=== PATIENT | male | born 1960 | race Caucasian/White ===

== ENCOUNTER 2020-09-25 06:37 | Inpatient (IN) | payer OTHER ==
[~2020-09-25] VITALS: Ht 185.4 cm; Wt 94.8 kg
[2020-09-25] MEDS ORDERED: IV NORMAL SALINE 1000ML BAG 1,000 ML IV ONE (07:00)
[2020-09-25] MEDS ORDERED: DEXAMETHASONE SOD PHOS 4 MG/ML VIAL IVP ONE (07:00)
--- NOTE | 2020-09-25 07:43 | PHYS DOC ---
Past Medical History Past Medical History: COPD, Diabetes-Type II, Hypertension Additional Past Medical Histor: BPH, BACK PAIN Past Surgical History: Appendectomy Smoking Status: Former Smoker Alcohol Use: None Drug Use: None General Adult EDM: Chief Complaint: SHORTNESS OF BREATH HPI: HPI: Patient is a 59 year old male presents via EMS from [facility] with report of progressive work of breathing x2 days with low O2 Sat at facility down to 78% on RA. Patient does have a history of COPD and cough. Patient also complains of headache. Upon arrival EMS noted patient was 84% and tripoding on 3 L nasal cannula. EMS reports giving a DuoNeb treatment x2 in route and placement of patient on a nonrebreather with subsequent improvement in up to 95%. Patient reports he believes he has received the [employer] COVID-19 vaccination x1 approximately 5 months ago at the [facility]. Patient denies known exposure to COVID-19. Patient reports he has been using a rescue MDI without significant improvement. Denies fever or chills. Denies trauma. Review of Systems: Review of Systems: Constitutional: Denies fever or chills Eyes: Denies redness or eye pain HENT: Denies nasal congestion or sore throat Respiratory: Reports cough and shortness of breath Cardiovascular: Denies chest pain or palpitations GI: Denies abdominal pain, nausea, or vomiting : Denies dysuria or hematuria Musculoskeletal: Denies back pain or leg pain Integument: Denies rash or skin lesions Neurologic: Reports headache; denies focal weakness or sensory changes Complete systems were reviewed and found to be within normal limits, except as documented in this note. Heart Score: C/O Chest Pain: N/A Current Medications: Current Medications Medications (Trade) Dose Ordered Sig/[facility] Start Time Stop Time Status Last Admin Dose Admin Dexamethasone Sodium Phosphate (Decadron) 10 mg 1X ONCE 09/25/20 07:00 09/25/20 07:01 DC Sodium Chloride 1,000 ml @ 1,000 mls/hr 1X ONCE 09/25/20 07:00 09/25/20 07:59 Allergies: Allergies: Allergies Coded Allergies Type Severity Reaction Last Updated Verified tramadol Adverse Reaction Mild Nausea 09/25/20 Yes Physical Exam: PE: Constitutional: Well developed, well nourished, increased work of breathing, non-toxic appearance HENT: Normocephalic, atraumatic Eyes: PERRL, EOMI, conjunctiva normal, no discharge Neck: Normal range of motion, no tenderness, supple Lungs & Thorax: Mild respiratory distress, tachypnea, equal chest rise and fall Abdomen: Soft, no tenderness Skin: Warm, dry, no erythema, no rash Extremities: No tenderness, ROM intact, no edema Neurologic: Alert and oriented X 3, normal motor function, normal sensory function, no focal deficits noted Psychologic: Affect normal, judgment normal Current Patient Data: Vital Signs: Vital Signs Date Time Temp Pulse Resp B/P (MAP) Pulse Ox O2 Delivery O2 Flow Rate FiO2 09/25/20 06:40 98.6 90 24 201/95 95 NonRebreather Mask 15.0 98.6 EKG: EK09/25/20 at 0727 Sinus rhythm, 87 BPM, QRS 92 ms, QT/QTc 362/436 ms Radiology/Procedures: Radiology/Procedures: PROCEDURE: CT ANGIOGRAPHY CHEST CTA CHEST History: Dyspnea, hypoxia, evaluate for PE. Comparison: None. Technique: CTA of the pulmonary arteries with intravenous contrast. Sagittal and coronal 3-D MIP reformats were provided. Findings: Pulmonary arteries: No pulmonary embolism. Aorta and great vessels: No aneurysm of the aortic arch or thoracic aorta is seen. Moderate atherosclerosis. Thyroid: No significant abnormalities. Mediastinum and nate: Mediastinal adenopathy with numerous prominent nodes including a millimeters short axis prevascular and 13 mm right lower pretrachea l. Additional lobular opacities in the lower mediastinum may represent varices rather than enlarged lymph nodes. Esophagus: Thickening of the distal esophagus. There is a 9 x 10 mm weight calcific density in the lumen of the distal esophagus which may represent ingested tablet. Heart: The heart is normal in size. There is no pericardial effusion. Moderate coronary artery calcification. Airways, Lungs, Pleura: Panlobular groundglass airspace disease. Bibasilar atelectasis. Trace left pleural effusion. Upper abdomen: Cirrhotic liver contours. Large gastrohepatic and splenic varices. Enlarged 15.4 cm spleen. Osseous structures and soft tissues: Within normal limits for age. Impression: 1. No pulmonary embolism, aortic aneurysm or aortic dissection. 2. Panlobular airspace disease, most likely multifocal pneumonia. Pulmonary edema is considered less likely. 3. 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 4. Thickened distal esophagus with 9 x 10 mm luminal density, likely ingested medication tablet. 5. Mediastinal adenopathy, may be reactive, however malignancy is not excluded. Recommend follow-up CT of the chest in 3 months. ------ Exposure: One or more of the following individualized dose reduction techniques were utilized for this examination: 1. Automated exposure control 2. Adjustment of the mA and/or kV according to patient size 3. Use of iterative reconstruction technique. Electronically signed by: Hernando Acharya MD (09/25/2020 10:17 AM) [facility] PROCEDURE: CT HEAD WO CONTRAST CT HEAD/BRAIN WO History: Headache Comparison: None. Technique: Noncontrast CT imaging was performed of the head. Findings: No intracranial hemorrhage. No mass effect. No hydrocephalus. No evidence of territorial infarction. Imaged orbits are unremarkable. Mild mucosal thickening involving ethmoid, left sphenoid and left maxillary sinuses. No acute calvarial fracture. Impression: 1. No acute intracranial abnormality. 2. Very mild paranasal sinus mucosal thickening. Correlate for symptoms of sinusitis. ----- Exposure: One or more of the following individualized dose reduction techniques were utilized for this examination: 1. Automated exposure control 2. Adjustment of the mA and/or kV according to patient size 3. Use of iterative reconstruction technique. Electronically signed by: Hernando Acharya MD (09/25/2020 10:04 AM) [facility] Course & Med Decision Making: Course & Med Decision Making Pertinent Labs and Imaging studies reviewed. (See chart for details) Patient presents with history of increased work of breathing x2 days with history of COPD. Patient had been found to have a low O2 sat down to 78% on room air. Patient was placed on 3 L via nasal cannula at the facility and EMS was called. EMS reports patient still down to 84% on 3 L nasal cannula. DuoNeb and nonrebreather placed with subsequent improvement upon patient transport. Patient in mild respiratory distress upon arrival to the ER. Steroid provided. Labs obtained and posted to chart. Cannot exclude COVID-19 infection despite patient reporting one-time dose of [employer] vaccination. Covid preca utions in place. COVID-19 testing pending. Patient reports significant headache. Patient subsequently with increased work of breathing. BiPAP therefore provided. CT head without acute process. CTA chest with multilobar pneumonia. Continued concern for COVID-19. Empiric antibiotic initiated. Patient requiring admission for further evaluation and treatment. Discussed with Dr. Jaime (hospitalist) who is in agreement with admission. Dr. Jaime requesting abdominal US given cirrhosis findings on CT. US ordered per requests from Dr. Jaime. Discussed findings and plan with patient, who acknowledges understanding and agreement. COVID-19 CRITERIA: The patient was evaluated during the global COVID-19 pandemic, and that diagnosis was suspected/considered upon their initial presentation. Their evaluation, treatment and testing was consistent with current guidelines for patients who present with complaints or symptoms that may be related to COVID-19. Dragon Disclaimer: Dragon Disclaimer: This electronic medical record was generated, in whole or in part, using a voice recognition dictation system. Departure Departure Impression: Primary Impression: Respiratory failure Qualified Codes: J96.01 - Acute respiratory failure with hypoxia Additional Impressions: Hypoxia Headache Qualified Codes: R51.9 - Headache, unspecified Pneumonia Qualified Codes: J18.9 - Pneumonia, unspecified organism Suspected 2019 novel coronavirus infection Disposition: ADMITTED INPATIENT Admitting Physician: MARIO ([facility]eni) Condition: GUARDED Referrals: NO PCP (PCP) COVID-19 Assessment: COVID-19 Patient Risks: Age 65 or older: No Sign of co-morbidity: Yes Exp to person + for COVID: No Exp to PUI: No Travel from affected area: No Lower respiratory symptoms: Yes Fever: No Other: Yes PPE Use: Full PPE with N95 mask or PAPR: Yes Critical Care Time Critical care time was 30 minutes which includes time at bedside, spent in discussion of patient's care with specialists and/or family members, with interpretation of laboratory and/or radiological studies and is exclusive of procedures. DARA BHATTI DO Sep 25, 2020 07:43
[2020-09-25 08:30] LABS: BASO % 1 % (0-3); EOS # 0.2 x10^3/uL (0.0-0.7); EOS % 3 % (0-3); HEMATOCRIT 39.1 % (39.0-53.0); HEMOGLOBIN 13.2 g/dL (13.0-17.5); LYMPH # 1.2 x10^3/uL (1.0-4.8); LYMPH % 15 % (24-48); MEAN CORPUSCULAR HEMOGLOBIN 32 pg (25-35); MEAN CORPUSCULAR HGB CONC 34 g/dL (31-37); MEAN CORPUSCULAR VOLUME 94 fL (79-100); MONO # 0.4 x10^3/uL (0.0-1.1); MONO % 4 % (0-9); NEUT # 6.4 x10^3/uL (1.8-7.7); NEUT % 78 % (31-73); PLATELET COUNT 72 x10^3/uL (140-400); RED BLOOD COUNT 4.17 x10^6/uL (4.30-5.70); RED CELL DISTRIBUTION WIDTH 13.8 % (11.5-14.5); WHITE BLOOD COUNT 8.2 x10^3/uL (4.0-11.0)
[2020-09-25 08:41] LABS: CALCIUM 7.9 mg/dL (8.5-10.1); CREATININE 0.5 mg/dL (0.7-1.3); GFR 170.2; POTASSIUM 4.1 mmol/L (3.5-5.1)
[2020-09-25 08:43] LABS: ALBUMIN 2.6 g/dL (3.4-5.0); ALBUMIN/GLOBULIN RATIO 0.8 (1.0-1.7); MAGNESIUM 1.7 mg/dL (1.8-2.4); TOTAL BILIRUBIN 1.8 mg/dL (0.2-1.0); TOTAL PROTEIN 5.9 g/dL (6.4-8.2)
[2020-09-25] MEDS ORDERED: KETOROLAC 15 MG/ML VIAL. IVP ONE (09:00)
[2020-09-25 09:04] LABS: BILIRUBIN,URINE NEGATIVE (NEG); CLARITY,URINE CLEAR; COLOR,URINE YELLOW; NITRITE,URINE NEGATIVE (NEG); PH,URINE 6.5 (<5.0-8.0); PROTEIN,URINE NEGATIVE (NEG-TRACE)
[2020-09-25 09:08] LABS: HCO3 COOX 24 mmol/L (21-28); PCO2 COOX 34 mmHg (35-46); PO2 COOX 67 mmHg (65-108)
[2020-09-25 09:09] LABS: BASE EXCESS COOX 1 mmol/L (-3-3); SAT O2 COOX 94 % (92-99)
[2020-09-25] MEDS ORDERED: ASPIRIN ENTERIC COATED 325 MG TABLET.DR. PO ONE (09:15)
[2020-09-25 09:18] LABS: BACTERIA,URINE FEW /HPF (0-FEW); RBC,URINE OCC /HPF (0-2)
[2020-09-25] MEDS ORDERED: CONTRAST GIVEN. MC PRN (10:00)
[2020-09-25] MEDS ORDERED: IOHEXOL 350 MG/ML 100 ML VIAL. IV ONE (10:00)
--- NOTE | 2020-09-25 10:06 | RAD ---
CT HEAD/BRAIN WO History: Headache Comparison: None. Technique: Noncontrast CT imaging was performed of the head. Findings: No intracranial hemorrhage. No mass effect. No hydrocephalus. No evidence of territorial infarction. Imaged orbits are unremarkable. Mild mucosal thickening involving ethmoid, left sphenoid and left max illary sinuses. No acute calvarial fracture. Impression: 1. No acute intracranial abnormality. 2. Very mild paranasal sinus mucosal thickening. Correlate for symptoms of sinusitis. ----- Exposure: One or more of the following individualized dose reduction techniques were utilized for thi s examination: 1. Automated exposure control 2. Adjustment of the mA and/or kV according to patient size 3. Use of iterative reconstruction technique. Electronically signed by: Hernando Acharya MD (09/25/2020 10:04 AM) [facility]
--- NOTE | 2020-09-25 10:19 | RAD ---
CTA CHEST History: Dyspnea, hypoxia, evaluate for PE. Comparison: None. Technique: CTA of the pulmonary arteries with intravenous contrast. Sagittal and coronal 3-D MIP refo rmats were provided. Findings: Pulmonary arteries: No pulmonary embolism. Aorta and great vessels: No aneurysm of the aortic arch or thoracic aorta is seen. Moderate atheroscl erosis. Thyroid: No significant abnormalities. Mediastinum and nate: Mediastinal adenopathy with numerous prominent nodes including a millimeters sh ort axis prevascular and 13 mm right lower pretracheal. Additional lobular opacities in the lower med iastinum may represent varices rather than enlarged lymph nodes. Esophagus: Thickening of the distal esophagus. There is a 9 x 10 mm weight calcific density in the gillian men of the distal esophagus which may represent ingested tablet. Heart: The heart is normal in size. There is no pericardial effusion. Moderate coronary artery calcif ication. Airways, Lungs, Pleura: Panlobular groundglass airspace disease. Bibasilar atelectasis. Trace left pl eural effusion. Upper abdomen: Cirrhotic liver contours. Large gastrohepatic and splenic varices. Enlarged 15.4 cm sp tish. Osseous structures and soft tissues: Within normal limits for age. Impression: 1. No pulmonary embolism, aortic aneurysm or aortic dissection. 2. Panlobular airspace disease, most likely multifocal pneumonia. Pulmonary edema is considered less likely. 3. 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 4. Thickened distal esophagus with 9 x 10 mm luminal density, likely ingested medication tablet. 5. Mediastinal adenopathy, may be reactive, however malignancy is not excluded. Recommend follow-up CT of the chest in 3 months. ------ Exposure: One or more of the following individualized dose reduction techniques were utilized for thi s examination: 1. Automated exposure control 2. Adjustment of the mA and/or kV according to patient size 3. Use of iterative reconstruction technique. Electronically signed by: Hernando Acharya MD (09/25/2020 10:17 AM) [facility]
[2020-09-25] MEDS ORDERED: AZITHRMYCN 500MG IVPB FOR OMNI 250 ML IV ONE (10:30)
[2020-09-25] MEDS ORDERED: cefTRIAXone IV Push 1 GM VIAL. IVP ONE (10:30)
--- NOTE | 2020-09-25 10:30 | PDOC1 ---
History and Physical Date of Admission Date of Admission DATE: 09/25/20 TIME: 10:30 Identification/Chief Complaint Chief Complaint SOA WITH HYPOXIA WORSE TODAY History of Present Illness History of Present Illness 59 year old male presented via EMS from [facility] with work of breathing x2 days with low O2 Sat at facility down to 78% on RA. known history of COPD and cough. Patient also complains of headache. EMS noted patient was 84% and tripoding on 3 L nasal cannula. EMS reports giving a DuoNeb treatment x2 in route and placement nonrebreather with subsequent improvement in up to 95%. remote alcohol abuse YRS AGO , smoked until one month ago when he was arrested received the [employer] COVID-19 vaccination x1 approximately 5 months ag o at the NH. Patient denies known exposure to COVID-19. Panlobular airspace disease,c/w multifocal pneumonia. PUI Pulmonary edema less likely. 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 Remote alcohol abuse "6-8 cans of beer a day years ago" Thickened distal esophagus with 9 x 10 mm luminal density, likely ingested medication tablet. Mediastinal adenopathy, malignancy is not excluded.suggest follow-up CT of the chest in 3 months. / Hyperglycemia on accuchecks // Severe protein-caloric malnutrition CTA CHEST C/W Panlobular airspace disease, most likely multifocal pneumonia. 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.noted PLAN Emperic iv zithromax, rocephin daily / COVID 19 PCR / Consult pulm / Abdominal sonogram blood culture o2 support / Duonebs qid dvt prophylaxis GI prophylaxis DUONEBS QID Past Medical History Past Medical History Past Medical History Past Medical History: COPD, Diabetes-Type II, Hypertension Additional Past Medical Histor: BPH, BACK PAIN Past Surgical History: Appendectomy Smoking Status: Former Smoker Alcohol Use: None Drug Use: None Hepatobiliary: Cirrhosis Psych: Addictions Musculoskeletal: Osteoarthritis Family History Family History: High Cholestrol, Hypertension Social History Smoke: Quit ALCOHOL: heavy Drugs: Marijuana (REMOTE) Current Problem List Problem List Problems Medical Problems: (1) COPD exacerbation Status: Acute (2) Headache Status: Acute (3) Hypoxia Status: Acute (4) Respiratory failure Status: Acute Current Medications Current Medications Current Medications Sodium Chloride 1,000 ml @ 1,000 mls/hr 1X ONCE IV Last administered on 09/25/20at 08:27; Start 09/25/20 at 07:00; Stop 09/25/20 at 07:59; Status DC Dexamethasone Sodium Phosphate (Decadron) 10 mg 1X ONCE IVP Last administered on 09/25/20at 08:24; Start 09/25/20 at 07:00; Stop 09/25/20 at 07:01; Status DC Ketorolac Tromethamine (Toradol 15mg Vial) 15 mg 1X ONCE IVP Last administered on 09/25/20at 09:35; Start 09/25/20 at 09:00; Stop 09/25/20 at 09:01; Status DC Aspirin (Ecotrin) 325 mg 1X ONCE PO Last administered on 09/25/20at 09:35; Start 09/25/20 at 09:15; Stop 09/25/20 at 09:16; Status DC Iohexol (Omnipaque 350 Mg/ml) 100 ml 1X ONCE IV Last administered on 09/25/20at 10:05; Start 09/25/20 at 10:00; Stop 09/25/20 at 10:01; Status DC Info (CONTRAST GIVEN -- Rx MONITORING) 1 each PRN DAILY PRN MC SEE COMMENTS; Start 09/25/20 at 10:00; Stop 09/27/20 at 09:59 Allergies Allergies: Coded Allergies: tramadol (Verified Adverse Reaction, Mild, Nausea, 09/25/20) ROS Review of System 14 PT systems were reviewed otherwise neg General: YES: Fatigue; No: Chills, Night Sweats, Malaise, Appetite, Other PSYCHOLOGICAL ROS: No: Anxiety, Behavioral Disorder, Concentration difficultie, Decreased libido, Depression, Disorientation, Hallucinations, Hostility, Irritablity, Memory difficulties, Mood Swings, Obsessive thoughts, Physical abuse, Sexual abuse, Sleep disturbances, Suicidal ideation, Other Eyes: No Blurry vision, No Decreased vision, No Double vision, No Dry eyes, No Excessive tearing, No Eye Pain, No Itchy Eyes, No Loss of vision, No Photophobia, No Scotomata, No Uses contacts, No Uses glasses, No Other HEENT: YES: Heacaches; No: Visual Changes, Hearing change, Nasal congestion, Nasal discharge, Oral lesions, Sinus pain, Sore Throat, Epistaxis, Sneezing, Snoring, Tinnitus, Vertigo, Vocal changes, Other ALLERGY AND IMMUNOLOGY: YES: Hives; No: Insect Bite Sensitivity, Itchy/Watery Eyes, Nasal Congestion, Post Nasal Drip, Seasonal Allergies, Other Hematological and Lymphatic: No: Bleeding Problems, Blood Clots, Blood Transfusions, Brusing, Night Sweats, Pallor, Swollen Lymph Nodes, Other ENDOCRINE: No: Breast Changes, Galactorrhea, Hair Pattern Changes, Hot Flashes, Malaise/lethargy, Mood Swings, Palpitations, Polydipsia/polyuria, Skin Changes, Temperature Intolerance, Unexpected Weight Changes, Other Breast: No New/Changing Breast Lumps, No Nipple changes, No Nipple discharge, No Other Respiratory: YES: Cough, Shortness of breath, SOB with excertion, Wheezing Cardiovascular: No Chest Pain, No Palpitations, No Orthopnea, No Paroxysmal Noc. Dyspnea, No Edema, No Lt Headedness, No Other Gastrointestinal: No Nausea, No Vomiting, No Abdominal Pain, No Diarrhea, No Constipation, No Melena, No Hematochezia, No Other Genitourinary: No Dysuria, No Frequency, No Incontinence, No Hematuria, No Retention, No Discharge, No Urgency, No Pain, No Flank Pain, No Other, No , No , No , No , No , No , No Musculoskeletal: No Gait Disturbance, No Joint Pain, No Joint Stiffness, No Joint Swelling, No Muscle Pain, No Muscular Weakness, No Pain In:, No Swelling In:, No Other Neurological: No Behavorial Changes, No Bowel/Bladder ControlChng, No Confusion, No Dizziness, No Gait Disturbance, No Headaches, No Impaired Coord/balance, No Memory Loss, No Numbness/Tingling, No Seizures, No Speech Problems, No Tremors, No Visual Changes, No Weakness, No Other Skin: No Dry Skin, No Eczema, No Hair Changes, No Lumps, No Mole Changes, No Mottling, No Nail Changes, No Pruritus, No Rash, No Skin Lesion Changes, No Other, No Acne Physical Exam General: Alert, Oriented X3, Cooperative, No acute distress, mild distress HEENT: Atraumatic, PERRLA, EOMI, Mucous membr. moist/pink Lungs: Other (diminished ) Heart: S1S2, RRR, no thrills, no gallops, no jug vein distention Breasts: Not examined Abdomen: Normal bowel sounds, Soft, No tenderness, No masses, Other (obese) Rectal Exam: not examined PELVIC: Examination not indicated Extremities: No cyanosis Neuro: Normal speech, Strength at 5/5 X4 ext, Sensation intact, Cranial nerves 3-12 NL Psych/Mental Status: Mental status NL Vitals Vitals Vital Signs Date Time Temp Pulse Resp B/P (MAP) Pulse Ox O2 Delivery O2 Flow Rate FiO2 09/25/20 10:08 94 BiPAP/CPAP 09/25/20 06:40 98.6 90 24 201/95 15.0 98.6 Labs Labs Laboratory Tests Test 09/25/20 08:13 09/25/20 08:19 09/25/20 08:55 09/25/20 09:02 White Blood Count 8.2 x10^3/uL (4.0-11.0) Red Blood Count 4.17 x10^6/uL (4.30-5.70) Hemoglobin 13.2 g/dL (13.0-17.5) Hematocrit 39.1 % (39.0-53.0) Mean Corpuscular Volume 94 fL (79-100) Mean Corpuscular Hemoglobin 32 pg (25-35) Mean Corpuscular Hemoglobin Concent 34 g/dL (31-37) Red Cell Distribution Width 13.8 % (11.5-14.5) Platelet Count 72 x10^3/uL (140-400) Neutrophils (%) (Auto) 78 % (31-73) Lymphocytes (%) (Auto) 15 % (24-48) Monocytes (%) (Auto) 4 % (0-9) Eosinophils (%) (Auto) 3 % (0-3) Basophils (%) (Auto) 1 % (0-3) Neutrophils # (Auto) 6.4 x10^3/uL (1.8-7.7) Lymphocytes # (Auto) 1.2 x10^3/uL (1.0-4.8) Monocytes # (Auto) 0.4 x10^3/uL (0.0-1.1) Eosinophils # (Auto) 0.2 x10^3/uL (0.0-0.7) Basophils # (Auto) 0.0 x10^3/uL (0.0-0.2) Sodium Level 140 mmol/L (136-145) Potassium Level 4.1 mmol/L (3.5-5.1) Chloride Level 107 mmol/L (98-107) Carbon Dioxide Level 23 mmol/L (21-32) Anion Gap 10 (6-14) Blood Urea Nitrogen 9 mg/dL (8-26) Creatinine 0.5 mg/dL (0.7-1.3) Estimated GFR (Cockcroft-Gault) 170.2 BUN/Creatinine Ratio 18 (6-20) Glucose Level 219 mg/dL (70-99) Lactic Acid Level 1.4 mmol/L (0.4-2.0) Calcium Level 7.9 mg/dL (8.5-10.1) Magnesium Level 1.7 mg/dL (1.8-2.4) Total Bilirubin 1.8 mg/dL (0.2-1.0) Aspartate Amino Transf (AST/SGOT) 51 U/L (15-37) Alanine Aminotransferase (ALT/SGPT) 38 U/L (16-63) Alkaline Phosphatase 88 U/L (46-116) Creatine Kinase 95 U/L (39-308) Creatine Kinase MB (Mass) 1.0 ng/mL (0.0-3.6) Creatine Kinase MB Relative Index 1.1 % (0-4) Troponin I Quantitative < 0.017 ng/mL (0.000-0.055) VL-Dhk-C-Type Natriuretic Peptide 861 pg/mL (0-124) Total Protein 5.9 g/dL (6.4-8.2) Albumin 2.6 g/dL (3.4-5.0) Albumin/Globulin Ratio 0.8 (1.0-1.7) SARS-CoV-2 Antigen (Rapid) Negative (NEGATIVE) Urine Collection Type Void Urine Color Yellow Urine Clarity Clear Urine pH 6.5 (<5.0-8.0) Urine Specific [place] 1.020 (1.000-1.030) Urine Protein Negative mg/dL (NEG-TRACE) Urine Glucose (UA) >=1000 mg/dL (NEG) Urine Ketones (Stick) Negative mg/dL (NEG) Urine Blood Negative (NEG) Urine Nitrite Negative (NEG) Urine Bilirubin Negative (NEG) Urine Urobilinogen Dipstick 1.0 mg/dL (0.2 mg/dL) Urine Leukocyte Esterase Negative (NEG) Urine RBC Occ /HPF (0-2) Urine WBC 1-4 /HPF (0-4) Urine Squamous Epithelial Cells Few /LPF Urine Bacteria Few /HPF (0-FEW) Urine Mucus Slight /LPF O2 Saturation 94 % (92-99) Arterial Blood pH 7.46 (7.35-7.45) Arterial Blood pCO2 at Patient Temp 34 mmHg (35-46) Arterial Blood pO2 at Patient Temp 67 mmHg (65-108) Arterial Blood HCO3 24 mmol/L (21-28) Arterial Blood Base Excess 1 mmol/L (-3-3) Carbon Monoxide, Quantitative 2.0 % (0.0-1.9) FiO2 100 Laboratory Tests Test 09/25/20 08:13 09/25/20 08:19 09/25/20 08:55 09/25/20 09:02 White Blood Count 8.2 x10^3/uL (4.0-11.0) Red Blood Count 4.17 x10^6/uL (4.30-5.70) Hemoglobin 13.2 g/dL (13.0-17.5) Hematocrit 39.1 % (39.0-53.0) Mean Corpuscular Volume 94 fL (79-100) Mean Corpuscular Hemoglobin 32 pg (25-35) Mean Corpuscular Hemoglobin Concent 34 g/dL (31-37) Red Cell Distribution Width 13.8 % (11.5-14.5) Platelet Count 72 x10^3/uL (140-400) Neutrophils (%) (Auto) 78 % (31-73) Lymphocytes (%) (Auto) 15 % (24-48) Monocytes (%) (Auto) 4 % (0-9) Eosinophils (%) (Auto) 3 % (0-3) Basophils (%) (Auto) 1 % (0-3) Neutrophils # (Auto) 6.4 x10^3/uL (1.8-7.7) Lymphocytes # (Auto) 1.2 x10^3/uL (1.0-4.8) Monocytes # (Auto) 0.4 x10^3/uL (0.0-1.1) Eosinophils # (Auto) 0.2 x10^3/uL (0.0-0.7) Basophils # (Auto) 0.0 x10^3/uL (0.0-0.2) Sodium Level 140 mmol/L (136-145) Potassium Level 4.1 mmol/L (3.5-5.1) Chloride Level 107 mmol/L (98-107) Carbon Dioxide Level 23 mmol/L (21-32) Anion Gap 10 (6-14) Blood Urea Nitrogen 9 mg/dL (8-26) Creatinine 0.5 mg/dL (0.7-1.3) Estimated GFR (Cockcroft-Gault) 170.2 BUN/Creatinine Ratio 18 (6-20) Glucose Level 219 mg/dL (70-99) Lactic Acid Level 1.4 mmol/L (0.4-2.0) Calcium Level 7.9 mg/dL (8.5-10.1) Magnesium Level 1.7 mg/dL (1.8-2.4) Total Bilirubin 1.8 mg/dL (0.2-1.0) Aspartate Amino Transf (AST/SGOT) 51 U/L (15-37) Alanine Aminotransferase (ALT/SGPT) 38 U/L (16-63) Alkaline Phosphatase 88 U/L (46-116) Creatine Kinase 95 U/L (39-308) Creatine Kinase MB (Mass) 1.0 ng/mL (0.0-3.6) Creatine Kinase MB Relative Index 1.1 % (0-4) Troponin I Quantitative < 0.017 ng/mL (0.000-0.055) YL-Lvs-B-Type Natriuretic Peptide 861 pg/mL (0-124) Total Protein 5.9 g/dL (6.4-8.2) Albumin 2.6 g/dL (3.4-5.0) Albumin/Globulin Ratio 0.8 (1.0-1.7) SARS-CoV-2 Antigen (Rapid) Negative (NEGATIVE) Urine Collection Type Void Urine Color Yellow Urine Clarity Clear Urine pH 6.5 (<5.0-8.0) Urine Specific [place] 1.020 (1.000-1.030) Urine Protein Negative mg/dL (NEG-TRACE) Urine Glucose (UA) >=1000 mg/dL (NEG) Urine Ketones (Stick) Negative mg/dL (NEG) Urine Blood Negative (NEG) Urine Nitrite Negative (NEG) Urine Bilirubin Negative (NEG) Urine Urobilinogen Dipstick 1.0 mg/dL (0.2 mg/dL) Urine Leukocyte Esterase Negative (NEG) Urine RBC Occ /HPF (0-2) Urine WBC 1-4 /HPF (0-4) Urine Squamous Epithelial Cells Few /LPF Urine Bacteria Few /HPF (0-FEW) Urine Mucus Slight /LPF O2 Saturation 94 % (92-99) Arterial Blood pH 7.46 (7.35-7.45) Arterial Blood pCO2 at Patient Temp 34 mmHg (35-46) Arterial Blood pO2 at Patient Temp 67 mmHg (65-108) Arterial Blood HCO3 24 mmol/L (21-28) Arterial Blood Base Excess 1 mmol/L (-3-3) Carbon Monoxide, Quantitative 2.0 % (0.0-1.9) FiO2 100 Images Images Signed PATIENT: BHAVESH SIMMONS ACCOUNT: [id number] : 1960 LOCATION: ER AGE: 59 SEX: M EXAM STATUS: REG ER ORD. PHYSICIAN: DARA BHATTI DO REASON: dyspnea, hypoxia, eval for PE PROCEDURE: CT ANGIOGRAPHY CHEST CTA CHEST History: Dyspnea, hypoxia, evaluate for PE. Comparison: None. Technique: CTA of the pulmonary arteries with intravenous contrast. Sagittal and coronal 3-D MIP reformats were provided. Findings: Pulmonary arteries: No pulmonary embolism. Aorta and great vessels: No aneurysm of the aortic arch or thoracic aorta is seen. Moderate atherosclerosis. Thyroid: No significant abnormalities. Mediastinum and nate: Mediastinal adenopathy with numerous prominent nodes including a millimeters short axis prevascular and 13 mm right lower pretracheal. Additional lobular opacities in the lower mediastinum may represent varices rather than enlarged lymph nodes. Esophagus: Thickening of the distal esophagus. There is a 9 x 10 mm weight calcific density in the lumen of the distal esophagus which may represent ingested tablet. Heart: The heart is normal in size. There is no pericardial effusion. Moderate coronary artery calcification. Airways, Lungs, Pleura: Panlobular groundglass airspace disease. Bibasilar atelectasis. Trace left pleural effusion. Upper abdomen: Cirrhotic liver contours. Large gastrohepatic and splenic varices. Enlarged 15.4 cm spleen. Osseous structures and soft tissues: Within normal limits for age. Impression: 1. No pulmonary embolism, aortic aneurysm or aortic dissection. 2. Panlobular airspace disease, most likely multifocal pneumonia. Pulmonary edema is considered less likely. 3. 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 4. Thickened distal esophagus with 9 x 10 mm luminal density, likely ingested m edication tablet. 5. Mediastinal adenopathy, may be reactive, however malignancy is not excluded. Recommend follow-up CT of the chest in 3 months. ------ Exposure: One or more of the following individualized dose reduction techniques were utilized for this examination: 1. Automated exposure control 2. Adjustment of the mA and/or kV according to patient size 3. Use of iterative reconstruction technique. Electronically signed by: Hernando Dorado MD (09/25/2020 10:17 AM) [facility] DICTATED and SIGNED BY: HERNANDO DORADO MD DATE: 09/25/20 [id number] VTE Prophylaxis Ordered VTE Prophylaxis Devices: Yes VTE Pharmacological Prophylaxi: Yes Assessment/Plan Assessment/Plan impression- Acute exacerbation of COPD with acute pneumonia, gram neg and or gram positive Acute hypoxic respiratory failure No pulmonary embolism, aortic aneurysm or aortic dissection. Panlobular airspace disease,c/w multifocal pneumonia. PUI Pulmonary edema less likely. 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 Remote alcohol abuse "6-8 cans of beer a day years ago" Thickened distal esophagus with 9 x 10 mm luminal density, likely ingested medication tablet. Mediastinal adenopathy, malignancy is not excluded.suggest follow-up CT of the chest in 3 months. Hyperglycemia on accuchecks Severe protein-caloric malnutrition Hypomagnesemia on iv replacement Headache PLAN ADMIT Emperic iv zithromax, rocephin daily COVID 19 PCR Consult pulm Abdominal sonogram blood culture o2 support Duonebs qid dvt prophylaxis GI prophylaxis DUONEBS QID DVT PROPHYLAXIS GI PROPHYLAXIS D/W ER DR ESTIMATE LOS > 3 DAYS COVID-19 CRITERIA: The patient was evaluated during the global COVID-19 pandemic, and that diagnosis was suspected/considered upon their initial presentation. Their evaluation, treatment and testing was consistent with current guidelines for patients who present with complaints or symptoms that may be related to COVID-19. Justifications for Admission Other Justification NIRANJAN KIM MD Sep 25, 2020 10:30
[2020-09-25] MEDS ORDERED: ONDANSETRON PF 4 MG/2 ML VIAL. IV PRN ×2 (10:45→13:00)
[2020-09-25] MEDS ORDERED: DEXTROSE 50% 25 GM / 50ML DISP.SYRIN. IV PRN (10:45)
[2020-09-25] MEDS ORDERED: LABETALOL 20 MG/4 ML DISP.SYRIN. IVP ONE ×2 (11:42→12:00)
[2020-09-25] MEDS: INSULIN LISPRO 300 UNITS/3 ML VIAL. SQ SCH ×3 (11:59→17:16)
[2020-09-25] MEDS: fentaNYL PF VIAL 100 MCG/2 ML VIAL IV PRN ×2 (12:07→14:20)
[2020-09-25] MEDS ORDERED: guaiFENesin ORAL 200 MG/10 ML LIQUID. PO PRN (13:00)
[2020-09-25] MEDS ORDERED: MAG HYDROX/ALUMINUM HYD/SIMETH 30 ML ORAL.SUSP PO PRN (13:00)
[2020-09-25] MEDS ORDERED: cefTRIAXone IV Push 1 GM VIAL. IVP SCH (13:00)
[2020-09-25] MEDS ORDERED: 0.9 % SODIUM CHLORIDE 10 ML DISP.SYRIN. IV PRN (13:00)
[2020-09-25] MEDS ORDERED: cloNIDine HCL 0.1 MG TABLET PO PRN (13:00)
[2020-09-25] MEDS ORDERED: SODIUM PHOSPHATES 19/7GM 133 ML ENEMA. PR PRN (13:00)
[2020-09-25] MEDS ORDERED: ACETAMINOPHEN 325 MG TABLET. PO PRN (13:00)
[2020-09-25] MEDS ORDERED: DOCUSATE SODIUM 100 MG CAPSULE. PO PRN (13:00)
[2020-09-25] MEDS ORDERED: MAGNESIUM SULFATE 1GM 100 ML IV ONE (13:30)
[2020-09-25] MEDS: IPRATRPIUM/ALBUTEROL 0.5/2.5MG 3 ML NEBU. NEB SCH ×2 (13:38→18:32)
--- NOTE | 2020-09-25 14:56 | RAD ---
US ABDOMEN LIMITED History: Ascites check. Comparison: CT angiogram of the chest 09/25/2020. Technique: Limited sonographic evaluation of the abdomen for ascites. Findings/ impression: Images of the right upper quadrant, left upper quadrant, right lower quadrant and left lo wer quadrant demonstrate no ascites. Electronically signed by: Hernando Acharya MD (09/25/2020 2:53 PM) [id number]
[2020-09-25 15:18] LABS: BASE EXCESS COOX -2 mmol/L (-3-3); HCO3 COOX 23 mmol/L (21-28); METHEMOGLOBIN 0.3 % (0.0-1.9); OXYHEMOGLOBIN 94.2 %; PCO2 COOX 36 mmHg (35-46); PO2 COOX 84 mmHg (65-108); SAT O2 COOX 96 % (92-99)
[2020-09-25 15:30] VITALS: BP 153/83
[2020-09-25 19:00] VITALS: BP 144/75
--- NOTE | 2020-09-25 20:29 | EKG ---
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
[2020-09-25] MEDS: ENOXAPARIN 40 MG/0.4 ML SYRINGE. SQ SCH (20:35)
[2020-09-25 23:00] VITALS: BP 140/73
[2020-09-26 03:00] VITALS: BP 141/70
[2020-09-26 03:56] LABS: BASO % 0 % (0-3); EOS % 0 % (0-3); HEMATOCRIT 38.5 % (39.0-53.0); LYMPH # 0.6 x10^3/uL (1.0-4.8); LYMPH % 10 % (24-48); MEAN CORPUSCULAR HEMOGLOBIN 32 pg (25-35); MEAN CORPUSCULAR HGB CONC 34 g/dL (31-37); MEAN CORPUSCULAR VOLUME 94 fL (79-100); MONO # 0.3 x10^3/uL (0.0-1.1); MONO % 5 % (0-9); NEUT # 5.1 x10^3/uL (1.8-7.7); NEUT % 84 % (31-73); PLATELET COUNT 65 x10^3/uL (140-400); RED BLOOD COUNT 4.09 x10^6/uL (4.30-5.70); RED CELL DISTRIBUTION WIDTH 14.2 % (11.5-14.5); WHITE BLOOD COUNT 6.1 x10^3/uL (4.0-11.0)
[2020-09-26 05:41] LABS: CALCIUM 8.4 mg/dL (8.5-10.1); CREATININE 0.7 mg/dL (0.7-1.3); GFR 115.4; POTASSIUM 4.2 mmol/L (3.5-5.1)
[2020-09-26] MEDS: IPRATROPIUM/ALBUTEROL 20/100mcg/INH INHALER. INH SCH ×5 (06:33→22:00)
[2020-09-26 07:00] VITALS: BP 142/73
[2020-09-26] MEDS ORDERED: AZITHRMYCN 500MG IVPB FOR OMNI 250 ML IV SCH (07:00)
[2020-09-26 07:42] LABS: BASE EXCESS ABG 0 mmol/L (-3-3); HCO3 ABG 23 mmol/L (21-28); PCO2 ABG 35 mmHg (35-46); PO2 ABG 74 mmHg (65-108); SAT O2 ABG 96 % (92-99)
[2020-09-26] MEDS ORDERED: [UNRECOGNIZED DRUG - CODE] SQ ×2 (07:47)
[2020-09-26] MEDS ORDERED: TAMS0.4C97 PO (07:47)
[2020-09-26] MEDS ORDERED: METO25TA4 PO (07:47)
[2020-09-26] MEDS ORDERED: NAPR-514 PO (07:47)
[2020-09-26] MEDS ORDERED: ALBU2.5V8 IH (07:47)
[2020-09-26] MEDS ORDERED: INSU100V11 IJ (07:47)
[2020-09-26] MEDS ORDERED: CICL6.1H3 IH (07:47)
[2020-09-26] MEDS: INSULIN LISPRO 300 UNITS/3 ML VIAL. SQ SCH ×4 (08:00→17:26)
[2020-09-26 08:30] LABS: FIO2 ABG 65/BIPAP
[2020-09-26] MEDS: PANTOPRAZOLE IV PUSH 40 MG VIAL. IVP SCH (08:49)
[2020-09-26] MEDS: DEXAMETHASONE SOD PHOS 4 MG/ML VIAL IVP SCH (08:49)
[2020-09-26] MEDS: cefTRIAXone IV Push 1 GM VIAL. IVP SCH (08:54)
[2020-09-26] MEDS: fentaNYL PF VIAL 100 MCG/2 ML VIAL IV PRN (09:04)
[2020-09-26 11:00] VITALS: BP 168/65
[2020-09-26] MEDS: FLUTICASONE 50MCG/NASAL SPRAY 16GM BOTTLE. NS SCH (11:32)
[2020-09-26] MEDS: AZITHROMYCIN 500 MG in IV NORMAL SALINE 250ML 250 ML IV SCH (12:25)
--- NOTE | 2020-09-26 14:17 | PDOC ---
PULMONARY PROGRESS NOTES DATE: 09/26/20 TIME: 14:17 Vitals Vital Signs Date Time Temp Pulse Resp B/P (MAP) Pulse Ox O2 Delivery O2 Flow Rate FiO2 09/26/20 11:07 95 BiPAP/CPAP 09/26/20 11:00 98.5 91 46 168/65 (99) 98.5 09/26/20 09:04 15.0 Labs Laboratory Tests Test 09/25/20 08:13 09/25/20 08:19 09/25/20 08:55 09/25/20 09:02 White Blood Count 8.2 x10^3/uL (4.0-11.0) Red Blood Count 4.17 x10^6/uL (4.30-5.70) Hemoglobin 13.2 g/dL (13.0-17.5) Hematocrit 39.1 % (39.0-53.0) Mean Corpuscular Volume 94 fL (79-100) Mean Corpuscular Hemoglobin 32 pg (25-35) Mean Corpuscular Hemoglobin Concent 34 g/dL (31-37) Red Cell Distribution Width 13.8 % (11.5-14.5) Platelet Count 72 x10^3/uL (140-400) Neutrophils (%) (Auto) 78 % (31-73) Lymphocytes (%) (Auto) 15 % (24-48) Monocytes (%) (Auto) 4 % (0-9) Eosinophils (%) (Auto) 3 % (0-3) Basophils (%) (Auto) 1 % (0-3) Neutrophils # (Auto) 6.4 x10^3/uL (1.8-7.7) Lymphocytes # (Auto) 1.2 x10^3/uL (1.0-4.8) Monocytes # (Auto) 0.4 x10^3/uL (0.0-1.1) Eosinophils # (Auto) 0.2 x10^3/uL (0.0-0.7) Basophils # (Auto) 0.0 x10^3/uL (0.0-0.2) Sodium Level 140 mmol/L (136-145) Potassium Level 4.1 mmol/L (3.5-5.1) Chloride Level 107 mmol/L (98-107) Carbon Dioxide Level 23 mmol/L (21-32) Anion Gap 10 (6-14) Blood Urea Nitrogen 9 mg/dL (8-26) Creatinine 0.5 mg/dL (0.7-1.3) Estimated GFR (Cockcroft-Gault) 170.2 BUN/Creatinine Ratio 18 (6-20) Glucose Level 219 mg/dL (70-99) Lactic Acid Level 1.4 mmol/L (0.4-2.0) Calcium Level 7.9 mg/dL (8.5-10.1) Magnesium Level 1.7 mg/dL (1.8-2.4) Total Bilirubin 1.8 mg/dL (0.2-1.0) Aspartate Amino Transf (AST/SGOT) 51 U/L (15-37) Alanine Aminotransferase (ALT/SGPT) 38 U/L (16-63) Alkaline Phosphatase 88 U/L (46-116) Creatine Kinase 95 U/L (39-308) Creatine Kinase MB (Mass) 1.0 ng/mL (0.0-3.6) Creatine Kinase MB Relative Index 1.1 % (0-4) Troponin I Quantitative < 0.017 ng/mL (0.000-0.055) SF-Ijo-N-Type Natriuretic Peptide 861 pg/mL (0-124) Total Protein 5.9 g/dL (6.4-8.2) Albumin 2.6 g/dL (3.4-5.0) Albumin/Globulin Ratio 0.8 (1.0-1.7) SARS-CoV-2 RNA (SAILAJA) Positive (Negative) SARS-CoV-2 Antigen (Rapid) Negative (NEGATIVE) Urine Collection Type Void Urine Color Yellow Urine Clarity Clear Urine pH 6.5 (<5.0-8.0) Urine Specific [place] 1.020 (1.000-1.030) Urine Protein Negative mg/dL (NEG-TRACE) Urine Glucose (UA) >=1000 mg/dL (NEG) Urine Ketones (Stick) Negative mg/dL (NEG) Urine Blood Negative (NEG) Urine Nitrite Negative (NEG) Urine Bilirubin Negative (NEG) Urine Urobilinogen Dipstick 1.0 mg/dL (0.2 mg/dL) Urine Leukocyte Esterase Negative (NEG) Urine RBC Occ /HPF (0-2) Urine WBC 1-4 /HPF (0-4) Urine Squamous Epithelial Cells Few /LPF Urine Bacteria Few /HPF (0-FEW) Urine Mucus Slight /LPF O2 Saturation 94 % (92-99) Arterial Blood pH 7.46 (7.35-7.45) Arterial Blood pCO2 at Patient Temp 34 mmHg (35-46) Arterial Blood pO2 at Patient Temp 67 mmHg (65-108) Arterial Blood HCO3 24 mmol/L (21-28) Arterial Blood Base Excess 1 mmol/L (-3-3) Carbon Monoxide, Quantitative 2.0 % (0.0-1.9) FiO2 100 Test 09/25/20 14:35 09/25/20 15:15 09/25/20 17:00 09/25/20 20:05 Troponin I Quantitative < 0.017 ng/mL (0.000-0.055) O2 Saturation 96 % (92-99) Arterial Blood pH 7.41 (7.35-7.45) Arterial Blood pCO2 at Patient Temp 36 mmHg (35-46) Arterial Blood pO2 at Patient Temp 84 mmHg (65-108) Arterial Blood HCO3 23 mmol/L (21-28) Arterial Blood Base Excess -2 mmol/L (-3-3) Oxyhemoglobin 94.2 % Methemoglobin 0.3 % (0.0-1.9) Carbon Monoxide, Quantitative 1.5 % (0.0-1.9) FiO2 50% bipap Glucose (Fingerstick) 323 mg/dL (70-99) 306 mg/dL (70-99) Test 09/26/20 01:30 09/26/20 07:20 09/26/20 08:10 09/26/20 12:03 White Blood Count 6.1 x10^3/uL (4.0-11.0) Red Blood Count 4.09 x10^6/uL (4.30-5.70) Hemoglobin 13.0 g/dL (13.0-17.5) Hematocrit 38.5 % (39.0-53.0) Mean Corpuscular Volume 94 fL (79-100) Mean Corpuscular Hemoglobin 32 pg (25-35) Mean Corpuscular Hemoglobin Concent 34 g/dL (31-37) Red Cell Distribution Width 14.2 % (11.5-14.5) Platelet Count 65 x10^3/uL (140-400) Neutrophils (%) (Auto) 84 % (31-73) Lymphocytes (%) (Auto) 10 % (24-48) Monocytes (%) (Auto) 5 % (0-9) Eosinophils (%) (Auto) 0 % (0-3) Basophils (%) (Auto) 0 % (0-3) Neutrophils # (Auto) 5.1 x10^3/uL (1.8-7.7) Lymphocytes # (Auto) 0.6 x10^3/uL (1.0-4.8) Monocytes # (Auto) 0.3 x10^3/uL (0.0-1.1) Eosinophils # (Auto) 0.0 x10^3/uL (0.0-0.7) Basophils # (Auto) 0.0 x10^3/uL (0.0-0.2) Sodium Level 141 mmol/L (136-145) Potassium Level 4.2 mmol/L (3.5-5.1) Chloride Level 108 mmol/L (98-107) Carbon Dioxide Level 24 mmol/L (21-32) Anion Gap 9 (6-14) Blood Urea Nitrogen 14 mg/dL (8-26) Creatinine 0.7 mg/dL (0.7-1.3) Estimated GFR (Cockcroft-Gault) 115.4 Glucose Level 261 mg/dL (70-99) Calcium Level 8.4 mg/dL (8.5-10.1) Troponin I Quantitative < 0.017 ng/mL (0.000-0.055) O2 Saturation 96 % (92-99) Arterial Blood pH 7.45 (7.35-7.45) Arterial Blood pCO2 at Patient Temp 35 mmHg (35-46) Arterial Blood pO2 at Patient Temp 74 mmHg (65-108) Arterial Blood HCO3 23 mmol/L (21-28) Arterial Blood Base Excess 0 mmol/L (-3-3) FiO2 65/bipap Glucose (Fingerstick) 221 mg/dL (70-99) 265 mg/dL (70-99) Laboratory Tests Test 09/25/20 14:35 09/25/20 15:15 09/25/20 17:00 09/25/20 20:05 Troponin I Quantitative < 0.017 ng/mL (0.000-0.055) O2 Saturation 96 % (92-99) Arterial Blood pH 7.41 (7.35-7.45) Arterial Blood pCO2 at Patient Temp 36 mmHg (35-46) Arterial Blood pO2 at Patient Temp 84 mmHg (65-108) Arterial Blood HCO3 23 mmol/L (21-28) Arterial Blood Base Excess -2 mmol/L (-3-3) Oxyhemoglobin 94.2 % Methemoglobin 0.3 % (0.0-1.9) Carbon Monoxide, Quantitative 1.5 % (0.0-1.9) FiO2 50% bipap Glucose (Fingerstick) 323 mg/dL (70-99) 306 mg/dL (70-99) Test 09/26/20 01:30 09/26/20 07:20 09/26/20 08:10 09/26/20 12:03 White Blood Count 6.1 x10^3/uL (4.0-11.0) Red Blood Count 4.09 x10^6/uL (4.30-5.70) Hemoglobin 13.0 g/dL (13.0-17.5) Hematocrit 38.5 % (39.0-53.0) Mean Corpuscular Volume 94 fL (79-100) Mean Corpuscular Hemoglobin 32 pg (25-35) Mean Corpuscular Hemoglobin Concent 34 g/dL (31-37) Red Cell Distribution Width 14.2 % (11.5-14.5) Platelet Count 65 x10^3/uL (140-400) Neutrophils (%) (Auto) 84 % (31-73) Lymphocytes (%) (Auto) 10 % (24-48) Monocytes (%) (Auto) 5 % (0-9) Eosinophils (%) (Auto) 0 % (0-3) Basophils (%) (Auto) 0 % (0-3) Neutrophils # (Auto) 5.1 x10^3/uL (1.8-7.7) Lymphocytes # (Auto) 0.6 x10^3/uL (1.0-4.8) Monocytes # (Auto) 0.3 x10^3/uL (0.0-1.1) Eosinophils # (Auto) 0.0 x10^3/uL (0.0-0.7) Basophils # (Auto) 0.0 x10^3/uL (0.0-0.2) Sodium Level 141 mmol/L (136-145) Potassium Level 4.2 mmol/L (3.5-5.1) Chloride Level 108 mmol/L (98-107) Carbon Dioxide Level 24 mmol/L (21-32) Anion Gap 9 (6-14) Blood Urea Nitrogen 14 mg/dL (8-26) Creatinine 0.7 mg/dL (0.7-1.3) Estimated GFR (Cockcroft-Gault) 115.4 Glucose Level 261 mg/dL (70-99) Calcium Level 8.4 mg/dL (8.5-10.1) Troponin I Quantitative < 0.017 ng/mL (0.000-0.055) O2 Saturation 96 % (92-99) Arterial Blood pH 7.45 (7.35-7.45) Arterial Blood pCO2 at Patient Temp 35 mmHg (35-46) Arterial Blood pO2 at Patient Temp 74 mmHg (65-108) Arterial Blood HCO3 23 mmol/L (21-28) Arterial Blood Base Excess 0 mmol/L (-3-3) FiO2 65/bipap Glucose (Fingerstick) 221 mg/dL (70-99) 265 mg/dL (70-99) Medications Active Scripts Medications Dose Route/Sig Max Daily Dose Days Date Category Flomax (Tamsulosin Hcl) 0.4 Mg Cap.er.24h 1 Cap PO DAILY 09/26/20 Reported Semglee (Insulin Glargine,Hum.rec.anlog) 100 Unit/1 Ml Vial 20 Unit SQ QHS 09/26/20 Reported Semglee (Insulin Glargine,Hum.rec.anlog) 100 Unit/1 Ml Vial 30 Unit SQ QAM 09/26/20 Reported Novolin R (Insulin Regular, Human) 100 Unit/1 Ml Vial 100 Unit IJ SSI PRN 09/26/20 Reported Naproxen 500 Mg Tablet 1 Tab PO BID PRN 30 09/26/20 Reported Metoprolol Tartrate 25 Mg Tablet 1 Tab PO BID 09/26/20 Reported Alvesco (Ciclesonide) 6.1 Gm Hfa.aer.ad 6.1 Gm IH Q12HR 09/26/20 Reported Proair Hfa Inhaler (Albuterol Sulfate) 8.5 Gm Hfa.aer.ad 2 Puff IH PRN Q4-6HRS PRN 21 09/26/20 Reported Impression . Full note dictated COVID-19 viral pneumonia Respiratory failure Initiate remdesivir Continue steroid YVAN ZEE MD Sep 26, 2020 14:17
[2020-09-26] MEDS ORDERED: REMDESIVIR LOAD in IV NORMAL SALINE 250ML TV IV ONE (14:30)
--- NOTE | 2020-09-26 14:41 | PDOC ---
[employer] PROGRESS NOTE Date of Service DOS: DATE: 09/26/20 TIME: 14:40 Chief Complaint Chief Complaint Assessment/Plan Acute exacerbation of COPD with acute pneumonia, gram neg and or gram positive Acute hypoxic respiratory failure No pulmonary embolism, aortic aneurysm or aortic dissection. Panlobular airspace disease,c/w multifocal pneumonia. PUI Pulmonary edema less likely. 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 Remote alcohol abuse "6-8 cans of beer a day years ago" Thickened distal esophagus with 9 x 10 mm luminal density, likely ingested medication tablet. Mediastinal adenopathy, malignancy is not excluded.suggest follow-up CT of the chest in 3 months. Hyperglycemia on accuchecks Severe protein-caloric malnutrition Hypomagnesemia on iv replacement Headache ADMIT Emperic iv zithromax, rocephin daily COVID 19 PCR Consult pulm Abdominal sonogram blood culture o2 support Duonebs qid dvt prophylaxis GI prophylaxis DUONEBS QID DVT PROPHYLAXIS GI PROPHYLAXIS D/W ER DR ESTIMATE LOS > 3 DAYS COVID-19 CRITERIA: The patient was evaluated during the global COVID-19 pandemic, and that diagnosis was suspected/considered upon their initial presentation. Their evaluation, treatment and testing was consistent with current guidelines for patients who present with complaints or symptoms that may be related to COVID-19. History of Present Illness History of Present Illness 59 year old male presented via EMS [facility] with work of breathing x2 days with low O2 Sat at facility down to 78% on RA. known history of COPD and cough. Patient also complains of headache. EMS noted patient was 84% and tripoding on 3 L nasal cannula. EMS reports giving a DuoNeb treatment x2 in route and placement nonrebreather with subsequent improvement in up to 95%. remote alcohol abuse YRS AGO , smoked until one month ago when he was arrested received the [employer] COVID-19 vaccination x1 [facility]. Patient denies known exposure to COVID-19. Panlobular airspace disease,c/w multifocal pneumonia. PUI Pulmonary edema less likely. 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 Remote alcohol abuse "6-8 cans of beer a day years ago" Thickened distal esophagus with 9 x 10 mm luminal density, likely ingested medication tablet. Mediastinal adenopathy, malignancy is not excluded.suggest follow-up CT of the chest in 3 months. / Hyperglycemia on accuchecks // Severe protein-caloric malnutrition CTA CHEST C/W Panlobular airspace disease, most likely multifocal pneumonia. 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 Patient tolerating BiPAP and saturating 91%. Started patient on IV Protonix because he is still on steroids. And has a history of esophageal varices. Patient's chart, labs, images were reviewed and discussed with RN Vitals/I&O Vitals/I&O: Vital Signs Date Time Temp Pulse Resp B/P (MAP) Pulse Ox O2 Delivery O2 Flow Rate FiO2 09/26/20 11:07 95 BiPAP/CPAP 09/26/20 11:00 98.5 91 46 168/65 (99) 98.5 09/26/20 09:04 15.0 I & O 09/25/20 09/25/20 09/26/20 15:00 23:00 07:00 Intake Total 1250 ml 1610 ml Output Total 400 ml 950 ml Balance 1250 ml 1210 ml -950 ml Physical Exam General: Alert, Oriented X3, Cooperative, No acute distress, mild distress Abdomen: Normal bowel sounds, Soft, No tenderness, No masses, Other (obese) Extremities: No cyanosis Labs Labs: Laboratory Tests Test 09/25/20 15:15 09/25/20 17:00 09/25/20 20:05 09/26/20 01:30 O2 Saturation 96 % (92-99) Arterial Blood pH 7.41 (7.35-7.45) Arterial Blood pCO2 at Patient Temp 36 mmHg (35-46) Arterial Blood pO2 at Patient Temp 84 mmHg (65-108) Arterial Blood HCO3 23 mmol/L (21-28) Arterial Blood Base Excess -2 mmol/L (-3-3) Oxyhemoglobin 94.2 % Methemoglobin 0.3 % (0.0-1.9) Carbon Monoxide, Quantitative 1.5 % (0.0-1.9) FiO2 50% bipap Glucose (Fingerstick) 323 mg/dL (70-99) 306 mg/dL (70-99) White Blood Count 6.1 x10^3/uL (4.0-11.0) Red Blood Count 4.09 x10^6/uL (4.30-5.70) Hemoglobin 13.0 g/dL (13.0-17.5) Hematocrit 38.5 % (39.0-53.0) Mean Corpuscular Volume 94 fL (79-100) Mean Corpuscular Hemoglobin 32 pg (25-35) Mean Corpuscular Hemoglobin Concent 34 g/dL (31-37) Red Cell Distribution Width 14.2 % (11.5-14.5) Platelet Count 65 x10^3/uL (140-400) Neutrophils (%) (Auto) 84 % (31-73) Lymphocytes (%) (Auto) 10 % (24-48) Monocytes (%) (Auto) 5 % (0-9) Eosinophils (%) (Auto) 0 % (0-3) Basophils (%) (Auto) 0 % (0-3) Neutrophils # (Auto) 5.1 x10^3/uL (1.8-7.7) Lymphocytes # (Auto) 0.6 x10^3/uL (1.0-4.8) Monocytes # (Auto) 0.3 x10^3/uL (0.0-1.1) Eosinophils # (Auto) 0.0 x10^3/uL (0.0-0.7) Basophils # (Auto) 0.0 x10^3/uL (0.0-0.2) Sodium Level 141 mmol/L (136-145) Potassium Level 4.2 mmol/L (3.5-5.1) Chloride Level 108 mmol/L (98-107) Carbon Dioxide Level 24 mmol/L (21-32) Anion Gap 9 (6-14) Blood Urea Nitrogen 14 mg/dL (8-26) Creatinine 0.7 mg/dL (0.7-1.3) Estimated GFR (Cockcroft-Gault) 115.4 Glucose Level 261 mg/dL (70-99) Calcium Level 8.4 mg/dL (8.5-10.1) Troponin I Quantitative < 0.017 ng/mL (0.000-0.055) Test 09/26/20 07:20 09/26/20 08:10 09/26/20 12:03 O2 Saturation 96 % (92-99) Arterial Blood pH 7.45 (7.35-7.45) Arterial Blood pCO2 at Patient Temp 35 mmHg (35-46) Arterial Blood pO2 at Patient Temp 74 mmHg (65-108) Arterial Blood HCO3 23 mmol/L (21-28) Arterial Blood Base Excess 0 mmol/L (-3-3) FiO2 65/bipap Glucose (Fingerstick) 221 mg/dL (70-99) 265 mg/dL (70-99) Assessment and Plan Assessmemt and Plan Problems Medical Problems: (1) COPD exacerbation Status: Acute (2) Headache Status: Acute (3) Hypoxia Status: Acute (4) Pneumonia Status: Acute (5) Respiratory failure Status: Acute (6) Suspected 2019 novel coronavirus infection Status: Acute Comment Review of Relevant I have reviewed the following items herlinda (where applicable) has been applied. Medications: Current Medications Medications (Trade) Dose Ordered Sig/Lloyd Route PRN Reason Start Time Stop Time Status Last Admin Dose Admin Enoxaparin Sodium (Lovenox 40mg Syringe) 40 mg Q24H SQ 09/25/20 21:00 09/25/20 20:35 Ceftriaxone Sodium (Rocephin) 1 gm Q24H IVP 09/26/20 09:00 09/26/20 08:54 Dexamethasone Sodium Phosphate (Decadron) 6 mg DAILY IVP 09/26/20 09:00 09/26/20 08:49 Insulin Human Lispro (HumaLOG) 0-7 UNITS TIDWMEALS SQ 09/25/20 17:00 09/26/20 12:23 Azithromycin 500 mg/Sodium Chloride 250 ml @ 250 mls/hr Q24H IV 09/26/20 13:00 09/26/20 12:25 Albuterol/ Ipratropium (Combivent Respimat 20-100 Mcg) 1 puff Q4HRS W/A INH 09/26/20 06:00 09/26/20 11:32 Pantoprazole Sodium (PROTONIX VIAL for IV PUSH) 40 mg DAILYAC IVP 09/26/20 09:00 09/26/20 08:49 Fluticasone Propionate (Flonase) 2 spray DAILY NS 09/26/20 10:45 09/26/20 11:32 Justifications for Admission Other Justification RESP FAILURE WITH HYPOXIA CONSTANZA HENRY MD Sep 26, 2020 14:41
[2020-09-26 15:00] VITALS: BP 151/77
[2020-09-26] MEDS ORDERED: IBUPROFEN 200 MG TABLET. PO PRN (18:30)
[2020-09-26 19:00] VITALS: BP 157/85
--- NOTE | 2020-09-26 19:39 | NUR ---
Nurse's Note: Patient's IV discontinued due to pain on the site. This nurse attempted to place an IV access, 2x but unsuccessful. Referred to charge nurse. Called Dr. Weaver, order for midline received; notified leases and land supervisor.
[2020-09-26] MEDS: LACTOBACILLUS RHAMNOSUS GG 1 CAPSULE. PO SCH (19:44)
--- NOTE | 2020-09-26 19:47 | NUR ---
Nurse's note: Non administered IV azithromycin, no IV access
[2020-09-26] MEDS: ENOXAPARIN 40 MG/0.4 ML SYRINGE. SQ SCH (19:56)
--- NOTE | 2020-09-26 21:56 | CONS ---
DATE OF CONSULTATION: 09/26/2020 ATTENDING PHYSICIAN: NIRANJAN KIM MD REASON FOR CONSULTATION: The patient is seen in pulmonary consultation at the request of Dr. Kim for acute hypoxemic respiratory failure, COVID-19 positive, utilizing noninvasive ventilation. HISTORY OF PRESENT ILLNESS: The patient is a 59-year-old male, resides at a correctional facility, had a [employer] COVID vaccine some time 5 months ago. He has been incarcerated for some time, was actually in quarantine for 14 days. He presented with increasing shortness of breath, O2 saturation of 78% on room air. He tested positive for COVID-19. His white count was normal with a lymphopenia. I was asked to see the patient in pulmonary consultation. His arterial blood gas revealed a pH of 7.45, PaCO2 of 35, pO2 of 41 and 65% BiPAP. Serology for SARS-CoV-2 nuclear amplification rapid test was negative. He had a CT angiogram, which revealed airspace disease. Otherwise, no evidence of pulmonary embolism, aortic dissection or aortic aneurysm. He has some mediastinal adenopathy, more than likely reactive. PAST MEDICAL HISTORY: COPD, tobacco dependent, type 2 diabetes, hypertension, chronic back pain. PAST SURGICAL HISTORY: Status post appendectomy. REVIEW OF SYSTEMS: As indicated in the history of present illness, otherwise other systems were reviewed and negative. ALLERGIES: No known drug allergies. CURRENT MEDICATIONS: List was reviewed. HOME MEDICATIONS: List was likewise reviewed. PHYSICAL EXAMINATION: GENERAL: The patient was able to complete full sentences, on BiPAP. He was in no significant respiratory distress. VITAL SIGNS: O2 saturation was greater than 92%. NECK: Jugular venous distention was not elevated. No lymphadenopathy. HEENT: Eyes; the sclerae are nonicteric. NECK: Jugular venous distention was not elevated. No lymphadenopathy. CHEST: Full expansion. LUNGS: Adequate flow with scattered rhonchi. CARDIOVASCULAR: Regular rate and rhythm with S1, S2. No S3. ABDOMEN: Soft, nontender, nondistended. EXTREMITIES: No clubbing or cyanosis. No pitting edema. LABORATORY DATA: Chest x-ray as indicated above. IMPRESSION: 1. Acute hypoxemic respiratory failure secondary to COVID-19. 2. COVID-19 viral pneumonia. 3. Possible bacterial pneumonia. 4. Other comorbidities including chronic obstructive pulmonary disease with acute exacerbation, tobacco dependent, chronic back pain and hypertension. PLAN: I have reviewed the MAR. The patient is currently on Zithromax and Rocephin. He is also on dexamethasone. We will proceed with initiating remdesivir. Continue DVT prophylaxis. I do appreciate the privilege in sharing in patient's care. HILDA MOYA: Sebastian TID: [id number]
[2020-09-26 23:00] VITALS: BP 168/82
[2020-09-27 01:11] LABS: HEMOGLOBIN A1C 11.5 % (4.8-5.6)
[2020-09-27 03:00] VITALS: BP 173/83
[2020-09-27] MEDS: IPRATROPIUM/ALBUTEROL 20/100mcg/INH INHALER. INH SCH ×5 (05:28→20:45)
[2020-09-27 07:30] VITALS: BP 171/88
[2020-09-27] MEDS: LACTOBACILLUS RHAMNOSUS GG 1 CAPSULE. PO SCH ×2 (08:02→20:45)
[2020-09-27] MEDS: INSULIN LISPRO 300 UNITS/3 ML VIAL. SQ SCH ×4 (08:04→19:46)
[2020-09-27] MEDS: FLUTICASONE 50MCG/NASAL SPRAY 16GM BOTTLE. NS SCH (09:00)
--- NOTE | 2020-09-27 09:41 | PDOC ---
PULMONARY PROGRESS NOTES DATE: 09/27/20 TIME: 09:41 Subjective Patient on BiPAP, appears to be comfortable. Vitals Vital Signs Date Time Temp Pulse Resp B/P (MAP) Pulse Ox O2 Delivery O2 Flow Rate FiO2 09/27/20 08:02 73 173/83 09/27/20 07:30 97.2 24 92 BiPAP/CPAP 97.2 09/26/20 20:00 15.0 Comments Patient seen during the , and visual inspection of BiPAP no respiratory distress no paroxysmal breathing pattern no increasing edema no new rash Labs Laboratory Tests Test 09/25/20 11:55 09/25/20 14:35 09/25/20 15:15 09/25/20 17:00 Glucose (Fingerstick) 128 mg/dL (70-99) 323 mg/dL (70-99) Troponin I Quantitative < 0.017 ng/mL (0.000-0.055) O2 Saturation 96 % (92-99) Arterial Blood pH 7.41 (7.35-7.45) Arterial Blood pCO2 at Patient Temp 36 mmHg (35-46) Arterial Blood pO2 at Patient Temp 84 mmHg (65-108) Arterial Blood HCO3 23 mmol/L (21-28) Arterial Blood Base Excess -2 mmol/L (-3-3) Oxyhemoglobin 94.2 % Methemoglobin 0.3 % (0.0-1.9) Carbon Monoxide, Quantitative 1.5 % (0.0-1.9) FiO2 50% bipap Test 09/25/20 20:05 09/26/20 01:30 09/26/20 07:20 09/26/20 08:10 Glucose (Fingerstick) 306 mg/dL (70-99) 221 mg/dL (70-99) White Blood Count 6.1 x10^3/uL (4.0-11.0) Red Blood Count 4.09 x10^6/uL (4.30-5.70) Hemoglobin 13.0 g/dL (13.0-17.5) Hematocrit 38.5 % (39.0-53.0) Mean Corpuscular Volume 94 fL (79-100) Mean Corpuscular Hemoglobin 32 pg (25-35) Mean Corpuscular Hemoglobin Concent 34 g/dL (31-37) Red Cell Distribution Width 14.2 % (11.5-14.5) Platelet Count 65 x10^3/uL (140-400) Neutrophils (%) (Auto) 84 % (31-73) Lymphocytes (%) (Auto) 10 % (24-48) Monocytes (%) (Auto) 5 % (0-9) Eosinophils (%) (Auto) 0 % (0-3) Basophils (%) (Auto) 0 % (0-3) Neutrophils # (Auto) 5.1 x10^3/uL (1.8-7.7) Lymphocytes # (Auto) 0.6 x10^3/uL (1.0-4.8) Monocytes # (Auto) 0.3 x10^3/uL (0.0-1.1) Eosinophils # (Auto) 0.0 x10^3/uL (0.0-0.7) Basophils # (Auto) 0.0 x10^3/uL (0.0-0.2) Sodium Level 141 mmol/L (136-145) Potassium Level 4.2 mmol/L (3.5-5.1) Chloride Level 108 mmol/L (98-107) Carbon Dioxide Level 24 mmol/L (21-32) Anion Gap 9 (6-14) Blood Urea Nitrogen 14 mg/dL (8-26) Creatinine 0.7 mg/dL (0.7-1.3) Estimated GFR (Cockcroft-Gault) 115.4 Glucose Level 261 mg/dL (70-99) Calcium Level 8.4 mg/dL (8.5-10.1) Troponin I Quantitative < 0.017 ng/mL (0.000-0.055) O2 Saturation 96 % (92-99) Arterial Blood pH 7.45 (7.35-7.45) Arterial Blood pCO2 at Patient Temp 35 mmHg (35-46) Arterial Blood pO2 at Patient Temp 74 mmHg (65-108) Arterial Blood HCO3 23 mmol/L (21-28) Arterial Blood Base Excess 0 mmol/L (-3-3) FiO2 65/bipap Test 09/26/20 12:03 09/26/20 16:48 09/26/20 20:12 09/27/20 07:42 Glucose (Fingerstick) 265 mg/dL (70-99) 325 mg/dL (70-99) 392 mg/dL (70-99) 263 mg/dL (70-99) Laboratory Tests Test 09/26/20 12:03 09/26/20 16:48 09/26/20 20:12 09/27/20 07:42 Glucose (Fingerstick) 265 mg/dL (70-99) 325 mg/dL (70-99) 392 mg/dL (70-99) 263 mg/dL (70-99) Medications Active Scripts Medications Dose Route/Sig Max Daily Dose Days Date Category Flomax (Tamsulosin Hcl) 0.4 Mg Cap.er.24h 1 Cap PO DAILY 09/26/20 Reported Semglee (Insulin Glargine,Hum.rec.anlog) 100 Unit/1 Ml Vial 20 Unit SQ QHS 09/26/20 Reported Semglee (Insulin Glargine,Hum.rec.anlog) 100 Unit/1 Ml Vial 30 Unit SQ QAM 09/26/20 Reported Novolin R (Insulin Regular, Human) 100 Unit/1 Ml Vial 100 Unit IJ SSI PRN 09/26/20 Reported Naproxen 500 Mg Tablet 1 Tab PO BID PRN 30 09/26/20 Reported Metoprolol Tartrate 25 Mg Tablet 1 Tab PO BID 09/26/20 Reported Alvesco (Ciclesonide) 6.1 Gm Hfa.aer.ad 6.1 Gm IH Q12HR 09/26/20 Reported Proair Hfa Inhaler (Albuterol Sulfate) 8.5 Gm Hfa.aer.ad 2 Puff IH PRN Q4-6HRS PRN 21 09/26/20 Reported Impression . IMPRESSION: 1. Acute hypoxemic respiratory failure secondary to COVID-19. 2. COVID-19 viral pneumonia. 3. Possible bacterial pneumonia. 4. Other comorbidities including chronic obstructive pulmonary disease with acute exacerbation, tobacco dependent, chronic back pain and hypertension. Plan . Updated 09/27 Patient initiated on remdesivir yesterday Continue BiPAP On dexamethasone Continue Zithromax DVT GI prophylaxis PLAN: I have reviewed the MAR. The patient is currently on Zithromax and Rocephin. He is also on dexamethasone. We will proceed with initiating remdesivir. Continue DVT prophylaxis. I do appreciate the privilege in sharing in patient's care. YVAN ZEE MD Sep 27, 2020 09:41
[2020-09-27] MEDS: cefTRIAXone IV Push 1 GM VIAL. IVP SCH (10:59)
[2020-09-27] MEDS: PANTOPRAZOLE IV PUSH 40 MG VIAL. IVP SCH (10:59)
[2020-09-27 11:00] VITALS: BP 230/111
[2020-09-27] MEDS ORDERED: MORPHINE SULFATE 2 MG/ML INJ. IV ONE (11:00)
[2020-09-27] MEDS: DEXAMETHASONE SOD PHOS 4 MG/ML VIAL IVP SCH (11:00)
[2020-09-27] MEDS: hydrALAZINE 20 MG/ML VIAL. IVP PRN (11:02)
--- NOTE | 2020-09-27 11:21 | NUR ---
patient called nurse station for anxiety meds. VSS on monitor w/ O2 sat at 90% on NRB. RN obtained order for PO ativan as pt had no IV access. RN pulled ativan from machine and guard approached desk stating that patient was having trouble breathing. O2 sat on monitor then 81%. RN quickly entered room and patient was clearly in distress w/ sat of 71% on [place] in room. administered ativan and placed on Bipap. Rapid called. Pt BP 230/111 and O2 sat now 86%. Clonidine PO given. IV started in R index finger. RT in room and changed O2 setting on bipap from 55% to 65%. Pt O2 sat then increased to 90-91%. Morphine given for headache. Hydralazine given for elevated BP. will monitor.
[2020-09-27] MEDS ORDERED: REMDESIVIR LOAD in IV NORMAL SALINE 250ML TV IV ONE (12:00)
[2020-09-27] MEDS: FLUTICASONE/VILANTEROL 100/25 INHALER. INH SCH ×2 (12:48→14:43)
[2020-09-27] MEDS: TAMSULOSIN 0.4 MG CAP.ER.24H. PO SCH (12:49)
[2020-09-27] MEDS: METOPROLOL TART IMMED RELEASE 25 MG TABLET. PO SCH ×2 (12:50→20:46)
[2020-09-27] MEDS: AZITHROMYCIN 500 MG in IV NORMAL SALINE 250ML 250 ML IV SCH (14:44)
[2020-09-27 15:16] VITALS: BP 132/76
--- NOTE | 2020-09-27 16:17 | PDOC ---
[employer] PROGRESS NOTE Date of Service DOS: DATE: 09/27/20 TIME: 16:14 Chief Complaint Chief Complaint Assessment/Plan Acute exacerbation of COPD with acute pneumonia, gram neg and or gram positive Acute hypoxic respiratory failure No pulmonary embolism, aortic aneurysm or aortic dissection. Panlobular airspace disease,c/w multifocal pneumonia. PUI Pulmonary edema less likely. 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 Remote alcohol abuse "6-8 cans of beer a day years ago" Thickened distal esophagus with 9 x 10 mm luminal density, likely ingested medication tablet. Mediastinal adenopathy, malignancy is not excluded.suggest follow-up CT of the chest in 3 months. Hyperglycemia on accuchecks Severe protein-caloric malnutrition Hypomagnesemia on iv replacement Headache ADMIT Emperic iv zithromax, rocephin daily COVID 19 PCR positive Consult pulm blood culture --> NGTD o2 support Duonebs qid --> will have to hold due to COVID positive status dvt prophylaxis GI prophylaxis DVT PROPHYLAXIS GI PROPHYLAXIS ESTIMATE LOS > 3 DAYS COVID-19 CRITERIA: The patient was evaluated during the global COVID-19 pandemic, and that diagnosis was suspected/considered upon their initial presentation. Their evaluation, treatment and testing was consistent with current guidelines for patients who present with complaints or symptoms that may be related to COVID-19. History of Present Illness History of Present Illness 59 year old male presented via EMS from [facility] with work of breathing x2 days with low O2 Sat at facility down to 78% on RA. known history of COPD and cough. Patient also complains of headache. EMS noted patient was 84% and tripoding on 3 L nasal cannula. EMS reports giving a DuoNeb treatment x2 in route and placement nonrebreather with subsequent improvement in up to 95%. remote alcohol abuse YRS AGO , smoked until one month ago when he was arrested received the [employer] COVID-19 vaccination [facility]. Patient denies known exposure to COVID-19. Panlobular airspace disease,c/w multifocal pneumonia. PUI Pulmonary edema less likely. 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 Remote alcohol abuse "6-8 cans of beer a day years ago" Thickened distal esophagus with 9 x 10 mm luminal density, likely ingested medication tablet. Mediastinal adenopathy, malignancy is not excluded.suggest follow-up CT of the chest in 3 months. / Hyperglycemia on accuchecks // Severe protein-caloric malnutrition CTA CHEST C/W Panlobular airspace disease, most likely multifocal pneumonia. 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 Patient tolerating BiPAP and saturating 91%. Started patient on IV Protonix because he is still on steroids. And has a history of esophageal varices. Patient's chart, labs, images were reviewed and discussed with RN 09/27/20 Patient evaluated at bedside He was having laboring respirations initially on the BiPAP concerned patient may need ICU transfer however was given a dose of Ativan and was able to calm down and respiratory status improved Continue steroids Pulmonary consult Plan of care discussed with bedside RN Vitals/I&O Vitals/I&O: Vital Signs Date Time Temp Pulse Resp B/P (MAP) Pulse Ox O2 Delivery O2 Flow Rate FiO2 09/27/20 15:32 92 BiPAP/CPAP 09/27/20 15:16 97.2 72 24 132/76 (94) 97.2 09/26/20 20:00 15.0 I & O 09/26/20 09/26/20 09/27/20 15:00 23:00 07:00 Output Total 500 ml 400 ml 400 ml Balance -500 ml -400 ml -400 ml Physical Exam General: Alert, Oriented X3, Cooperative, No acute distress, mild distress Abdomen: Normal bowel sounds, Soft, No tenderness, No masses, Other (obese) Extremities: No cyanosis Labs Labs: Laboratory Tests Test 09/26/20 16:48 09/26/20 20:12 09/27/20 07:42 09/27/20 11:48 Glucose (Fingerstick) 325 mg/dL (70-99) 392 mg/dL (70-99) 263 mg/dL (70-99) 239 mg/dL (70-99) Assessment and Plan Assessmemt and Plan Problems Medical Problems: (1) COPD exacerbation Status: Acute (2) Headache Status: Acute (3) Hypoxia Status: Acute (4) Pneumonia Status: Acute (5) Respiratory failure Status: Acute (6) Suspected 2019 novel coronavirus infection Status: Acute Comment Review of Relevant I have reviewed the following items herlinda (where applicable) has been applied. Medications: Current Medications Medications (Trade) Dose Ordered Sig/Lloyd Route PRN Reason Start Time Stop Time Status Last Admin Dose Admin Lactobacillus Rhamnosus (Culturelle) 1 cap BID PO 09/26/20 21:00 09/27/20 08:02 Ibuprofen (Motrin) 600 mg PRN Q6HRS PRN PO INFLAMMATION 09/26/20 18:30 09/26/20 19:44 Insulin Human Lispro (HumaLOG) 0-9 UNITS QIDACHS SQ 09/27/20 07:30 09/27/20 12:53 Lorazepam (Ativan) 2 mg PRN Q6HRS PRN PO ANXIETY / AGITATION 09/27/20 10:45 09/27/20 10:37 Morphine Sulfate (Morphine Sulfate) 2 mg 1X ONCE IV 09/27/20 11:00 09/27/20 11:01 DC 09/27/20 11:06 Metoprolol Tartrate (Lopressor) 25 mg BID PO 09/27/20 12:00 09/27/20 12:50 Tamsulosin HCl (Flomax) 0.4 mg DAILY PO 09/27/20 12:00 09/27/20 12:49 Fluticasone/ Vilanterol (Breo Ellipta 100-25 Mcg) 1 puff DAILY INH 09/27/20 12:00 09/27/20 14:43 Remdesivir 200 mg/ Sodium Chloride 210 ml @ 210 mls/hr 1X ONCE IV 09/27/20 12:00 09/27/20 12:59 DC 09/27/20 12:49 Justifications for Admission Other Justification RESP FAILURE WITH HYPOXIA GUILLERMINA VU MD Sep 27, 2020 16:17
[2020-09-27 19:00] VITALS: BP 144/79
[2020-09-27] MEDS: ENOXAPARIN 40 MG/0.4 ML SYRINGE. SQ SCH (20:46)
[2020-09-27] MEDS: INSULIN GLARGINE SYRINGE. SQ SCH (20:47)
[2020-09-27] MEDS: HYDROcodone/APAP 5/325MG 1 TAB TABLET PO PRN (21:40)
[2020-09-27 23:00] VITALS: BP 139/77
[2020-09-28 03:00] VITALS: BP 147/86
[2020-09-28] MEDS: IPRATROPIUM/ALBUTEROL 20/100mcg/INH INHALER. INH SCH ×5 (05:10→21:01)
[2020-09-28] MEDS: HYDROcodone/APAP 5/325MG 1 TAB TABLET PO PRN (05:11)
[2020-09-28 07:30] VITALS: BP 164/106
[2020-09-28] MEDS: INSULIN LISPRO 300 UNITS/3 ML VIAL. SQ SCH ×4 (07:30→20:14)
[2020-09-28] MEDS: TAMSULOSIN 0.4 MG CAP.ER.24H. PO SCH (09:00)
[2020-09-28] MEDS: METOPROLOL TART IMMED RELEASE 25 MG TABLET. PO SCH ×2 (09:00→20:22)
[2020-09-28] MEDS: LACTOBACILLUS RHAMNOSUS GG 1 CAPSULE. PO SCH ×2 (09:00→20:21)
[2020-09-28] MEDS: FLUTICASONE 50MCG/NASAL SPRAY 16GM BOTTLE. NS SCH (09:00)
[2020-09-28] MEDS: hydrALAZINE 20 MG/ML VIAL. IVP PRN ×3 (10:30→23:09)
--- NOTE | 2020-09-28 10:30 | NUR ---
pt anxious and trying to pull off bipap. trying to get out of bed to use urinal. mitt placed to left hand as right is shackled to bed. madrigal placed. ativan given.
[2020-09-28] MEDS: DEXAMETHASONE SOD PHOS 4 MG/ML VIAL IVP SCH (10:33)
[2020-09-28] MEDS: PANTOPRAZOLE IV PUSH 40 MG VIAL. IVP SCH (10:33)
[2020-09-28] MEDS: cefTRIAXone IV Push 1 GM VIAL. IVP SCH (10:34)
[2020-09-28] MEDS: REMDESIVIR 100mg in NORMAL SALINE 250ML X 4 DAYS IV SCH (10:35)
[2020-09-28 11:00] VITALS: BP 184/80
--- NOTE | 2020-09-28 12:07 | PDOC ---
PULMONARY PROGRESS NOTES DATE: 09/28/20 TIME: 12:05 Subjective Patient on BiPAP, 100%FIO2 Vitals Vital Signs Date Time Temp Pulse Resp B/P (MAP) Pulse Ox O2 Delivery O2 Flow Rate FiO2 09/28/20 12:02 97 BiPAP/CPAP 09/28/20 11:00 97.8 76 32 184/80 (114) 97.8 09/28/20 07:30 15.0 Comments Patient seen during the , and visual inspection of BiPAP no respiratory distress no paroxysmal breathing pattern no increasing edema no new rash General: Confused Labs Laboratory Tests Test 09/26/20 16:48 09/26/20 20:12 09/27/20 07:42 09/27/20 11:48 Glucose (Fingerstick) 325 mg/dL (70-99) 392 mg/dL (70-99) 263 mg/dL (70-99) 239 mg/dL (70-99) Test 09/27/20 16:40 09/27/20 19:37 09/28/20 07:24 09/28/20 11:34 Glucose (Fingerstick) 214 mg/dL (70-99) 179 mg/dL (70-99) 192 mg/dL (70-99) 184 mg/dL (70-99) Laboratory Tests Test 09/27/20 16:40 09/27/20 19:37 09/28/20 07:24 09/28/20 11:34 Glucose (Fingerstick) 214 mg/dL (70-99) 179 mg/dL (70-99) 192 mg/dL (70-99) 184 mg/dL (70-99) Medications Active Scripts Medications Dose Route/Sig Max Daily Dose Days Date Category Flomax (Tamsulosin Hcl) 0.4 Mg Cap.er.24h 1 Cap PO DAILY 09/26/20 Reported Semglee (Insulin Glargine,Hum.rec.anlog) 100 Unit/1 Ml Vial 20 Unit SQ QHS 09/26/20 Reported Semglee (Insulin Glargine,Hum.rec.anlog) 100 Unit/1 Ml Vial 30 Unit SQ QAM 09/26/20 Reported Novolin R (Insulin Regular, Human) 100 Unit/1 Ml Vial 100 Unit IJ SSI PRN 09/26/20 Reported Naproxen 500 Mg Tablet 1 Tab PO BID PRN 30 09/26/20 Reported Metoprolol Tartrate 25 Mg Tablet 1 Tab PO BID 09/26/20 Reported Alvesco (Ciclesonide) 6.1 Gm Hfa.aer.ad 6.1 Gm IH Q12HR 09/26/20 Reported Proair Hfa Inhaler (Albuterol Sulfate) 8.5 Gm Hfa.aer.ad 2 Puff IH PRN Q4-6HRS PRN 21 09/26/20 Reported Impression . IMPRESSION: 1. Acute hypoxemic respiratory failure secondary to COVID-19. NOW ON 100%bipap 2. COVID-19 viral pneumonia. 3. Possible bacterial pneumonia. 4. Other comorbidities including chronic obstructive pulmonary disease with acute exacerbation, tobacco dependent, chronic back pain and hypertension. Plan . Updated 09/28 ON 100%fio2/ bipap ct chest with extensive infiltrates due to COVID Patient initiated on remdesivir Continue BiPAP On dexamethasone Continue Zithromax DVT GI prophylaxis I have asked Prison personal to address code status. Updated 09/27 Patient initiated on remdesivir yesterday Continue BiPAP On dexamethasone Continue Zithromax DVT GI prophylaxis PLAN: I have reviewed the MAR. The patient is currently on Zithromax and Rocephin. He is also on dexamethasone. We will proceed with initiating remdesivir. Continue DVT prophylaxis. I do appreciate the privilege in sharing in patient's care. SAROJ SQUIRES MD Sep 28, 2020 12:07
--- NOTE | 2020-09-28 12:14 | PDOC ---
[employer] PROGRESS NOTE Date of Service DOS: DATE: 09/28/20 TIME: 12:11 Chief Complaint Chief Complaint Assessment/Plan Acute exacerbation of COPD with acute pneumonia, gram neg and or gram positive Acute hypoxic respiratory failure No pulmonary embolism, aortic aneurysm or aortic dissection. Panlobular airspace disease,c/w multifocal pneumonia. PUI Pulmonary edema less likely. 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 Remote alcohol abuse "6-8 cans of beer a day years ago" Thickened distal esophagus with 9 x 10 mm luminal density, likely ingested medication tablet. Mediastinal adenopathy, malignancy is not excluded.suggest follow-up CT of the chest in 3 months. Hyperglycemia on accuchecks Severe protein-caloric malnutrition Hypomagnesemia on iv replacement Headache ADMIT Empiric iv zithromax, rocephin daily COVID 19 PCR positive Consult pulm --> starting Remdesivir 09/27 blood culture --> NGTD o2 support --> still requiring Bipap Duonebs qid --> will have to hold due to COVID positive status dvt prophylaxis GI prophylaxis DVT PROPHYLAXIS GI PROPHYLAXIS ESTIMATE LOS > 3 DAYS COVID-19 CRITERIA: The patient was evaluated during the global COVID-19 pandemic, and that diagnosis was suspected/considered upon their initial presentation. Their evaluation, treatment and testing was consistent with current guidelines for patients who present with complaints or symptoms that may be related to COVID-19. History of Present Illness History of Present Illness 59 year old male presented via EMS from [facility] with work of breathing x2 days with low O2 Sat at facility down to 78% on RA. known history of COPD and cough. Patient also complains of headache. EMS noted patient was 84% and tripoding on 3 L nasal cannula. EMS reports giving a DuoNeb treatment x2 in route and placement nonrebreather with subsequent improvement in up to 95%. remote alcohol abuse YRS AGO , smoked until one month ago when he was arrested received the [employer] COVID-19 vaccination x1 approximately 5 months ago at the [place]. Patient denies known exposure to COVID-19. Panlobular airspace disease,c/w multifocal pneumonia. PUI Pulmonary edema less likely. 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 Remote alcohol abuse "6-8 cans of beer a day years ago" Thickened distal esophagus with 9 x 10 mm luminal density, likely ingested medication tablet. Mediastinal adenopathy, malignancy is not excluded.suggest follow-up CT of the chest in 3 months. / Hyperglycemia on accuchecks // Severe protein-caloric malnutrition CTA CHEST C/W Panlobular airspace disease, most likely multifocal pneumonia. 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 Patient tolerating BiPAP and saturating 91%. Started patient on IV Protonix because he is still on steroids. And has a history of esophageal varices. Patient's chart, labs, images were reviewed and discussed with RN 09/27/20 Patient evaluated at bedside He was having laboring respirations initially on the BiPAP concerned patient may need ICU transfer however was given a dose of Ativan and was able to calm down and respiratory status improved Continue steroids Pulmonary consult Plan of care discussed with bedside RN 09/28/20 Patient evaluated bedside He was on BiPAP required to be increased 100% FiO2 this morning Remains on remdesivir, Decadron, Rocephin, and azithromycin Continuing supportive care Plan of care discussed with bedside nurse Vitals/I&O Vitals/I&O: Vital Signs Date Time Temp Pulse Resp B/P (MAP) Pulse Ox O2 Delivery O2 Flow Rate FiO2 09/28/20 12:02 97 BiPAP/CPAP 09/28/20 11:00 97.8 76 32 184/80 (114) 97.8 09/28/20 07:30 15.0 I & O 09/27/20 09/27/20 09/28/20 15:00 23:00 07:00 Intake Total 400 ml 0 ml 460 ml Output Total 950 ml 1200 ml 200 ml Balance -550 ml -1200 ml 260 ml Physical Exam General: Alert, Oriented X3, mild distress Heart: Regular rate, Normal S1 Lungs: Other (coarse, difficult to hear over bipap) Abdomen: Normal bowel sounds, Soft, No tenderness, No masses, Other (obese) Extremities: No cyanosis Skin: No rashes Labs Labs: Laboratory Tests Test 09/27/20 16:40 09/27/20 19:37 09/28/20 07:24 09/28/20 11:34 Glucose (Fingerstick) 214 mg/dL (70-99) 179 mg/dL (70-99) 192 mg/dL (70-99) 184 mg/dL (70-99) Review of Systems Review of Systems: Not obtained as patient on Bipap Assessment and Plan Assessmemt and Plan Problems Medical Problems: (1) COPD exacerbation Status: Acute (2) Headache Status: Acute (3) Hypoxia Status: Acute (4) Pneumonia Status: Acute (5) Respiratory failure Status: Acute (6) Suspected 2019 novel coronavirus infection Status: Acute Comment Review of Relevant I have reviewed the following items herlinda (where applicable) has been applied. Medications: Current Medications Medications (Trade) Dose Ordered Sig/Lloyd Route PRN Reason Start Time Stop Time Status Last Admin Dose Admin Remdesivir 100 mg/ Sodium Chloride 230 ml @ 460 mls/hr Q24H IV 09/27/20 14:30 10/01/20 12:29 09/28/20 10:35 Insulin Glargine (Lantus Syringe) 10 unit QHS SQ 09/27/20 21:00 09/27/20 20:47 Acetaminophen/ Hydrocodone Bitart (Lortab 5/325) 1 tab PRN Q4HRS PRN PO MODERATE PAIN 4-6 09/27/20 21:45 09/28/20 05:11 Justifications for Admission Other Justification RESP FAILURE WITH HYPOXIA GUILLERMINA VU MD Sep 28, 2020 12:14
[2020-09-28] MEDS: AZITHROMYCIN 500 MG in IV NORMAL SALINE 250ML 250 ML IV SCH (12:15)
[2020-09-28 15:30] VITALS: BP 192/94
[2020-09-28] MEDS: HALOPERIDOL LACTATE 5 MG/ML VIAL. IVP PRN (17:15)
[2020-09-28] MEDS ORDERED: ZIPRASIDONE IM 20 MG VIAL. IM ONE (17:15)
[2020-09-28 19:00] VITALS: BP 127/69
[2020-09-28] MEDS: ENOXAPARIN 40 MG/0.4 ML SYRINGE. SQ SCH (20:56)
[2020-09-28] MEDS: INSULIN GLARGINE SYRINGE. SQ SCH (20:57)
[2020-09-28 23:16] VITALS: BP 183/85
[2020-09-29] VITALS (24 sets, daily range): BP systolic 78–225; BP diastolic 44–109
[2020-09-29] MEDS: HALOPERIDOL LACTATE 5 MG/ML VIAL. IVP PRN ×2 (00:14→08:06)
[2020-09-29] MEDS: IPRATROPIUM/ALBUTEROL 20/100mcg/INH INHALER. INH SCH ×4 (06:07→18:00)
[2020-09-29] MEDS: hydrALAZINE 20 MG/ML VIAL. IVP PRN (08:07)
[2020-09-29 08:45] LABS: BASE EXCESS ABG 1 mmol/L (-3-3); HCO3 ABG 24 mmol/L (21-28); PCO2 ABG 34 mmHg (35-46); PO2 ABG 81 mmHg (65-108); SAT O2 ABG 97 % (92-99)
[2020-09-29 08:56] LABS: FIO2 ABG 100%
[2020-09-29] MEDS: METOPROLOL TART IMMED RELEASE 25 MG TABLET. PO SCH ×2 (09:00→20:07)
[2020-09-29] MEDS: TAMSULOSIN 0.4 MG CAP.ER.24H. PO SCH (09:00)
[2020-09-29] MEDS ORDERED: IV NORMAL SALINE 500ML BAG 500 ML IV PRN (09:00)
[2020-09-29] MEDS: FLUTICASONE/VILANTEROL 100/25 INHALER. INH SCH (09:00)
[2020-09-29] MEDS ORDERED: ATROPINE 0.5 MG/5 ML DISP.SYRINGE. IV PRN (09:00)
[2020-09-29] MEDS: LACTOBACILLUS RHAMNOSUS GG 1 CAPSULE. PO SCH ×2 (09:00→20:07)
[2020-09-29] MEDS: FLUTICASONE 50MCG/NASAL SPRAY 16GM BOTTLE. NS SCH (09:00)
[2020-09-29] MEDS: cefTRIAXone IV Push 1 GM VIAL. IVP SCH (09:12)
[2020-09-29] MEDS: PANTOPRAZOLE IV PUSH 40 MG VIAL. IVP SCH (09:12)
[2020-09-29] MEDS: DEXAMETHASONE SOD PHOS 4 MG/ML VIAL IVP SCH (09:12)
[2020-09-29] MEDS: INSULIN LISPRO 300 UNITS/3 ML VIAL. SQ SCH ×4 (09:13→20:08)
--- NOTE | 2020-09-29 09:55 | PDOC ---
[employer] PROGRESS NOTE Date of Service DOS: DATE: 09/29/20 TIME: 09:53 Chief Complaint Chief Complaint Assessment/Plan Acute exacerbation of COPD with acute pneumonia, gram neg and or gram positive Acute hypoxic respiratory failure No pulmonary embolism, aortic aneurysm or aortic dissection. Panlobular airspace disease,c/w multifocal pneumonia. PUI Pulmonary edema less likely. 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 Remote alcohol abuse "6-8 cans of beer a day years ago" Thickened distal esophagus with 9 x 10 mm luminal density, likely ingested medication tablet. Mediastinal adenopathy, malignancy is not excluded.suggest follow-up CT of the chest in 3 months. Hyperglycemia on accuchecks Severe protein-caloric malnutrition Hypomagnesemia on iv replacement Headache ADMIT Empiric iv zithromax, rocephin daily COVID 19 PCR positive Consult pulm --> starting Remdesivir 09/27 blood culture --> NGTD o2 support --> still requiring Bipap, worsening requirement Duonebs qid --> will have to hold due to COVID positive status dvt prophylaxis GI prophylaxis DVT PROPHYLAXIS GI PROPHYLAXIS transfer to ICU ESTIMATE LOS > 3 DAYS COVID-19 CRITERIA: The patient was evaluated during the global COVID-19 pandemic, and that diagnosis was suspected/considered upon their initial presentation. Their evaluation, treatment and testing was consistent with current guidelines for patients who present with complaints or symptoms that may be related to COVID-19. History of Present Illness History of Present Illness 59 year old male [facility] with work of breathing x2 days with low O2 Sat at facility down to 78% on RA. known history of COPD and cough. Patient also complains of headache. EMS noted p atient was 84% and tripoding on 3 L nasal cannula. EMS reports giving a DuoNeb treatment x2 in route and placement nonrebreather with subsequent improvement in up to 95%. remote alcohol abuse YRS AGO , smoked until one month ago when he was arrested received the [employer] COVID-19 vaccination x1 approximately 5 months ago at the [place]. Patient denies known exposure to COVID-19. Panlobular airspace disease,c/w multifocal pneumonia. PUI Pulmonary edema less likely. 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 Remote alcohol abuse "6-8 cans of beer a day years ago" Thickened distal esophag us with 9 x 10 mm luminal density, likely ingested medication tablet. Mediastinal adenopathy, malignancy is not excluded.suggest follow-up CT of the chest in 3 months. / Hyperglycemia on accuchecks // Severe protein-caloric malnutrition CTA CHEST C/W Panlobular airspace disease, most likely multifocal pneumonia. 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 Patient tolerating BiPAP and saturating 91%. Started patient on IV Protonix because he is still on steroids. And has a history of esophageal varices. Patient's chart, labs, images were reviewed and discussed with RN 09/27/20 Patient evaluated at bedside He was having laboring respirations initially on the BiPAP concerned patient may need ICU transfer however was given a dose of Ativan and was able to calm down and respiratory status improved Continue steroids Pulmonary consult Plan of care discussed with bedside RN 09/28/20 Patient evaluated bedside He was on BiPAP required to be increased 100% FiO2 this morning Remains on remdesivir, Decadron, Rocephin, and azithromycin Continuing supportive care Plan of care discussed with bedside nurse 09/29/20 Patient evaluated at bedside Patient remains significantly agitated and anxious despite aggressive medication measures while on BiPAP BiPAP settings increasing over the past several days and given his agitation will transfer to ICU Continuing remdesivir Decadron Rocephin and azithromycin Plan of care discussed with bedside nurse Vitals/I&O Vitals/I&O: Vital Signs Date Time Temp Pulse Resp B/P (MAP) Pulse Ox O2 Delivery O2 Flow Rate FiO2 09/29/20 08:29 93 BiPAP/CPAP 09/29/20 08:07 83 169/85 09/29/20 07:00 24 09/29/20 03:00 98.0 98.0 09/28/20 07:30 15.0 l I & O 09/28/20 09/28/20 09/29/20 15:00 23:00 07:00 Intake Total 0 ml 290 ml 0 ml Output Total 625 ml Balance 0 ml -335 ml 0 ml Physical Exam General: Alert, Oriented X3, mild distress Heart: Regular rate, Normal S1 Lungs: Other (coarse, difficult to hear over bipap) Abdomen: Normal bowel sounds, Soft, No tenderness, No masses, Other (obese) Extremities: No cyanosis Skin: No rashes Labs Labs: Laboratory Tests Test 09/28/20 11:34 09/28/20 16:25 09/28/20 20:06 09/29/20 07:59 Glucose (Fingerstick) 184 mg/dL (70-99) 216 mg/dL (70-99) 194 mg/dL (70-99) 208 mg/dL (70-99) Test 09/29/20 08:33 O2 Saturation 97 % (92-99) Arterial Blood pH 7.46 (7.35-7.45) Arterial Blood pCO2 at Patient Temp 34 mmHg (35-46) Arterial Blood pO2 at Patient Temp 81 mmHg (65-108) Arterial Blood HCO3 24 mmol/L (21-28) Arterial Blood Base Excess 1 mmol/L (-3-3) FiO2 100% Assessment and Plan Assessmemt and Plan Problems Medical Problems: (1) COPD exacerbation Status: Acute (2) Headache Status: Acute (3) Hypoxia Status: Acute (4) Pneumonia Status: Acute (5) Respiratory failure Status: Acute (6) Suspected 2019 novel coronavirus infection Status: Acute Comment Review of Relevant I have reviewed the following items herlinda (where applicable) has been applied. Medications: Current Medications Medications (Trade) Dose Ordered Sig/Lloyd Route PRN Reason Start Time Stop Time Status Last Admin Dose Admin Lorazepam (Ativan Inj) 2 mg PRN Q4HRS PRN IVP ANXIETY / AGITATION 09/28/20 13:00 09/29/20 09:24 Haloperidol Lactate (Haldol Inj) 5 mg PRN Q6HRS PRN IVP AGITATION - 2ND CHOICE 09/28/20 17:15 09/29/20 08:06 Ziprasidone (Geodon Im) 20 mg 1X ONCE IM 09/28/20 17:15 09/28/20 17:16 DC 09/28/20 19:33 Justifications for Admission Other Justification RESP FAILURE WITH HYPOXIA GUILLERMINA VU MD Sep 29, 2020 09:55
[2020-09-29] MEDS ORDERED: MORPHINE SULFATE 4 MG/ML INJ. IV PRN (10:00)
[2020-09-29] MEDS ORDERED: MORPHINE SULFATE 2 MG/ML INJ. IV PRN (10:00)
--- NOTE | 2020-09-29 10:03 | NUR ---
report given to SAMUEL Khan. Pt transferred to room 115 on [facility]. RT at bedside during transfer.
[2020-09-29] MEDS ORDERED: PROPOFOL 10 MG/ML (100ML) VIAL. IV ONE (10:15)
[2020-09-29] MEDS ORDERED: NOREPINEPHRINE VIAL 8 MG in IV DEXTROSE 5% 250 ML IV PRN (10:15)
--- NOTE | 2020-09-29 10:16 | PDOC ---
PULMONARY PROGRESS NOTES DATE: 09/29/20 TIME: 10:12 Subjective Patient on 100% BIPAP decreased mentation today increased work of breathing Vitals Vital Signs Date Time Temp Pulse Resp B/P (MAP) Pulse Ox O2 Delivery O2 Flow Rate FiO2 09/29/20 08:29 93 BiPAP/CPAP 09/29/20 08:07 83 169/85 09/29/20 07:00 24 09/29/20 03:00 98.0 98.0 09/28/20 07:30 15.0 Comments Patient seen during the pandemic, and visual inspection of BiPAP no respiratory distress no paroxysmal breathing pattern no increasing edema no new rash General: Confused Lungs: Other (coarse) Labs Laboratory Tests Test 09/27/20 11:48 09/27/20 16:40 09/27/20 19:37 09/28/20 07:24 Glucose (Fingerstick) 239 mg/dL (70-99) 214 mg/dL (70-99) 179 mg/dL (70-99) 192 mg/dL (70-99) Test 09/28/20 11:34 09/28/20 16:25 09/28/20 20:06 09/29/20 07:59 Glucose (Fingerstick) 184 mg/dL (70-99) 216 mg/dL (70-99) 194 mg/dL (70-99) 208 mg/dL (70-99) Test 09/29/20 08:33 O2 Saturation 97 % (92-99) Arterial Blood pH 7.46 (7.35-7.45) Arterial Blood pCO2 at Patient Temp 34 mmHg (35-46) Arterial Blood pO2 at Patient Temp 81 mmHg (65-108) Arterial Blood HCO3 24 mmol/L (21-28) Arterial Blood Base Excess 1 mmol/L (-3-3) FiO2 100% Laboratory Tests Test 09/28/20 11:34 09/28/20 16:25 09/28/20 20:06 09/29/20 07:59 Glucose (Fingerstick) 184 mg/dL (70-99) 216 mg/dL (70-99) 194 mg/dL (70-99) 208 mg/dL (70-99) Test 09/29/20 08:33 O2 Saturation 97 % (92-99) Arterial Blood pH 7.46 (7.35-7.45) Arterial Blood pCO2 at Patient Temp 34 mmHg (35-46) Arterial Blood pO2 at Patient Temp 81 mmHg (65-108) Arterial Blood HCO3 24 mmol/L (21-28) Arterial Blood Base Excess 1 mmol/L (-3-3) FiO2 100% Medications Active Scripts Medications Dose Route/Sig Max Daily Dose Days Date Category Flomax (Tamsulosin Hcl) 0.4 Mg Cap.er.24h 1 Cap PO DAILY 09/26/20 Reported Semglee (Insulin Glargine,Hum.rec.anlog) 100 Unit/1 Ml Vial 20 Unit SQ QHS 09/26/20 Reported Semglee (Insulin Glargine,Hum.rec.anlog) 100 Unit/1 Ml Vial 30 Unit SQ QAM 09/26/20 Reported Novolin R (Insulin Regular, Human) 100 Unit/1 Ml Vial 100 Unit IJ SSI PRN 09/26/20 Reported Naproxen 500 Mg Tablet 1 Tab PO BID PRN 30 09/26/20 Reported Metoprolol Tartrate 25 Mg Tablet 1 Tab PO BID 09/26/20 Reported Alvesco (Ciclesonide) 6.1 Gm Hfa.aer.ad 6.1 Gm IH Q12HR 09/26/20 Reported Proair Hfa Inhaler (Albuterol Sulfate) 8.5 Gm Hfa.aer.ad 2 Puff IH PRN Q4-6HRS PRN 21 09/26/20 Reported Impression . IMPRESSION: 1. Acute hypoxemic respiratory failure secondary to COVID-19. --worsening 2. COVID-19 viral pneumonia. 3. Possible bacterial pneumonia. 4. Other comorbidities including chronic obstructive pulmonary disease with acute exacerbation, tobacco dependent, chronic back pain and hypertension. Plan . Updated 09/29/20 Pt. in distress on 100% BIPAP, pt. transferred to ICU, with ongoing distress and hypoxia despite BIPAP, will proceed with intubation Follow CXR/ABG Continue remdesivir Continue steroids Continue empiric ABX, azithro and rocephin Start TF for nutritional support DVT/GI PPX D/W RN and RT CC time 35 min Updated 09/28 ON 100%fio2/ bipap ct chest with extensive infiltrates due to COVID Patient initiated on remdesivir Continue BiPAP On dexamethasone Continue Zithromax DVT GI prophylaxis I have asked Correction personal to address code status. Updated 09/27 Patient initiated on remdesivir yesterday Continue BiPAP On dexamethasone Continue Zithromax DVT GI prophylaxis SAROJ SQUIRES MD Sep 29, 2020 10:16
[2020-09-29] MEDS ORDERED: SUCCINYLCHOLINE 200 MG/10 ML VIAL. IV ONE (10:30)
[2020-09-29] MEDS ORDERED: ETOMIDATE 20 MG/10 ML VIAL. IV ONE (10:30)
[2020-09-29] MEDS: MIDAZOLAM 100mg/100ml NS BAG 100 ML IV PRN ×2 (10:31→15:40)
[2020-09-29] MEDS: VECURONIUM BOLUS 10 MG VIAL. IV PRN (11:01)
--- NOTE | 2020-09-29 11:13 | PDOC ---
Provider Note Date of Service: DATE: 09/29/20 TIME: 11:08 Provider Note pt in resp failure. O2/mask, Etomidate 10mg and sux 100mg ivp. 7.5 oett with glide scope,. 24cm at lip bbs, positive etco2. chest xray to follow Justifications for Admission Other Justification RESP FAILURE WITH HYPOXIA ALLIE AGARWAL CRNA Sep 29, 2020 11:13
[2020-09-29 11:34] LABS: BASE EXCESS COOX 0 mmol/L (-3-3); HCO3 COOX 27 mmol/L (21-28); METHEMOGLOBIN 0.3 % (0.0-1.9); OXYHEMOGLOBIN 94.3 %; PCO2 COOX 57 mmHg (35-46); PO2 COOX 86 mmHg (65-108); SAT O2 COOX 96 % (92-99)
--- NOTE | 2020-09-29 13:01 | RAD ---
XR CHEST 1V History: Reason: TUBE PLACEMENT XRN / Spl. Instructions: / History: Comparison: CT September 25 2020 Findings: Diffuse interstitial and alveolar opacities. Endotracheal tube with tip 4.7 cm above the fran. Ente nikolay tube with tip in the gastric fundus. No pleural effusion. No pneumothorax. Impression: 1. Interval intubation and placement of enteric tube. 2. Severe diffuse interstitial and alveolar opacities. Electronically signed by: Florencio Carmona DO (09/29/2020 12:58 PM) [id number]
--- NOTE | 2020-09-29 13:23 | NUR ---
Patient has Right Radial Arterial line for BP monitoring. Blood pressures will be charted under vital signs intervention to avoid double charting
[2020-09-29] MEDS: AZITHROMYCIN 500 MG in IV NORMAL SALINE 250ML 250 ML IV SCH (14:54)
[2020-09-29] MEDS: REMDESIVIR 100mg in NORMAL SALINE 250ML X 4 DAYS IV SCH (14:54)
[2020-09-29 15:00] LABS: ALBUMIN/GLOBULIN RATIO 0.6 (1.0-1.7); CALCIUM 8.1 mg/dL (8.5-10.1); CREATININE 0.6 mg/dL (0.7-1.3); GFR 137.9; POTASSIUM 4.4 mmol/L (3.5-5.1); TOTAL BILIRUBIN 0.9 mg/dL (0.2-1.0); TOTAL PROTEIN 5.4 g/dL (6.4-8.2)
--- NOTE | 2020-09-29 15:49 | RAD ---
XR CHEST 1V History: Central line placement Comparison: 09/29/20 Technique: Portable AP chest radiograph. Findings: Tubes and lines: New right internal jugular central venous catheter with tip projecting at the high r ight atrium. Endotracheal tube tip projects approximately 4 cm above the fran. Gastric tube coils w ithin the expected region of the stomach. Lungs and pleura: Redemonstrated bilateral airspace disease. No pleural effusion or pneumothorax. Cardiac silhouette and pulmonary vasculature: Stable Osseous structures and other: Unchanged Impression: 1. New right internal jugular central venous catheter with tip projecting at the high right atrium. 2. Persistent bilateral airspace disease. Electronically signed by: Hernando Acharya MD (09/29/2020 3:47 PM) [facility]
--- NOTE | 2020-09-29 16:36 | NUR ---
1000: Pt transferred from [facility] to room 115 for increasing 02 requirements. Pt is covid positive, placed in isolation upon arrival. When arriving, pt noticeably in respiratory distress with increased WOB and audible wheezes. Salena Dash CURRICULUM DIRECTOR both at bedside to see patient. 1015: Pt intubated by Dr. Baum, see vent intervention for settings. Pt tolerated well. Pt currently sedated on vent, all VSS, will continue to monitor.
[2020-09-29] MEDS: INSULIN GLARGINE SYRINGE. SQ SCH (20:07)
[2020-09-29] MEDS: ENOXAPARIN 40 MG/0.4 ML SYRINGE. SQ SCH (20:09)
[2020-09-30] VITALS (29 sets, daily range): BP systolic 78–124; BP diastolic 46–65
[2020-09-30] MEDS: IV 1/2 NORMAL SALINE 1,000 ML IV SCH ×2 (05:44→21:14)
[2020-09-30] MEDS: MIDAZOLAM 100mg/100ml NS BAG 100 ML IV PRN (05:46)
[2020-09-30] MEDS: PANTOPRAZOLE IV PUSH 40 MG VIAL. IVP SCH (08:11)
[2020-09-30] MEDS: INSULIN LISPRO 300 UNITS/3 ML VIAL. SQ SCH ×3 (08:13→17:00)
[2020-09-30 08:32] LABS: BASE EXCESS ABG 2 mmol/L (-3-3); HCO3 ABG 27 mmol/L (21-28); PCO2 ABG 45 mmHg (35-46); PO2 ABG 109 mmHg (65-108); SAT O2 ABG 98 % (92-99)
--- NOTE | 2020-09-30 08:44 | PDOC ---
[employer] PROGRESS NOTE Date of Service DOS: DATE: 09/30/20 TIME: 08:40 Chief Complaint Chief Complaint Assessment/Plan Acute exacerbation of COPD with acute pneumonia, gram neg and or gram positive Acute hypoxic respiratory failure No pulmonary embolism, aortic aneurysm or aortic dissection. Panlobular airspace disease,c/w multifocal pneumonia. PUI Pulmonary edema less likely. 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 Remote alcohol abuse "6-8 cans of beer a day years ago" Thickened distal esophagus with 9 x 10 mm luminal density, likely ingested medication tablet. Mediastinal adenopathy, malignancy is not excluded.suggest follow-up CT of the chest in 3 months. Hyperglycemia on accuchecks Severe protein-caloric malnutrition Hypomagnesemia on iv replacement Headache ADMIT Empiric iv zithromax, rocephin daily COVID 19 PCR positive Consult pulm --> starting Remdesivir 09/27 blood culture --> NGTD o2 support --> still requiring Bipap, worsening requirement Duonebs qid --> will have to hold due to COVID positive status dvt prophylaxis GI prophylaxis DVT PROPHYLAXIS GI PROPHYLAXIS transfer to ICU ESTIMATE LOS > 3 DAYS COVID-19 CRITERIA: The patient was evaluated during the global COVID-19 pandemic, and that diagnosis was suspected/considered upon their initial presentation. Their evaluation, treatment and testing was consistent with current guidelines for patients who present with complaints or symptoms that may be related to COVID-19. History of Present Illness History of Present Illness 59 year old male [facility] with work of breathing x2 days with low O2 Sat at facility down to 78% on RA. known history of COPD and cough. Patient also complains of headache. EMS noted p atient was 84% and tripoding on 3 L nasal cannula. EMS reports giving a DuoNeb treatment x2 in route and placement nonrebreather with subsequent improvement in up to 95%. remote alcohol abuse YRS AGO , smoked until one month ago when he was arrested received the [employer] COVID-19 vaccination x1 approximately 5 months ago at the [place]. Patient denies known exposure to COVID-19. Panlobular airspace disease,c/w multifocal pneumonia. PUI Pulmonary edema less likely. 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 Remote alcohol abuse "6-8 cans of beer a day years ago" Thickened distal esophag us with 9 x 10 mm luminal density, likely ingested medication tablet. Mediastinal adenopathy, malignancy is not excluded.suggest follow-up CT of the chest in 3 months. / Hyperglycemia on accuchecks // Severe protein-caloric malnutrition CTA CHEST C/W Panlobular airspace disease, most likely multifocal pneumonia. 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 Patient tolerating BiPAP and saturating 91%. Started patient on IV Protonix because he is still on steroids. And has a history of esophageal varices. Patient's chart, labs, images were reviewed and discussed with RN 09/27/20 Patient evaluated at bedside He was having laboring respirations initially on the BiPAP concerned patient may need ICU transfer however was given a dose of Ativan and was able to calm down and respiratory status improved Continue steroids Pulmonary consult Plan of care discussed with bedside RN 09/28/20 Patient evaluated bedside He was on BiPAP required to be increased 100% FiO2 this morning Remains on remdesivir, Decadron, Rocephin, and azithromycin Continuing supportive care Plan of care discussed with bedside nurse 09/29/20 Patient evaluated at bedside Patient remains significantly agitated and anxious despite aggressive medication measures while on BiPAP BiPAP settings increasing over the past several days and given his agitation will transfer to ICU Continuing remdesivir Decadron Rocephin and azithromycin Plan of care discussed with bedside nurse 09/30/2020: Patient transferred from out to ICU yesterday due to worsening respiratory distress. He was intubated and currently on vent with FiO2 90% and PEEP of 8. We will continue treatment with remdesivir, steroids, and empiric antibiotics. Critical care time 30 minutes spent reviewing charts, reviewing imaging, reviewing labs, discussion with RN. Vitals/I&O Vitals/I&O: Vital Signs Date Time Temp Pulse Resp B/P (MAP) Pulse Ox O2 Delivery O2 Flow Rate FiO2 09/30/20 08:00 64 116/57 (76) 09/30/20 08:00 98.3 24 94 Ventilator 98.3 I & O 09/29/20 09/29/20 09/30/20 15:00 23:00 07:00 Intake Total 0 ml 839 ml 1203 ml Output Total 1100 ml 555 ml 255 ml Balance -1100 ml 284 ml 948 ml Physical Exam General: No acute distress, Other (Intubated and sedated) Heart: Regular rate, Normal S1 Lungs: Other (coarse) Abdomen: Normal bowel sounds, Soft, No tenderness, No masses, Other (obese) Extremities: No cyanosis Skin: No rashes Labs Labs: Laboratory Tests Test 09/29/20 11:30 09/29/20 14:37 09/29/20 20:05 O2 Saturation 96 % (92-99) Arterial Blood pH 7.30 (7.35-7.45) Arterial Blood pCO2 at Patient Temp 57 mmHg (35-46) Arterial Blood pO2 at Patient Temp 86 mmHg (65-108) Arterial Blood HCO3 27 mmol/L (21-28) Arterial Blood Base Excess 0 mmol/L (-3-3) Oxyhemoglobin 94.3 % Methemoglobin 0.3 % (0.0-1.9) Carbon Monoxide, Quantitative 1.4 % (0.0-1.9) FiO2 100% vent Sodium Level 146 mmol/L (136-145) Potassium Level 4.4 mmol/L (3.5-5.1) Chloride Level 111 mmol/L (98-107) Carbon Dioxide Level 30 mmol/L (21-32) Anion Gap 5 (6-14) Blood Urea Nitrogen 23 mg/dL (8-26) Creatinine 0.6 mg/dL (0.7-1.3) Estimated GFR (Cockcroft-Gault) 137.9 BUN/Creatinine Ratio 38 (6-20) Glucose Level 226 mg/dL (70-99) Calcium Level 8.1 mg/dL (8.5-10.1) Total Bilirubin 0.9 mg/dL (0.2-1.0) Aspartate Amino Transf (AST/SGOT) 24 U/L (15-37) Alanine Aminotransferase (ALT/SGPT) 22 U/L (16-63) Alkaline Phosphatase 82 U/L (46-116) Total Protein 5.4 g/dL (6.4-8.2) Albumin 2.0 g/dL (3.4-5.0) Albumin/Globulin Ratio 0.6 (1.0-1.7) Glucose (Fingerstick) 256 mg/dL (70-99) Assessment and Plan Assessmemt and Plan Problems Medical Problems: (1) COPD exacerbation Status: Acute (2) Headache Status: Acute (3) Hypoxia Status: Acute (4) Pneumonia Status: Acute (5) Respiratory failure Status: Acute (6) Suspected 2019 novel coronavirus infection Status: Acute Comment Review of Relevant I have reviewed the following items herlinda (where applicable) has been applied. Medications: Current Medications Medications (Trade) Dose Ordered Sig/Lloyd Route PRN Reason Start Time Stop Time Status Last Admin Dose Admin Fentanyl Citrate 30 ml @ 0 mls/hr CONT PRN IV SEE PROTOCOL 09/29/20 10:00 09/30/20 06:23 Midazolam HCl 100 ml @ 0 mls/hr CONT PRN IV SEE PROTOCOL 09/29/20 10:00 09/30/20 05:46 Norepinephrine Bitartrate 8 mg/ Dextrose 258 ml @ 18.692 mls/ hr CONT PRN IV PER PROTOCOL 09/29/20 10:15 09/29/20 10:28 Succinylcholine Chloride (Anectine) 100 mg 1X ONCE IV 09/29/20 10:30 09/29/20 10:31 DC 09/29/20 10:25 Etomidate (Amidate) 12 mg 1X ONCE IV 09/29/20 10:30 09/29/20 10:31 DC 09/29/20 10:24 Vecuronium [place] (Norcuron Bolus) 6 mg PRN Q2HR PRN IV VENTILATOR COMPLIANCE 09/29/20 10:45 09/29/20 11:01 Sodium Chloride 1,000 ml @ 75 mls/hr [id number] IV 09/30/20 05:45 09/30/20 05:44 Justifications for Admission Other Justification RESP FAILURE WITH HYPOXIA JOAQUIN XIONG MD Sep 30, 2020 08:43
[2020-09-30 08:53] LABS: FIO2 ABG 90% VENT
[2020-09-30] MEDS: FLUTICASONE/VILANTEROL 100/25 INHALER. INH SCH (09:00)
[2020-09-30] MEDS: METOPROLOL TART IMMED RELEASE 25 MG TABLET. PO SCH ×2 (09:00→21:00)
[2020-09-30] MEDS: FLUTICASONE 50MCG/NASAL SPRAY 16GM BOTTLE. NS SCH (09:00)
[2020-09-30] MEDS: TAMSULOSIN 0.4 MG CAP.ER.24H. PO SCH (09:00)
[2020-09-30] MEDS: DEXAMETHASONE SOD PHOS 4 MG/ML VIAL IVP SCH (10:01)
[2020-09-30] MEDS: cefTRIAXone IV Push 1 GM VIAL. IVP SCH (10:01)
[2020-09-30] MEDS: LACTOBACILLUS RHAMNOSUS GG 1 CAPSULE. PO SCH (10:01)
--- NOTE | 2020-09-30 10:40 | PDOC ---
PULMONARY PROGRESS NOTES DATE: 09/30/20 TIME: 10:37 Subjective Patient intubated on 721 for worsening hypoxia and persistent encephalopathy. He failed BiPAP. Currently on assist control mode, 100% FiO2 Vitals Vital Signs Date Time Temp Pulse Resp B/P (MAP) Pulse Ox O2 Delivery O2 Flow Rate FiO2 09/30/20 09:00 57 24 103/50 (67) 94 Ventilator 09/30/20 08:00 98.3 98.3 Comments Patient seen during the , and visual inspection of BiPAP no respiratory distress no paroxysmal breathing pattern no increasing edema no new rash Labs Laboratory Tests Test 09/28/20 11:34 09/28/20 16:25 09/28/20 20:06 09/29/20 07:59 Glucose (Fingerstick) 184 mg/dL (70-99) 216 mg/dL (70-99) 194 mg/dL (70-99) 208 mg/dL (70-99) Test 09/29/20 08:33 09/29/20 11:30 09/29/20 14:37 09/29/20 20:05 O2 Saturation 97 % (92-99) 96 % (92-99) Arterial Blood pH 7.46 (7.35-7.45) 7.30 (7.35-7.45) Arterial Blood pCO2 at Patient Temp 34 mmHg (35-46) 57 mmHg (35-46) Arterial Blood pO2 at Patient Temp 81 mmHg (65-108) 86 mmHg (65-108) Arterial Blood HCO3 24 mmol/L (21-28) 27 mmol/L (21-28) Arterial Blood Base Excess 1 mmol/L (-3-3) 0 mmol/L (-3-3) FiO2 100% 100% vent Oxyhemoglobin 94.3 % Methemoglobin 0.3 % (0.0-1.9) Carbon Monoxide, Quantitative 1.4 % (0.0-1.9) Sodium Level 146 mmol/L (136-145) Potassium Level 4.4 mmol/L (3.5-5.1) Chloride Level 111 mmol/L (98-107) Carbon Dioxide Level 30 mmol/L (21-32) Anion Gap 5 (6-14) Blood Urea Nitrogen 23 mg/dL (8-26) Creatinine 0.6 mg/dL (0.7-1.3) Estimated GFR (Cockcroft-Gault) 137.9 BUN/Creatinine Ratio 38 (6-20) Glucose Level 226 mg/dL (70-99) Calcium Level 8.1 mg/dL (8.5-10.1) Total Bilirubin 0.9 mg/dL (0.2-1.0) Aspartate Amino Transf (AST/SGOT) 24 U/L (15-37) Alanine Aminotransferase (ALT/SGPT) 22 U/L (16-63) Alkaline Phosphatase 82 U/L (46-116) Total Protein 5.4 g/dL (6.4-8.2) Albumin 2.0 g/dL (3.4-5.0) Albumin/Globulin Ratio 0.6 (1.0-1.7) Glucose (Fingerstick) 256 mg/dL (70-99) Test 09/30/20 08:00 O2 Saturation 98 % (92-99) Arterial Blood pH 7.40 (7.35-7.45) Arterial Blood pCO2 at Patient Temp 45 mmHg (35-46) Arterial Blood pO2 at Patient Temp 109 mmHg (65-108) Arterial Blood HCO3 27 mmol/L (21-28) Arterial Blood Base Excess 2 mmol/L (-3-3) FiO2 90% vent Laboratory Tests Test 09/29/20 11:30 09/29/20 14:37 09/29/20 20:05 09/30/20 08:00 O2 Saturation 96 % (92-99) 98 % (92-99) Arterial Blood pH 7.30 (7.35-7.45) 7.40 (7.35-7.45) Arterial Blood pCO2 at Patient Temp 57 mmHg (35-46) 45 mmHg (35-46) Arterial Blood pO2 at Patient Temp 86 mmHg (65-108) 109 mmHg (65-108) Arterial Blood HCO3 27 mmol/L (21-28) 27 mmol/L (21-28) Arterial Blood Base Excess 0 mmol/L (-3-3) 2 mmol/L (-3-3) Oxyhemoglobin 94.3 % Methemoglobin 0.3 % (0.0-1.9) Carbon Monoxide, Quantitative 1.4 % (0.0-1.9) FiO2 100% vent 90% vent Sodium Level 146 mmol/L (136-145) Potassium Level 4.4 mmol/L (3.5-5.1) Chloride Level 111 mmol/L (98-107) Carbon Dioxide Level 30 mmol/L (21-32) Anion Gap 5 (6-14) Blood Urea Nitrogen 23 mg/dL (8-26) Creatinine 0.6 mg/dL (0.7-1.3) Estimated GFR (Cockcroft-Gault) 137.9 BUN/Creatinine Ratio 38 (6-20) Glucose Level 226 mg/dL (70-99) Calcium Level 8.1 mg/dL (8.5-10.1) Total Bilirubin 0.9 mg/dL (0.2-1.0) Aspartate Amino Transf (AST/SGOT) 24 U/L (15-37) Alanine Aminotransferase (ALT/SGPT) 22 U/L (16-63) Alkaline Phosphatase 82 U/L (46-116) Total Protein 5.4 g/dL (6.4-8.2) Albumin 2.0 g/dL (3.4-5.0) Albumin/Globulin Ratio 0.6 (1.0-1.7) Glucose (Fingerstick) 256 mg/dL (70-99) Medications Active Scripts Medications Dose Route/Sig Max Daily Dose Days Date Category Flomax (Tamsulosin Hcl) 0.4 Mg Cap.er.24h 1 Cap PO DAILY 09/26/20 Reported Semglee (Insulin Glargine,Hum.rec.anlog) 100 Unit/1 Ml Vial 20 Unit SQ QHS 09/26/20 Reported Semglee (Insulin Glargine,Hum.rec.anlog) 100 Unit/1 Ml Vial 30 Unit SQ QAM 09/26/20 Reported Novolin R (Insulin Regular, Human) 100 Unit/1 Ml Vial 100 Unit IJ SSI PRN 09/26/20 Reported Naproxen 500 Mg Tablet 1 Tab PO BID PRN 30 09/26/20 Reported Metoprolol Tartrate 25 Mg Tablet 1 Tab PO BID 09/26/20 Reported Alvesco (Ciclesonide) 6.1 Gm Hfa.aer.ad 6.1 Gm IH Q12HR 09/26/20 Reported Proair Hfa Inhaler (Albuterol Sulfate) 8.5 Gm Hfa.aer.ad 2 Puff IH PRN Q4-6HRS PRN 21 09/26/20 Reported Comments Chest x-ray from 09/29 was reviewed. Diffuse bilateral interstitial infiltrates consistent with COVID-19 pneumonia Impression . IMPRESSION: 1. Acute hypoxemic respiratory failure secondary to COVID-19. --Patient had developed worsening hypoxia. He failed BiPAP with 100% FiO2. Patient was intubated 09/29. Currently on assist control mode. Oxygen requirement mildly improved since yesterday. 2. COVID-19 viral pneumonia. 3. Possible bacterial pneumonia. 4. Other comorbidities including chronic obstructive pulmonary disease with acute exacerbation, tobacco dependent, chronic back pain and hypertension. Plan . Updated 09/30/20 Continue present assist control mode. Oxygen requirement mildly improved. Currently down to 90% FiO2 and 8 of PEEP. We will follow ABGs and make necessary adjustments. Follow CXR Continue remdesivir Continue steroids Continue empiric ABX, azithro and rocephin TF for nutritional support DVT/GI PPX D/W RN and RT CC time 30 min Updated 09/29/20 Pt. in distress on 100% BIPAP, pt. transferred to ICU, with ongoing distress and hypoxia despite BIPAP, will proceed with intubation Follow CXR/ABG Continue remdesivir Continue steroids Continue empiric ABX, azithro and rocephin Start TF for nutritional support DVT/GI PPX D/W RN and RT CC time 35 min Updated 09/28 ON 100%fio2/ bipap ct chest with extensive infiltrates due to COVID Patient initiated on remdesivir Continue BiPAP On dexamethasone Continue Zithromax DVT GI prophylaxis I have asked Nursing Home personal to address code status. Updated 09/27 Patient initiated on remdesivir yesterday Continue BiPAP On dexamethasone Continue Zithromax DVT GI prophylaxis SAROJ SQUIRES MD Sep 30, 2020 10:40
[2020-09-30] MEDS: REMDESIVIR 100mg in NORMAL SALINE 250ML X 4 DAYS IV SCH (11:54)
[2020-09-30] MEDS: AZITHROMYCIN 500 MG in IV NORMAL SALINE 250ML 250 ML IV SCH (13:46)
[2020-09-30] MEDS: ENOXAPARIN 40 MG/0.4 ML SYRINGE. SQ SCH (21:15)
[2020-09-30] MEDS: INSULIN GLARGINE SYRINGE. SQ SCH (21:16)
[2020-10-01] VITALS (30 sets, daily range): BP systolic 104–140; BP diastolic 52–86
[2020-10-01] MEDS: INSULIN LISPRO 300 UNITS/3 ML VIAL. SQ SCH ×5 (00:20→23:35)
[2020-10-01] MEDS: MIDAZOLAM 100mg/100ml NS BAG 100 ML IV PRN (06:45)
--- NOTE | 2020-10-01 08:13 | PDOC ---
[employer] PROGRESS NOTE Date of Service DOS: DATE: 10/01/20 TIME: 08:11 Chief Complaint Chief Complaint Assessment/Plan Acute exacerbation of COPD with acute pneumonia, gram neg and or gram positive Acute hypoxic respiratory failure No pulmonary embolism, aortic aneurysm or aortic dissection. Panlobular airspace disease,c/w multifocal pneumonia. PUI Pulmonary edema less likely. 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 Remote alcohol abuse "6-8 cans of beer a day years ago" Thickened distal esophagus with 9 x 10 mm luminal density, likely ingested medication tablet. Mediastinal adenopathy, malignancy is not excluded.suggest follow-up CT of the chest in 3 months. Hyperglycemia on accuchecks Severe protein-caloric malnutrition Hypomagnesemia on iv replacement Headache ADMIT Empiric iv zithromax, rocephin daily COVID 19 PCR positive Consult pulm --> starting Remdesivir 09/27 blood culture --> NGTD o2 support --> still requiring Bipap, worsening requirement Duonebs qid --> will have to hold due to COVID positive status dvt prophylaxis GI prophylaxis DVT PROPHYLAXIS GI PROPHYLAXIS transfer to ICU ESTIMATE LOS > 3 DAYS COVID-19 CRITERIA: The patient was evaluated during the global COVID-19 pandemic, and that diagnosis was suspected/considered upon their initial presentation. Their evaluation, treatment and testing was consistent with current guidelines for patients who present with complaints or symptoms that may be related to COVID-19. History of Present Illness History of Present Illness 59 year old male [facility] with work of breathing x2 days with low O2 Sat at facility down to 78% on RA. known history of COPD and cough. Patient also complains of headache. EMS noted p atient was 84% and tripoding on 3 L nasal cannula. EMS reports giving a DuoNeb treatment x2 in route and placement nonrebreather with subsequent improvement in up to 95%. remote alcohol abuse YRS AGO , smoked until one month ago when he was arrested received the [employer] COVID-19 vaccination x1 approximately 5 months ago at the [place]. Patient denies known exposure to COVID-19. Panlobular airspace disease,c/w multifocal pneumonia. PUI Pulmonary edema less likely. 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 Remote alcohol abuse "6-8 cans of beer a day years ago" Thickened distal esophag us with 9 x 10 mm luminal density, likely ingested medication tablet. Mediastinal adenopathy, malignancy is not excluded.suggest follow-up CT of the chest in 3 months. / Hyperglycemia on accuchecks // Severe protein-caloric malnutrition CTA CHEST C/W Panlobular airspace disease, most likely multifocal pneumonia. 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 Patient tolerating BiPAP and saturating 91%. Started patient on IV Protonix because he is still on steroids. And has a history of esophageal varices. Patient's chart, labs, images were reviewed and discussed with RN 09/27/20 Patient evaluated at bedside He was having laboring respirations initially on the BiPAP concerned patient may need ICU transfer however was given a dose of Ativan and was able to calm down and respiratory status improved Continue steroids Pulmonary consult Plan of care discussed with bedside RN 09/28/20 Patient evaluated bedside He was on BiPAP required to be increased 100% FiO2 this morning Remains on remdesivir, Decadron, Rocephin, and azithromycin Continuing supportive care Plan of care discussed with bedside nurse 09/29/20 Patient evaluated at bedside Patient remains significantly agitated and anxious despite aggressive medication measures while on BiPAP BiPAP settings increasing over the past several days and given his agitation will transfer to ICU Continuing remdesivir Decadron Rocephin and azithromycin Plan of care discussed with bedside nurse 09/30/2020: Patient transferred from out to ICU yesterday due to worsening respiratory distress. He was intubated and currently on vent with FiO2 90% and PEEP of 8. We will continue treatment with remdesivir, steroids, and empiric antibiotics. Critical care time 30 minutes spent reviewing charts, reviewing imaging, reviewing labs, discussion with RN. 10/01/2020: Afebrile. On vent with FiO2 85%, PEEP 8. Continue treatment with remdesivir, steroids, Rocephin and azithromycin. Critical care time 30 minutes spent reviewing charts, imaging, reviewing labs, discussion with RN. Vitals/I&O Vitals/I&O: Vital Signs Date Time Temp Pulse Resp B/P (MAP) Pulse Ox O2 Delivery O2 Flow Rate FiO2 10/01/20 07:00 54 24 119/62 (81) 95 Ventilator 10/01/20 04:00 98.6 98.6 I & O 09/30/20 09/30/20 10/01/20 15:00 23:00 07:00 Intake Total 430 ml 3484 ml 1841 ml Output Total 75 ml 425 ml 600 ml Balance 355 ml 3059 ml 1241 ml Physical Exam General: No acute distress, Other (Intubated and sedated) Heart: Regular rate, Normal S1 Abdomen: Normal bowel sounds, Soft, No tenderness, No masses, Other (obese) Extremities: No cyanosis Skin: No rashes Labs Labs: Laboratory Tests Test 09/30/20 11:59 09/30/20 16:54 09/30/20 23:59 10/01/20 05:55 Glucose (Fingerstick) 194 mg/dL (70-99) 278 mg/dL (70-99) 272 mg/dL (70-99) 270 mg/dL (70-99) Assessment and Plan Assessmemt and Plan Problems Medical Problems: (1) COPD exacerbation Status: Acute (2) Headache Status: Acute (3) Hypoxia Status: Acute (4) Pneumonia Status: Acute (5) Respiratory failure Status: Acute (6) Suspected 2019 novel coronavirus infection Status: Acute Comment Review of Relevant I have reviewed the following items herlinda (where applicable) has been applied. Medications: Current Medications Medications (Trade) Dose Ordered Sig/Lloyd Route PRN Reason Start Time Stop Time Status Last Admin Dose Admin Insulin Human Lispro (HumaLOG) 0-9 UNITS Q6HRS SQ 10/01/20 00:00 10/01/20 06:02 Justifications for Admission Other Justification RESP FAILURE WITH HYPOXIA JOAQUIN XIONG MD Oct 01, 2020 08:13
[2020-10-01] MEDS: METOPROLOL TART IMMED RELEASE 25 MG TABLET. PO SCH ×2 (09:00→20:40)
[2020-10-01] MEDS: FLUTICASONE 50MCG/NASAL SPRAY 16GM BOTTLE. NS SCH (09:00)
[2020-10-01] MEDS: FLUTICASONE/VILANTEROL 100/25 INHALER. INH SCH (09:00)
[2020-10-01 09:26] LABS: BASE EXCESS ABG 3 mmol/L (-3-3); FIO2 ABG 85; HCO3 ABG 27 mmol/L (21-28); PCO2 ABG 41 mmHg (35-46); PO2 ABG 93 mmHg (65-108); SAT O2 ABG 98 % (92-99)
[2020-10-01] MEDS: DEXAMETHASONE SOD PHOS 4 MG/ML VIAL IVP SCH (09:38)
[2020-10-01] MEDS: PANTOPRAZOLE IV PUSH 40 MG VIAL. IVP SCH (09:38)
[2020-10-01] MEDS: TAMSULOSIN 0.4 MG CAP.ER.24H. PO SCH (09:39)
[2020-10-01] MEDS: cefTRIAXone IV Push 1 GM VIAL. IVP SCH (10:19)
--- NOTE | 2020-10-01 10:20 | PDOC ---
PULMONARY PROGRESS NOTES DATE: 10/01/20 TIME: 10:18 Subjective Patient intubated on 09/29 for worsening hypoxia and persistent encephalopathy. He failed BiPAP. Currently on assist control mode, 80% FiO2 Vitals Vital Signs Date Time Temp Pulse Resp B/P (MAP) Pulse Ox O2 Delivery O2 Flow Rate FiO2 10/01/20 10:00 60 24 130/62 (84) 95 Ventilator 10/01/20 08:00 98.8 98.8 Comments Patient seen during the , and visual inspection of BiPAP no respiratory distress no paroxysmal breathing pattern no increasing edema no new rash Labs Laboratory Tests Test 09/29/20 11:30 09/29/20 14:37 09/29/20 20:05 09/30/20 08:00 O2 Saturation 96 % (92-99) 98 % (92-99) Arterial Blood pH 7.30 (7.35-7.45) 7.40 (7.35-7.45) Arterial Blood pCO2 at Patient Temp 57 mmHg (35-46) 45 mmHg (35-46) Arterial Blood pO2 at Patient Temp 86 mmHg (65-108) 109 mmHg (65-108) Arterial Blood HCO3 27 mmol/L (21-28) 27 mmol/L (21-28) Arterial Blood Base Excess 0 mmol/L (-3-3) 2 mmol/L (-3-3) Oxyhemoglobin 94.3 % Methemoglobin 0.3 % (0.0-1.9) Carbon Monoxide, Quantitative 1.4 % (0.0-1.9) FiO2 100% vent 90% vent Sodium Level 146 mmol/L (136-145) Potassium Level 4.4 mmol/L (3.5-5.1) Chloride Level 111 mmol/L (98-107) Carbon Dioxide Level 30 mmol/L (21-32) Anion Gap 5 (6-14) Blood Urea Nitrogen 23 mg/dL (8-26) Creatinine 0.6 mg/dL (0.7-1.3) Estimated GFR (Cockcroft-Gault) 137.9 BUN/Creatinine Ratio 38 (6-20) Glucose Level 226 mg/dL (70-99) Calcium Level 8.1 mg/dL (8.5-10.1) Total Bilirubin 0.9 mg/dL (0.2-1.0) Aspartate Amino Transf (AST/SGOT) 24 U/L (15-37) Alanine Aminotransferase (ALT/SGPT) 22 U/L (16-63) Alkaline Phosphatase 82 U/L (46-116) Total Protein 5.4 g/dL (6.4-8.2) Albumin 2.0 g/dL (3.4-5.0) Albumin/Globulin Ratio 0.6 (1.0-1.7) Glucose (Fingerstick) 256 mg/dL (70-99) Test 09/30/20 11:59 09/30/20 16:54 09/30/20 23:59 10/01/20 05:55 Glucose (Fingerstick) 194 mg/dL (70-99) 278 mg/dL (70-99) 272 mg/dL (70-99) 270 mg/dL (70-99) Test 10/01/20 09:18 O2 Saturation 98 % (92-99) Arterial Blood pH 7.44 (7.35-7.45) Arterial Blood pCO2 at Patient Temp 41 mmHg (35-46) Arterial Blood pO2 at Patient Temp 93 mmHg (65-108) Arterial Blood HCO3 27 mmol/L (21-28) Arterial Blood Base Excess 3 mmol/L (-3-3) FiO2 85 Laboratory Tests Test 09/30/20 11:59 09/30/20 16:54 09/30/20 23:59 10/01/20 05:55 Glucose (Fingerstick) 194 mg/dL (70-99) 278 mg/dL (70-99) 272 mg/dL (70-99) 270 mg/dL (70-99) Test 10/01/20 09:18 O2 Saturation 98 % (92-99) Arterial Blood pH 7.44 (7.35-7.45) Arterial Blood pCO2 at Patient Temp 41 mmHg (35-46) Arterial Blood pO2 at Patient Temp 93 mmHg (65-108) Arterial Blood HCO3 27 mmol/L (21-28) Arterial Blood Base Excess 3 mmol/L (-3-3) FiO2 85 Medications Active Scripts Medications Dose Route/Sig Max Daily Dose Days Date Category Flomax (Tamsulosin Hcl) 0.4 Mg Cap.er.24h 1 Cap PO DAILY 09/26/20 Reported Semglee (Insulin Glargine,Hum.rec.anlog) 100 Unit/1 Ml Vial 20 Unit SQ QHS 7/18/21 Reported Semglee (Insulin Glargine,Hum.rec.anlog) 100 Unit/1 Ml Vial 30 Unit SQ QAM 09/26/20 Reported Novolin R (Insulin Regular, Human) 100 Unit/1 Ml Vial 100 Unit IJ SSI PRN 09/26/20 Reported Naproxen 500 Mg Tablet 1 Tab PO BID PRN 30 09/26/20 Reported Metoprolol Tartrate 25 Mg Tablet 1 Tab PO BID 09/26/20 Reported Alvesco (Ciclesonide) 6.1 Gm Hfa.aer.ad 6.1 Gm IH Q12HR 09/26/20 Reported Proair Hfa Inhaler (Albuterol Sulfate) 8.5 Gm Hfa.aer.ad 2 Puff IH PRN Q4-6HRS PRN 21 09/26/20 Reported Comments Chest x-ray from 09/29 was reviewed. Diffuse bilateral interstitial infiltrates consistent with COVID-19 pneumonia Impression . IMPRESSION: 1. Acute hypoxemic respiratory failure secondary to COVID-19. --Patient had developed worsening hypoxia. He failed BiPAP with 100% FiO2. Patient was intubated 09/29. Currently on assist control mode. Oxygen requirement mildly improved since yesterday. 2. COVID-19 viral pneumonia. 3. Possible bacterial pneumonia. 4. Other comorbidities including chronic obstructive pulmonary disease with acute exacerbation, tobacco dependent, chronic back pain and hypertension. Plan . Updated 10/01/20 Continue present assist control mode. Oxygen requirement mildly improved. Currently down to 80% FiO2 and 8 of PEEP. We will follow ABGs and make necessary adjustments. Follow CXR Continue remdesivir Continue steroids Continue empiric ABX, azithro and rocephin TF for nutritional support DVT/GI PPX D/W RN and RT CC time 30 min Updated 09/30/20 Continue present assist control mode. Oxygen requirement mildly improved. Currently down to 90% FiO2 and 8 of PEEP. We will follow ABGs and make necessary adjustments. Follow CXR Continue remdesivir Continue steroids Continue empiric ABX, azithro and rocephin TF for nutritional support DVT/GI PPX D/W RN and RT CC time 30 min Updated 09/29/20 Pt. in distress on 100% BIPAP, pt. transferred to ICU, with ongoing distress and hypoxia despite BIPAP, will proceed with intubation Follow CXR/ABG Continue remdesivir Continue steroids Continue empiric ABX, azithro and rocephin Start TF for nutritional support DVT/GI PPX D/W RN and RT CC time 35 min Updated 09/28 ON 100%fio2/ bipap ct chest with extensive infiltrates due to COVID Patient initiated on remdesivir Continue BiPAP On dexamethasone Continue Zithromax DVT GI prophylaxis I have asked Intermediate personal to address code status. Updated 09/27 Patient initiated on remdesivir yesterday Continue BiPAP On dexamethasone Continue Zithromax DVT GI prophylaxis SAROJ SQUIRES MD Oct 01, 2020 10:20
[2020-10-01] MEDS: IV 1/2 NORMAL SALINE 1,000 ML IV SCH (12:35)
[2020-10-01] MEDS: REMDESIVIR 100mg in NORMAL SALINE 250ML X 4 DAYS IV SCH (12:36)
[2020-10-01] MEDS: AZITHROMYCIN 500 MG in IV NORMAL SALINE 250ML 250 ML IV SCH (13:12)
[2020-10-01] MEDS: ENOXAPARIN 40 MG/0.4 ML SYRINGE. SQ SCH (20:40)
[2020-10-01] MEDS: INSULIN GLARGINE SYRINGE. SQ SCH (20:40)
[2020-10-02] VITALS (24 sets, daily range): BP systolic 116–152; BP diastolic 60–70
[2020-10-02] MEDS: IV 1/2 NORMAL SALINE 1,000 ML IV SCH ×3 (03:47→21:41)
[2020-10-02] MEDS: INSULIN LISPRO 300 UNITS/3 ML VIAL. SQ SCH ×4 (06:05→23:42)
[2020-10-02] MEDS: MIDAZOLAM 100mg/100ml NS BAG 100 ML IV PRN (06:06)
[2020-10-02 06:37] LABS: BASO % 0 % (0-3); EOS % 0 % (0-3); HEMATOCRIT 39.2 % (39.0-53.0); HEMOGLOBIN 13.2 g/dL (13.0-17.5); LYMPH # 0.7 x10^3/uL (1.0-4.8); LYMPH % 12 % (24-48); MEAN CORPUSCULAR HEMOGLOBIN 32 pg (25-35); MEAN CORPUSCULAR HGB CONC 34 g/dL (31-37); MEAN CORPUSCULAR VOLUME 95 fL (79-100); MONO # 0.7 x10^3/uL (0.0-1.1); MONO % 11 % (0-9); NEUT # 4.9 x10^3/uL (1.8-7.7); NEUT % 77 % (31-73); PLATELET COUNT 75 x10^3/uL (140-400); RED BLOOD COUNT 4.14 x10^6/uL (4.30-5.70); RED CELL DISTRIBUTION WIDTH 14.4 % (11.5-14.5); WHITE BLOOD COUNT 6.3 x10^3/uL (4.0-11.0)
[2020-10-02 06:43] LABS: ALBUMIN 1.8 g/dL (3.4-5.0); ALBUMIN/GLOBULIN RATIO 0.5 (1.0-1.7); CREATININE 0.5 mg/dL (0.7-1.3); GFR 170.2; POTASSIUM 4.4 mmol/L (3.5-5.1); TOTAL BILIRUBIN 0.7 mg/dL (0.2-1.0); TOTAL PROTEIN 5.3 g/dL (6.4-8.2)
[2020-10-02] MEDS: PANTOPRAZOLE IV PUSH 40 MG VIAL. IVP SCH (08:53)
[2020-10-02] MEDS: DEXAMETHASONE SOD PHOS 4 MG/ML VIAL IVP SCH (08:53)
[2020-10-02] MEDS: METOPROLOL TART IMMED RELEASE 25 MG TABLET. PO SCH ×2 (08:54→20:14)
[2020-10-02] MEDS: TAMSULOSIN 0.4 MG CAP.ER.24H. PO SCH (08:54)
[2020-10-02] MEDS: FLUTICASONE 50MCG/NASAL SPRAY 16GM BOTTLE. NS SCH (08:54)
[2020-10-02] MEDS: FLUTICASONE/VILANTEROL 100/25 INHALER. INH SCH (08:55)
[2020-10-02 09:49] LABS: BASE EXCESS ABG 4 mmol/L (-3-3); HCO3 ABG 28 mmol/L (21-28); PCO2 ABG 39 mmHg (35-46); PO2 ABG 104 mmHg (65-108); SAT O2 ABG 98 % (92-99)
--- NOTE | 2020-10-02 09:57 | PDOC ---
PULMONARY PROGRESS NOTES DATE: 10/02/20 TIME: 09:55 Subjective Remains intubated and sedated. Mild improvement in oxygenation. Currently on assist control mode. Not on any vasopressors Vitals Vital Signs Date Time Temp Pulse Resp B/P (MAP) Pulse Ox O2 Delivery O2 Flow Rate FiO2 10/02/20 09:04 96 Ventilator 10/02/20 08:54 54 152/64 10/02/20 06:00 24 10/02/20 04:00 98.2 98.2 Comments Patient seen during the ID pandemic, and visual inspection of BiPAP no respiratory distress no paroxysmal breathing pattern no increasing edema no new rash Labs Laboratory Tests Test 09/30/20 11:59 09/30/20 16:54 09/30/20 23:59 10/01/20 05:55 Glucose (Fingerstick) 194 mg/dL (70-99) 278 mg/dL (70-99) 272 mg/dL (70-99) 270 mg/dL (70-99) Test 10/01/20 09:18 10/01/20 13:15 10/01/20 18:08 10/01/20 23:33 O2 Saturation 98 % (92-99) Arterial Blood pH 7.44 (7.35-7.45) Arterial Blood pCO2 at Patient Temp 41 mmHg (35-46) Arterial Blood pO2 at Patient Temp 93 mmHg (65-108) Arterial Blood HCO3 27 mmol/L (21-28) Arterial Blood Base Excess 3 mmol/L (-3-3) FiO2 85 Glucose (Fingerstick) 309 mg/dL (70-99) 340 mg/dL (70-99) 306 mg/dL (70-99) Test 10/02/20 05:56 10/02/20 06:00 Glucose (Fingerstick) 272 mg/dL (70-99) White Blood Count 6.3 x10^3/uL (4.0-11.0) Red Blood Count 4.14 x10^6/uL (4.30-5.70) Hemoglobin 13.2 g/dL (13.0-17.5) Hematocrit 39.2 % (39.0-53.0) Mean Corpuscular Volume 95 fL (79-100) Mean Corpuscular Hemoglobin 32 pg (25-35) Mean Corpuscular Hemoglobin Concent 34 g/dL (31-37) Red Cell Distribution Width 14.4 % (11.5-14.5) Platelet Count 75 x10^3/uL (140-400) Neutrophils (%) (Auto) 77 % (31-73) Lymphocytes (%) (Auto) 12 % (24-48) Monocytes (%) (Auto) 11 % (0-9) Eosinophils (%) (Auto) 0 % (0-3) Basophils (%) (Auto) 0 % (0-3) Neutrophils # (Auto) 4.9 x10^3/uL (1.8-7.7) Lymphocytes # (Auto) 0.7 x10^3/uL (1.0-4.8) Monocytes # (Auto) 0.7 x10^3/uL (0.0-1.1) Eosinophils # (Auto) 0.0 x10^3/uL (0.0-0.7) Basophils # (Auto) 0.0 x10^3/uL (0.0-0.2) Sodium Level 142 mmol/L (136-145) Potassium Level 4.4 mmol/L (3.5-5.1) Chloride Level 110 mmol/L (98-107) Carbon Dioxide Level 27 mmol/L (21-32) Anion Gap 5 (6-14) Blood Urea Nitrogen 27 mg/dL (8-26) Creatinine 0.5 mg/dL (0.7-1.3) Estimated GFR (Cockcroft-Gault) 170.2 BUN/Creatinine Ratio 54 (6-20) Glucose Level 310 mg/dL (70-99) Calcium Level 8.0 mg/dL (8.5-10.1) Total Bilirubin 0.7 mg/dL (0.2-1.0) Aspartate Amino Transf (AST/SGOT) 21 U/L (15-37) Alanine Aminotransferase (ALT/SGPT) 21 U/L (16-63) Alkaline Phosphatase 78 U/L (46-116) Total Protein 5.3 g/dL (6.4-8.2) Albumin 1.8 g/dL (3.4-5.0) Albumin/Globulin Ratio 0.5 (1.0-1.7) Laboratory Tests Test 10/01/20 13:15 10/01/20 18:08 7/23/21 23:33 10/02/20 05:56 Glucose (Fingerstick) 309 mg/dL (70-99) 340 mg/dL (70-99) 306 mg/dL (70-99) 272 mg/dL (70-99) Test 10/02/20 06:00 White Blood Count 6.3 x10^3/uL (4.0-11.0) Red Blood Count 4.14 x10^6/uL (4.30-5.70) Hemoglobin 13.2 g/dL (13.0-17.5) Hematocrit 39.2 % (39.0-53.0) Mean Corpuscular Volume 95 fL (79-100) Mean Corpuscular Hemoglobin 32 pg (25-35) Mean Corpuscular Hemoglobin Concent 34 g/dL (31-37) Red Cell Distribution Width 14.4 % (11.5-14.5) Platelet Count 75 x10^3/uL (140-400) Neutrophils (%) (Auto) 77 % (31-73) Lymphocytes (%) (Auto) 12 % (24-48) Monocytes (%) (Auto) 11 % (0-9) Eosinophils (%) (Auto) 0 % (0-3) Basophils (%) (Auto) 0 % (0-3) Neutrophils # (Auto) 4.9 x10^3/uL (1.8-7.7) Lymphocytes # (Auto) 0.7 x10^3/uL (1.0-4.8) Monocytes # (Auto) 0.7 x10^3/uL (0.0-1.1) Eosinophils # (Auto) 0.0 x10^3/uL (0.0-0.7) Basophils # (Auto) 0.0 x10^3/uL (0.0-0.2) Sodium Level 142 mmol/L (136-145) Potassium Level 4.4 mmol/L (3.5-5.1) Chloride Level 110 mmol/L (98-107) Carbon Dioxide Level 27 mmol/L (21-32) Anion Gap 5 (6-14) Blood Urea Nitrogen 27 mg/dL (8-26) Creatinine 0.5 mg/dL (0.7-1.3) Estimated GFR (Cockcroft-Gault) 170.2 BUN/Creatinine Ratio 54 (6-20) Glucose Level 310 mg/dL (70-99) Calcium Level 8.0 mg/dL (8.5-10.1) Total Bilirubin 0.7 mg/dL (0.2-1.0) Aspartate Amino Transf (AST/SGOT) 21 U/L (15-37) Alanine Aminotransferase (ALT/SGPT) 21 U/L (16-63) Alkaline Phosphatase 78 U/L (46-116) Total Protein 5.3 g/dL (6.4-8.2) Albumin 1.8 g/dL (3.4-5.0) Albumin/Globulin Ratio 0.5 (1.0-1.7) Medications Active Scripts Medications Dose Route/Sig Max Daily Dose Days Date Category Flomax (Tamsulosin Hcl) 0.4 Mg Cap.er.24h 1 Cap PO DAILY 09/26/20 Reported Semglee (Insulin Glargine,Hum.rec.anlog) 100 Unit/1 Ml Vial 20 Unit SQ QHS 09/26/20 Reported Semglee (Insulin Glargine,Hum.rec.anlog) 100 Unit/1 Ml Vial 30 Unit SQ QAM 09/26/20 Reported Novolin R (Insulin Regular, Human) 100 Unit/1 Ml Vial 100 Unit IJ SSI PRN 09/26/20 Reported Naproxen 500 Mg Tablet 1 Tab PO BID PRN 30 09/26/20 Reported Metoprolol Tartrate 25 Mg Tablet 1 Tab PO BID 09/26/20 Reported Alvesco (Ciclesonide) 6.1 Gm Hfa.aer.ad 6.1 Gm IH Q12HR 09/26/20 Reported Proair Hfa Inhaler (Albuterol Sulfate) 8.5 Gm Hfa.aer.ad 2 Puff IH PRN Q4-6HRS PRN 21 09/26/20 Reported Comments Chest x-ray from 09/29 was reviewed. Diffuse bilateral interstitial infiltrates consistent with COVID-19 pneumonia Impression . IMPRESSION: 1. Acute hypoxemic respiratory failure secondary to COVID-19. --Patient had developed worsening hypoxia. He failed BiPAP with 100% FiO2. Patient was intubated 09/29. Currently on assist control mode. Oxygen requirement mildly improved since yesterday. 2. COVID-19 viral pneumonia. 3. Possible bacterial pneumonia. 4. Other comorbidities including chronic obstructive pulmonary disease with acute exacerbation, tobacco dependent, chronic back pain and hypertension. Plan . Updated 10/02/20 Continue present assist control mode. Oxygen requirement mildly improved. Currently down to 80% FiO2 and 8 of PEEP. We will follow ABGs and make necessary adjustments. Follow CXR Continue remdesivir Continue steroids Continue empiric ABX, azithro and rocephin TF for nutritional support DVT/GI PPX D/W RN and RT CC time 30 min Updated 10/01/20 Continue present assist control mode. Oxygen requirement mildly improved. Currently down to 80% FiO2 and 8 of PEEP. We will follow ABGs and make necessary adjustments. Follow CXR Continue remdesivir Continue steroids Continue empiric ABX, azithro and rocephin TF for nutritional support DVT/GI PPX D/W RN and RT CC time 30 min Updated 09/30/20 Continue present assist control mode. Oxygen requirement mildly improved. Currently down to 90% FiO2 and 8 of PEEP. We will follow ABGs and make necessary adjustments. Follow CXR Continue remdesivir Continue steroids Continue empiric ABX, azithro and rocephin TF for nutritional support DVT/GI PPX D/W RN and RT CC time 30 min Updated 09/29/20 Pt. in distress on 100% BIPAP, pt. transferred to ICU, with ongoing distress and hypoxia despite BIPAP, will proceed with intubation Follow CXR/ABG Continue remdesivir Continue steroids Continue empiric ABX, azithro and rocephin Start TF for nutritional support DVT/GI PPX D/W RN and RT CC time 35 min Updated 09/28 ON 100%fio2/ bipap ct chest with extensive infiltrates due to COVID Patient initiated on remdesivir Continue BiPAP On dexamethasone Continue Zithromax DVT GI prophylaxis I have asked Retirement personal to address code status. Updated 09/27 Patient initiated on remdesivir yesterday Continue BiPAP On dexamethasone Continue Zithromax DVT GI prophylaxis SAROJ SQUIRES MD Oct 02, 2020 09:57
--- NOTE | 2020-10-02 09:57 | PDOC ---
[employer] PROGRESS NOTE Date of Service DOS: DATE: 10/02/20 TIME: 09:56 Chief Complaint Chief Complaint Assessment/Plan Acute exacerbation of COPD with acute pneumonia, gram neg and or gram positive Acute hypoxic respiratory failure No pulmonary embolism, aortic aneurysm or aortic dissection. Panlobular airspace disease,c/w multifocal pneumonia. PUI Pulmonary edema less likely. 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 Remote alcohol abuse "6-8 cans of beer a day years ago" Thickened distal esophagus with 9 x 10 mm luminal density, likely ingested medication tablet. Mediastinal adenopathy, malignancy is not excluded.suggest follow-up CT of the chest in 3 months. Hyperglycemia on accuchecks Severe protein-caloric malnutrition Hypomagnesemia on iv replacement Headache ADMIT Empiric iv zithromax, rocephin daily COVID 19 PCR positive Consult pulm --> starting Remdesivir 09/27 blood culture --> NGTD o2 support --> still requiring Bipap, worsening requirement Duonebs qid --> will have to hold due to COVID positive status dvt prophylaxis GI prophylaxis DVT PROPHYLAXIS GI PROPHYLAXIS transfer to ICU ESTIMATE LOS > 3 DAYS COVID-19 CRITERIA: The patient was evaluated during the global COVID-19 pandemic, and that diagnosis was suspected/considered upon their initial presentation. Their evaluation, treatment and testing was consistent with current guidelines for patients who present with complaints or symptoms that may be related to COVID-19. History of Present Illness History of Present Illness 59 year old male presented via EMS from [facility] with work of breathing x2 days with low O2 Sat at facility down to 78% on RA. known history of COPD and cough. Patient also complains of headache. EMS noted p atient was 84% and tripoding on 3 L nasal cannula. EMS reports giving a DuoNeb treatment x2 in route and placement nonrebreather with subsequent improvement in up to 95%. remote alcohol abuse YRS AGO , smoked until one month ago when he was arrested received the [employer] COVID-19 vaccination x1 approximately 5 months ago at the [place]. Patient denies known exposure to COVID-19. Panlobular airspace disease,c/w multifocal pneumonia. PUI Pulmonary edema less likely. 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 Remote alcohol abuse "6-8 cans of beer a day years ago" Thickened distal esophag us with 9 x 10 mm luminal density, likely ingested medication tablet. Mediastinal adenopathy, malignancy is not excluded.suggest follow-up CT of the chest in 3 months. / Hyperglycemia on accuchecks // Severe protein-caloric malnutrition CTA CHEST C/W Panlobular airspace disease, most likely multifocal pneumonia. 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 Patient tolerating BiPAP and saturating 91%. Started patient on IV Protonix because he is still on steroids. And has a history of esophageal varices. Patient's chart, labs, images were reviewed and discussed with RN 09/27/20 Patient evaluated at bedside He was having laboring respirations initially on the BiPAP concerned patient may need ICU transfer however was given a dose of Ativan and was able to calm down and respiratory status improved Continue steroids Pulmonary consult Plan of care discussed with bedside RN 09/28/20 Patient evaluated bedside He was on BiPAP required to be increased 100% FiO2 this morning Remains on remdesivir, Decadron, Rocephin, and azithromycin Continuing supportive care Plan of care discussed with bedside nurse 09/29/20 Patient evaluated at bedside Patient remains significantly agitated and anxious despite aggressive medication measures while on BiPAP BiPAP settings increasing over the past several days and given his agitation will transfer to ICU Continuing remdesivir Decadron Rocephin and azithromycin Plan of care discussed with bedside nurse 09/30/2020: Patient transferred from out to ICU yesterday due to worsening respiratory distress. He was intubated and currently on vent with FiO2 90% and PEEP of 8. We will continue treatment with remdesivir, steroids, and empiric antibiotics. Critical care time 30 minutes spent reviewing charts, reviewing imaging, reviewing labs, discussion with RN. 10/01/2020: Afebrile. On vent with FiO2 85%, PEEP 8. Continue treatment with remdesivir, steroids, Rocephin and azithromycin. Critical care time 30 minutes spent reviewing charts, imaging, reviewing labs, discussion with RN. 10/02/2020: Afebrile, FiO2 80%, PEEP 5. Finished remdesivir. Continue antibiotics and Decadron. Will increase insulin regimen due to persistent hyperglycemia. Supportive care. Critical care time 30 minutes spent reviewing charts, labs, reviewing imaging, discussion with RN. Vitals/I&O Vitals/I&O: Vital Signs Date Time Temp Pulse Resp B/P (MAP) Pulse Ox O2 Delivery O2 Flow Rate FiO2 10/02/20 09:04 96 Ventilator 10/02/20 08:54 54 152/64 10/02/20 06:00 24 10/02/20 04:00 98.2 98.2 I & O 10/01/20 10/01/20 10/02/20 15:00 23:00 07:00 Intake Total 200 ml 2677.9 ml 2029 ml Output Total 440 ml 810 ml 575 ml Balance -240 ml 1867.9 ml 1454 ml Physical Exam General: No acute distress, Other (Intubated and sedated) Heart: Regular rate, Normal S1 Abdomen: Normal bowel sounds, Soft, No tenderness, No masses, Other (obese) Extremities: No cyanosis Skin: No rashes Labs Labs: Laboratory Tests Test 10/01/20 13:15 10/01/20 18:08 10/01/20 23:33 10/02/20 05:56 Glucose (Fingerstick) 309 mg/dL (70-99) 340 mg/dL (70-99) 306 mg/dL (70-99) 272 mg/dL (70-99) Test 10/02/20 06:00 White Blood Count 6.3 x10^3/uL (4.0-11.0) Red Blood Count 4.14 x10^6/uL (4.30-5.70) Hemoglobin 13.2 g/dL (13.0-17.5) Hematocrit 39.2 % (39.0-53.0) Mean Corpuscular Volume 95 fL (79-100) Mean Corpuscular Hemoglobin 32 pg (25-35) Mean Corpuscular Hemoglobin Concent 34 g/dL (31-37) Red Cell Distribution Width 14.4 % (11.5-14.5) Platelet Count 75 x10^3/uL (140-400) Neutrophils (%) (Auto) 77 % (31-73) Lymphocytes (%) (Auto) 12 % (24-48) Monocytes (%) (Auto) 11 % (0-9) Eosinophils (%) (Auto) 0 % (0-3) Basophils (%) (Auto) 0 % (0-3) Neutrophils # (Auto) 4.9 x10^3/uL (1.8-7.7) Lymphocytes # (Auto) 0.7 x10^3/uL (1.0-4.8) Monocytes # (Auto) 0.7 x10^3/uL (0.0-1.1) Eosinophils # (Auto) 0.0 x10^3/uL (0.0-0.7) Basophils # (Auto) 0.0 x10^3/uL (0.0-0.2) Sodium Level 142 mmol/L (136-145) Potassium Level 4.4 mmol/L (3.5-5.1) Chloride Level 110 mmol/L (98-107) Carbon Dioxide Level 27 mmol/L (21-32) Anion Gap 5 (6-14) Blood Urea Nitrogen 27 mg/dL (8-26) Creatinine 0.5 mg/dL (0.7-1.3) Estimated GFR (Cockcroft-Gault) 170.2 BUN/Creatinine Ratio 54 (6-20) Glucose Level 310 mg/dL (70-99) Calcium Level 8.0 mg/dL (8.5-10.1) Total Bilirubin 0.7 mg/dL (0.2-1.0) Aspartate Amino Transf (AST/SGOT) 21 U/L (15-37) Alanine Aminotransferase (ALT/SGPT) 21 U/L (16-63) Alkaline Phosphatase 78 U/L (46-116) Total Protein 5.3 g/dL (6.4-8.2) Albumin 1.8 g/dL (3.4-5.0) Albumin/Globulin Ratio 0.5 (1.0-1.7) Assessment and Plan Assessmemt and Plan Problems Medical Problems: (1) COPD exacerbation Status: Acute (2) Headache Status: Acute (3) Hypoxia Status: Acute (4) Pneumonia Status: Acute (5) Respiratory failure Status: Acute (6) Suspected 2019 novel coronavirus infection Status: Acute Comment Review of Relevant I have reviewed the following items herlinda (where applicable) has been applied. Justifications for Admission Other Justification RESP FAILURE WITH HYPOXIA JOAQUIN XIONG MD Oct 02, 2020 09:57
[2020-10-02 09:58] LABS: PLT ESTIMATE DECREASED (ADEQUATE)
[2020-10-02] MEDS: AZITHROMYCIN 500 MG in IV NORMAL SALINE 250ML 250 ML IV SCH (12:51)
[2020-10-02] MEDS: cefTRIAXone IV Push 1 GM VIAL. IVP SCH (12:53)
[2020-10-02 14:15] LABS: FIO2 ABG 80% VENT
[2020-10-02] MEDS: ENOXAPARIN 40 MG/0.4 ML SYRINGE. SQ SCH (20:12)
[2020-10-02] MEDS ORDERED: INSULIN GLARGINE SYRINGE. SQ SCH (21:00)
[2020-10-03] VITALS (24 sets, daily range): BP systolic 88–146; BP diastolic 62–78
[2020-10-03] MEDS: INSULIN LISPRO 300 UNITS/3 ML VIAL. SQ SCH ×3 (05:45→18:21)
[2020-10-03 06:04] LABS: BASO % 0 % (0-3); EOS % 0 % (0-3); HEMATOCRIT 40.4 % (39.0-53.0); HEMOGLOBIN 13.4 g/dL (13.0-17.5); LYMPH # 0.8 x10^3/uL (1.0-4.8); LYMPH % 11 % (24-48); MEAN CORPUSCULAR HEMOGLOBIN 32 pg (25-35); MEAN CORPUSCULAR HGB CONC 33 g/dL (31-37); MEAN CORPUSCULAR VOLUME 97 fL (79-100); MONO # 0.7 x10^3/uL (0.0-1.1); MONO % 9 % (0-9); NEUT # 5.7 x10^3/uL (1.8-7.7); NEUT % 80 % (31-73); PLATELET COUNT 70 x10^3/uL (140-400); RED BLOOD COUNT 4.18 x10^6/uL (4.30-5.70); RED CELL DISTRIBUTION WIDTH 14.6 % (11.5-14.5); WHITE BLOOD COUNT 7.2 x10^3/uL (4.0-11.0)
[2020-10-03 06:09] LABS: ALBUMIN 1.9 g/dL (3.4-5.0); ALBUMIN/GLOBULIN RATIO 0.6 (1.0-1.7); CREATININE 0.5 mg/dL (0.7-1.3); GFR 170.2; POTASSIUM 4.5 mmol/L (3.5-5.1); TOTAL BILIRUBIN 0.7 mg/dL (0.2-1.0); TOTAL PROTEIN 5.2 g/dL (6.4-8.2)
[2020-10-03] MEDS: FLUTICASONE 50MCG/NASAL SPRAY 16GM BOTTLE. NS SCH (09:00)
[2020-10-03] MEDS: FLUTICASONE/VILANTEROL 100/25 INHALER. INH SCH (09:00)
[2020-10-03 09:23] LABS: BASE EXCESS ABG 3 mmol/L (-3-3); HCO3 ABG 28 mmol/L (21-28); PCO2 ABG 42 mmHg (35-46); PO2 ABG 83 mmHg (65-108); SAT O2 ABG 97 % (92-99)
[2020-10-03 09:24] LABS: FIO2 ABG 70% VENT
[2020-10-03] MEDS: MIDAZOLAM 100mg/100ml NS BAG 100 ML IV PRN (09:29)
[2020-10-03] MEDS: TAMSULOSIN 0.4 MG CAP.ER.24H. PO SCH (09:30)
[2020-10-03] MEDS: PANTOPRAZOLE IV PUSH 40 MG VIAL. IVP SCH (09:30)
[2020-10-03] MEDS: METOPROLOL TART IMMED RELEASE 25 MG TABLET. PO SCH ×3 (09:30→20:57)
[2020-10-03] MEDS: DEXAMETHASONE SOD PHOS 4 MG/ML VIAL IVP SCH (09:31)
[2020-10-03] MEDS: cefTRIAXone IV Push 1 GM VIAL. IVP SCH (09:32)
--- NOTE | 2020-10-03 09:36 | PDOC ---
[employer] PROGRESS NOTE Date of Service DOS: DATE: 10/03/20 TIME: 09:31 Chief Complaint Chief Complaint Assessment/Plan Acute exacerbation of COPD with acute pneumonia, gram neg and or gram positive Acute hypoxic respiratory failure No pulmonary embolism, aortic aneurysm or aortic dissection. Panlobular airspace disease,c/w multifocal pneumonia. PUI Pulmonary edema less likely. 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 Remote alcohol abuse "6-8 cans of beer a day years ago" Thickened distal esophagus with 9 x 10 mm luminal density, likely ingested medication tablet. Mediastinal adenopathy, malignancy is not excluded.suggest follow-up CT of the chest in 3 months. Hyperglycemia on accuchecks Severe protein-caloric malnutrition Hypomagnesemia on iv replacement Headache ADMIT Empiric iv zithromax, rocephin daily COVID 19 PCR positive Consult pulm --> starting Remdesivir 09/27 blood culture --> NGTD o2 support --> still requiring Bipap, worsening requirement Duonebs qid --> will have to hold due to COVID positive status dvt prophylaxis GI prophylaxis DVT PROPHYLAXIS GI PROPHYLAXIS transfer to ICU ESTIMATE LOS > 3 DAYS COVID-19 CRITERIA: The patient was evaluated during the global COVID-19 pandemic, and that diagnosis was suspected/considered upon their initial presentation. Their evaluation, treatment and testing was consistent with current guidelines for patients who present with complaints or symptoms that may be related to COVID-19. History of Present Illness History of Present Illness 59 year old male presented via EMS from [facility] with work of breathing x2 days with low O2 Sat at facility down to 78% on RA. known history of COPD and cough. Patient also complains of headache. EMS noted p atient was 84% and tripoding on 3 L nasal cannula. EMS reports giving a DuoNeb treatment x2 in route and placement nonrebreather with subsequent improvement in up to 95%. remote alcohol abuse YRS AGO , smoked until one month ago when he was arrested received the [employer] COVID-19 vaccination x1 approximately 5 months ago at the [place]. Patient denies known exposure to COVID-19. Panlobular airspace disease,c/w multifocal pneumonia. PUI Pulmonary edema less likely. 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 Remote alcohol abuse "6-8 cans of beer a day years ago" Thickened distal esophag us with 9 x 10 mm luminal density, likely ingested medication tablet. Mediastinal adenopathy, malignancy is not excluded.suggest follow-up CT of the chest in 3 months. / Hyperglycemia on accuchecks // Severe protein-caloric malnutrition CTA CHEST C/W Panlobular airspace disease, most likely multifocal pneumonia. 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 Patient tolerating BiPAP and saturating 91%. Started patient on IV Protonix because he is still on steroids. And has a history of esophageal varices. Patient's chart, labs, images were reviewed and discussed with RN 09/27/20 Patient evaluated at bedside He was having laboring respirations initially on the BiPAP concerned patient may need ICU transfer however was given a dose of Ativan and was able to calm down and respiratory status improved Continue steroids Pulmonary consult Plan of care discussed with bedside RN 09/28/20 Patient evaluated bedside He was on BiPAP required to be increased 100% FiO2 this morning Remains on remdesivir, Decadron, Rocephin, and azithromycin Continuing supportive care Plan of care discussed with bedside nurse 09/29/20 Patient evaluated at bedside Patient remains significantly agitated and anxious despite aggressive medication measures while on BiPAP BiPAP settings increasing over the past several days and given his agitation will transfer to ICU Continuing remdesivir Decadron Rocephin and azithromycin Plan of care discussed with bedside nurse 09/30/2020: Patient transferred from out to ICU yesterday due to worsening respiratory distress. He was intubated and currently on vent with FiO2 90% and PEEP of 8. We will continue treatment with remdesivir, steroids, and empiric antibiotics. Critical care time 30 minutes spent reviewing charts, reviewing imaging, reviewing labs, discussion with RN. 10/01/2020: Afebrile. On vent with FiO2 85%, PEEP 8. Continue treatment with remdesivir, steroids, Rocephin and azithromycin. Critical care time 30 minutes spent reviewing charts, imaging, reviewing labs, discussion with RN. 10/02/2020: Afebrile, FiO2 80%, PEEP 5. Finished remdesivir. Continue antibiotics and Decadron. Will increase insulin regimen due to persistent hyperglycemia. Supportive care. Critical care time 30 minutes spent reviewing charts, labs, reviewing imaging, discussion with RN. 10/03/2020: Afebrile, on vent with FiO2 70%, PEEP 5. Still with some significant hyperglycemia. Will increase basal insulin. Finished remdesivir. Will continue antibiotics and steroids. Repeat chest x-ray today. Critical care time 30 minutes spent reviewing charts, labs, reviewing imaging, discussion with RN. Vitals/I&O Vitals/I&O: Vital Signs Date Time Temp Pulse Resp B/P (MAP) Pulse Ox O2 Delivery O2 Flow Rate FiO2 10/03/20 07:56 94 Ventilator 10/03/20 06:00 61 24 126/71 (89) 10/03/20 04:00 98.5 98.5 I & O 10/02/20 10/02/20 10/03/20 14:59 22:59 06:59 Intake Total 200 ml 2413.92 ml 2090 ml Output Total 400 ml 1075 ml 825 ml Balance -200 ml 1338.92 ml 1265 ml Physical Exam General: No acute distress, Other (Intubated and sedated) Heart: Regular rate, Normal S1 Abdomen: Normal bowel sounds, Soft, No tenderness, No masses, Other (obese) Extremities: No cyanosis Skin: No rashes Labs Labs: Laboratory Tests Test 10/02/20 12:59 10/02/20 18:20 10/02/20 23:40 10/03/20 05:15 Glucose (Fingerstick) 331 mg/dL (70-99) 356 mg/dL (70-99) 298 mg/dL (70-99) White Blood Count 7.2 x10^3/uL (4.0-11.0) Red Blood Count 4.18 x10^6/uL (4.30-5.70) Hemoglobin 13.4 g/dL (13.0-17.5) Hematocrit 40.4 % (39.0-53.0) Mean Corpuscular Volume 97 fL (79-100) Mean Corpuscular Hemoglobin 32 pg (25-35) Mean Corpuscular Hemoglobin Concent 33 g/dL (31-37) Red Cell Distribution Width 14.6 % (11.5-14.5) Platelet Count 70 x10^3/uL (140-400) Neutrophils (%) (Auto) 80 % (31-73) Lymphocytes (%) (Auto) 11 % (24-48) Monocytes (%) (Auto) 9 % (0-9) Eosinophils (%) (Auto) 0 % (0-3) Basophils (%) (Auto) 0 % (0-3) Neutrophils # (Auto) 5.7 x10^3/uL (1.8-7.7) Lymphocytes # (Auto) 0.8 x10^3/uL (1.0-4.8) Monocytes # (Auto) 0.7 x10^3/uL (0.0-1.1) Eosinophils # (Auto) 0.0 x10^3/uL (0.0-0.7) Basophils # (Auto) 0.0 x10^3/uL (0.0-0.2) Sodium Level 143 mmol/L (136-145) Potassium Level 4.5 mmol/L (3.5-5.1) Chloride Level 110 mmol/L (98-107) Carbon Dioxide Level 30 mmol/L (21-32) Anion Gap 3 (6-14) Blood Urea Nitrogen 26 mg/dL (8-26) Creatinine 0.5 mg/dL (0.7-1.3) Estimated GFR (Cockcroft-Gault) 170.2 BUN/Creatinine Ratio 52 (6-20) Glucose Level 334 mg/dL (70-99) Calcium Level 8.0 mg/dL (8.5-10.1) Total Bilirubin 0.7 mg/dL (0.2-1.0) Aspartate Amino Transf (AST/SGOT) 15 U/L (15-37) Alanine Aminotransferase (ALT/SGPT) 26 U/L (16-63) Alkaline Phosphatase 80 U/L (46-116) Total Protein 5.2 g/dL (6.4-8.2) Albumin 1.9 g/dL (3.4-5.0) Albumin/Globulin Ratio 0.6 (1.0-1.7) Test 10/03/20 05:27 10/03/20 09:00 Glucose (Fingerstick) 315 mg/dL (70-99) O2 Saturation 97 % (92-99) Arterial Blood pH 7.43 (7.35-7.45) Arterial Blood pCO2 at Patient Temp 42 mmHg (35-46) Arterial Blood pO2 at Patient Temp 83 mmHg (65-108) Arterial Blood HCO3 28 mmol/L (21-28) Arterial Blood Base Excess 3 mmol/L (-3-3) FiO2 70% vent Assessment and Plan Assessmemt and Plan Problems Medical Problems: (1) COPD exacerbation Status: Acute (2) Headache Status: Acute (3) Hypoxia Status: Acute (4) Pneumonia Status: Acute (5) Respiratory failure Status: Acute (6) Suspected 2019 novel coronavirus infection Status: Acute Comment Review of Relevant I have reviewed the following items herlinda (where applicable) has been applied. Medications: Current Medications Medications (Trade) Dose Ordered Sig/Lloyd Route PRN Reason Start Time Stop Time Status Last Admin Dose Admin Insulin Glargine (Lantus Syringe) 15 unit QHS SQ 10/02/20 21:00 10/02/20 20:14 Justifications for Admission Other Justification RESP FAILURE WITH HYPOXIA JOAQUIN XIONG MD Oct 03, 2020 09:36
--- NOTE | 2020-10-03 09:59 | PDOC ---
PULMONARY PROGRESS NOTES DATE: 10/03/20 TIME: 09:58 Subjective Remains intubated and sedated. Mild improvement in oxygenation. Currently on assist control mode. Not on any vasopressors Vitals Vital Signs Date Time Temp Pulse Resp B/P (MAP) Pulse Ox O2 Delivery O2 Flow Rate FiO2 10/03/20 09:32 61 126/71 10/03/20 07:56 94 Ventilator 10/03/20 06:00 24 10/03/20 04:00 98.5 98.5 Comments Patient seen during the COVID- pandemic, and visual inspection of BiPAP no respiratory distress no paroxysmal breathing pattern no increasing edema no new rash Labs Laboratory Tests Test 10/01/20 13:15 10/01/20 18:08 10/01/20 23:33 10/02/20 05:56 Glucose (Fingerstick) 309 mg/dL (70-99) 340 mg/dL (70-99) 306 mg/dL (70-99) 272 mg/dL (70-99) Test 10/02/20 06:00 10/02/20 09:00 10/02/20 12:59 10/02/20 18:20 White Blood Count 6.3 x10^3/uL (4.0-11.0) Red Blood Count 4.14 x10^6/uL (4.30-5.70) Hemoglobin 13.2 g/dL (13.0-17.5) Hematocrit 39.2 % (39.0-53.0) Mean Corpuscular Volume 95 fL (79-100) Mean Corpuscular Hemoglobin 32 pg (25-35) Mean Corpuscular Hemoglobin Concent 34 g/dL (31-37) Red Cell Distribution Width 14.4 % (11.5-14.5) Platelet Count 75 x10^3/uL (140-400) Neutrophils (%) (Auto) 77 % (31-73) Lymphocytes (%) (Auto) 12 % (24-48) Monocytes (%) (Auto) 11 % (0-9) Eosinophils (%) (Auto) 0 % (0-3) Basophils (%) (Auto) 0 % (0-3) Neutrophils # (Auto) 4.9 x10^3/uL (1.8-7.7) Lymphocytes # (Auto) 0.7 x10^3/uL (1.0-4.8) Monocytes # (Auto) 0.7 x10^3/uL (0.0-1.1) Eosinophils # (Auto) 0.0 x10^3/uL (0.0-0.7) Basophils # (Auto) 0.0 x10^3/uL (0.0-0.2) Platelet Estimate Decreased (ADEQUATE) Large Platelets Occ Giant Platelets Occ Sodium Level 142 mmol/L (136-145) Potassium Level 4.4 mmol/L (3.5-5.1) Chloride Level 110 mmol/L (98-107) Carbon Dioxide Level 27 mmol/L (21-32) Anion Gap 5 (6-14) Blood Urea Nitrogen 27 mg/dL (8-26) Creatinine 0.5 mg/dL (0.7-1.3) Estimated GFR (Cockcroft-Gault) 170.2 BUN/Creatinine Ratio 54 (6-20) Glucose Level 310 mg/dL (70-99) Calcium Level 8.0 mg/dL (8.5-10.1) Total Bilirubin 0.7 mg/dL (0.2-1.0) Aspartate Amino Transf (AST/SGOT) 21 U/L (15-37) Alanine Aminotransferase (ALT/SGPT) 21 U/L (16-63) Alkaline Phosphatase 78 U/L (46-116) Total Protein 5.3 g/dL (6.4-8.2) Albumin 1.8 g/dL (3.4-5.0) Albumin/Globulin Ratio 0.5 (1.0-1.7) O2 Saturation 98 % (92-99) Arterial Blood pH 7.47 (7.35-7.45) Arterial Blood pCO2 at Patient Temp 39 mmHg (35-46) Arterial Blood pO2 at Patient Temp 104 mmHg (65-108) Arterial Blood HCO3 28 mmol/L (21-28) Arterial Blood Base Excess 4 mmol/L (-3-3) FiO2 80% vent Glucose (Fingerstick) 331 mg/dL (70-99) 356 mg/dL (70-99) Test 10/02/20 23:40 10/03/20 05:15 10/03/20 05:27 10/03/20 09:00 Glucose (Fingerstick) 298 mg/dL (70-99) 315 mg/dL (70-99) White Blood Count 7.2 x10^3/uL (4.0-11.0) Red Blood Count 4.18 x10^6/uL (4.30-5.70) Hemoglobin 13.4 g/dL (13.0-17.5) Hematocrit 40.4 % (39.0-53.0) Mean Corpuscular Volume 97 fL (79-100) Mean Corpuscular Hemoglobin 32 pg (25-35) Mean Corpuscular Hemoglobin Concent 33 g/dL (31-37) Red Cell Distribution Width 14.6 % (11.5-14.5) Platelet Count 70 x10^3/uL (140-400) Neutrophils (%) (Auto) 80 % (31-73) Lymphocytes (%) (Auto) 11 % (24-48) Monocytes (%) (Auto) 9 % (0-9) Eosinophils (%) (Auto) 0 % (0-3) Basophils (%) (Auto) 0 % (0-3) Neutrophils # (Auto) 5.7 x10^3/uL (1.8-7.7) Lymphocytes # (Auto) 0.8 x10^3/uL (1.0-4.8) Monocytes # (Auto) 0.7 x10^3/uL (0.0-1.1) Eosinophils # (Auto) 0.0 x10^3/uL (0.0-0.7) Basophils # (Auto) 0.0 x10^3/uL (0.0-0.2) Sodium Level 143 mmol/L (136-145) Potassium Level 4.5 mmol/L (3.5-5.1) Chloride Level 110 mmol/L (98-107) Carbon Dioxide Level 30 mmol/L (21-32) Anion Gap 3 (6-14) Blood Urea Nitrogen 26 mg/dL (8-26) Creatinine 0.5 mg/dL (0.7-1.3) Estimated GFR (Cockcroft-Gault) 170.2 BUN/Creatinine Ratio 52 (6-20) Glucose Level 334 mg/dL (70-99) Calcium Level 8.0 mg/dL (8.5-10.1) Total Bilirubin 0.7 mg/dL (0.2-1.0) Aspartate Amino Transf (AST/SGOT) 15 U/L (15-37) Alanine Aminotransferase (ALT/SGPT) 26 U/L (16-63) Alkaline Phosphatase 80 U/L (46-116) Total Protein 5.2 g/dL (6.4-8.2) Albumin 1.9 g/dL (3.4-5.0) Albumin/Globulin Ratio 0.6 (1.0-1.7) O2 Saturation 97 % (92-99) Arterial Blood pH 7.43 (7.35-7.45) Arterial Blood pCO2 at Patient Temp 42 mmHg (35-46) Arterial Blood pO2 at Patient Temp 83 mmHg (65-108) Arterial Blood HCO3 28 mmol/L (21-28) Arterial Blood Base Excess 3 mmol/L (-3-3) FiO2 70% vent Laboratory Tests Test 10/02/20 12:59 10/02/20 18:20 10/02/20 23:40 10/03/20 05:15 Glucose (Fingerstick) 331 mg/dL (70-99) 356 mg/dL (70-99) 298 mg/dL (70-99) White Blood Count 7.2 x10^3/uL (4.0-11.0) Red Blood Count 4.18 x10^6/uL (4.30-5.70) Hemoglobin 13.4 g/dL (13.0-17.5) Hematocrit 40.4 % (39.0-53.0) Mean Corpuscular Volume 97 fL (79-100) Mean Corpuscular Hemoglobin 32 pg (25-35) Mean Corpuscular Hemoglobin Concent 33 g/dL (31-37) Red Cell Distribution Width 14.6 % (11.5-14.5) Platelet Count 70 x10^3/uL (140-400) Neutrophils (%) (Auto) 80 % (31-73) Lymphocytes (%) (Auto) 11 % (24-48) Monocytes (%) (Auto) 9 % (0-9) Eosinophils (%) (Auto) 0 % (0-3) Basophils (%) (Auto) 0 % (0-3) Neutrophils # (Auto) 5.7 x10^3/uL (1.8-7.7) Lymphocytes # (Auto) 0.8 x10^3/uL (1.0-4.8) Monocytes # (Auto) 0.7 x10^3/uL (0.0-1.1) Eosinophils # (Auto) 0.0 x10^3/uL (0.0-0.7) Basophils # (Auto) 0.0 x10^3/uL (0.0-0.2) Sodium Level 143 mmol/L (136-145) Potassium Level 4.5 mmol/L (3.5-5.1) Chloride Level 110 mmol/L (98-107) Carbon Dioxide Level 30 mmol/L (21-32) Anion Gap 3 (6-14) Blood Urea Nitrogen 26 mg/dL (8-26) Creatinine 0.5 mg/dL (0.7-1.3) Estimated GFR (Cockcroft-Gault) 170.2 BUN/Creatinine Ratio 52 (6-20) Glucose Level 334 mg/dL (70-99) Calcium Level 8.0 mg/dL (8.5-10.1) Total Bilirubin 0.7 mg/dL (0.2-1.0) Aspartate Amino Transf (AST/SGOT) 15 U/L (15-37) Alanine Aminotransferase (ALT/SGPT) 26 U/L (16-63) Alkaline Phosphatase 80 U/L (46-116) Total Protein 5.2 g/dL (6.4-8.2) Albumin 1.9 g/dL (3.4-5.0) Albumin/Globulin Ratio 0.6 (1.0-1.7) Test 10/03/20 05:27 10/03/20 09:00 Glucose (Fingerstick) 315 mg/dL (70-99) O2 Saturation 97 % (92-99) Arterial Blood pH 7.43 (7.35-7.45) Arterial Blood pCO2 at Patient Temp 42 mmHg (35-46) Arterial Blood pO2 at Patient Temp 83 mmHg (65-108) Arterial Blood HCO3 28 mmol/L (21-28) Arterial Blood Base Excess 3 mmol/L (-3-3) FiO2 70% vent Medications Active Scripts Medications Dose Route/Sig Max Daily Dose Days Date Category Flomax (Tamsulosin Hcl) 0.4 Mg Cap.er.24h 1 Cap PO DAILY 09/26/20 Reported Semglee (Insulin Glargine,Hum.rec.anlog) 100 Unit/1 Ml Vial 20 Unit SQ QHS 09/26/20 Reported Semglee (Insulin Glargine,Hum.rec.anlog) 100 Unit/1 Ml Vial 30 Unit SQ QAM 09/26/20 Reported Novolin R (Insulin Regular, Human) 100 Unit/1 Ml Vial 100 Unit IJ SSI PRN 09/26/20 Reported Naproxen 500 Mg Tablet 1 Tab PO BID PRN 30 09/26/20 Reported Metoprolol Tartrate 25 Mg Tablet 1 Tab PO BID 09/26/20 Reported Alvesco (Ciclesonide) 6.1 Gm Hfa.aer.ad 6.1 Gm IH Q12HR 09/26/20 Reported Proair Hfa Inhaler (Albuterol Sulfate) 8.5 Gm Hfa.aer.ad 2 Puff IH PRN Q4-6HRS PRN 21 09/26/20 Reported Comments Chest x-ray from 09/29 was reviewed. Diffuse bilateral interstitial infiltrates consistent with COVID-19 pneumonia Impression . IMPRESSION: 1. Acute hypoxemic respiratory failure secondary to COVID-19. --Patient had developed worsening hypoxia. He failed BiPAP with 100% FiO2. Patient was intubated 09/29. Currently on assist control mode. Oxygen requirement mildly improved since yesterday. 2. COVID-19 viral pneumonia. 3. Possible bacterial pneumonia. 4. Other comorbidities including chronic obstructive pulmonary disease with acute exacerbation, tobacco dependent, chronic back pain and hypertension. Plan . Updated 10/03/20 Continue present assist control mode. Oxygen requirement mildly improved. Curr ently down to 70% FiO2 and 8 of PEEP. We will follow ABGs and make necessary adjustments. Follow CXR Continue remdesivir Continue steroids Continue empiric ABX, azithro and rocephin TF for nutritional support DVT/GI PPX D/W RN and RT CC time 30 min Updated 10/02/20 Continue present assist control mode. Oxygen requirement mildly improved. Currently down to 80% FiO2 and 8 of PEEP. We will follow ABGs and make necessary adjustments. Follow CXR Continue remdesivir Continue steroids Continue empiric ABX, azithro and rocephin TF for nutritional support DVT/GI PPX D/W RN and RT CC time 30 min Updated 10/01/20 Continue present assist control mode. Oxygen requirement mildly improved. Currently down to 80% FiO2 and 8 of PEEP. We will follow ABGs and make necessary adjustments. Follow CXR Continue remdesivir Continue steroids Continue empiric ABX, azithro and rocephin TF for nutritional support DVT/GI PPX D/W RN and RT CC time 30 min Updated 09/30/20 Continue present assist control mode. Oxygen requirement mildly improved. Currently down to 90% FiO2 and 8 of PEEP. We will follow ABGs and make necessary adjustments. Follow CXR Continue remdesivir Continue steroids Continue empiric ABX, azithro and rocephin TF for nutritional support DVT/GI PPX D/W RN and RT CC time 30 min Updated 09/29/20 Pt. in distress on 100% BIPAP, pt. transferred to ICU, with ongoing distress and hypoxia despite BIPAP, will proceed with intubation Follow CXR/ABG Continue remdesivir Continue steroids Continue empiric ABX, azithro and rocephin Start TF for nutritional support DVT/GI PPX D/W RN and RT CC time 35 min Updated 09/28 ON 100%fio2/ bipap ct chest with extensive infiltrates due to COVID Patient initiated on remdesivir Continue BiPAP On dexamethasone Continue Zithromax DVT GI prophylaxis I have asked Skilled Nursing personal to address code status. Updated 09/27 Patient initiated on remdesivir yesterday Continue BiPAP On dexamethasone Continue Zithromax DVT GI prophylaxis SAROJ SQUIRES MD Oct 03, 2020 09:59
--- NOTE | 2020-10-03 11:10 | RAD ---
EXAMINATION: XR CHEST 1V CLINICAL HISTORY: COVID-19 pneumonia TECHNIQUE: XR CHEST 1V COMPARISON: 09/29/2020 FINDINGS/ IMPRESSION: Right internal jugular central venous catheter, endotracheal tube, and enteric tube remain in similar positions. Improved aeration of bilateral lungs with persistent patchy airspace disease in the mid to lower lung zones. Suboptimal evaluation of the left lower lobe due to imaging technique and patient positioning . Electronically signed by: Wes Davis DO (10/03/2020 11:07 AM) LILY
[2020-10-03] MEDS: IV 1/2 NORMAL SALINE 1,000 ML IV SCH (13:20)
[2020-10-03] MEDS: AZITHROMYCIN 500 MG in IV NORMAL SALINE 250ML 250 ML IV SCH (13:20)
[2020-10-03] MEDS: ENOXAPARIN 40 MG/0.4 ML SYRINGE. SQ SCH (20:09)
[2020-10-03] MEDS: INSULIN GLARGINE SYRINGE. SQ SCH (20:10)
[2020-10-04] VITALS (24 sets, daily range): BP systolic 119–173; BP diastolic 62–154
[2020-10-04] MEDS: INSULIN LISPRO 300 UNITS/3 ML VIAL. SQ SCH ×7 (00:06→23:54)
[2020-10-04] MEDS: IV 1/2 NORMAL SALINE 1,000 ML IV SCH ×2 (02:40→17:28)
[2020-10-04] MEDS: MIDAZOLAM 100mg/100ml NS BAG 100 ML IV PRN ×2 (03:57→19:44)
[2020-10-04 06:55] LABS: CALCIUM 8.5 mg/dL (8.5-10.1); CREATININE 0.6 mg/dL (0.7-1.3); GFR 137.9; POTASSIUM 4.7 mmol/L (3.5-5.1)
[2020-10-04 07:10] LABS: HEMATOCRIT 41.1 % (39.0-53.0); HEMOGLOBIN 13.7 g/dL (13.0-17.5); RED BLOOD COUNT 4.28 x10^6/uL (4.30-5.70); RED CELL DISTRIBUTION WIDTH 14.4 % (11.5-14.5); WHITE BLOOD COUNT 8.7 x10^3/uL (4.0-11.0)
[2020-10-04] MEDS: PANTOPRAZOLE IV PUSH 40 MG VIAL. IVP SCH (08:15)
[2020-10-04] MEDS: DEXAMETHASONE SOD PHOS 4 MG/ML VIAL IVP SCH (08:16)
[2020-10-04] MEDS: TAMSULOSIN 0.4 MG CAP.ER.24H. PO SCH ×2 (08:16→08:30)
[2020-10-04] MEDS: FLUTICASONE/VILANTEROL 100/25 INHALER. INH SCH (08:17)
[2020-10-04] MEDS: METOPROLOL TART IMMED RELEASE 25 MG TABLET. PO SCH ×2 (08:17→20:03)
[2020-10-04] MEDS: FLUTICASONE 50MCG/NASAL SPRAY 16GM BOTTLE. NS SCH (08:29)
[2020-10-04 08:32] LABS: BASE EXCESS ABG 2 mmol/L (-3-3); HCO3 ABG 27 mmol/L (21-28); PCO2 ABG 40 mmHg (35-46); PO2 ABG 94 mmHg (65-108); SAT O2 ABG 97 % (92-99)
[2020-10-04 08:34] LABS: FIO2 ABG 65
--- NOTE | 2020-10-04 10:19 | PDOC ---
PULMONARY PROGRESS NOTES DATE: 10/04/20 TIME: 10:15 Subjective Remains intubated and sedated. Mild improvement in oxygenation. Currently on assist control mode. Not on any vasopressors Vitals Vital Signs Date Time Temp Pulse Resp B/P (MAP) Pulse Ox O2 Delivery O2 Flow Rate FiO2 10/04/20 09:00 58 20 173/154 (160) 96 Ventilator 10/04/20 08:00 98.4 98.4 Comments Patient seen during the ID pandemic, and visual inspection of BiPAP no respiratory distress no paroxysmal breathing pattern no increasing edema no new rash Labs Laboratory Tests Test 10/02/20 12:59 10/02/20 18:20 10/02/20 23:40 10/03/20 05:15 Glucose (Fingerstick) 331 mg/dL (70-99) 356 mg/dL (70-99) 298 mg/dL (70-99) White Blood Count 7.2 x10^3/uL (4.0-11.0) Red Blood Count 4.18 x10^6/uL (4.30-5.70) Hemoglobin 13.4 g/dL (13.0-17.5) Hematocrit 40.4 % (39.0-53.0) Mean Corpuscular Volume 97 fL (79-100) Mean Corpuscular Hemoglobin 32 pg (25-35) Mean Corpuscular Hemoglobin Concent 33 g/dL (31-37) Red Cell Distribution Width 14.6 % (11.5-14.5) Platelet Count 70 x10^3/uL (140-400) Neutrophils (%) (Auto) 80 % (31-73) Lymphocytes (%) (Auto) 11 % (24-48) Monocytes (%) (Auto) 9 % (0-9) Eosinophils (%) (Auto) 0 % (0-3) Basophils (%) (Auto) 0 % (0-3) Neutrophils # (Auto) 5.7 x10^3/uL (1.8-7.7) Lymphocytes # (Auto) 0.8 x10^3/uL (1.0-4.8) Monocytes # (Auto) 0.7 x10^3/uL (0.0-1.1) Eosinophils # (Auto) 0.0 x10^3/uL (0.0-0.7) Basophils # (Auto) 0.0 x10^3/uL (0.0-0.2) Sodium Level 143 mmol/L (136-145) Potassium Level 4.5 mmol/L (3.5-5.1) Chloride Level 110 mmol/L (98-107) Carbon Dioxide Level 30 mmol/L (21-32) Anion Gap 3 (6-14) Blood Urea Nitrogen 26 mg/dL (8-26) Creatinine 0.5 mg/dL (0.7-1.3) Estimated GFR (Cockcroft-Gault) 170.2 BUN/Creatinine Ratio 52 (6-20) Glucose Level 334 mg/dL (70-99) Calcium Level 8.0 mg/dL (8.5-10.1) Total Bilirubin 0.7 mg/dL (0.2-1.0) Aspartate Amino Transf (AST/SGOT) 15 U/L (15-37) Alanine Aminotransferase (ALT/SGPT) 26 U/L (16-63) Alkaline Phosphatase 80 U/L (46-116) Total Protein 5.2 g/dL (6.4-8.2) Albumin 1.9 g/dL (3.4-5.0) Albumin/Globulin Ratio 0.6 (1.0-1.7) Test 10/03/20 05:27 10/03/20 09:00 10/03/20 13:31 10/03/20 18:06 Glucose (Fingerstick) 315 mg/dL (70-99) 314 mg/dL (70-99) 344 mg/dL (70-99) O2 Saturation 97 % (92-99) Arterial Blood pH 7.43 (7.35-7.45) Arterial Blood pCO2 at Patient Temp 42 mmHg (35-46) Arterial Blood pO2 at Patient Temp 83 mmHg (65-108) Arterial Blood HCO3 28 mmol/L (21-28) Arterial Blood Base Excess 3 mmol/L (-3-3) FiO2 70% vent Test 10/04/20 00:03 10/04/20 06:00 10/04/20 06:04 10/04/20 08:10 Glucose (Fingerstick) 347 mg/dL (70-99) 342 mg/dL (70-99) White Blood Count 8.7 x10^3/uL (4.0-11.0) Red Blood Count 4.28 x10^6/uL (4.30-5.70) Hemoglobin 13.7 g/dL (13.0-17.5) Hematocrit 41.1 % (39.0-53.0) Mean Corpuscular Volume 96 fL (79-100) Mean Corpuscular Hemoglobin 32 pg (25-35) Mean Corpuscular Hemoglobin Concent 33 g/dL (31-37) Red Cell Distribution Width 14.4 % (11.5-14.5) Platelet Count 70 x10^3/uL (140-400) Sodium Level 142 mmol/L (136-145) Potassium Level 4.7 mmol/L (3.5-5.1) Chloride Level 108 mmol/L (98-107) Carbon Dioxide Level 31 mmol/L (21-32) Anion Gap 3 (6-14) Blood Urea Nitrogen 29 mg/dL (8-26) Creatinine 0.6 mg/dL (0.7-1.3) Estimated GFR (Cockcroft-Gault) 137.9 Glucose Level 354 mg/dL (70-99) Calcium Level 8.5 mg/dL (8.5-10.1) O2 Saturation 97 % (92-99) Arterial Blood pH 7.44 (7.35-7.45) Arterial Blood pCO2 at Patient Temp 40 mmHg (35-46) Arterial Blood pO2 at Patient Temp 94 mmHg (65-108) Arterial Blood HCO3 27 mmol/L (21-28) Arterial Blood Base Excess 2 mmol/L (-3-3) FiO2 65 Laboratory Tests Test 10/03/20 13:31 10/03/20 18:06 10/04/20 00:03 10/04/20 06:00 Glucose (Fingerstick) 314 mg/dL (70-99) 344 mg/dL (70-99) 347 mg/dL (70-99) White Blood Count 8.7 x10^3/uL (4.0-11.0) Red Blood Count 4.28 x10^6/uL (4.30-5.70) Hemoglobin 13.7 g/dL (13.0-17.5) Hematocrit 41.1 % (39.0-53.0) Mean Corpuscular Volume 96 fL (79-100) Mean Corpuscular Hemoglobin 32 pg (25-35) Mean Corpuscular Hemoglobin Concent 33 g/dL (31-37) Red Cell Distribution Width 14.4 % (11.5-14.5) Platelet Count 70 x10^3/uL (140-400) Sodium Level 142 mmol/L (136-145) Potassium Level 4.7 mmol/L (3.5-5.1) Chloride Level 108 mmol/L (98-107) Carbon Dioxide Level 31 mmol/L (21-32) Anion Gap 3 (6-14) Blood Urea Nitrogen 29 mg/dL (8-26) Creatinine 0.6 mg/dL (0.7-1.3) Estimated GFR (Cockcroft-Gault) 137.9 Glucose Level 354 mg/dL (70-99) Calcium Level 8.5 mg/dL (8.5-10.1) Test 10/04/20 06:04 10/04/20 08:10 Glucose (Fingerstick) 342 mg/dL (70-99) O2 Saturation 97 % (92-99) Arterial Blood pH 7.44 (7.35-7.45) Arterial Blood pCO2 at Patient Temp 40 mmHg (35-46) Arterial Blood pO2 at Patient Temp 94 mmHg (65-108) Arterial Blood HCO3 27 mmol/L (21-28) Arterial Blood Base Excess 2 mmol/L (-3-3) FiO2 65 Medications Active Scripts Medications Dose Route/Sig Max Daily Dose Days Date Category Flomax (Tamsulosin Hcl) 0.4 Mg Cap.er.24h 1 Cap PO DAILY 09/26/20 Reported Semglee (Insulin Glargine,Hum.rec.anlog) 100 Unit/1 Ml Vial 20 Unit SQ QHS 09/26/20 Reported Semglee (Insulin Glargine,Hum.rec.anlog) 100 Unit/1 Ml Vial 30 Unit SQ QAM 09/26/20 Reported Novolin R (Insulin Regular, Human) 100 Unit/1 Ml Vial 100 Unit IJ SSI PRN 09/26/20 Reported Naproxen 500 Mg Tablet 1 Tab PO BID PRN 30 09/26/20 Reported Metoprolol Tartrate 25 Mg Tablet 1 Tab PO BID 09/26/20 Reported Alvesco (Ciclesonide) 6.1 Gm Hfa.aer.ad 6.1 Gm IH Q12HR 09/26/20 Reported Proair Hfa Inhaler (Albuterol Sulfate) 8.5 Gm Hfa.aer.ad 2 Puff IH PRN Q4-6HRS PRN 21 09/26/20 Reported Comments Chest x-ray 10/04 reviewed. Bilateral interstitial infiltrates with mild improvement Chest x-ray from 09/29 was reviewed. Diffuse bilateral interstitial infiltrates consistent with COVID-19 pneumonia Impression . IMPRESSION: 1. Acute hypoxemic respiratory failure secondary to COVID-19. --Patient developed worsening hypoxia. He failed BiPAP with 100% FiO2. Patient was intubated 09/29. Currently on assist control mode. Oxygen requirement continues to improve slowly. Now down to 65% FiO2 2. COVID-19 viral pneumonia. 3. Possible bacterial pneumonia. 4. Other comorbidities including chronic obstructive pulmonary disease with acute exacerbation, tobacco dependent, chronic back pain and hypertension. 5. Abnormal chest x-ray with bilateral interstitial infiltrates related to COVID-19 pneumonia. Plan . Updated 10/04/20 Continue present assist control mode. Oxygen requirement slowly improving. currently down to 65% FiO2 and 8 of PEEP. We will follow ABGs and make necessary adjustments. Follow CXR 10/04 shows mild improvement Continue remdesivir Continue steroids Continue empiric ABX, azithro and rocephin TF for nutritional support DVT/GI PPX D/W RN and RT CC time 30 min Updated 10/03/20 Continue present assist control mode. Oxygen requirement mildly improved. Currently down to 70% FiO2 and 8 of PEEP. We will follow ABGs and make necessary adjustments. Follow CXR Continue remdesivir Continue steroids Continue empiric ABX, azithro and rocephin TF for nutritional support DVT/GI PPX D/W RN and RT CC time 30 min Updated 10/02/20 Continue present assist control mode. Oxygen requirement mildly improved. Currently down to 80% FiO2 and 8 of PEEP. We will follow ABGs and make necessary adjustments. Follow CXR Continue remdesivir Continue steroids Continue empiric ABX, azithro and rocephin TF for nutritional support DVT/GI PPX D/W RN and RT CC time 30 min Updated 10/01/20 Continue present assist control mode. Oxygen requirement mildly improved. Currently down to 80% FiO2 and 8 of PEEP. We will follow ABGs and make necessary adjustments. Follow CXR Continue remdesivir Continue steroids Continue empiric ABX, azithro and rocephin TF for nutritional support DVT/GI PPX D/W RN and RT CC time 30 min Updated 09/30/20 Continue present assist control mode. Oxygen requirement mildly improved. Currently down to 90% FiO2 and 8 of PEEP. We will follow ABGs and make necessary adjustments. Follow CXR Continue remdesivir Continue steroids Continue empiric ABX, azithro and rocephin TF for nutritional support DVT/GI PPX D/W RN and RT CC time 30 min Updated 09/29/20 Pt. in distress on 100% BIPAP, pt. transferred to ICU, with ongoing distress and hypoxia despite BIPAP, will proceed with intubation Follow CXR/ABG Continue remdesivir Continue steroids Continue empiric ABX, azithro and rocephin Start TF for nutritional support DVT/GI PPX D/W RN and RT CC time 35 min Updated 09/28 ON 100%fio2/ bipap ct chest with extensive infiltrates due to COVID Patient initiated on remdesivir Continue BiPAP On dexamethasone Continue Zithromax DVT GI prophylaxis I have asked [facility] personal to address code status. Updated 09/27 Patient initiated on remdesivir yesterday Continue BiPAP On dexamethasone Continue Zithromax DVT GI prophylaxis SAROJ SQUIRES MD Oct 04, 2020 10:19
[2020-10-04] MEDS: cefTRIAXone IV Push 1 GM VIAL. IVP SCH (10:22)
--- NOTE | 2020-10-04 12:30 | PDOC ---
[employer] PROGRESS NOTE Date of Service DOS: DATE: 10/04/20 TIME: 12:26 Chief Complaint Chief Complaint COVID-19 respiratory failure requiring intubation COPD Cirrhosis Severe pneumonia Remote history of alcohol issues mediastinal adenopathy Hyperglycemia and diabetes Severe protein calorie malnutrition Hypomagnesemia History of Present Illness History of Present Illness 10/04/2020 Patient seen and examined in the COVID-19 ICU He remains intubated Shackled AC/20/500/60 5% with 8 of PEEP He has OG feeds running Has mitts on for patient safety Has SCDs in place Olsen to bedside drainage He is sedated with fentanyl and Versed Discussed with RN His glucose is running a little high we are adding in scheduled NovoLog 10 units 3 times daily and continue the sliding scale and Lantus 20 a day Chart reviewed He remains very critically ill [employer]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 known history of COPD and cough. Patient also complains of headache. EMS noted patient was 84% and tripoding on 3 L nasal cannula. EMS reports giving a DuoNeb treatment x2 in route and placement nonrebreather with subsequent improvement in up to 95%. remote alcohol abuse YRS AGO , smoked until one month ago when he was arrested received the [employer] COVID-19 vaccination [facility]1 [facility] Patient denies known exposure to COVID-19. Panlobular airspace disease,c/w multifocal pneumonia. PUI Pulmonary edema less likely. 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 Remote alcohol abuse "6-8 cans of beer a day years ago" Thickened distal esophagus with 9 x 10 mm luminal density, likely ingested medication tablet. Mediastinal adenopathy, malignancy is not excluded.suggest follow-up CT of the chest in 3 months. / Hyperglycemia on accuchecks // Severe protein-caloric malnutrition CTA CHEST C/W Panlobular airspace disease, most likely multifocal pneumonia. 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 Patient tolerating BiPAP and saturating 91%. Started patient on IV Protonix because he is still on steroids. And has a history of esophageal varices. Patient's chart, labs, images were reviewed and discussed with RN 09/27/20 Patient evaluated at bedside He was having laboring respirations initially on the BiPAP concerned patient may need ICU transfer however was given a dose of Ativan and was able to calm down and respiratory status improved Continue steroids Pulmonary consult Plan of care discussed with bedside RN 09/28/20 Patient evaluated bedside He was on BiPAP required to be increased 100% FiO2 this morning Remains on remdesivir, Decadron, Rocephin, and azithromycin Continuing supportive care Plan of care discussed with bedside nurse 09/29/20 Patient evaluated at bedside Patient remains significantly agitated and anxious despite aggressive medication measures while on BiPAP BiPAP settings increasing over the past several days and given his agitation will transfer to ICU Continuing remdesivir Decadron Rocephin and azithromycin Plan of care discussed with bedside nurse 09/30/2020: Patient transferred from out to ICU yesterday due to worsening respiratory distress. He was intubated and currently on vent with FiO2 90% and PEEP of 8. We will continue treatment with remdesivir, steroids, and empiric antibiotics. Critical care time 30 minutes spent reviewing charts, reviewing imaging, reviewing labs, discussion with RN. 10/01/2020: Afebrile. On vent with FiO2 85%, PEEP 8. Continue treatment with remdesivir, steroids, Rocephin and azithromycin. Critical care time 30 minutes spent reviewing charts, imaging, reviewing labs, discussion with RN. 10/02/2020: Afebrile, FiO2 80%, PEEP 5. Finished remdesivir. Continue antibiotics and Decadron. Will increase insulin regimen due to persistent hyperglycemia. Supportive care. Critical care time 30 minutes spent reviewing charts, labs, reviewing imaging, discussion with RN. 10/03/2020: Afebrile, on vent with FiO2 70%, PEEP 5. Still with some significant hyperglycemia. Will increase basal insulin. Finished remdesivir. Will continue antibiotics and steroids. Repeat chest x-ray today. Critical care time 30 minutes spent reviewing charts, labs, reviewing imaging, discussion with RN. Vitals/I&O Vitals/I&O: Vital Signs Date Time Temp Pulse Resp B/P (MAP) Pulse Ox O2 Delivery O2 Flow Rate FiO2 10/04/20 12:05 97 Ventilator 10/04/20 12:00 98.7 50 20 120/62 (81) 98.7 I & O 10/03/20 10/03/20 10/04/20 15:00 23:00 07:00 Intake Total 200 ml 2464.38 ml 2099.6 ml Output Total 450 ml 950 ml 825 ml Balance -250 ml 1514.38 ml 1274.6 ml Physical Exam General: No acute distress, Other (Intubated and sedated) Heart: Regular rate, Normal S1 Abdomen: Normal bowel sounds, Soft, No tenderness, No masses, Other (obese) Extremities: No cyanosis Skin: No rashes Labs Labs: Laboratory Tests Test 10/03/20 13:31 10/03/20 18:06 10/04/20 00:03 10/04/20 06:00 Glucose (Fingerstick) 314 mg/dL (70-99) 344 mg/dL (70-99) 347 mg/dL (70-99) White Blood Count 8.7 x10^3/uL (4.0-11.0) Red Blood Count 4.28 x10^6/uL (4.30-5.70) Hemoglobin 13.7 g/dL (13.0-17.5) Hematocrit 41.1 % (39.0-53.0) Mean Corpuscular Volume 96 fL (79-100) Mean Corpuscular Hemoglobin 32 pg (25-35) Mean Corpuscular Hemoglobin Concent 33 g/dL (31-37) Red Cell Distribution Width 14.4 % (11.5-14.5) Platelet Count 70 x10^3/uL (140-400) Sodium Level 142 mmol/L (136-145) Potassium Level 4.7 mmol/L (3.5-5.1) Chloride Level 108 mmol/L (98-107) Carbon Dioxide Level 31 mmol/L (21-32) Anion Gap 3 (6-14) Blood Urea Nitrogen 29 mg/dL (8-26) Creatinine 0.6 mg/dL (0.7-1.3) Estimated GFR (Cockcroft-Gault) 137.9 Glucose Level 354 mg/dL (70-99) Calcium Level 8.5 mg/dL (8.5-10.1) Test 10/04/20 06:04 10/04/20 08:10 10/04/20 11:23 Glucose (Fingerstick) 342 mg/dL (70-99) 228 mg/dL (70-99) O2 Saturation 97 % (92-99) Arterial Blood pH 7.44 (7.35-7.45) Arterial Blood pCO2 at Patient Temp 40 mmHg (35-46) Arterial Blood pO2 at Patient Temp 94 mmHg (65-108) Arterial Blood HCO3 27 mmol/L (21-28) Arterial Blood Base Excess 2 mmol/L (-3-3) FiO2 65 Assessment and Plan Assessmemt and Plan Problems Medical Problems: (1) COPD exacerbation Status: Acute (2) Headache Status: Acute (3) Hypoxia Status: Acute (4) Pneumonia Status: Acute (5) Respiratory failure Status: Acute (6) Suspected 2019 novel coronavirus infection Status: Acute COVID-19 respiratory failure requiring intubation COPD Cirrhosis Severe pneumonia Remote history of alcohol issues mediastinal adenopathy Hyperglycemia and diabetes Severe protein calorie malnutrition Hypomagnesemia Plan ICU monitoring Covid protocol Trend labs Home meds DVT prophylaxis Full code Continue OG feeds Continue Olsen to bedside drainage SCDs Continue sedation with fentanyl and Versed Increase insulin and we have added in NovoLog 10 units 3 times daily Prognosis extremely guarded CC time 32 Comment Review of Relevant I have reviewed the following items herlinda (where applicable) has been applied. Medications: Current Medications Medications (Trade) Dose Ordered Sig/Lloyd Route PRN Reason Start Time Stop Time Status Last Admin Dose Admin Insulin Glargine (Lantus Syringe) 20 unit QHS SQ 10/03/20 21:00 10/03/20 20:10 Insulin Human Lispro (HumaLOG) 10 units TIDAC SQ 10/04/20 11:30 10/04/20 11:30 Insulin Human Lispro (HumaLOG) 0-7 UNITS Q6HRS SQ 10/04/20 12:00 10/04/20 11:30 Justifications for Admission Other Justification RESP FAILURE WITH HYPOXIA RIGO SRINIVASAN III DO Oct 04, 2020 12:30
--- NOTE | 2020-10-04 13:47 | RAD ---
XR CHEST 1V Clinical Indication: Reason: RF/COVID / Spl. Instructions: / History: Comparison: AP chest, prior day. Findings: Endotracheal tube tip is 5.9 cm superior to the fran. Enteric tube remains coiled in the stomach. R ight IJ central line, tip in right atrium. The cardiomediastinal silhouette is stable. Right infrahil ar and perihilar opacity is mildly improved. Left upper lung opacities are improved. Left basilar ret rocardiac opacities are unchanged. No pleural effusion or pneumothorax is identified. No pleural effu lea or pneumothorax is identified. IMPRESSION: 1. Life support devices are stable. 2. Right infrahilar/perihilar and left upper lung airspace opacities are improved. Bilateral interst itial opacities and left basilar airspace disease are unchanged. Electronically signed by: Wellington Chin MD (10/04/2020 1:44 PM) [id number]
[2020-10-04] MEDS: INSULIN GLARGINE SYRINGE. SQ SCH (20:03)
[2020-10-04] MEDS: ENOXAPARIN 40 MG/0.4 ML SYRINGE. SQ SCH (20:03)
[2020-10-05] VITALS (24 sets, daily range): BP systolic 110–161; BP diastolic 44–83
[2020-10-05] MEDS: INSULIN LISPRO 300 UNITS/3 ML VIAL. SQ SCH ×7 (06:16→23:19)
[2020-10-05] MEDS: IV 1/2 NORMAL SALINE 1,000 ML IV SCH ×2 (06:16→19:45)
[2020-10-05 06:44] LABS: HEMATOCRIT 38.6 % (39.0-53.0); HEMOGLOBIN 12.9 g/dL (13.0-17.5); RED BLOOD COUNT 4.04 x10^6/uL (4.30-5.70); RED CELL DISTRIBUTION WIDTH 14.2 % (11.5-14.5); WHITE BLOOD COUNT 8.1 x10^3/uL (4.0-11.0)
[2020-10-05 06:49] LABS: CREATININE 0.5 mg/dL (0.7-1.3); GFR 170.2; POTASSIUM 4.4 mmol/L (3.5-5.1)
--- NOTE | 2020-10-05 07:34 | PDOC ---
PULMONARY PROGRESS NOTES DATE: 10/05/20 TIME: 07:34 Subjective Patient sedated, assist-control, rate of 20, tidal volume 500, 65%. Vitals Vital Signs Date Time Temp Pulse Resp B/P (MAP) Pulse Ox O2 Delivery O2 Flow Rate FiO2 10/05/20 06:00 52 20 132/64 (86) 96 Ventilator 10/05/20 04:00 98.6 98.6 Comments Patient seen during the , and visual inspection of BiPAP no respiratory distress no paroxysmal breathing pattern no increasing edema no new rash Labs Laboratory Tests Test 10/03/20 09:00 10/03/20 13:31 10/03/20 18:06 10/04/20 00:03 O2 Saturation 97 % (92-99) Arterial Blood pH 7.43 (7.35-7.45) Arterial Blood pCO2 at Patient Temp 42 mmHg (35-46) Arterial Blood pO2 at Patient Temp 83 mmHg (65-108) Arterial Blood HCO3 28 mmol/L (21-28) Arterial Blood Base Excess 3 mmol/L (-3-3) FiO2 70% vent Glucose (Fingerstick) 314 mg/dL (70-99) 344 mg/dL (70-99) 347 mg/dL (70-99) Test 10/04/20 06:00 10/04/20 06:04 10/04/20 08:10 10/04/20 11:23 White Blood Count 8.7 x10^3/uL (4.0-11.0) Red Blood Count 4.28 x10^6/uL (4.30-5.70) Hemoglobin 13.7 g/dL (13.0-17.5) Hematocrit 41.1 % (39.0-53.0) Mean Corpuscular Volume 96 fL (79-100) Mean Corpuscular Hemoglobin 32 pg (25-35) Mean Corpuscular Hemoglobin Concent 33 g/dL (31-37) Red Cell Distribution Width 14.4 % (11.5-14.5) Platelet Count 70 x10^3/uL (140-400) Sodium Level 142 mmol/L (136-145) Potassium Level 4.7 mmol/L (3.5-5.1) Chloride Level 108 mmol/L (98-107) Carbon Dioxide Level 31 mmol/L (21-32) Anion Gap 3 (6-14) Blood Urea Nitrogen 29 mg/dL (8-26) Creatinine 0.6 mg/dL (0.7-1.3) Estimated GFR (Cockcroft-Gault) 137.9 Glucose Level 354 mg/dL (70-99) Calcium Level 8.5 mg/dL (8.5-10.1) Glucose (Fingerstick) 342 mg/dL (70-99) 228 mg/dL (70-99) O2 Saturation 97 % (92-99) Arterial Blood pH 7.44 (7.35-7.45) Arterial Blood pCO2 at Patient Temp 40 mmHg (35-46) Arterial Blood pO2 at Patient Temp 94 mmHg (65-108) Arterial Blood HCO3 27 mmol/L (21-28) Arterial Blood Base Excess 2 mmol/L (-3-3) FiO2 65 Test 10/04/20 17:19 10/04/20 23:52 10/05/20 06:00 10/05/20 06:14 Glucose (Fingerstick) 311 mg/dL (70-99) 298 mg/dL (70-99) 253 mg/dL (70-99) White Blood Count 8.1 x10^3/uL (4.0-11.0) Red Blood Count 4.04 x10^6/uL (4.30-5.70) Hemoglobin 12.9 g/dL (13.0-17.5) Hematocrit 38.6 % (39.0-53.0) Mean Corpuscular Volume 96 fL (79-100) Mean Corpuscular Hemoglobin 32 pg (25-35) Mean Corpuscular Hemoglobin Concent 33 g/dL (31-37) Red Cell Distribution Width 14.2 % (11.5-14.5) Platelet Count 53 x10^3/uL (140-400) Sodium Level 141 mmol/L (136-145) Potassium Level 4.4 mmol/L (3.5-5.1) Chloride Level 109 mmol/L (98-107) Carbon Dioxide Level 31 mmol/L (21-32) Anion Gap 1 (6-14) Blood Urea Nitrogen 26 mg/dL (8-26) Creatinine 0.5 mg/dL (0.7-1.3) Estimated GFR (Cockcroft-Gault) 170.2 Glucose Level 263 mg/dL (70-99) Calcium Level 8.0 mg/dL (8.5-10.1) Laboratory Tests Test 10/04/20 08:10 10/04/20 11:23 10/04/20 17:19 10/04/20 23:52 O2 Saturation 97 % (92-99) Arterial Blood pH 7.44 (7.35-7.45) Arterial Blood pCO2 at Patient Temp 40 mmHg (35-46) Arterial Blood pO2 at Patient Temp 94 mmHg (65-108) Arterial Blood HCO3 27 mmol/L (21-28) Arterial Blood Base Excess 2 mmol/L (-3-3) FiO2 65 Glucose (Fingerstick) 228 mg/dL (70-99) 311 mg/dL (70-99) 298 mg/dL (70-99) Test 10/05/20 06:00 10/05/20 06:14 White Blood Count 8.1 x10^3/uL (4.0-11.0) Red Blood Count 4.04 x10^6/uL (4.30-5.70) Hemoglobin 12.9 g/dL (13.0-17.5) Hematocrit 38.6 % (39.0-53.0) Mean Corpuscular Volume 96 fL (79-100) Mean Corpuscular Hemoglobin 32 pg (25-35) Mean Corpuscular Hemoglobin Concent 33 g/dL (31-37) Red Cell Distribution Width 14.2 % (11.5-14.5) Platelet Count 53 x10^3/uL (140-400) Sodium Level 141 mmol/L (136-145) Potassium Level 4.4 mmol/L (3.5-5.1) Chloride Level 109 mmol/L (98-107) Carbon Dioxide Level 31 mmol/L (21-32) Anion Gap 1 (6-14) Blood Urea Nitrogen 26 mg/dL (8-26) Creatinine 0.5 mg/dL (0.7-1.3) Estimated GFR (Cockcroft-Gault) 170.2 Glucose Level 263 mg/dL (70-99) Calcium Level 8.0 mg/dL (8.5-10.1) Glucose (Fingerstick) 253 mg/dL (70-99) Medications Active Scripts Medications Dose Route/Sig Max Daily Dose Days Date Category Flomax (Tamsulosin Hcl) 0.4 Mg Cap.er.24h 1 Cap PO DAILY 09/26/20 Reported Semglee (Insulin Glargine,Hum.rec.anlog) 100 Unit/1 Ml Vial 20 Unit SQ QHS 09/26/20 Reported Semglee (Insulin Glargine,Hum.rec.anlog) 100 Unit/1 Ml Vial 30 Unit SQ QAM 09/26/20 Reported Novolin R (Insulin Regular, Human) 100 Unit/1 Ml Vial 100 Unit IJ SSI PRN 09/26/20 Reported Naproxen 500 Mg Tablet 1 Tab PO BID PRN 30 09/26/20 Reported Metoprolol Tartrate 25 Mg Tablet 1 Tab PO BID 09/26/20 Reported Alvesco (Ciclesonide) 6.1 Gm Hfa.aer.ad 6.1 Gm IH Q12HR 09/26/20 Reported Proair Hfa Inhaler (Albuterol Sulfate) 8.5 Gm Hfa.aer.ad 2 Puff IH PRN Q4-6HRS PRN 21 09/26/20 Reported Comments Chest x-ray 10/04 reviewed. Bilateral interstitial infiltrates with mild improvement Chest x-ray from 09/29 was reviewed. Diffuse bilateral interstitial infiltrates consistent with COVID-19 pneumonia Impression . IMPRESSION: 1. Acute hypoxemic respiratory failure secondary to COVID-19./ARDS 2. COVID-19 viral pneumonia. 3. Possible bacterial pneumonia. 4. Other comorbidities including chronic obstructive pulmonary disease with acute exacerbation, tobacco dependent, chronic back pain and hypertension. 5. Abnormal chest x-ray with bilateral interstitial infiltrates related to COVID-19 pneumonia. 6. Status post intubation 09/29 Plan . Updated 10/05 Continue assist-control ventilation Titrate FiO2 Status post remdesivir Steroids DVT GI prophylaxis Complete course of empiric antibiotics Nutritional support Updated 10/04/20 Continue present assist control mode. Oxygen requirement slowly improving. currently down to 65% FiO2 and 8 of PEEP. We will follow ABGs and make necessary adjustments. Follow CXR 10/04 shows mild improvement Continue remdesivir Continue steroids Continue empiric ABX, azithro and rocephin TF for nutritional support DVT/GI PPX D/W RN and RT CC time 30 min YVAN ZEE MD Oct 05, 2020 07:34
[2020-10-05] MEDS: FLUTICASONE/VILANTEROL 100/25 INHALER. INH SCH (09:00)
[2020-10-05] MEDS: FLUTICASONE 50MCG/NASAL SPRAY 16GM BOTTLE. NS SCH (09:00)
[2020-10-05] MEDS: TAMSULOSIN 0.4 MG CAP.ER.24H. PO SCH (09:00)
[2020-10-05 09:01] LABS: BASE EXCESS ABG 3 mmol/L (-3-3); HCO3 ABG 26 mmol/L (21-28); PCO2 ABG 35 mmHg (35-46); PO2 ABG 94 mmHg (65-108); SAT O2 ABG 98 % (92-99)
[2020-10-05 09:24] LABS: FIO2 ABG 65/VENT
[2020-10-05] MEDS: DEXAMETHASONE SOD PHOS 4 MG/ML VIAL IVP SCH (09:49)
[2020-10-05] MEDS: PANTOPRAZOLE IV PUSH 40 MG VIAL. IVP SCH (09:49)
[2020-10-05] MEDS: cefTRIAXone IV Push 1 GM VIAL. IVP SCH (09:51)
[2020-10-05] MEDS: METOPROLOL TART IMMED RELEASE 25 MG TABLET. PO SCH ×2 (09:53→22:21)
--- NOTE | 2020-10-05 11:39 | PDOC ---
[employer] PROGRESS NOTE Date of Service DOS: DATE: 10/05/20 TIME: 11:37 Chief Complaint Chief Complaint COVID-19 respiratory failure requiring intubation COPD Cirrhosis Severe pneumonia Remote history of alcohol issues mediastinal adenopathy Hyperglycemia and diabetes Severe protein calorie malnutrition Hypomagnesemia History of Present Illness History of Present Illness 10/05/2020 Patient seen and examined in the [place] [address] ICU He is still intubated AC/20/500/60 5% with 7 of PEEP Discussed with RN Patient with OG feeds running Mitts for patient safety Has Olsen to bedside drainage 2 corrections officers are present Patient is shackled Sedated with fentanyl and Versed He remains very critically ill 10/04/2020 Patient seen and examined in the [place] [address] ICU He remains intubated Shackled AC/20/500/60 5% with 8 of PEEP He has OG feeds running Has mitts on for patient safety Has SCDs in place Olsen to bedside drainage He is sedated with fentanyl and Versed Discussed with RN His glucose is running a little high we are adding in scheduled NovoLog 10 units 3 times daily and continue the sliding scale and Lantus 20 a day Chart reviewed He remains very critically ill Corrections officers are present 59 year old male [facility] via EMS [facility] with work of breathing x2 days with low O2 Sat at facility down to 78% on RA. known history of COPD and cough. Patient also complains of headache. EMS noted patient was 84% and tripoding on 3 L nasal cannula. EMS reports giving a DuoNeb treatment x2 in route and placement nonrebreather with subsequent improvement in up to 95%. remote alcohol abuse YRS AGO , smoked until one month ago when he was arrested received the [employer] COVID-19 vaccination [facility]. Patient denies known exposure to COVID-19. Panlobular airspace disease,c/w multifocal pneumonia. PUI Pulmonary edema less likely. 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 Remote alcohol abuse "6-8 cans of beer a day years ago" Thickened distal esophagus with 9 x 10 mm luminal density, likely ingested medication tablet. Mediastinal adenopathy, malignancy is not excluded.suggest follow-up CT of the chest in 3 months. / Hyperglycemia on accuchecks // Severe protein-caloric malnutrition CTA CHEST C/W Panlobular airspace disease, most likely multifocal pneumonia. 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 Patient tolerating BiPAP and saturating 91%. Started patient on IV Protonix because he is still on steroids. And has a history of esophageal varices. Patient's chart, labs, images were reviewed and discussed with RN 09/27/20 Patient evaluated at bedside He was having laboring respirations initially on the BiPAP concerned patient may need ICU transfer however was given a dose of Ativan and was able to calm down and respiratory status improved Continue steroids Pulmonary consult Plan of care discussed with bedside RN 09/28/20 Patient evaluated bedside He was on BiPAP required to be increased 100% FiO2 this morning Remains on remdesivir, Decadron, Rocephin, and azithromycin Continuing supportive care Plan of care discussed with bedside nurse 09/29/20 Patient evaluated at bedside Patient remains significantly agitated and anxious despite aggressive medication measures while on BiPAP BiPAP settings increasing over the past several days and given his agitation will transfer to ICU Continuing remdesivir Decadron Rocephin and azithromycin Plan of care discussed with bedside nurse 09/30/2020: Patient transferred from out to ICU yesterday due to worsening respiratory distress. He was intubated and currently on vent with FiO2 90% and PEEP of 8. We will continue treatment with remdesivir, steroids, and empiric antibiotics. Critical care time 30 minutes spent reviewing charts, reviewing imaging, reviewing labs, discussion with RN. 10/01/2020: Afebrile. On vent with FiO2 85%, PEEP 8. Continue treatment with remdesivir, steroids, Rocephin and azithromycin. Critical care time 30 minutes spent reviewing charts, imaging, reviewing labs, discussion with RN. 10/02/2020: Afebrile, FiO2 80%, PEEP 5. Finished remdesivir. Continue antibiotics and Decadron. Will increase insulin regimen due to persistent hyperglycemia. Supportive care. Critical care time 30 minutes spent reviewing charts, labs, reviewing imaging, discussion with RN. 10/03/2020: Afebrile, on vent with FiO2 70%, PEEP 5. Still with some significant hyperglycemia. Will increase basal insulin. Finished remdesivir. Will continue antibiotics and steroids. Repeat chest x-ray today. Critical care time 30 minutes spent reviewing charts, labs, reviewing imaging, discussion with RN. Vitals/I&O Vitals/I&O: Vital Signs Date Time Temp Pulse Resp B/P (MAP) Pulse Ox O2 Delivery O2 Flow Rate FiO2 10/05/20 09:53 61 161/80 10/05/20 09:50 20 96 Ventilator 10/05/20 04:00 98.6 98.6 I & O 10/04/20 10/04/20 10/05/20 15:00 23:00 07:00 Intake Total 200 ml 2142 ml 2168 ml Output Total 530 ml 1025 ml 525 ml Balance -330 ml 1117 ml 1643 ml Physical Exam General: No acute distress, Other (Intubated and sedated) Heart: Regular rate, Normal S1 Abdomen: Normal bowel sounds, Soft, No tenderness, No masses, Other (obese) Extremities: No cyanosis Skin: No rashes Labs Labs: Laboratory Tests Test 10/04/20 17:19 10/04/20 23:52 10/05/20 06:00 10/05/20 06:14 Glucose (Fingerstick) 311 mg/dL (70-99) 298 mg/dL (70-99) 253 mg/dL (70-99) White Blood Count 8.1 x10^3/uL (4.0-11.0) Red Blood Count 4.04 x10^6/uL (4.30-5.70) Hemoglobin 12.9 g/dL (13.0-17.5) Hematocrit 38.6 % (39.0-53.0) Mean Corpuscular Volume 96 fL (79-100) Mean Corpuscular Hemoglobin 32 pg (25-35) Mean Corpuscular Hemoglobin Concent 33 g/dL (31-37) Red Cell Distribution Width 14.2 % (11.5-14.5) Platelet Count 53 x10^3/uL (140-400) Sodium Level 141 mmol/L (136-145) Potassium Level 4.4 mmol/L (3.5-5.1) Chloride Level 109 mmol/L (98-107) Carbon Dioxide Level 31 mmol/L (21-32) Anion Gap 1 (6-14) Blood Urea Nitrogen 26 mg/dL (8-26) Creatinine 0.5 mg/dL (0.7-1.3) Estimated GFR (Cockcroft-Gault) 170.2 Glucose Level 263 mg/dL (70-99) Calcium Level 8.0 mg/dL (8.5-10.1) Test 10/05/20 08:00 O2 Saturation 98 % (92-99) Arterial Blood pH 7.48 (7.35-7.45) Arterial Blood pCO2 at Patient Temp 35 mmHg (35-46) Arterial Blood pO2 at Patient Temp 94 mmHg (65-108) Arterial Blood HCO3 26 mmol/L (21-28) Arterial Blood Base Excess 3 mmol/L (-3-3) FiO2 65/vent Assessment and Plan Assessmemt and Plan Problems Medical Problems: (1) COPD exacerbation Status: Acute (2) Headache Status: Acute (3) Hypoxia Status: Acute (4) Pneumonia Status: Acute (5) Respiratory failure Status: Acute (6) Suspected 2019 novel coronavirus infection Status: Acute COVID-19 respiratory failure requiring intubation COPD Cirrhosis Severe pneumonia Remote history of alcohol issues mediastinal adenopathy Hyperglycemia and diabetes Severe protein calorie malnutrition Hypomagnesemia Plan ICU monitoring Covid protocol Trend labs Home meds DVT prophylaxis Full code Continue OG feeds Continue Olsen to bedside drainage SCDs Mitts for patient's age Continue sedation with fentanyl and Versed Long-term prognosis guarded Appreciate subspecialist input CC time 33 Comment Review of Relevant I have reviewed the following items herlinda (where applicable) has been applied. Medications: Current Medications Medications (Trade) Dose Ordered Sig/Lloyd Route PRN Reason Start Time Stop Time Status Last Admin Dose Admin Insulin Human Lispro (HumaLOG) 0-7 UNITS Q6HRS SQ 10/04/20 12:00 10/05/20 06:16 Justifications for Admission Other Justification RESP FAILURE WITH HYPOXIA RIGO SRINIVASAN III DO Oct 05, 2020 11:39
[2020-10-05] MEDS: MIDAZOLAM 100mg/100ml NS BAG 100 ML IV PRN ×2 (12:37→23:17)
[2020-10-05] MEDS: ENOXAPARIN 40 MG/0.4 ML SYRINGE. SQ SCH (22:21)
[2020-10-05] MEDS: INSULIN GLARGINE SYRINGE. SQ SCH (22:22)
[2020-10-06] VITALS (25 sets, daily range): BP systolic 118–189; BP diastolic 59–101
[2020-10-06] MEDS: INSULIN LISPRO 300 UNITS/3 ML VIAL. SQ SCH ×6 (06:00→18:09)
[2020-10-06 08:59] LABS: BASE EXCESS ABG 3 mmol/L (-3-3); HCO3 ABG 27 mmol/L (21-28); PCO2 ABG 38 mmHg (35-46); PO2 ABG 76 mmHg (65-108); SAT O2 ABG 96 % (92-99)
[2020-10-06] MEDS: METOPROLOL TART IMMED RELEASE 25 MG TABLET. PO SCH ×2 (09:00→21:26)
[2020-10-06] MEDS: TAMSULOSIN 0.4 MG CAP.ER.24H. PO SCH (09:00)
[2020-10-06] MEDS: FLUTICASONE/VILANTEROL 100/25 INHALER. INH SCH (09:00)
[2020-10-06] MEDS: FLUTICASONE 50MCG/NASAL SPRAY 16GM BOTTLE. NS SCH (09:00)
--- NOTE | 2020-10-06 09:02 | RAD ---
XR CHEST 1V INDICATION: RF/COVID COMPARISON STUDY: 10/04/2020. FINDINGS: Life Support Devices: Stable endotracheal tube, enteric tube, right IJ central venous catheter. Lungs: Normal lung volume. Stable bilateral perihilar and basilar heterogeneous opacities. Pleura: Small left pleural effusion. Heart and Mediastinum: Stable cardiomediastinal silhouette and great vessels. IMPRESSION: 1. Stable life support devices. 2. Stable bilateral perihilar and basilar opacities. 3. Small left pleural effusion. Electronically signed by: Arthur Reyes MD (10/06/2020 9:00 AM) [id number]
--- NOTE | 2020-10-06 09:05 | PDOC ---
PULMONARY PROGRESS NOTES DATE: 10/06/20 TIME: 09:05 Subjective No overnight events Oxygenation improved, currently on 50%, 7 of PEEP Patient sedated Vitals Vital Signs Date Time Temp Pulse Resp B/P (MAP) Pulse Ox O2 Delivery O2 Flow Rate FiO2 10/06/20 07:48 94 Ventilator 10/06/20 06:00 52 18 145/74 (97) 10/06/20 04:00 98.8 98.8 10/05/20 23:21 15.0 Comments Patient seen during the COVID- pandemic, and visual inspection of BiPAP no respiratory distress no paroxysmal breathing pattern no increasing edema no new rash Labs Laboratory Tests Test 10/04/20 11:23 10/04/20 17:19 10/04/20 23:52 10/05/20 06:00 Glucose (Fingerstick) 228 mg/dL (70-99) 311 mg/dL (70-99) 298 mg/dL (70-99) White Blood Count 8.1 x10^3/uL (4.0-11.0) Red Blood Count 4.04 x10^6/uL (4.30-5.70) Hemoglobin 12.9 g/dL (13.0-17.5) Hematocrit 38.6 % (39.0-53.0) Mean Corpuscular Volume 96 fL (79-100) Mean Corpuscular Hemoglobin 32 pg (25-35) Mean Corpuscular Hemoglobin Concent 33 g/dL (31-37) Red Cell Distribution Width 14.2 % (11.5-14.5) Platelet Count 53 x10^3/uL (140-400) Sodium Level 141 mmol/L (136-145) Potassium Level 4.4 mmol/L (3.5-5.1) Chloride Level 109 mmol/L (98-107) Carbon Dioxide Level 31 mmol/L (21-32) Anion Gap 1 (6-14) Blood Urea Nitrogen 26 mg/dL (8-26) Creatinine 0.5 mg/dL (0.7-1.3) Estimated GFR (Cockcroft-Gault) 170.2 Glucose Level 263 mg/dL (70-99) Calcium Level 8.0 mg/dL (8.5-10.1) Test 10/05/20 06:14 10/05/20 08:00 10/05/20 18:01 10/05/20 22:45 Glucose (Fingerstick) 253 mg/dL (70-99) 302 mg/dL (70-99) 222 mg/dL (70-99) O2 Saturation 98 % (92-99) Arterial Blood pH 7.48 (7.35-7.45) Arterial Blood pCO2 at Patient Temp 35 mmHg (35-46) Arterial Blood pO2 at Patient Temp 94 mmHg (65-108) Arterial Blood HCO3 26 mmol/L (21-28) Arterial Blood Base Excess 3 mmol/L (-3-3) FiO2 65/vent Test 10/06/20 05:28 Glucose (Fingerstick) 271 mg/dL (70-99) Laboratory Tests Test 10/05/20 18:01 10/05/20 22:45 10/06/20 05:28 Glucose (Fingerstick) 302 mg/dL (70-99) 222 mg/dL (70-99) 271 mg/dL (70-99) Medications Active Scripts Medications Dose Route/Sig Max Daily Dose Days Date Category Flomax (Tamsulosin Hcl) 0.4 Mg Cap.er.24h 1 Cap PO DAILY 09/26/20 Reported Semglee (Insulin Glargine,Hum.rec.anlog) 100 Unit/1 Ml Vial 20 Unit SQ QHS 09/26/20 Reported Semglee (Insulin Glargine,Hum.rec.anlog) 100 Unit/1 Ml Vial 30 Unit SQ QAM 09/26/20 Reported Novolin R (Insulin Regular, Human) 100 Unit/1 Ml Vial 100 Unit IJ SSI PRN 09/26/20 Reported Naproxen 500 Mg Tablet 1 Tab PO BID PRN 30 09/26/20 Reported Metoprolol Tartrate 25 Mg Tablet 1 Tab PO BID 09/26/20 Reported Alvesco (Ciclesonide) 6.1 Gm Hfa.aer.ad 6.1 Gm IH Q12HR 09/26/20 Reported Proair Hfa Inhaler (Albuterol Sulfate) 8.5 Gm Hfa.aer.ad 2 Puff IH PRN Q4-6HRS PRN 21 09/26/20 Reported Impression . IMPRESSION: 1. Acute hypoxemic respiratory failure secondary to COVID-19./ARDS 2. COVID-19 viral pneumonia. 3. Possible bacterial pneumonia. 4. Other comorbidities including chronic obstructive pulmonary disease with acute exacerbation, tobacco dependent, chronic back pain and hypertension. 5. Abnormal chest x-ray with bilateral interstitial infiltrates related to COVID-19 pneumonia. 6. Status post intubation 09/29 Chest x-ray reviewed IMPRESSION: 1. Stable life support devices. 2. Stable bilateral perihilar and basilar opacities. 3. Small left pleural effusion. Plan . Updated 10/06 If continues to improve will decrease PEEP in the a.m. Continue assist control Finish course of remdesivir Steroids Monitor off of antibiotics Nutritional support Possible spontaneous breathing trial in 24 to 48 hours Updated 10/05 Continue assist-control ventilation Titrate FiO2 Status post remdesivir Steroids DVT GI prophylaxis Complete course of empiric antibiotics Nutritional support Updated 10/04/20 Continue present assist control mode. Oxygen requirement slowly improving. currently down to 65% FiO2 and 8 of PEEP. We will follow ABGs and make necessary adjustments. Follow CXR 10/04 shows mild improvement Continue remdesivir Continue steroids Continue empiric ABX, azithro and rocephin TF for nutritional support DVT/GI PPX D/W RN and RT CC time 30 min YVAN ZEE MD Oct 06, 2020 09:05
[2020-10-06] MEDS: PANTOPRAZOLE IV PUSH 40 MG VIAL. IVP SCH (09:14)
[2020-10-06] MEDS: INSULIN GLARGINE SYRINGE. SQ SCH ×2 (09:16→21:26)
[2020-10-06] MEDS: DEXAMETHASONE SOD PHOS 4 MG/ML VIAL IVP SCH (09:16)
[2020-10-06 10:10] LABS: FIO2 ABG 55/VENT
--- NOTE | 2020-10-06 11:10 | PDOC ---
[employer] PROGRESS NOTE Date of Service DOS: DATE: 10/06/20 TIME: 11:08 Chief Complaint Chief Complaint COVID-19 respiratory failure requiring intubation COPD Cirrhosis Severe pneumonia Remote history of alcohol issues mediastinal adenopathy Hyperglycemia and diabetes Severe protein calorie malnutrition Hypomagnesemia History of Present Illness History of Present Illness 10/06/2020 Patient seen and examined in the [place] [id number] ICU He has corrections officers present He is shackled on his left ankle Still remains on the vent AC/18/500/50 5% with 7 of PEEP Sedated with Versed and fentanyl Chart reviewed Discussed with RN He remains very critically ill 10/05/2020 Patient seen and examined in the [place] [address] ICU He is still intubated AC/20/500/60 5% with 7 of PEEP Discussed with RN Patient with OG feeds running Mitts for patient safety Has Olsen to bedside drainage 2 corrections officers are present Patient is shackled Sedated with fentanyl and Versed He remains very critically ill 10/04/2020 Patient seen and examined in the [place] [address] ICU He remains intubated Shackled AC/20/500/60 5% with 8 of PEEP He has OG feeds running Has mitts on for patient safety Has SCDs in place Olsen to bedside drainage He is sedated with fentanyl and Versed Discussed with RN His glucose is running a little high we are adding in scheduled NovoLog 10 units 3 times daily and continue the sliding scale and Lantus 20 a day Chart reviewed He remains very critically ill Corrections officers are present 59 year old male [facility] with work of breathing x2 days with low O2 Sat at facility down to 78% on RA. known hist ory of COPD and cough. Patient also complains of headache. EMS noted patient was 84% and tripoding on 3 L nasal cannula. EMS reports giving a DuoNeb treatment x2 in route and placement nonrebreather with subsequent improvement in up to 95%. remote alcohol abuse YRS AGO , smoked until one month ago when he was arrested received the [employer] COVID-19 vaccination x1 approximately 5 months ago at the [place]. Patient denies known exposure to COVID-19. Panlobular airspace disease,c/w multifocal pneumonia. PUI Pulmonary edema less likely. 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 Remote alcohol abuse "6-8 cans of beer a day years ago" Thickened distal esophagus with 9 x 10 mm luminal density, likely ingested medication tablet. Mediastinal adenopathy, malignancy is not excluded.suggest follow-up CT of the chest in 3 months. / Hyperglycemia on accuchecks // Severe protein-caloric malnutrition CTA CHEST C/W Panlobular airspace disease, most likely multifocal pneumonia. 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 Patient tolerating BiPAP and saturating 91%. Started patient on IV Protonix because he is still on steroids. And has a history of esophageal varices. Patient's chart, labs, images were reviewed and discussed with RN 09/27/20 Patient evaluated at bedside He was having laboring respirations initially on the BiPAP concerned patient may need ICU transfer however was given a dose of Ativan and was able to calm down and respiratory status improved Continue steroids Pulmonary consult Plan of care discussed with bedside RN 09/28/20 Patient evaluated bedside He was on BiPAP required to be increased 100% FiO2 this morning Remains on remdesivir, Decadron, Rocephin, and azithromycin Continuing supportive care Plan of care discussed with bedside nurse 09/29/20 Patient evaluated at bedside Patient remains significantly agitated and anxious despite aggressive medication measures while on BiPAP BiPAP settings increasing over the past several days and given his agitation will transfer to ICU Continuing remdesivir Decadron Rocephin and azithromycin Plan of care discussed with bedside nurse 09/30/2020: Patient transferred from out to ICU yesterday due to worsening respiratory distress. He was intubated and currently on vent with FiO2 90% and PEEP of 8. We will continue treatment with remdesivir, steroids, and empiric antibiotics. Critical care time 30 minutes spent reviewing charts, reviewing imaging, reviewing labs, discussion with RN. 10/01/2020: Afebrile. On vent with FiO2 85%, PEEP 8. Continue treatment with remdesivir, steroids, Rocephin and azithromycin. Critical care time 30 minutes spent reviewing charts, imaging, reviewing labs, discussion with RN. 10/02/2020: Afebrile, FiO2 80%, PEEP 5. Finished remdesivir. Continue antibiotics and Decadron. Will increase insulin regimen due to persistent hyperglycemia. Supportive care. Critical care time 30 minutes spent reviewing charts, labs, reviewing imaging, discussion with RN. 10/03/2020: Afebrile, on vent with FiO2 70%, PEEP 5. Still with some significant hyperglycemia. Will increase basal insulin. Finished remdesivir. Will continue antibiotics and steroids. Repeat chest x-ray today. Critical care time 30 minutes spent reviewing charts, labs, reviewing imaging, discussion with RN. Vitals/I&O Vitals/I&O: Vital Signs Date Time Temp Pulse Resp B/P (MAP) Pulse Ox O2 Delivery O2 Flow Rate FiO2 10/06/20 10:00 49 18 134/77 (96) 94 Ventilator 10/06/20 08:00 98.5 98.5 10/05/20 23:21 15.0 I & O 10/05/20 10/05/20 10/06/20 15:00 23:00 07:00 Intake Total 200 ml 1608 ml 2637.4 ml Output Total 400 ml 570 ml 425 ml Balance -200 ml 1038 ml 2212.4 ml Physical Exam General: No acute distress, Other (Intubated and sedated) Heart: Regular rate, Normal S1 Abdomen: Normal bowel sounds, Soft, No tenderness, No masses, Other (obese) Extremities: No cyanosis Skin: No rashes Labs Labs: Laboratory Tests Test 10/05/20 18:01 10/05/20 22:45 10/06/20 05:28 10/06/20 08:00 Glucose (Fingerstick) 302 mg/dL (70-99) 222 mg/dL (70-99) 271 mg/dL (70-99) O2 Saturation 96 % (92-99) Arterial Blood pH 7.47 (7.35-7.45) Arterial Blood pCO2 at Patient Temp 38 mmHg (35-46) Arterial Blood pO2 at Patient Temp 76 mmHg (65-108) Arterial Blood HCO3 27 mmol/L (21-28) Arterial Blood Base Excess 3 mmol/L (-3-3) FiO2 55/vent Assessment and Plan Assessmemt and Plan Problems Medical Problems: (1) COPD exacerbation Status: Acute (2) Headache Status: Acute (3) Hypoxia Status: Acute (4) Pneumonia Status: Acute (5) Respiratory failure Status: Acute (6) Suspected 2019 novel coronavirus infection Status: Acute COVID-19 respiratory failure requiring intubation COPD Cirrhosis Severe pneumonia Remote history of alcohol issues mediastinal adenopathy Hyperglycemia and diabetes Severe protein calorie malnutrition Hypomagnesemia Plan ICU monitoring Covid protocol Remdesivir is completed Vitamins Beta agonist IV steroid I discussed his case with the pharmacist Trend labs Home meds DVT prophylaxis Full code Continue OG feeds Continue Olsen to bedside drainage SCDs Mitts for patient's age Continue sedation with fentanyl and Versed Long-term prognosis guarded Appreciate subspecialist input CC time 31 min Comment Review of Relevant I have reviewed the following items herlinda (where applicable) has been applied. Medications: Current Medications Medications (Trade) Dose Ordered Sig/Lloyd Route PRN Reason Start Time Stop Time Status Last Admin Dose Admin Insulin Human Lispro (HumaLOG) 10 units Q6HRS SQ 10/05/20 12:00 10/06/20 07:34 DC 10/06/20 06:00 Insulin Glargine (Lantus Syringe) 20 unit BID SQ 10/06/20 09:00 10/06/20 09:16 Justifications for Admission Other Justification RESP FAILURE WITH HYPOXIA RIGO SRINIVASAN III DO Oct 06, 2020 11:10
[2020-10-06] MEDS: IV 1/2 NORMAL SALINE 1,000 ML IV SCH (11:15)
[2020-10-06] MEDS: VECURONIUM BOLUS 10 MG VIAL. IV PRN (16:19)
[2020-10-06] MEDS: ENOXAPARIN 40 MG/0.4 ML SYRINGE. SQ SCH (21:27)
[2020-10-07] VITALS (23 sets, daily range): BP systolic 109–146; BP diastolic 60–97
[2020-10-07] MEDS: INSULIN LISPRO 300 UNITS/3 ML VIAL. SQ SCH ×8 (00:37→18:00)
[2020-10-07] MEDS: MIDAZOLAM 100mg/100ml NS BAG 100 ML IV PRN ×2 (04:58→21:46)
[2020-10-07] MEDS: IV 1/2 NORMAL SALINE 1,000 ML IV SCH (05:00)
[2020-10-07 06:27] LABS: BASO % 0 % (0-3); EOS % 0 % (0-3); HEMATOCRIT 39.3 % (39.0-53.0); HEMOGLOBIN 13.2 g/dL (13.0-17.5); LYMPH # 1.1 x10^3/uL (1.0-4.8); LYMPH % 11 % (24-48); MEAN CORPUSCULAR HEMOGLOBIN 32 pg (25-35); MEAN CORPUSCULAR HGB CONC 34 g/dL (31-37); MEAN CORPUSCULAR VOLUME 96 fL (79-100); MONO % 11 % (0-9); NEUT # 7.4 x10^3/uL (1.8-7.7); NEUT % 78 % (31-73); PLATELET COUNT 59 x10^3/uL (140-400); RED BLOOD COUNT 4.11 x10^6/uL (4.30-5.70); RED CELL DISTRIBUTION WIDTH 14.1 % (11.5-14.5); WHITE BLOOD COUNT 9.5 x10^3/uL (4.0-11.0)
[2020-10-07 06:37] LABS: CALCIUM 8.1 mg/dL (8.5-10.1); CREATININE 0.5 mg/dL (0.7-1.3); GFR 170.2; POTASSIUM 4.6 mmol/L (3.5-5.1)
[2020-10-07] MEDS: PANTOPRAZOLE IV PUSH 40 MG VIAL. IVP SCH (07:47)
[2020-10-07] MEDS: DEXAMETHASONE SOD PHOS 4 MG/ML VIAL IVP SCH (07:48)
[2020-10-07] MEDS: TAMSULOSIN 0.4 MG CAP.ER.24H. PO SCH (07:48)
[2020-10-07] MEDS: FLUTICASONE/VILANTEROL 100/25 INHALER. INH SCH (09:00)
[2020-10-07] MEDS: FLUTICASONE 50MCG/NASAL SPRAY 16GM BOTTLE. NS SCH (09:00)
[2020-10-07 09:16] LABS: BASE EXCESS ABG 6 mmol/L (-3-3); HCO3 ABG 32 mmol/L (21-28); PCO2 ABG 49 mmHg (35-46); PO2 ABG 82 mmHg (65-108); SAT O2 ABG 97 % (92-99)
[2020-10-07] MEDS: METOPROLOL TART IMMED RELEASE 25 MG TABLET. PO SCH ×2 (09:17→21:40)
[2020-10-07] MEDS: INSULIN GLARGINE SYRINGE. SQ SCH ×2 (09:18→21:42)
[2020-10-07 09:19] LABS: FIO2 ABG 50/VENT
--- NOTE | 2020-10-07 10:35 | PDOC ---
PULMONARY PROGRESS NOTES DATE: 10/07/20 TIME: 10:33 Subjective Patient sedated, 50% FiO2 No overnight event Vitals Vital Signs Date Time Temp Pulse Resp B/P (MAP) Pulse Ox O2 Delivery O2 Flow Rate FiO2 10/07/20 10:00 49 17 129/74 (92) 97 Ventilator 10/07/20 08:00 98.1 98.1 10/07/20 05:26 15.0 Comments Patient seen during the pandemic, and visual inspection of BiPAP no respiratory distress no paroxysmal breathing pattern no increasing edema no new rash Labs Laboratory Tests Test 10/05/20 18:01 10/05/20 22:45 10/06/20 05:28 10/06/20 08:00 Glucose (Fingerstick) 302 mg/dL (70-99) 222 mg/dL (70-99) 271 mg/dL (70-99) O2 Saturation 96 % (92-99) Arterial Blood pH 7.47 (7.35-7.45) Arterial Blood pCO2 at Patient Temp 38 mmHg (35-46) Arterial Blood pO2 at Patient Temp 76 mmHg (65-108) Arterial Blood HCO3 27 mmol/L (21-28) Arterial Blood Base Excess 3 mmol/L (-3-3) FiO2 55/vent Test 10/06/20 11:23 10/06/20 17:57 10/06/20 23:54 10/07/20 06:00 Glucose (Fingerstick) 229 mg/dL (70-99) 254 mg/dL (70-99) 210 mg/dL (70-99) White Blood Count 9.5 x10^3/uL (4.0-11.0) Red Blood Count 4.11 x10^6/uL (4.30-5.70) Hemoglobin 13.2 g/dL (13.0-17.5) Hematocrit 39.3 % (39.0-53.0) Mean Corpuscular Volume 96 fL (79-100) Mean Corpuscular Hemoglobin 32 pg (25-35) Mean Corpuscular Hemoglobin Concent 34 g/dL (31-37) Red Cell Distribution Width 14.1 % (11.5-14.5) Platelet Count 59 x10^3/uL (140-400) Neutrophils (%) (Auto) 78 % (31-73) Lymphocytes (%) (Auto) 11 % (24-48) Monocytes (%) (Auto) 11 % (0-9) Eosinophils (%) (Auto) 0 % (0-3) Basophils (%) (Auto) 0 % (0-3) Neutrophils # (Auto) 7.4 x10^3/uL (1.8-7.7) Lymphocytes # (Auto) 1.1 x10^3/uL (1.0-4.8) Monocytes # (Auto) 1.0 x10^3/uL (0.0-1.1) Eosinophils # (Auto) 0.0 x10^3/uL (0.0-0.7) Basophils # (Auto) 0.0 x10^3/uL (0.0-0.2) Sodium Level 138 mmol/L (136-145) Potassium Level 4.6 mmol/L (3.5-5.1) Chloride Level 106 mmol/L (98-107) Carbon Dioxide Level 31 mmol/L (21-32) Anion Gap 1 (6-14) Blood Urea Nitrogen 24 mg/dL (8-26) Creatinine 0.5 mg/dL (0.7-1.3) Estimated GFR (Cockcroft-Gault) 170.2 Glucose Level 239 mg/dL (70-99) Calcium Level 8.1 mg/dL (8.5-10.1) Test 10/07/20 06:13 10/07/20 08:00 Glucose (Fingerstick) 202 mg/dL (70-99) O2 Saturation 97 % (92-99) Arterial Blood pH 7.43 (7.35-7.45) Arterial Blood pCO2 at Patient Temp 49 mmHg (35-46) Arterial Blood pO2 at Patient Temp 82 mmHg (65-108) Arterial Blood HCO3 32 mmol/L (21-28) Arterial Blood Base Excess 6 mmol/L (-3-3) FiO2 50/vent Laboratory Tests Test 10/06/20 11:23 10/06/20 17:57 10/06/20 23:54 10/07/20 06:00 Glucose (Fingerstick) 229 mg/dL (70-99) 254 mg/dL (70-99) 210 mg/dL (70-99) White Blood Count 9.5 x10^3/uL (4.0-11.0) Red Blood Count 4.11 x10^6/uL (4.30-5.70) Hemoglobin 13.2 g/dL (13.0-17.5) Hematocrit 39.3 % (39.0-53.0) Mean Corpuscular Volume 96 fL (79-100) Mean Corpuscular Hemoglobin 32 pg (25-35) Mean Corpuscular Hemoglobin Concent 34 g/dL (31-37) Red Cell Distribution Width 14.1 % (11.5-14.5) Platelet Count 59 x10^3/uL (140-400) Neutrophils (%) (Auto) 78 % (31-73) Lymphocytes (%) (Auto) 11 % (24-48) Monocytes (%) (Auto) 11 % (0-9) Eosinophils (%) (Auto) 0 % (0-3) Basophils (%) (Auto) 0 % (0-3) Neutrophils # (Auto) 7.4 x10^3/uL (1.8-7.7) Lymphocytes # (Auto) 1.1 x10^3/uL (1.0-4.8) Monocytes # (Auto) 1.0 x10^3/uL (0.0-1.1) Eosinophils # (Auto) 0.0 x10^3/uL (0.0-0.7) Basophils # (Auto) 0.0 x10^3/uL (0.0-0.2) Sodium Level 138 mmol/L (136-145) Potassium Level 4.6 mmol/L (3.5-5.1) Chloride Level 106 mmol/L (98-107) Carbon Dioxide Level 31 mmol/L (21-32) Anion Gap 1 (6-14) Blood Urea Nitrogen 24 mg/dL (8-26) Creatinine 0.5 mg/dL (0.7-1.3) Estimated GFR (Cockcroft-Gault) 170.2 Glucose Level 239 mg/dL (70-99) Calcium Level 8.1 mg/dL (8.5-10.1) Test 10/07/20 06:13 10/07/20 08:00 Glucose (Fingerstick) 202 mg/dL (70-99) O2 Saturation 97 % (92-99) Arterial Blood pH 7.43 (7.35-7.45) Arterial Blood pCO2 at Patient Temp 49 mmHg (35-46) Arterial Blood pO2 at Patient Temp 82 mmHg (65-108) Arterial Blood HCO3 32 mmol/L (21-28) Arterial Blood Base Excess 6 mmol/L (-3-3) FiO2 50/vent Medications Active Scripts Medications Dose Route/Sig Max Daily Dose Days Date Category Flomax (Tamsulosin Hcl) 0.4 Mg Cap.er.24h 1 Cap PO DAILY 09/26/20 Reported Semglee (Insulin Glargine,Hum.rec.anlog) 100 Unit/1 Ml Vial 20 Unit SQ QHS 09/26/20 Reported Semglee (Insulin Glargine,Hum.rec.anlog) 100 Unit/1 Ml Vial 30 Unit SQ QAM 09/26/20 Reported Novolin R (Insulin Regular, Human) 100 Unit/1 Ml Vial 100 Unit IJ SSI PRN 09/26/20 Reported Naproxen 500 Mg Tablet 1 Tab PO BID PRN 30 09/26/20 Reported Metoprolol Tartrate 25 Mg Tablet 1 Tab PO BID 09/26/20 Reported Alvesco (Ciclesonide) 6.1 Gm Hfa.aer.ad 6.1 Gm IH Q12HR 09/26/20 Reported Proair Hfa Inhaler (Albuterol Sulfate) 8.5 Gm Hfa.aer.ad 2 Puff IH PRN Q4-6HRS PRN 21 09/26/20 Reported Impression . IMPRESSION: 1. Acute hypoxemic respiratory failure secondary to COVID-19./ARDS 2. COVID-19 viral pneumonia. 3. Possible bacterial pneumonia. 4. Other comorbidities including chronic obstructive pulmonary disease with acute exacerbation, tobacco dependent, chronic back pain and hypertension. 5. Abnormal chest x-ray with bilateral interstitial infiltrates related to COVID-19 pneumonia. 6. Status post intubation 09/29 No chest x-ray today Plan . Updated 10/07 Patient making slow improve ABG noted PaO2 of 82 Continue assist control ventilation Status post remdesivir Monitor off of antibiotics Steroids Discussed with RN, start decreasing sedation possible trial Updated 10/06 If continues to improve will decrease PEEP in the a.m. Continue assist control Finish course of remdesivir Steroids Monitor off of antibiotics Nutritional support Possible spontaneous breathing trial in 24 to 48 hours Updated 10/05 Continue assist-control ventilation Titrate FiO2 Status post remdesivir Steroids DVT GI prophylaxis Complete course of empiric antibiotics Nutritional support YVAN ZEE MD 29, 2021 10:35
[2020-10-07] MEDS: FUROSEMIDE 40 MG/4 ML VIAL. IVP SCH (11:30)
--- NOTE | 2020-10-07 12:02 | PDOC ---
[facility] [facility] PROGRESS NOTE Date of Service DOS: DATE: 10/07/20 TIME: 12:00 Chief Complaint Chief Complaint COVID-19 respiratory failure requiring intubation COPD Cirrhosis Severe pneumonia Remote history of alcohol issues mediastinal adenopathy Hyperglycemia and diabetes Severe protein calorie malnutrition Hypomagnesemia History of Present Illness History of Present Illness 10/07/2020 Patient seen and examined in the [place] [address] ICU He remains on the ventilator Assist-control/18/500/50 percent with 7 of PEEP Sedated with Versed and fentanyl Shackled to the bed with 2 corrections officers present Chart reviewed Discussed with RN He is critically ill 10/06/2020 Patient seen and examined in the [place] [address] ICU He has corrections officers present He is shackled on his left ankle Still remains on the vent AC/18/500/50 5% with 7 of PEEP Sedated with Versed and fentanyl Chart reviewed Discussed with RN He remains very critically ill 10/05/2020 Patient seen and examined in the [place] [address] ICU He is still intubated AC/20/500/60 5% with 7 of PEEP Discussed with RN Patient with OG feeds running Mitts for patient safety Has Olsen to bedside drainage 2 corrections officers are present Patient is shackled Sedated with fentanyl and Versed He remains very critically ill 10/04/2020 Patient seen and examined in the [place] [address] ICU He remains intubated Shackled AC/20/500/60 5% with 8 of PEEP He has OG feeds running Has mitts on for patient safety Has SCDs in place Olsen to bedside drainage He is sedated with fentanyl and Versed Discussed with RN His glucose is running a little high we are adding in scheduled NovoLog 10 units 3 times daily and continue the sliding scale and Lantus 20 a day Chart reviewed He remains very critically ill Corrections officers are present 59 year old male presented via EMS from [facility] with work of breathing x2 days with low O2 Sat at facility down to 78% on RA. known history of COPD and cough. Patient also complains of headache. EMS noted patient was 84% and tripoding on 3 L nasal cannula. EMS reports giving a DuoNeb treatment x2 in route and placement nonrebreather with subsequent improvement i n up to 95%. remote alcohol abuse YRS AGO , smoked until one month ago when he was arrested received the edulio COVID-19 vaccination x1 approximately 5 months ago at the [facility] Patient denies known exposure to COVID-19. Panlobular airspace disease,c/w multifocal pneumonia. PUI Pulmonary edema less likely. 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 Remote alcohol abuse "6-8 cans of beer a day years ago" Thickened distal esophagus with 9 x 10 mm luminal density, likely ingested medication tablet. Mediastinal adenopathy, malignancy is not excluded.suggest follow-up CT of the chest in 3 months. / Hyperglycemia on accuchecks // Severe protein-caloric malnutrition CTA CHEST C/W Panlobular airspace disease, most likely multifocal pneumonia. 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 Patient tolerating BiPAP and saturating 91%. Started patient on IV Protonix because he is still on steroids. And has a history of esophageal varices. Patient's chart, labs, images were reviewed and discussed with RN 09/27/20 Patient evaluated at bedside He was having laboring respirations initially on the BiPAP concerned patient may need ICU transfer however was given a dose of Ativan and was able to calm down a nd respiratory status improved Continue steroids Pulmonary consult Plan of care discussed with bedside RN 09/28/20 Patient evaluated bedside He was on BiPAP required to be increased 100% FiO2 this morning Remains on remdesivir, Decadron, Rocephin, and azithromycin Continuing supportive care Plan of care discussed with bedside nurse 09/29/20 Patient evaluated at bedside Patient remains significantly agitated and anxious despite aggressive medication measures while on BiPAP BiPAP settings increasing over the past several days and given his agitation will transfer to ICU Continuing remdesivir Decadron Rocephin and azithromycin Plan of care discussed with bedside nurse 09/30/2020: Patient transferred from out to ICU yesterday due to worsening respiratory distress. He was intubated and currently on vent with FiO2 90% and PEEP of 8. We will continue treatment with remdesivir, steroids, and empiric antibiotics. Critical care time 30 minutes spent reviewing charts, reviewing imaging, reviewing labs, discussion with RN. 10/01/2020: Afebrile. On vent with FiO2 85%, PEEP 8. Continue treatment with remdesivir, steroids, Rocephin and azithromycin. Critical care time 30 minutes spent reviewing charts, imaging, reviewing labs, discussion with RN. 10/02/2020: Afebrile, FiO2 80%, PEEP 5. Finished remdesivir. Continue antibiotics and Decadron. Will increase insulin regimen due to persistent h yperglycemia. Supportive care. Critical care time 30 minutes spent reviewing charts, labs, reviewing imaging, discussion with RN. 10/03/2020: Afebrile, on vent with FiO2 70%, PEEP 5. Still with some significant hyperglycemia. Will increase basal insulin. Finished remdesivir. Will continue antibiotics and steroids. Repeat chest x-ray today. Critical care time 30 minutes spent r eviewing charts, labs, reviewing imaging, discussion with RN. Vitals/I&O Vitals/I&O: Vital Signs Date Time Temp Pulse Resp B/P (MAP) Pulse Ox O2 Delivery O2 Flow Rate FiO2 10/07/20 11:00 49 17 121/70 (87) 97 Ventilator 10/07/20 08:00 98.1 98.1 10/07/20 05:26 15.0 I & O 10/06/20 10/06/20 10/07/20 15:00 23:00 07:00 Intake Total 200 ml 2182 ml 1665.9 ml Output Total 275 ml 605 ml 375 ml Balance -75 ml 1577 ml 1290.9 ml Physical Exam General: No acute distress, Other (Intubated and sedated) Heart: Regular rate, Normal S1 Abdomen: Normal bowel sounds, Soft, No tenderness, No masses, Other (obese) Extremities: No cyanosis Skin: No rashes Labs Labs: Laboratory Tests Test 10/06/20 17:57 10/06/20 23:54 10/07/20 06:00 10/07/20 06:13 Glucose (Fingerstick) 254 mg/dL (70-99) 210 mg/dL (70-99) 202 mg/dL (70-99) White Blood Count 9.5 x10^3/uL (4.0-11.0) Red Blood Count 4.11 x10^6/uL (4.30-5.70) Hemoglobin 13.2 g/dL (13.0-17.5) Hematocrit 39.3 % (39.0-53.0) Mean Corpuscular Volume 96 fL (79-100) Mean Corpuscular Hemoglobin 32 pg (25-35) Mean Corpuscular Hemoglobin Concent 34 g/dL (31-37) Red Cell Distribution Width 14.1 % (11.5-14.5) Platelet Count 59 x10^3/uL (140-400) Neutrophils (%) (Auto) 78 % (31-73) Lymphocytes (%) (Auto) 11 % (24-48) Monocytes (%) (Auto) 11 % (0-9) Eosinophils (%) (Auto) 0 % (0-3) Basophils (%) (Auto) 0 % (0-3) Neutrophils # (Auto) 7.4 x10^3/uL (1.8-7.7) Lymphocytes # (Auto) 1.1 x10^3/uL (1.0-4.8) Monocytes # (Auto) 1.0 x10^3/uL (0.0-1.1) Eosinophils # (Auto) 0.0 x10^3/uL (0.0-0.7) Basophils # (Auto) 0.0 x10^3/uL (0.0-0.2) Sodium Level 138 mmol/L (136-145) Potassium Level 4.6 mmol/L (3.5-5.1) Chloride Level 106 mmol/L (98-107) Carbon Dioxide Level 31 mmol/L (21-32) Anion Gap 1 (6-14) Blood Urea Nitrogen 24 mg/dL (8-26) Creatinine 0.5 mg/dL (0.7-1.3) Estimated GFR (Cockcroft-Gault) 170.2 Glucose Level 239 mg/dL (70-99) Calcium Level 8.1 mg/dL (8.5-10.1) Test 10/07/20 08:00 10/07/20 11:37 O2 Saturation 97 % (92-99) Arterial Blood pH 7.43 (7.35-7.45) Arterial Blood pCO2 at Patient Temp 49 mmHg (35-46) Arterial Blood pO2 at Patient Temp 82 mmHg (65-108) Arterial Blood HCO3 32 mmol/L (21-28) Arterial Blood Base Excess 6 mmol/L (-3-3) FiO2 50/vent Glucose (Fingerstick) 204 mg/dL (70-99) Assessment and Plan Assessmemt and Plan Problems Medical Problems: (1) COPD exacerbation Status: Acute (2) Headache Status: Acute (3) Hypoxia Status: Acute (4) Pneumonia Status: Acute (5) Respiratory failure Status: Acute (6) Suspected 2019 novel coronavirus infection Status: Acute COVID-19 respiratory failure requiring intubation COPD Cirrhosis Severe pneumonia Remote history of alcohol issues mediastinal adenopathy Hyperglycemia and diabetes Severe protein calorie malnutrition Hypomagnesemia Plan ICU monitoring Covid protocol Remdesivir is completed Vitamins Beta agonist IV steroid Vent weaning Trend labs Home meds DVT prophylaxis Full code Continue OG feeds Continue Olsen to bedside drainage SCDs Mitts for patient's age Continue sedation with fentanyl and Versed Long-term prognosis guarded Appreciate subspecialist input CC time 32 min Comment Review of Relevant I have reviewed the following items herlinda (where applicable) has been applied. Medications: Current Medications Medications (Trade) Dose Ordered Sig/Lloyd Route PRN Reason Start Time Stop Time Status Last Admin Dose Admin Furosemide (Lasix) 40 mg DAILY IVP 10/07/20 11:00 10/07/20 11:30 Justifications for Admission Other Justification RESP FAILURE WITH HYPOXIA RIGO SRINIVASAN III DO Oct 07, 2020 12:02
[2020-10-07] MEDS: ENOXAPARIN 40 MG/0.4 ML SYRINGE. SQ SCH (21:44)
[2020-10-08] VITALS (23 sets, daily range): BP systolic 111–175; BP diastolic 62–94
[2020-10-08] MEDS: INSULIN LISPRO 300 UNITS/3 ML VIAL. SQ SCH ×8 (00:45→17:28)
--- NOTE | 2020-10-08 06:21 | RAD ---
EXAMINATION: Chest radiograph. VIEWS: Single view COMPARISON: 10/06/2020 INDICATION:59 years, Male, respiratory failure, Covid. FINDINGS: Endotracheal tube tip locates approximately 5.7 cm proximal to the fran. Enteric tube tip and sidehole are seen within the stomach. Unchanged position of the left PICC line venous catheter w hich terminates in the axillary region. Stable cardiomediastinal silhouette. Essentially unchanged multifocal bilateral patchy airspace opaci ties. Small left pleural effusion, similar to prior exam. No pneumothorax. No acute osseous process. IMPRESSION: 1. Essentially unchanged multifocal bilateral patchy airspace opacities. 2. Similar small left pleural effusion. 3. Left PICC line venous catheter remains unchanged in position, terminates in the axillary region. Electronically signed by: Tayla Johnson MD (10/08/2020 6:19 AM) DYLAN
[2020-10-08 07:56] LABS: CALCIUM 8.1 mg/dL (8.5-10.1); CREATININE 0.5 mg/dL (0.7-1.3); GFR 170.2; MAGNESIUM 1.9 mg/dL (1.8-2.4); POTASSIUM 4.3 mmol/L (3.5-5.1)
[2020-10-08] MEDS: PANTOPRAZOLE IV PUSH 40 MG VIAL. IVP SCH (08:00)
[2020-10-08] MEDS: TAMSULOSIN 0.4 MG CAP.ER.24H. PO SCH (08:00)
[2020-10-08] MEDS: METOPROLOL TART IMMED RELEASE 25 MG TABLET. PO SCH ×3 (09:00→20:26)
[2020-10-08] MEDS: FLUTICASONE 50MCG/NASAL SPRAY 16GM BOTTLE. NS SCH (09:00)
[2020-10-08] MEDS: FLUTICASONE/VILANTEROL 100/25 INHALER. INH SCH (09:00)
[2020-10-08] MEDS ORDERED: ALBUMIN HUMAN 5% 500 ML IV SCH (09:00)
[2020-10-08 09:04] LABS: BASE EXCESS ABG 4 mmol/L (-3-3); FIO2 ABG 50; HCO3 ABG 28 mmol/L (21-28); PCO2 ABG 38 mmHg (35-46); PO2 ABG 91 mmHg (65-108); SAT O2 ABG 98 % (92-99)
--- NOTE | 2020-10-08 09:10 | PDOC ---
PULMONARY PROGRESS NOTES DATE: 10/08/20 TIME: 09:10 Subjective No overnight events Sedated Assist-control ventilation Vitals Vital Signs Date Time Temp Pulse Resp B/P (MAP) Pulse Ox O2 Delivery O2 Flow Rate FiO2 10/08/20 08:29 94 Ventilator 10/08/20 08:01 65 126/72 10/08/20 08:00 98.1 21 98.1 10/08/20 03:57 15.0 Comments Patient seen during the COVID- pandemic, and visual inspection of BiPAP no respiratory distress no paroxysmal breathing pattern no increasing edema no new rash Labs Laboratory Tests Test 10/06/20 11:23 10/06/20 17:57 10/06/20 23:54 10/07/20 06:00 Glucose (Fingerstick) 229 mg/dL (70-99) 254 mg/dL (70-99) 210 mg/dL (70-99) White Blood Count 9.5 x10^3/uL (4.0-11.0) Red Blood Count 4.11 x10^6/uL (4.30-5.70) Hemoglobin 13.2 g/dL (13.0-17.5) Hematocrit 39.3 % (39.0-53.0) Mean Corpuscular Volume 96 fL (79-100) Mean Corpuscular Hemoglobin 32 pg (25-35) Mean Corpuscular Hemoglobin Concent 34 g/dL (31-37) Red Cell Distribution Width 14.1 % (11.5-14.5) Platelet Count 59 x10^3/uL (140-400) Neutrophils (%) (Auto) 78 % (31-73) Lymphocytes (%) (Auto) 11 % (24-48) Monocytes (%) (Auto) 11 % (0-9) Eosinophils (%) (Auto) 0 % (0-3) Basophils (%) (Auto) 0 % (0-3) Neutrophils # (Auto) 7.4 x10^3/uL (1.8-7.7) Lymphocytes # (Auto) 1.1 x10^3/uL (1.0-4.8) Monocytes # (Auto) 1.0 x10^3/uL (0.0-1.1) Eosinophils # (Auto) 0.0 x10^3/uL (0.0-0.7) Basophils # (Auto) 0.0 x10^3/uL (0.0-0.2) Sodium Level 138 mmol/L (136-145) Potassium Level 4.6 mmol/L (3.5-5.1) Chloride Level 106 mmol/L (98-107) Carbon Dioxide Level 31 mmol/L (21-32) Anion Gap 1 (6-14) Blood Urea Nitrogen 24 mg/dL (8-26) Creatinine 0.5 mg/dL (0.7-1.3) Estimated GFR (Cockcroft-Gault) 170.2 Glucose Level 239 mg/dL (70-99) Calcium Level 8.1 mg/dL (8.5-10.1) Test 10/07/20 06:13 10/07/20 08:00 10/07/20 11:37 10/07/20 17:55 Glucose (Fingerstick) 202 mg/dL (70-99) 204 mg/dL (70-99) 183 mg/dL (70-99) O2 Saturation 97 % (92-99) Arterial Blood pH 7.43 (7.35-7.45) Arterial Blood pCO2 at Patient Temp 49 mmHg (35-46) Arterial Blood pO2 at Patient Temp 82 mmHg (65-108) Arterial Blood HCO3 32 mmol/L (21-28) Arterial Blood Base Excess 6 mmol/L (-3-3) FiO2 50/vent Test 10/07/20 23:54 10/08/20 05:58 10/08/20 07:40 10/08/20 08:35 Glucose (Fingerstick) 214 mg/dL (70-99) 217 mg/dL (70-99) Sodium Level 136 mmol/L (136-145) Potassium Level 4.3 mmol/L (3.5-5.1) Chloride Level 103 mmol/L (98-107) Carbon Dioxide Level 33 mmol/L (21-32) Anion Gap 0 (6-14) Blood Urea Nitrogen 24 mg/dL (8-26) Creatinine 0.5 mg/dL (0.7-1.3) Estimated GFR (Cockcroft-Gault) 170.2 Glucose Level 191 mg/dL (70-99) Calcium Level 8.1 mg/dL (8.5-10.1) Magnesium Level 1.9 mg/dL (1.8-2.4) O2 Saturation 98 % (92-99) Arterial Blood pH 7.48 (7.35-7.45) Arterial Blood pCO2 at Patient Temp 38 mmHg (35-46) Arterial Blood pO2 at Patient Temp 91 mmHg (65-108) Arterial Blood HCO3 28 mmol/L (21-28) Arterial Blood Base Excess 4 mmol/L (-3-3) FiO2 50 Laboratory Tests Test 10/07/20 11:37 10/07/20 17:55 10/07/20 23:54 10/08/20 05:58 Glucose (Fingerstick) 204 mg/dL (70-99) 183 mg/dL (70-99) 214 mg/dL (70-99) 217 mg/dL (70-99) Test 10/08/20 07:40 10/08/20 08:35 Sodium Level 136 mmol/L (136-145) Potassium Level 4.3 mmol/L (3.5-5.1) Chloride Level 103 mmol/L (98-107) Carbon Dioxide Level 33 mmol/L (21-32) Anion Gap 0 (6-14) Blood Urea Nitrogen 24 mg/dL (8-26) Creatinine 0.5 mg/dL (0.7-1.3) Estimated GFR (Cockcroft-Gault) 170.2 Glucose Level 191 mg/dL (70-99) Calcium Level 8.1 mg/dL (8.5-10.1) Magnesium Level 1.9 mg/dL (1.8-2.4) O2 Saturation 98 % (92-99) Arterial Blood pH 7.48 (7.35-7.45) Arterial Blood pCO2 at Patient Temp 38 mmHg (35-46) Arterial Blood pO2 at Patient Temp 91 mmHg (65-108) Arterial Blood HCO3 28 mmol/L (21-28) Arterial Blood Base Excess 4 mmol/L (-3-3) FiO2 50 Medications Active Scripts Medications Dose Route/Sig Max Daily Dose Days Date Category Flomax (Tamsulosin Hcl) 0.4 Mg Cap.er.24h 1 Cap PO DAILY 09/26/20 Reported Semglee (Insulin Glargine,Hum.rec.anlog) 100 Unit/1 Ml Vial 20 Unit SQ QHS 09/26/20 Reported Semglee (Insulin Glargine,Hum.rec.anlog) 100 Unit/1 Ml Vial 30 Unit SQ QAM 09/26/20 Reported Novolin R (Insulin Regular, Human) 100 Unit/1 Ml Vial 100 Unit IJ SSI PRN 09/26/20 Reported Naproxen 500 Mg Tablet 1 Tab PO BID PRN 30 09/26/20 Reported Metoprolol Tartrate 25 Mg Tablet 1 Tab PO BID 09/26/20 Reported Alvesco (Ciclesonide) 6.1 Gm Hfa.aer.ad 6.1 Gm IH Q12HR 09/26/20 Reported Proair Hfa Inhaler (Albuterol Sulfate) 8.5 Gm Hfa.aer.ad 2 Puff IH PRN Q4-6HRS PRN 21 09/26/20 Reported Impression . IMPRESSION: 1. Acute hypoxemic respiratory failure secondary to COVID-19./ARDS 2. COVID-19 viral pneumonia. 3. Possible bacterial pneumonia. 4. Other comorbidities including chronic obstructive pulmonary disease with acute exacerbation, tobacco dependent, chronic back pain and hypertension. 5. Abnormal chest x-ray with bilateral interstitial infiltrates related to COVID-19 pneumonia. 6. Status post intubation 09/29 No chest x-ray today Plan . Updated 10/08 Chest x-ray read ABG noted, PaO2 of 90 Discussed with RN, decrease sedation, possible trial Decrease PEEP Finish course of antibiotics and remdesivir Steroids Nutritional support DVT prophylaxis Updated 10/07 Patient making slow improve ABG noted PaO2 of 82 Continue assist control ventilation Status post remdesivir Monitor off of antibiotics Steroids Discussed with RN, start decreasing sedation possible trial Updated 10/06 If continues to improve will decrease PEEP in the a.m. Continue assist control Finish course of remdesivir Steroids Monitor off of antibiotics Nutritional support Possible spontaneous breathing trial in 24 to 48 hours YVAN ZEE MD Oct 08, 2020 09:10
[2020-10-08] MEDS: INSULIN GLARGINE SYRINGE. SQ SCH ×2 (09:26→20:25)
[2020-10-08] MEDS: ALBUMIN HUMAN 25% 50 ML IV SCH (09:43)
[2020-10-08] MEDS: FUROSEMIDE 40 MG/4 ML VIAL. IVP SCH (10:35)
--- NOTE | 2020-10-08 11:12 | PDOC ---
[employer] PROGRESS NOTE Date of Service DOS: DATE: 10/08/20 TIME: 11:10 Chief Complaint Chief Complaint COVID-19 respiratory failure requiring intubation COPD Cirrhosis Severe pneumonia Remote history of alcohol issues mediastinal adenopathy Hyperglycemia and diabetes Severe protein calorie malnutrition Hypomagnesemia History of Present Illness History of Present Illness 10/08/2020 Patient seen and examined in the [place] [address] ICU He is still intubated AC/18/500/50 percent with 5 of PEEP We are possibly going to trial him today Has OG feeds running at 60 cc an hour Has SCDs on Olsen to bedside drainage Corrections officers are present Patient is shackled Sedated with fentanyl and Versed Discussed with RN Chart reviewed 10/07/2020 Patient seen and examined in the [place] [address] ICU He remains on the ventilator Assist-control/18/500/50 percent with 7 of PEEP Sedated with Versed and fentanyl Shackled to the bed with 2 corrections officers present Chart reviewed Discussed with RN He is critically ill 10/06/2020 Patient seen and examined in the [place] [address] ICU He has corrections officers present He is shackled on his left ankle Still remains on the vent AC/18/500/50 5% with 7 of PEEP Sedated with Versed and fentanyl Chart reviewed Discussed with RN He remains very critically ill 10/05/2020 Patient seen and examined in the [place] [address] ICU He is still intubated AC/20/500/60 5% with 7 of PEEP Discussed with RN Patient with OG feeds running Mitts for patient safety Has Olsen to bedside drainage 2 corrections officers are present Patient is shackled Sedated with fentanyl and Versed He remains very critically ill 10/04/2020 Patient seen and examined in the [place] [address] ICU He remains intubated Shackled AC/20/500/60 5% with 8 of PEEP He has OG feeds running Has mitts on for patient safety Has SCDs in place Olsen to bedside drainage He is sedated with fentanyl and Versed Discussed with RN His glucose is running a little high we are adding in scheduled NovoLog 10 units 3 times daily and continue the sliding scale and Lantus 20 a day Chart reviewed He remains very critically ill Corrections officers are present 59 year old male presented via EMS from [facility] with work of breathing x2 days with low O2 Sat at facility down to 78% on RA. known history of COPD and cough. Patient also complains of headache. EMS noted patient was 84% and tripoding on 3 L nasal cannula. EMS reports giving a DuoNeb treatment x2 in route and placement nonrebreather with subsequent improvement in up to 95%. remote alcohol abuse YRS AGO , smoked until one month ago when he was arrested received the [employer] COVID-19 vaccination [facility]. Patient denies known exposure to COVID-19. Panlobular airspace disease,c/w multifocal pneumonia. PUI Pulmonary edema less likely. 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 Remote alcohol abuse "6-8 cans of beer a day years ago" Thickened distal esophagus with 9 x 10 mm luminal density, likely ingested medication tablet. Mediastinal adenopathy, malignancy is not excluded.suggest follow-up CT of the chest in 3 months. / Hyperglycemia on accuchecks // Severe protein-caloric malnutrition CTA CHEST C/W Panlobular airspace disease, most likely multifocal pneumonia. 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 Patient tolerating BiPAP and saturating 91%. Started patient on IV Protonix because he is still on steroids. And has a history of esophageal varices. Patient's chart, labs, images were reviewed and discussed with RN 09/27/20 Patient evaluated at bedside He was having laboring respirations initially on the BiPAP concerned patient may need ICU transfer however was given a dose of Ativan and was able to calm down and respiratory status improved Continue steroids Pulmonary consult Plan of care discussed with bedside RN 09/28/20 Patient evaluated bedside He was on BiPAP required to be increased 100% FiO2 this morning Remains on remdesivir, Decadron, Rocephin, and azithromycin Continuing supportive care Plan of care discussed with bedside nurse 09/29/20 Patient evaluated at bedside Patient remains significantly agitated and anxious despite aggressive medication measures while on BiPAP BiPAP settings increasing over the past several days and given his agitation will transfer to ICU Continuing remdesivir Decadron Rocephin and azithromycin Plan of care discussed with bedside nurse 09/30/2020: Patient transferred from out to ICU yesterday due to worsening respiratory distress. He was intubated and currently on vent with FiO2 90% and PEEP of 8. We will continue treatment with remdesivir, steroids, and empiric antibiotics. Critical care time 30 minutes spent reviewing charts, reviewing imaging, reviewing labs, discussion with RN. 10/01/2020: Afebrile. On vent with FiO2 85%, PEEP 8. Continue treatment with remdesivir, steroids, Rocephin and azithromycin. Critical care time 30 minutes spent reviewing charts, imaging, reviewing labs, discussion with RN. 10/02/2020: Afebrile, FiO2 80%, PEEP 5. Finished remdesivir. Continue antibiotics and Decadron. Will increase insulin regimen due to persistent hyperglycemia. Supportive care. Critical care time 30 minutes spent reviewing charts, labs, reviewing imaging, discussion with RN. 10/03/2020: Afebrile, on vent with FiO2 70%, PEEP 5. Still with some significant hyperglycemia. Will increase basal insulin. Finished remdesivir. Will continue antibiotics and steroids. Repeat chest x-ray today. Critical care time 30 minutes spent reviewing charts, labs, reviewing imaging, discussion with RN. Vitals/I&O Vitals/I&O: Vital Signs Date Time Temp Pulse Resp B/P (MAP) Pulse Ox O2 Delivery O2 Flow Rate FiO2 10/08/20 10:00 51 21 134/68 (90) 96 Ventilator 10/08/20 08:00 98.1 98.1 10/08/20 03:57 15.0 I & O 10/07/20 10/07/20 10/08/20 15:00 23:00 07:00 Intake Total 560 ml 1426.34 ml 1115.2 ml Output Total 545 ml 830 ml 355 ml Balance 15 ml 596.34 ml 760.2 ml Physical Exam General: No acute distress, Other (Intubated and sedated) Heart: Regular rate, Normal S1 Abdomen: Normal bowel sounds, Soft, No tenderness, No masses, Other (obese) Extremities: No cyanosis Skin: No rashes Labs Labs: Laboratory Tests Test 10/07/20 11:37 10/07/20 17:55 10/07/20 23:54 10/08/20 05:58 Glucose (Fingerstick) 204 mg/dL (70-99) 183 mg/dL (70-99) 214 mg/dL (70-99) 217 mg/dL (70-99) Test 10/08/20 07:40 10/08/20 08:35 Sodium Level 136 mmol/L (136-145) Potassium Level 4.3 mmol/L (3.5-5.1) Chloride Level 103 mmol/L (98-107) Carbon Dioxide Level 33 mmol/L (21-32) Anion Gap 0 (6-14) Blood Urea Nitrogen 24 mg/dL (8-26) Creatinine 0.5 mg/dL (0.7-1.3) Estimated GFR (Cockcroft-Gault) 170.2 Glucose Level 191 mg/dL (70-99) Calcium Level 8.1 mg/dL (8.5-10.1) Magnesium Level 1.9 mg/dL (1.8-2.4) O2 Saturation 98 % (92-99) Arterial Blood pH 7.48 (7.35-7.45) Arterial Blood pCO2 at Patient Temp 38 mmHg (35-46) Arterial Blood pO2 at Patient Temp 91 mmHg (65-108) Arterial Blood HCO3 28 mmol/L (21-28) Arterial Blood Base Excess 4 mmol/L (-3-3) FiO2 50 Assessment and Plan Assessmemt and Plan Problems Medical Problems: (1) COPD exacerbation Status: Acute (2) Headache Status: Acute (3) Hypoxia Status: Acute (4) Pneumonia Status: Acute (5) Respiratory failure Status: Acute (6) Suspected 2019 novel coronavirus infection Status: Acute COVID-19 respiratory failure requiring intubation COPD Cirrhosis Severe pneumonia Remote history of alcohol issues mediastinal adenopathy Hyperglycemia and diabetes Severe protein calorie malnutrition Hypomagnesemia Plan ICU monitoring Vent weaning (might try weaning trial today if pulmonary agrees) Covid protocol Remdesivir is completed Vitamins Beta agonist IV steroid Vent weaning Trend labs Home meds DVT prophylaxis Full code Continue OG feeds Continue Olsen to bedside drainage SCDs Mitts for patient's age Continue sedation with fentanyl and Versed Long-term prognosis guarded Appreciate subspecialist input CC time 34 min Comment Review of Relevant I have reviewed the following items herlinda (where applicable) has been applied. Medications: Current Medications Medications (Trade) Dose Ordered Sig/Lloyd Route PRN Reason Start Time Stop Time Status Last Admin Dose Admin Albumin Human 50 ml @ 50 mls/hr DAILY IV 10/08/20 09:30 10/10/20 10:00 10/08/20 09:43 Justifications for Admission Other Justification RESP FAILURE WITH HYPOXIA RIGO SRINIVASAN III DO Oct 08, 2020 11:12
[2020-10-08] MEDS: MIDAZOLAM 100mg/100ml NS BAG 100 ML IV PRN ×2 (12:55→21:50)
[2020-10-08] MEDS: ENOXAPARIN 40 MG/0.4 ML SYRINGE. SQ SCH (20:25)
[2020-10-09] VITALS (24 sets, daily range): BP systolic 101–167; BP diastolic 59–88
[2020-10-09] MEDS: INSULIN LISPRO 300 UNITS/3 ML VIAL. SQ SCH ×8 (00:36→18:00)
[2020-10-09] MEDS: DEXTROSE 50% 25 GM / 50ML DISP.SYRIN. IV PRN (06:12)
[2020-10-09] MEDS: MIDAZOLAM 100mg/100ml NS BAG 100 ML IV PRN (06:39)
[2020-10-09] MEDS: INSULIN GLARGINE SYRINGE. SQ SCH ×2 (07:43→20:46)
[2020-10-09] MEDS: ALBUMIN HUMAN 25% 50 ML IV SCH (08:54)
[2020-10-09] MEDS: PANTOPRAZOLE IV PUSH 40 MG VIAL. IVP SCH (08:54)
[2020-10-09] MEDS: TAMSULOSIN 0.4 MG CAP.ER.24H. PO SCH (08:55)
[2020-10-09] MEDS: FUROSEMIDE 40 MG/4 ML VIAL. IVP SCH (08:55)
[2020-10-09] MEDS: FLUTICASONE 50MCG/NASAL SPRAY 16GM BOTTLE. NS SCH (08:56)
[2020-10-09] MEDS: METOPROLOL TART IMMED RELEASE 25 MG TABLET. PO SCH ×2 (09:00→21:00)
[2020-10-09] MEDS: FLUTICASONE/VILANTEROL 100/25 INHALER. INH SCH (09:00)
--- NOTE | 2020-10-09 09:16 | PDOC ---
PULMONARY PROGRESS NOTES DATE: 10/09/20 TIME: 09:14 Subjective Patient sedated, currently on 5 of PEEP No overnight events Vitals Vital Signs Date Time Temp Pulse Resp B/P (MAP) Pulse Ox O2 Delivery O2 Flow Rate FiO2 10/09/20 08:56 65 129/77 10/09/20 08:45 96 Ventilator 10/09/20 07:00 18 10/09/20 04:00 98.9 98.9 10/09/20 00:17 15.0 Comments Patient seen during the ID pandemic, and visual inspection of BiPAP no respiratory distress no paroxysmal breathing pattern no increasing edema no new rash Labs Laboratory Tests Test 10/07/20 11:37 10/07/20 17:55 10/07/20 23:54 10/08/20 05:58 Glucose (Fingerstick) 204 mg/dL (70-99) 183 mg/dL (70-99) 214 mg/dL (70-99) 217 mg/dL (70-99) Test 10/08/20 07:40 10/08/20 08:35 10/08/20 11:39 10/08/20 17:25 Sodium Level 136 mmol/L (136-145) Potassium Level 4.3 mmol/L (3.5-5.1) Chloride Level 103 mmol/L (98-107) Carbon Dioxide Level 33 mmol/L (21-32) Anion Gap 0 (6-14) Blood Urea Nitrogen 24 mg/dL (8-26) Creatinine 0.5 mg/dL (0.7-1.3) Estimated GFR (Cockcroft-Gault) 170.2 Glucose Level 191 mg/dL (70-99) Calcium Level 8.1 mg/dL (8.5-10.1) Magnesium Level 1.9 mg/dL (1.8-2.4) O2 Saturation 98 % (92-99) Arterial Blood pH 7.48 (7.35-7.45) Arterial Blood pCO2 at Patient Temp 38 mmHg (35-46) Arterial Blood pO2 at Patient Temp 91 mmHg (65-108) Arterial Blood HCO3 28 mmol/L (21-28) Arterial Blood Base Excess 4 mmol/L (-3-3) FiO2 50 Glucose (Fingerstick) 102 mg/dL (70-99) 139 mg/dL (70-99) Test 10/09/20 00:19 10/09/20 06:09 10/09/20 06:24 Glucose (Fingerstick) 149 mg/dL (70-99) 66 mg/dL (70-99) 161 mg/dL (70-99) Laboratory Tests Test 10/08/20 11:39 10/08/20 17:25 10/09/20 00:19 10/09/20 06:09 Glucose (Fingerstick) 102 mg/dL (70-99) 139 mg/dL (70-99) 149 mg/dL (70-99) 66 mg/dL (70-99) Test 10/09/20 06:24 Glucose (Fingerstick) 161 mg/dL (70-99) Medications Active Scripts Medications Dose Route/Sig Max Daily Dose Days Date Category Flomax (Tamsulosin Hcl) 0.4 Mg Cap.er.24h 1 Cap PO DAILY 09/26/20 Reported Semglee (Insulin Glargine,Hum.rec.anlog) 100 Unit/1 Ml Vial 20 Unit SQ QHS 09/26/20 Reported Semglee (Insulin Glargine,Hum.rec.anlog) 100 Unit/1 Ml Vial 30 Unit SQ QAM 09/26/20 Reported Novolin R (Insulin Regular, Human) 100 Unit/1 Ml Vial 100 Unit IJ SSI PRN 09/26/20 Reported Naproxen 500 Mg Tablet 1 Tab PO BID PRN 30 09/26/20 Reported Metoprolol Tartrate 25 Mg Tablet 1 Tab PO BID 09/26/20 Reported Alvesco (Ciclesonide) 6.1 Gm Hfa.aer.ad 6.1 Gm IH Q12HR 09/26/20 Reported Proair Hfa Inhaler (Albuterol Sulfate) 8.5 Gm Hfa.aer.ad 2 Puff IH PRN Q4-6HRS PRN 21 09/26/20 Reported Impression . IMPRESSION: 1. Acute hypoxemic respiratory failure secondary to COVID-19./ARDS 2. COVID-19 viral pneumonia. 3. Possible bacterial pneumonia. 4. Other comorbidities including chronic obstructive pulmonary disease with acute exacerbation, tobacco dependent, chronic back pain and hypertension. 5. Abnormal chest x-ray with bilateral interstitial infiltrates related to CO VID-19 pneumonia. 6. Status post intubation 09/29 Chest x-ray from 730, reviewed no significant consolidation improving. Plan . Updated 10/09 ABG noted, discussed with RT, will proceed with trial Discussed with RN DC sedation Finish course of antibiotics and remdesivir Continue steroids DVT GI prophylaxis Labs, pending, per PCP updated 10/08 Chest x-ray read ABG noted, PaO2 of 90 Discussed with RN, decrease sedation, possible trial Decrease PEEP Finish course of antibiotics and remdesivir Steroids Nutritional support DVT prophylaxis Updated 10/07 Patient making slow improve ABG noted PaO2 of 82 Continue assist control ventilation Status post remdesivir Monitor off of antibiotics Steroids Discussed with RN, start decreasing sedation possible trial YVAN ZEE MD Oct 09, 2020 09:16
--- NOTE | 2020-10-09 12:18 | PDOC ---
[employer] PROGRESS NOTE Date of Service DOS: DATE: 10/09/20 TIME: 12:13 Chief Complaint Chief Complaint COVID-19 respiratory failure requiring intubation COPD Cirrhosis Severe pneumonia Remote history of alcohol issues mediastinal adenopathy Hyperglycemia and diabetes Severe protein calorie malnutrition Hypomagnesemia History of Present Illness History of Present Illness 10/09/2020 Patient seen and examined in the [place] [address] ICU He is on the vent AC/18/500/50 percent with 5 of PEEP 2 corrections officers are present Patient is shackled left arm and left leg Has IV albumin hanging Sedated with fentanyl and Versed Chart reviewed Discussed with RN Has OG feeds running 10/08/2020 Patient seen and examined in the [place] [address] ICU He is still intubated AC/18/500/50 percent with 5 of PEEP We are possibly going to trial him today Has OG feeds running at 60 cc an hour Has SCDs on Olsen to bedside drainage Corrections officers are present Patient is shackled Sedated with fentanyl and Versed Discussed with RN Chart reviewed 10/07/2020 Patient seen and examined in the [place] [address] ICU He remains on the ventilator Assist-control/18/500/50 percent with 7 of PEEP Sedated with Versed and fentanyl Shackled to the bed with 2 corrections officers present Chart reviewed Discussed with RN He is critically ill 10/06/2020 Patient seen and examined in the [place] [address] ICU He has corrections officers present He is shackled on his left ankle Still remains on the vent AC/18/500/50 5% with 7 of PEEP Sedated with Versed and fentanyl Chart reviewed Discussed with RN He remains very critically ill 10/05/2020 Patient seen and examined in the [place] [address] ICU He is still intubated AC/20/500/60 5% with 7 of PEEP Discussed with RN Patient with OG feeds running Mitts for patient safety Has Olsen to bedside drainage 2 corrections officers are present Patient is shackled Sedated with fentanyl and Versed He remains very critically ill 10/04/2020 Patient seen and examined in the [place] [address] ICU He remains intubated Shackled AC/20/500/60 5% with 8 of PEEP He has OG feeds running Has mitts on for patient safety Has SCDs in place Olsen to bedside drainage He is sedated with fentanyl and Versed Discussed with RN His glucose is running a little high we are adding in scheduled NovoLog 10 units 3 times daily and continue the sliding scale and Lantus 20 a day Chart reviewed He remains very critically ill Corrections officers are present 59 year old male [facility] with work of breathing x2 days with low O2 Sat at facility down to 78% on RA. known history of COPD and cough. Patient also complains of headache. EMS noted patient was 84% and tripoding on 3 L nasal cannula. EMS reports giving a DuoNeb treatment x2 in route and placement nonrebreather with subsequent improvement in up to 95%. remote alcohol abuse YRS AGO , smoked until one month ago when he was arrested received the [employer] COVID-19 vaccination x1 approximately 5 months ago at the [place]. Patient denies known exposure to COVID-19. Panlobular airspace disease,c/w multifocal pneumonia. PUI Pulmonary edema less likely. 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 Remote alcohol abuse "6-8 cans of beer a day years ago" Thickened distal esophagus with 9 x 10 mm luminal density, likely ingested medication tablet. Mediastinal adenopathy, malignancy is not excluded.suggest follow-up CT of the chest in 3 months. / Hyperglycemia on accuchecks // Severe protein-caloric malnutrition CTA CHEST C/W Panlobular airspace disease, most likely multifocal pneumonia. 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 Patient tolerating BiPAP and saturating 91%. Started patient on IV Protonix because he is still on steroids. And has a history of esophageal varices. Patient's chart, labs, images were reviewed and discussed with RN 09/27/20 Patient evaluated at bedside He was having laboring respirations initially on the BiPAP concerned patient may need ICU transfer however was given a dose of Ativan and was able to calm down and respiratory status improved Continue steroids Pulmonary consult Plan of care discussed with bedside RN 09/28/20 Patient evaluated bedside He was on BiPAP required to be increased 100% FiO2 this morning Remains on remdesivir, Decadron, Rocephin, and azithromycin Continuing supportive care Plan of care discussed with bedside nurse 09/29/20 Patient evaluated at bedside Patient remains significantly agitated and anxious despite aggressive medication measures while on BiPAP BiPAP settings increasing over the past several days and given his agitation will transfer to ICU Continuing remdesivir Decadron Rocephin and azithromycin Plan of care discussed with bedside nurse 09/30/2020: Patient transferred from out to ICU yesterday due to worsening respiratory distress. He was intubated and currently on vent with FiO2 90% and PEEP of 8. We will continue treatment with remdesivir, steroids, and empiric antibiotics. Critical care time 30 minutes spent reviewing charts, reviewing imaging, reviewing labs, discussion with RN. 10/01/2020: Afebrile. On vent with FiO2 85%, PEEP 8. Continue treatment with remdesivir, steroids, Rocephin and azithromycin. Critical care time 30 minutes spent reviewing charts, imaging, reviewing labs, discussion with RN. 10/02/2020: Afebrile, FiO2 80%, PEEP 5. Finished remdesivir. Continue antibiotics and Decadron. Will increase insulin regimen due to persistent hyperglycemia. Supportive care. Critical care time 30 minutes spent reviewing charts, labs, reviewing imaging, discussion with RN. 10/03/2020: Afebrile, on vent with FiO2 70%, PEEP 5. Still with some significant hyperglycemia. Will increase basal insulin. Finished remdesivir. Will continue antibiotics and steroids. Repeat chest x-ray today. Critical care time 30 minutes spent reviewing charts, labs, reviewing imaging, discussion with RN. Vitals/I&O Vitals/I&O: Vital Signs Date Time Temp Pulse Resp B/P (MAP) Pulse Ox O2 Delivery O2 Flow Rate FiO2 10/09/20 11:00 74 18 117/67 (84) 97 Ventilator 10/09/20 10:58 15.0 10/09/20 08:00 99.0 99.0 I & O 10/08/20 10/08/20 10/09/20 15:00 23:00 07:00 Intake Total 250 ml 1468.21 ml 1404.2 ml Output Total 1045 ml 560 ml 420 ml Balance -795 ml 908.21 ml 984.2 ml Physical Exam General: No acute distress, Other (Intubated and sedated) Heart: Regular rate, Normal S1 Abdomen: Normal bowel sounds, Soft, No tenderness, No masses, Other (obese) Extremities: No cyanosis Skin: No rashes Labs Labs: Laboratory Tests Test 10/08/20 17:25 10/09/20 00:19 10/09/20 06:09 10/09/20 06:24 Glucose (Fingerstick) 139 mg/dL (70-99) 149 mg/dL (70-99) 66 mg/dL (70-99) 161 mg/dL (70-99) Test 10/09/20 11:50 Glucose (Fingerstick) 155 mg/dL (70-99) Assessment and Plan Assessmemt and Plan Problems Medical Problems: (1) COPD exacerbation Status: Acute (2) Headache Status: Acute (3) Hypoxia Status: Acute (4) Pneumonia Status: Acute (5) Respiratory failure Status: Acute (6) Suspected 2019 novel coronavirus infection Status: Acute COVID-19 respiratory failure requiring intubation COPD Cirrhosis Severe pneumonia Remote history of alcohol issues mediastinal adenopathy Hyperglycemia and diabetes Severe protein calorie malnutrition Hypomagnesemia Plan ICU monitoring Covid protocol Trend ABGs and chest x-rays Remdesivir is completed Vitamins Beta agonist IV steroid Vent weaning Trend labs Home meds DVT prophylaxis Full code Continue OG feeds Continue Olsen to bedside drainage SCDs Mitts for patient's age Continue sedation with fentanyl and Versed Long-term prognosis guarded Await further subspecialist input CC time 32 min Comment Review of Relevant I have reviewed the following items herlinda (where applicable) has been applied. Justifications for Admission Other Justification RESP FAILURE WITH HYPOXIA RIGO SRINIVASAN III DO Oct 09, 2020 12:18
[2020-10-09] MEDS: DEXMEDETOMIDINE 400 MCG in IV NORMAL SALINE 100ML 96 ML IV PRN (20:33)
[2020-10-09] MEDS: ENOXAPARIN 40 MG/0.4 ML SYRINGE. SQ SCH (20:47)
[2020-10-10] VITALS (24 sets, daily range): BP systolic 93–138; BP diastolic 58–85
[2020-10-10] MEDS: INSULIN LISPRO 300 UNITS/3 ML VIAL. SQ SCH ×8 (00:27→18:00)
[2020-10-10] MEDS: DEXMEDETOMIDINE 400 MCG in IV NORMAL SALINE 100ML 96 ML IV PRN ×3 (02:12→22:11)
[2020-10-10 06:41] LABS: CALCIUM 7.8 mg/dL (8.5-10.1); CREATININE 0.6 mg/dL (0.7-1.3); GFR 137.9; POTASSIUM 3.9 mmol/L (3.5-5.1)
[2020-10-10 07:06] LABS: BASO % 0 % (0-3); EOS # 0.1 x10^3/uL (0.0-0.7); EOS % 1 % (0-3); HEMATOCRIT 37.1 % (39.0-53.0); HEMOGLOBIN 12.7 g/dL (13.0-17.5); LYMPH # 1.4 x10^3/uL (1.0-4.8); LYMPH % 18 % (24-48); MEAN CORPUSCULAR HEMOGLOBIN 33 pg (25-35); MEAN CORPUSCULAR HGB CONC 34 g/dL (31-37); MEAN CORPUSCULAR VOLUME 96 fL (79-100); MONO # 1.1 x10^3/uL (0.0-1.1); MONO % 15 % (0-9); NEUT # 5.2 x10^3/uL (1.8-7.7); NEUT % 66 % (31-73); PLATELET COUNT 61 x10^3/uL (140-400); RED BLOOD COUNT 3.86 x10^6/uL (4.30-5.70); RED CELL DISTRIBUTION WIDTH 14.3 % (11.5-14.5); WHITE BLOOD COUNT 7.8 x10^3/uL (4.0-11.0)
[2020-10-10] MEDS: FLUTICASONE/VILANTEROL 100/25 INHALER. INH SCH (08:29)
[2020-10-10] MEDS: FLUTICASONE 50MCG/NASAL SPRAY 16GM BOTTLE. NS SCH (08:30)
[2020-10-10] MEDS: TAMSULOSIN 0.4 MG CAP.ER.24H. PO SCH (08:30)
[2020-10-10] MEDS: PANTOPRAZOLE IV PUSH 40 MG VIAL. IVP SCH (08:37)
[2020-10-10] MEDS: ALBUMIN HUMAN 25% 50 ML IV SCH (08:38)
[2020-10-10] MEDS: INSULIN GLARGINE SYRINGE. SQ SCH ×2 (08:40→21:00)
[2020-10-10] MEDS: METOPROLOL TART IMMED RELEASE 25 MG TABLET. PO SCH ×2 (08:41→21:00)
[2020-10-10 08:47] LABS: BASE EXCESS ABG 8 mmol/L (-3-3); HCO3 ABG 32 mmol/L (21-28); PCO2 ABG 41 mmHg (35-46); PO2 ABG 83 mmHg (65-108); SAT O2 ABG 97 % (92-99)
[2020-10-10 08:51] LABS: FIO2 ABG 50
[2020-10-10] MEDS: FUROSEMIDE 40 MG/4 ML VIAL. IVP SCH (09:15)
--- NOTE | 2020-10-10 10:46 | PDOC ---
[employer] PROGRESS NOTE Date of Service DOS: DATE: 10/10/20 TIME: 10:31 Chief Complaint Chief Complaint COVID-19 respiratory failure requiring intubation COPD Cirrhosis Severe pneumonia Remote history of alcohol issues mediastinal adenopathy Hyperglycemia and diabetes Severe protein calorie malnutrition Hypomagnesemia History of Present Illness History of Present Illness 10/10/2020 Patient seen and examined in the [place] [address] ICU He remains mechanically ventilated AC/18/500/50 percent with 5 of PEEP We might do a weaning trial later today He has a 2 cm blister on his left forearm We aspirated it was mostly clear OG running at 60 cc/h Sedated with Dex Chart reviewed Discussed with RN 10/09/2020 Patient seen and examined in the [place] [id number] ICU He is on the vent AC/18/500/50 percent with 5 of PEEP 2 corrections officers are present Patient is shackled left arm and left leg Has IV albumin hanging Sedated with fentanyl and Versed Chart reviewed Discussed with RN Has OG feeds running 10/08/2020 Patient seen and examined in the [place] [address] ICU He is still intubated AC/18/500/50 percent with 5 of PEEP We are possibly going to trial him today Has OG feeds running at 60 cc an hour Has SCDs on Olsen to bedside drainage Corrections officers are present Patient is shackled Sedated with fentanyl and Versed Discussed with RN Chart reviewed 10/07/2020 Patient seen and examined in the [place] [id number] ICU He remains on the ventilator Assist-control/18/500/50 percent with 7 of PEEP Sedated with Versed and fentanyl Shackled to the bed with 2 corrections officers present Chart reviewed Discussed with RN He is critically ill 10/06/2020 Patient seen and examined in the [place] [address] ICU He has corrections officers present He is shackled on his left ankle Still remains on the vent AC/18/500/50 5% with 7 of PEEP Sedated with Versed and fentanyl Chart reviewed Discussed with RN He remains very critically ill 10/05/2020 Patient seen and examined in the [place] [address] ICU He is still intubated AC/20/500/60 5% with 7 of PEEP Discussed with RN Patient with OG feeds running Mitts for patient safety Has Olsen to bedside drainage 2 corrections officers are present Patient is shackled Sedated with fentanyl and Versed He remains very critically ill 10/04/2020 Patient seen and examined in the COVID-19 ICU He remains intubated Shackled AC/20/500/60 5% with 8 of PEEP He has OG feeds running Has mitts on for patient safety Has SCDs in place Olsen to bedside drainage He is sedated with fentanyl and Versed Discussed with RN His glucose is running a little high we are adding in scheduled NovoLog 10 units 3 times daily and continue the sliding scale and Lantus 20 a day Chart reviewed He remains very critically ill Corrections officers are present 59 year old male presented via EMS from [facility] with work of breathing x2 days with low O2 Sat at facility down to 78% on RA. known history of COPD and cough. Patient also complains of headache. EMS noted patient was 84% and tripoding on 3 L nasal cannula. EMS reports giving a DuoNeb treatment x2 in route and placement nonrebreather with subsequent improvement in up to 95%. remote alcohol abuse YRS AGO , smoked until one month ago when he was arrested received the [place] COVID-19 vaccination [facility]. Patient denies known exposure to COVID-19. Panlobular airspace disease,c/w multifocal pneumonia. PUI Pulmonary edema less likely. 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 Remote alcohol abuse "6-8 cans of beer a day years ago" Thickened distal esophagus with 9 x 10 mm luminal density, likely ingested medication tablet. Mediastinal adenopathy, malignancy is not excluded.suggest follow-up CT of the chest in 3 months. / Hyperglycemia on accuchecks // Severe protein-caloric malnutrition CTA CHEST C/W Panlobular airspace disease, most likely multifocal pneumonia. 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 Patient tolerating BiPAP and saturating 91%. Started patient on IV Protonix because he is still on steroids. And has a history of esophageal varices. Patient's chart, labs, images were reviewed and discussed with RN 09/27/20 Patient evaluated at bedside He was having laboring respirations initially on the BiPAP concerned patient may need ICU transfer however was given a dose of Ativan and was able to calm down and respiratory status improved Continue steroids Pulmonary consult Plan of care discussed with bedside RN 09/28/20 Patient evaluated bedside He was on BiPAP required to be increased 100% FiO2 this morning Remains on remdesivir, Decadron, Rocephin, and azithromycin Continuing supportive care Plan of care discussed with bedside nurse 09/29/20 Patient evaluated at bedside Patient remains significantly agitated and anxious despite aggressive medication measures while on BiPAP BiPAP settings increasing over the past several days and given his agitation will transfer to ICU Continuing remdesivir Decadron Rocephin and azithromycin Plan of care discussed with bedside nurse 09/30/2020: Patient transferred from out to ICU yesterday due to worsening respiratory distress. He was intubated and currently on vent with FiO2 90% and PEEP of 8. We will continue treatment with remdesivir, steroids, and empiric antibiotics. Critical care time 30 minutes spent reviewing charts, reviewing imaging, reviewing labs, discussion with RN. 10/01/2020: Afebrile. On vent with FiO2 85%, PEEP 8. Continue treatment with remdesivir, steroids, Rocephin and azithromycin. Critical care time 30 minutes spent reviewing charts, imaging, reviewing labs, discussion with RN. 10/02/2020: Afebrile, FiO2 80%, PEEP 5. Finished remdesivir. Continue antib iotics and Decadron. Will increase insulin regimen due to persistent hyperglycemia. Supportive care. Critical care time 30 minutes spent reviewing charts, labs, reviewing imaging, discussion with RN. 10/03/2020: Afebrile, on vent with FiO2 70%, PEEP 5. Still with some significant hyperglycemia. Will increase basal insulin. Finished remdesivir. Will continue antibiotics and steroids. Repeat chest x-ray today. Critical care time 30 minutes spent reviewing charts, labs, reviewing imaging, discussion with RN. Vitals/I&O Vitals/I&O: Vital Signs Date Time Temp Pulse Resp B/P (MAP) Pulse Ox O2 Delivery O2 Flow Rate FiO2 10/10/20 08:38 53 120/65 10/10/20 08:32 96 Ventilator 10/10/20 06:00 18 10/10/20 04:00 98.0 98.0 10/09/20 18:41 15.0 I & O 10/09/20 10/09/20 10/10/20 15:00 23:00 07:00 Intake Total 200 ml 1417 ml 917.0 ml Output Total 625 ml 1100 ml 600 ml Balance -425 ml 317 ml 317.0 ml Physical Exam General: No acute distress, Other (Intubated and sedated) Heart: Regular rate, Normal S1 Abdomen: Normal bowel sounds, Soft, No tenderness, No masses, Other (obese) Extremities: No cyanosis Skin: No rashes Labs Labs: Laboratory Tests Test 10/09/20 11:50 10/10/20 00:15 10/10/20 06:00 10/10/20 06:16 Glucose (Fingerstick) 155 mg/dL (70-99) 164 mg/dL (70-99) 179 mg/dL (70-99) White Blood Count 7.8 x10^3/uL (4.0-11.0) Red Blood Count 3.86 x10^6/uL (4.30-5.70) Hemoglobin 12.7 g/dL (13.0-17.5) Hematocrit 37.1 % (39.0-53.0) Mean Corpuscular Volume 96 fL (79-100) Mean Corpuscular Hemoglobin 33 pg (25-35) Mean Corpuscular Hemoglobin Concent 34 g/dL (31-37) Red Cell Distribution Width 14.3 % (11.5-14.5) Platelet Count 61 x10^3/uL (140-400) Neutrophils (%) (Auto) 66 % (31-73) Lymphocytes (%) (Auto) 18 % (24-48) Monocytes (%) (Auto) 15 % (0-9) Eosinophils (%) (Auto) 1 % (0-3) Basophils (%) (Auto) 0 % (0-3) Neutrophils # (Auto) 5.2 x10^3/uL (1.8-7.7) Lymphocytes # (Auto) 1.4 x10^3/uL (1.0-4.8) Monocytes # (Auto) 1.1 x10^3/uL (0.0-1.1) Eosinophils # (Auto) 0.1 x10^3/uL (0.0-0.7) Basophils # (Auto) 0.0 x10^3/uL (0.0-0.2) Sodium Level 139 mmol/L (136-145) Potassium Level 3.9 mmol/L (3.5-5.1) Chloride Level 104 mmol/L (98-107) Carbon Dioxide Level 34 mmol/L (21-32) Anion Gap 1 (6-14) Blood Urea Nitrogen 20 mg/dL (8-26) Creatinine 0.6 mg/dL (0.7-1.3) Estimated GFR (Cockcroft-Gault) 137.9 Glucose Level 187 mg/dL (70-99) Calcium Level 7.8 mg/dL (8.5-10.1) Magnesium Level 1.7 mg/dL (1.8-2.4) Test 10/10/20 08:40 O2 Saturation 97 % (92-99) Arterial Blood pH 7.50 (7.35-7.45) Arterial Blood pCO2 at Patient Temp 41 mmHg (35-46) Arterial Blood pO2 at Patient Temp 83 mmHg (65-108) Arterial Blood HCO3 32 mmol/L (21-28) Arterial Blood Base Excess 8 mmol/L (-3-3) FiO2 50 Assessment and Plan Assessmemt and Plan Problems Medical Problems: (1) COPD exacerbation Status: Acute (2) Headache Status: Acute (3) Hypoxia Status: Acute (4) Pneumonia Status: Acute (5) Respiratory failure Status: Acute (6) Suspected 2019 novel coronavirus infection Status: Acute COVID-19 respiratory failure requiring intubation COPD Cirrhosis Severe pneumonia Remote history of alcohol issues mediastinal adenopathy Hyperglycemia and diabetes Severe protein calorie malnutrition Hypomagnesemia Plan ICU monitoring Covid protocol Trend ABGs and chest x-rays Remdesivir is completed Vitamins Beta agonist IV steroid Vent weaning (we might trial him later today) Trend labs Home meds DVT prophylaxis Full code Continue OG feeds Continue Olsen to bedside drainage SCDs Mitts for patient's age Continue sedation with as needed fentanyl and Versed and Dex Long-term prognosis guarded Await further subspecialist input CC time 31 min Comment Review of Relevant I have reviewed the following items herlinda (where applicable) has been applied. Justifications for Admission Other Justification RESP FAILURE WITH HYPOXIA RIGO SRINIVASAN III DO Oct 10, 2020 10:46
[2020-10-10 12:44] LABS: BASE EXCESS ABG 9 mmol/L (-3-3); FIO2 ABG 50 cpap trial; HCO3 ABG 34 mmol/L (21-28); PCO2 ABG 46 mmHg (35-46); PO2 ABG 86 mmHg (65-108); SAT O2 ABG 97 % (92-99)
--- NOTE | 2020-10-10 13:35 | PDOC ---
PULMONARY PROGRESS NOTES DATE: 10/10/20 TIME: 13:35 Subjective remains on vent support 50% and PEEP of 5 No overnight events Vitals Vital Signs Date Time Temp Pulse Resp B/P (MAP) Pulse Ox O2 Delivery O2 Flow Rate FiO2 10/10/20 12:00 98.0 50 18 122/72 (89) 96 Ventilator 98.0 10/09/20 18:41 15.0 Comments Patient seen during the ID pandemic, and visual inspection of BiPAP no respiratory distress no paroxysmal breathing pattern no increasing edema no new rash Labs Laboratory Tests Test 10/08/20 17:25 10/09/20 00:19 10/09/20 06:09 10/09/20 06:24 Glucose (Fingerstick) 139 mg/dL (70-99) 149 mg/dL (70-99) 66 mg/dL (70-99) 161 mg/dL (70-99) Test 10/09/20 11:50 10/10/20 00:15 10/10/20 06:00 10/10/20 06:16 Glucose (Fingerstick) 155 mg/dL (70-99) 164 mg/dL (70-99) 179 mg/dL (70-99) White Blood Count 7.8 x10^3/uL (4.0-11.0) Red Blood Count 3.86 x10^6/uL (4.30-5.70) Hemoglobin 12.7 g/dL (13.0-17.5) Hematocrit 37.1 % (39.0-53.0) Mean Corpuscular Volume 96 fL (79-100) Mean Corpuscular Hemoglobin 33 pg (25-35) Mean Corpuscular Hemoglobin Concent 34 g/dL (31-37) Red Cell Distribution Width 14.3 % (11.5-14.5) Platelet Count 61 x10^3/uL (140-400) Neutrophils (%) (Auto) 66 % (31-73) Lymphocytes (%) (Auto) 18 % (24-48) Monocytes (%) (Auto) 15 % (0-9) Eosinophils (%) (Auto) 1 % (0-3) Basophils (%) (Auto) 0 % (0-3) Neutrophils # (Auto) 5.2 x10^3/uL (1.8-7.7) Lymphocytes # (Auto) 1.4 x10^3/uL (1.0-4.8) Monocytes # (Auto) 1.1 x10^3/uL (0.0-1.1) Eosinophils # (Auto) 0.1 x10^3/uL (0.0-0.7) Basophils # (Auto) 0.0 x10^3/uL (0.0-0.2) Sodium Level 139 mmol/L (136-145) Potassium Level 3.9 mmol/L (3.5-5.1) Chloride Level 104 mmol/L (98-107) Carbon Dioxide Level 34 mmol/L (21-32) Anion Gap 1 (6-14) Blood Urea Nitrogen 20 mg/dL (8-26) Creatinine 0.6 mg/dL (0.7-1.3) Estimated GFR (Cockcroft-Gault) 137.9 Glucose Level 187 mg/dL (70-99) Calcium Level 7.8 mg/dL (8.5-10.1) Magnesium Level 1.7 mg/dL (1.8-2.4) Test 10/10/20 08:40 10/10/20 11:26 10/10/20 12:35 O2 Saturation 97 % (92-99) 97 % (92-99) Arterial Blood pH 7.50 (7.35-7.45) 7.49 (7.35-7.45) Arterial Blood pCO2 at Patient Temp 41 mmHg (35-46) 46 mmHg (35-46) Arterial Blood pO2 at Patient Temp 83 mmHg (65-108) 86 mmHg (65-108) Arterial Blood HCO3 32 mmol/L (21-28) 34 mmol/L (21-28) Arterial Blood Base Excess 8 mmol/L (-3-3) 9 mmol/L (-3-3) FiO2 50 50 cpap trial Glucose (Fingerstick) 138 mg/dL (70-99) Laboratory Tests Test 10/10/20 00:15 10/10/20 06:00 10/10/20 06:16 10/10/20 08:40 Glucose (Fingerstick) 164 mg/dL (70-99) 179 mg/dL (70-99) White Blood Count 7.8 x10^3/uL (4.0-11.0) Red Blood Count 3.86 x10^6/uL (4.30-5.70) Hemoglobin 12.7 g/dL (13.0-17.5) Hematocrit 37.1 % (39.0-53.0) Mean Corpuscular Volume 96 fL (79-100) Mean Corpuscular Hemoglobin 33 pg (25-35) Mean Corpuscular Hemoglobin Concent 34 g/dL (31-37) Red Cell Distribution Width 14.3 % (11.5-14.5) Platelet Count 61 x10^3/uL (140-400) Neutrophils (%) (Auto) 66 % (31-73) Lymphocytes (%) (Auto) 18 % (24-48) Monocytes (%) (Auto) 15 % (0-9) Eosinophils (%) (Auto) 1 % (0-3) Basophils (%) (Auto) 0 % (0-3) Neutrophils # (Auto) 5.2 x10^3/uL (1.8-7.7) Lymphocytes # (Auto) 1.4 x10^3/uL (1.0-4.8) Monocytes # (Auto) 1.1 x10^3/uL (0.0-1.1) Eosinophils # (Auto) 0.1 x10^3/uL (0.0-0.7) Basophils # (Auto) 0.0 x10^3/uL (0.0-0.2) Sodium Level 139 mmol/L (136-145) Potassium Level 3.9 mmol/L (3.5-5.1) Chloride Level 104 mmol/L (98-107) Carbon Dioxide Level 34 mmol/L (21-32) Anion Gap 1 (6-14) Blood Urea Nitrogen 20 mg/dL (8-26) Creatinine 0.6 mg/dL (0.7-1.3) Estimated GFR (Cockcroft-Gault) 137.9 Glucose Level 187 mg/dL (70-99) Calcium Level 7.8 mg/dL (8.5-10.1) Magnesium Level 1.7 mg/dL (1.8-2.4) O2 Saturation 97 % (92-99) Arterial Blood pH 7.50 (7.35-7.45) Arterial Blood pCO2 at Patient Temp 41 mmHg (35-46) Arterial Blood pO2 at Patient Temp 83 mmHg (65-108) Arterial Blood HCO3 32 mmol/L (21-28) Arterial Blood Base Excess 8 mmol/L (-3-3) FiO2 50 Test 10/10/20 11:26 10/10/20 12:35 Glucose (Fingerstick) 138 mg/dL (70-99) O2 Saturation 97 % (92-99) Arterial Blood pH 7.49 (7.35-7.45) Arterial Blood pCO2 at Patient Temp 46 mmHg (35-46) Arterial Blood pO2 at Patient Temp 86 mmHg (65-108) Arterial Blood HCO3 34 mmol/L (21-28) Arterial Blood Base Excess 9 mmol/L (-3-3) FiO2 50 cpap trial Medications Active Scripts Medications Dose Route/Sig Max Daily Dose Days Date Category Flomax (Tamsulosin Hcl) 0.4 Mg Cap.er.24h 1 Cap PO DAILY 09/26/20 Reported Semglee (Insulin Glargine,Hum.rec.anlog) 100 Unit/1 Ml Vial 20 Unit SQ QHS 09/26/20 Reported Semglee (Insulin Glargine,Hum.rec.anlog) 100 Unit/1 Ml Vial 30 Unit SQ QAM 09/26/20 Reported Novolin R (Insulin Regular, Human) 100 Unit/1 Ml Vial 100 Unit IJ SSI PRN 09/26/20 Reported Naproxen 500 Mg Tablet 1 Tab PO BID PRN 30 09/26/20 Reported Metoprolol Tartrate 25 Mg Tablet 1 Tab PO BID 09/26/20 Reported Alvesco (Ciclesonide) 6.1 Gm Hfa.aer.ad 6.1 Gm IH Q12HR 09/26/20 Reported Proair Hfa Inhaler (Albuterol Sulfate) 8.5 Gm Hfa.aer.ad 2 Puff IH PRN Q4-6HRS PRN 21 09/26/20 Reported Impression . IMPRESSION: 1. Acute hypoxemic respiratory failure secondary to COVID-19./ARDS 2. COVID-19 viral pneumonia. 3. Possible bacterial pneumonia. 4. Other comorbidities including chronic obstructive pulmonary disease with acute exacerbation, tobacco dependent, chronic back pain and hypertension. 5. Abnormal chest x-ray with bilateral interstitial infiltrates related to COVID-19 pneumonia. 6. Status post intubation 09/29 Chest x-ray from 730, reviewed no significant consolidation improving. Plan . Updated 10/10/20 Continue current vent support 50% and PEEP of 5 Follow CXR/ABG Proceed with PS trial, with ABG Finish course of antibiotics and remdesivir Continue steroids Continue nutrional support DVT/GI PPX D/W RN and RT Updated 10/09 ABG noted, discussed with RT, will proceed with trial Discussed with RN DC sedation Finish course of antibiotics and remdesivir Continue steroids DVT GI prophylaxis Labs, pending, per PCP updated 10/08 Chest x-ray read ABG noted, PaO2 of 90 Discussed with RN, decrease sedation, possible trial Decrease PEEP Finish course of antibiotics and remdesivir Steroids Nutritional support DVT prophylaxis Updated 10/07 Patient making slow improve ABG noted PaO2 of 82 Continue assist control ventilation Status post remdesivir Monitor off of antibiotics Steroids Discussed with RN, start decreasing sedation possible trial YVAN ZEE MD Oct 10, 2020 13:35
[2020-10-10] MEDS: ENOXAPARIN 40 MG/0.4 ML SYRINGE. SQ SCH (21:00)
[2020-10-11] VITALS (24 sets, daily range): BP systolic 80–154; BP diastolic 49–91
[2020-10-11] MEDS: INSULIN LISPRO 300 UNITS/3 ML VIAL. SQ SCH ×7 (00:25→17:55)
[2020-10-11] MEDS: PROPOFOL 100 ML IV PRN ×4 (02:26→23:13)
[2020-10-11] MEDS: DEXMEDETOMIDINE 400 MCG in IV NORMAL SALINE 100ML 96 ML IV PRN ×4 (02:27→21:32)
[2020-10-11 05:33] LABS: BASO % 0 % (0-3); EOS # 0.1 x10^3/uL (0.0-0.7); EOS % 2 % (0-3); HEMATOCRIT 37.1 % (39.0-53.0); HEMOGLOBIN 12.5 g/dL (13.0-17.5); LYMPH # 1.4 x10^3/uL (1.0-4.8); LYMPH % 19 % (24-48); MEAN CORPUSCULAR HEMOGLOBIN 32 pg (25-35); MEAN CORPUSCULAR HGB CONC 34 g/dL (31-37); MEAN CORPUSCULAR VOLUME 95 fL (79-100); MONO # 0.9 x10^3/uL (0.0-1.1); MONO % 12 % (0-9); NEUT # 5.1 x10^3/uL (1.8-7.7); NEUT % 68 % (31-73); PLATELET COUNT 64 x10^3/uL (140-400); RED BLOOD COUNT 3.91 x10^6/uL (4.30-5.70); RED CELL DISTRIBUTION WIDTH 14.5 % (11.5-14.5); WHITE BLOOD COUNT 7.4 x10^3/uL (4.0-11.0)
[2020-10-11 08:01] LABS: BASE EXCESS ABG 8 mmol/L (-3-3); HCO3 ABG 32 mmol/L (21-28); PCO2 ABG 41 mmHg (35-46); PO2 ABG 69 mmHg (65-108); SAT O2 ABG 95 % (92-99)
--- NOTE | 2020-10-11 08:23 | PDOC ---
PROGRESS NOTES Date of Service: DATE: 10/11/20 TIME: 08:22 Chief Complaint Chief Complaint COVID-19 respiratory failure requiring intubation COPD Cirrhosis Severe pneumonia Remote history of alcohol issues mediastinal adenopathy Hyperglycemia and diabetes Severe protein calorie malnutrition Hypomagnesemia History of Present Illness History of Present Illness 10/11/2020 59 year old male presented via EMS from [facility] with work of breathing x2 days with low O2 Sat at facility down to 78% on RA. known history of COPD and cough. Patient seen and examined in the [place] [id number] ICU He remains mechanically ventilated Mediastinal adenopathy, malignancy is not excluded.suggest follow-up CT of the chest in 3 months. AC/18/500/50 percent with 5 of PEEP We might do a weaning trial later today He has a 2 cm blister on his left forearm We aspirated it was mostly clear OG running at 60 cc/h Sedated with Dex Chart reviewed Discussed with RN Finished course of antibiotics, remdesivir and steroids Continue nutrional support HYPOTHERMIC , ID CONSULT, BLOOD CULTURE 36 min cc time 10/10/2020 Patient seen and examined in the [place] [id number] ICU He remains mechanically ventilated AC/18/500/50 percent with 5 of PEEP We might do a weaning trial later today He has a 2 cm blister on his left forearm We aspirated it was mostly clear OG running at 60 cc/h Sedated with Dex Chart reviewed Discussed with RN 10/09/2020 Patient seen and examined in the [place] [id number] ICU He is on the vent AC/18/500/50 percent with 5 of PEEP 2 corrections officers are present Patient is shackled left arm and left leg Has IV albumin hanging Sedated with fentanyl and Versed Chart reviewed Discussed with RN Has OG feeds running 10/08/2020 Patient seen and examined in the [place] [id number] ICU He is still intubated AC/18/500/50 percent with 5 of PEEP We are possibly going to trial him today Has OG feeds running at 60 cc an hour Has SCDs on Olsen to bedside drainage Corrections officers are present Patient is shackled Sedated with fentanyl and Versed Discussed with RN Chart reviewed 10/07/2020 Patient seen and examined in the [facility] [id number] ICU He remains on the ventilator Assist-control/18/500/50 percent with 7 of PEEP Sedated with Versed and fentanyl Shackled to the bed with 2 corrections officers present Chart reviewed Discussed with RN He is critically ill 10/06/2020 Patient seen and examined in the [place] [id number] ICU He has corrections officers present He is shackled on his left ankle Still remains on the vent AC/18/500/50 5% with 7 of PEEP Sedated with Versed and fentanyl Chart reviewed Discussed with RN He remains very critically ill 10/05/2020 Patient seen and examined in the [place] [id number] ICU He is still intubated AC/20/500/60 5% with 7 of PEEP Discussed with RN Patient with OG feeds running Mitts for patient safety Has Olsen to bedside drainage 2 corrections officers are present Patient is shackled Sedated with fentanyl and Versed He remains very critically ill 10/04/2020 Patient seen and examined in the [place] [id number] ICU He remains intubated Shackled AC/20/500/60 5% with 8 of PEEP He has OG feeds running Has mitts on for patient safety Has SCDs in place Olsen to bedside drainage He is sedated with fentanyl and Versed Discussed with RN His glucose is running a little high we are adding in scheduled NovoLog 10 units 3 times daily and continue the sliding scale and Lantus 20 a day Chart reviewed He remains very critically ill Corrections officers are present 59 year old male [facility] with work of breathing x2 days with low O2 Sat at facility down to 78% on RA. known history of COPD and cough. Patient also complains of headache. EMS noted patient was 84% and tripoding on 3 L nasal cannula. EMS reports giving a DuoNeb treatment x2 in route and placement nonrebreather with subsequent improvement in up to 95%. remote alcohol abuse YRS AGO , smoked until one month ago when he was arrested received the [employer] COVID-19 vaccination x1 [facility]. Patient denies known exposure to COVID-19. Panlobular airspace disease,c/w multifocal pneumonia. PUI Pulmonary edema less likely. 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 Remote alcohol abuse "6-8 cans of beer a day years ago" Thickened distal esophagus with 9 x 10 mm luminal density, likely ingested medication tablet. Mediastinal adenopathy, malignancy is not excluded.suggest follow-up CT of the chest in 3 months. / Hyperglycemia on accuchecks // Severe protein-caloric malnutrition CTA CHEST C/W Panlobular airspace disease, most likely multifocal pneumonia. PUI Pulmonary edema less likely.AND Hepatic cirrhosis with large upper abdom inal varices.noted PLAN Emperic iv zithromax, rocephin daily / COVID 19 PCR / Consult pulm / Abdominal sonogram blood culture o2 support / Duonebs qid dvt prophylaxis GI prophylaxis DUONEBS QID 09/26/2020 No major events overnight. Patient tolerating BiPAP and saturating 91%. Started patient on IV Protonix because he is still on steroids. And has a history of esophageal varices. Patient's chart, labs, images were reviewed and discussed with RN 09/27/20 Patient evaluated at bedside He was having laboring respirations initially on the BiPAP concerned patient may need ICU transfer however was given a dose of Ativan and was able to calm down and respiratory status improved Continue steroids Pulmonary consult Plan of care discussed with bedside RN 09/28/20 Patient evaluated bedside He was on BiPAP required to be increased 100% FiO2 this morning Remains on remdesivir, Decadron, Rocephin, and azithromycin Continuing supportive care Plan of care discussed with bedside nurse 09/29/20 Patient evaluated at bedside Patient remains significantly agitated and anxious despite aggressive medication measures while on BiPAP BiPAP settings increasing over the past several days and given his agitation will transfer to ICU Continuing remdesivir Decadron Rocephin and azithromycin Plan of care discussed with bedside nurse 09/30/2020: Patient transferred from out to ICU yesterday due to worsening respiratory distress. He was intubated and currently on vent with FiO2 90% and PEEP of 8. We will continue treatment with remdesivir, steroids, and empiric antibiotics. Critical care time 30 minutes spent reviewing charts, reviewing imaging, reviewing labs, discussion with RN. 10/01/2020: Afebrile. On vent with FiO2 85%, PEEP 8. Continue treatment with remdesivir, steroids, Rocephin and azithromycin. Critical care time 30 minutes spent reviewing charts, imaging, reviewing labs, discussion with RN. 10/02/2020: Afebrile, FiO2 80%, PEEP 5. Finished remdesivir. Continue antibiotics and Decadron. Will increase insulin regimen due to persistent hyperglycemia. Supportive care. Critical care time 30 minutes spent reviewing charts, labs, reviewing imaging, discussion with RN. 10/03/2020: Afebrile, on vent with FiO2 70%, PEEP 5. Still with some significant hyperglycemia. Will increase basal insulin. Finished remdesivir. Will continue antibiotics and steroids. Repeat chest x-ray today. Critical care time 30 minutes spent reviewing charts, labs, reviewing imaging, discussion with RN. Vitals Vitals Vital Signs Date Time Temp Pulse Resp B/P (MAP) Pulse Ox O2 Delivery O2 Flow Rate FiO2 10/11/20 07:54 94 Ventilator 10/11/20 06:00 46 17 127/74 (91) 10/11/20 04:00 97.8 97.8 10/10/20 22:42 15.0 Physical Exam General: No acute distress, Other (Intubated and sedated) Heart: Regular rate, Normal S1 Abdomen: Normal bowel sounds, Soft, No tenderness, No masses, Other (obese) Extremities: No cyanosis Skin: No rashes Labs LABS Laboratory Tests Test 10/10/20 08:40 10/10/20 11:26 10/10/20 12:35 10/10/20 18:06 O2 Saturation 97 % (92-99) 97 % (92-99) Arterial Blood pH 7.50 (7.35-7.45) 7.49 (7.35-7.45) Arterial Blood pCO2 at Patient Temp 41 mmHg (35-46) 46 mmHg (35-46) Arterial Blood pO2 at Patient Temp 83 mmHg (65-108) 86 mmHg (65-108) Arterial Blood HCO3 32 mmol/L (21-28) 34 mmol/L (21-28) Arterial Blood Base Excess 8 mmol/L (-3-3) 9 mmol/L (-3-3) FiO2 50 50 cpap trial Glucose (Fingerstick) 138 mg/dL (70-99) 156 mg/dL (70-99) Test 10/10/20 21:33 10/10/20 23:58 10/11/20 05:00 10/11/20 06:19 Glucose (Fingerstick) 107 mg/dL (70-99) 167 mg/dL (70-99) 197 mg/dL (70-99) White Blood Count 7.4 x10^3/uL (4.0-11.0) Red Blood Count 3.91 x10^6/uL (4.30-5.70) Hemoglobin 12.5 g/dL (13.0-17.5) Hematocrit 37.1 % (39.0-53.0) Mean Corpuscular Volume 95 fL (79-100) Mean Corpuscular Hemoglobin 32 pg (25-35) Mean Corpuscular Hemoglobin Concent 34 g/dL (31-37) Red Cell Distribution Width 14.5 % (11.5-14.5) Platelet Count 64 x10^3/uL (140-400) Neutrophils (%) (Auto) 68 % (31-73) Lymphocytes (%) (Auto) 19 % (24-48) Monocytes (%) (Auto) 12 % (0-9) Eosinophils (%) (Auto) 2 % (0-3) Basophils (%) (Auto) 0 % (0-3) Neutrophils # (Auto) 5.1 x10^3/uL (1.8-7.7) Lymphocytes # (Auto) 1.4 x10^3/uL (1.0-4.8) Monocytes # (Auto) 0.9 x10^3/uL (0.0-1.1) Eosinophils # (Auto) 0.1 x10^3/uL (0.0-0.7) Basophils # (Auto) 0.0 x10^3/uL (0.0-0.2) Test 10/11/20 07:57 O2 Saturation 95 % (92-99) Arterial Blood pH 7.51 (7.35-7.45) Arterial Blood pCO2 at Patient Temp 41 mmHg (35-46) Arterial Blood pO2 at Patient Temp 69 mmHg (65-108) Arterial Blood HCO3 32 mmol/L (21-28) Arterial Blood Base Excess 8 mmol/L (-3-3) FiO2 50% vent Assessment and Plan Assessmemt and Plan Problems Medical Problems: (1) COPD exacerbation Status: Acute (2) Headache Status: Acute (3) Hypoxia Status: Acute (4) Pneumonia Status: Acute (5) Respiratory failure Status: Acute (6) Suspected 2019 novel coronavirus infection Status: Acute Comment Review of Relevant I have reviewed the following items herlinda (where applicable) has been applied. Labs Laboratory Tests Test 10/09/20 11:50 10/10/20 00:15 10/10/20 06:00 10/10/20 06:16 Glucose (Fingerstick) 155 mg/dL (70-99) 164 mg/dL (70-99) 179 mg/dL (70-99) White Blood Count 7.8 x10^3/uL (4.0-11.0) Red Blood Count 3.86 x10^6/uL (4.30-5.70) Hemoglobin 12.7 g/dL (13.0-17.5) Hematocrit 37.1 % (39.0-53.0) Mean Corpuscular Volume 96 fL (79-100) Mean Corpuscular Hemoglobin 33 pg (25-35) Mean Corpuscular Hemoglobin Concent 34 g/dL (31-37) Red Cell Distribution Width 14.3 % (11.5-14.5) Platelet Count 61 x10^3/uL (140-400) Neutrophils (%) (Auto) 66 % (31-73) Lymphocytes (%) (Auto) 18 % (24-48) Monocytes (%) (Auto) 15 % (0-9) Eosinophils (%) (Auto) 1 % (0-3) Basophils (%) (Auto) 0 % (0-3) Neutrophils # (Auto) 5.2 x10^3/uL (1.8-7.7) Lymphocytes # (Auto) 1.4 x10^3/uL (1.0-4.8) Monocytes # (Auto) 1.1 x10^3/uL (0.0-1.1) Eosinophils # (Auto) 0.1 x10^3/uL (0.0-0.7) Basophils # (Auto) 0.0 x10^3/uL (0.0-0.2) Sodium Level 139 mmol/L (136-145) Potassium Level 3.9 mmol/L (3.5-5.1) Chloride Level 104 mmol/L (98-107) Carbon Dioxide Level 34 mmol/L (21-32) Anion Gap 1 (6-14) Blood Urea Nitrogen 20 mg/dL (8-26) Creatinine 0.6 mg/dL (0.7-1.3) Estimated GFR (Cockcroft-Gault) 137.9 Glucose Level 187 mg/dL (70-99) Calcium Level 7.8 mg/dL (8.5-10.1) Magnesium Level 1.7 mg/dL (1.8-2.4) Test 10/10/20 08:40 10/10/20 11:26 10/10/20 12:35 10/10/20 18:06 O2 Saturation 97 % (92-99) 97 % (92-99) Arterial Blood pH 7.50 (7.35-7.45) 7.49 (7.35-7.45) Arterial Blood pCO2 at Patient Temp 41 mmHg (35-46) 46 mmHg (35-46) Arterial Blood pO2 at Patient Temp 83 mmHg (65-108) 86 mmHg (65-108) Arterial Blood HCO3 32 mmol/L (21-28) 34 mmol/L (21-28) Arterial Blood Base Excess 8 mmol/L (-3-3) 9 mmol/L (-3-3) FiO2 50 50 cpap trial Glucose (Fingerstick) 138 mg/dL (70-99) 156 mg/dL (70-99) Test 10/10/20 21:33 10/10/20 23:58 10/11/20 05:00 10/11/20 06:19 Glucose (Fingerstick) 107 mg/dL (70-99) 167 mg/dL (70-99) 197 mg/dL (70-99) White Blood Count 7.4 x10^3/uL (4.0-11.0) Red Blood Count 3.91 x10^6/uL (4.30-5.70) Hemoglobin 12.5 g/dL (13.0-17.5) Hematocrit 37.1 % (39.0-53.0) Mean Corpuscular Volume 95 fL (79-100) Mean Corpuscular Hemoglobin 32 pg (25-35) Mean Corpuscular Hemoglobin Concent 34 g/dL (31-37) Red Cell Distribution Width 14.5 % (11.5-14.5) Platelet Count 64 x10^3/uL (140-400) Neutrophils (%) (Auto) 68 % (31-73) Lymphocytes (%) (Auto) 19 % (24-48) Monocytes (%) (Auto) 12 % (0-9) Eosinophils (%) (Auto) 2 % (0-3) Basophils (%) (Auto) 0 % (0-3) Neutrophils # (Auto) 5.1 x10^3/uL (1.8-7.7) Lymphocytes # (Auto) 1.4 x10^3/uL (1.0-4.8) Monocytes # (Auto) 0.9 x10^3/uL (0.0-1.1) Eosinophils # (Auto) 0.1 x10^3/uL (0.0-0.7) Basophils # (Auto) 0.0 x10^3/uL (0.0-0.2) Test 10/11/20 07:57 O2 Saturation 95 % (92-99) Arterial Blood pH 7.51 (7.35-7.45) Arterial Blood pCO2 at Patient Temp 41 mmHg (35-46) Arterial Blood pO2 at Patient Temp 69 mmHg (65-108) Arterial Blood HCO3 32 mmol/L (21-28) Arterial Blood Base Excess 8 mmol/L (-3-3) FiO2 50% vent Laboratory Tests Test 10/10/20 08:40 10/10/20 11:26 10/10/20 12:35 10/10/20 18:06 O2 Saturation 97 % (92-99) 97 % (92-99) Arterial Blood pH 7.50 (7.35-7.45) 7.49 (7.35-7.45) Arterial Blood pCO2 at Patient Temp 41 mmHg (35-46) 46 mmHg (35-46) Arterial Blood pO2 at Patient Temp 83 mmHg (65-108) 86 mmHg (65-108) Arterial Blood HCO3 32 mmol/L (21-28) 34 mmol/L (21-28) Arterial Blood Base Excess 8 mmol/L (-3-3) 9 mmol/L (-3-3) FiO2 50 50 cpap trial Glucose (Fingerstick) 138 mg/dL (70-99) 156 mg/dL (70-99) Test 10/10/20 21:33 10/10/20 23:58 10/11/20 05:00 10/11/20 06:19 Glucose (Fingerstick) 107 mg/dL (70-99) 167 mg/dL (70-99) 197 mg/dL (70-99) White Blood Count 7.4 x10^3/uL (4.0-11.0) Red Blood Count 3.91 x10^6/uL (4.30-5.70) Hemoglobin 12.5 g/dL (13.0-17.5) Hematocrit 37.1 % (39.0-53.0) Mean Corpuscular Volume 95 fL (79-100) Mean Corpuscular Hemoglobin 32 pg (25-35) Mean Corpuscular Hemoglobin Concent 34 g/dL (31-37) Red Cell Distribution Width 14.5 % (11.5-14.5) Platelet Count 64 x10^3/uL (140-400) Neutrophils (%) (Auto) 68 % (31-73) Lymphocytes (%) (Auto) 19 % (24-48) Monocytes (%) (Auto) 12 % (0-9) Eosinophils (%) (Auto) 2 % (0-3) Basophils (%) (Auto) 0 % (0-3) Neutrophils # (Auto) 5.1 x10^3/uL (1.8-7.7) Lymphocytes # (Auto) 1.4 x10^3/uL (1.0-4.8) Monocytes # (Auto) 0.9 x10^3/uL (0.0-1.1) Eosinophils # (Auto) 0.1 x10^3/uL (0.0-0.7) Basophils # (Auto) 0.0 x10^3/uL (0.0-0.2) Test 10/11/20 07:57 O2 Saturation 95 % (92-99) Arterial Blood pH 7.51 (7.35-7.45) Arterial Blood pCO2 at Patient Temp 41 mmHg (35-46) Arterial Blood pO2 at Patient Temp 69 mmHg (65-108) Arterial Blood HCO3 32 mmol/L (21-28) Arterial Blood Base Excess 8 mmol/L (-3-3) FiO2 50% vent Microbiology 09/25/20 Blood Culture - Final, Complete NO GROWTH AFTER 5 DAYS Medications Current Medications Sodium Chloride 1,000 ml @ 1,000 mls/hr 1X ONCE IV Last administered on 09/25/20at 08:27; Start 09/25/20 at 07:00; Stop 09/25/20 at 07:59; Status DC Dexamethasone Sodium Phosphate (Decadron) 10 mg 1X ONCE IVP Last administered on 09/25/20at 08:24; Start 09/25/20 at 07:00; Stop 09/25/20 at 07:01; Status DC Ketorolac Tromethamine (Toradol 15mg Vial) 15 mg 1X ONCE IVP Last administered on 09/25/20at 09:35; Start 09/25/20 at 09:00; Stop 09/25/20 at 09:01; Status DC Aspirin (Ecotrin) 325 mg 1X ONCE PO Last administered on 09/25/20at 09:35; Start 09/25/20 at 09:15; Stop 09/25/20 at 09:16; Status DC Iohexol (Omnipaque 350 Mg/ml) 100 ml 1X ONCE IV Last administered on 09/25/20at 10:05; Start 09/25/20 at 10:00; Stop 09/25/20 at 10:01; Status DC Info (CONTRAST GIVEN -- Rx MONITORING) 1 each PRN DAILY PRN MC SEE COMMENTS; Start 09/25/20 at 10:00; Stop 09/27/20 at 09:59; Status DC Azithromycin 250 ml @ 250 mls/hr 1X ONCE IV Last administered on 09/25/20at 11:37; Start 09/25/20 at 10:30; Stop 09/25/20 at 11:29; Status DC Ceftriaxone Sodium (Rocephin) 1 gm 1X ONCE IVP Last administered on 09/25/20at 11:36; Start 09/25/20 at 10:30; Stop 09/25/20 at 10:34; Status DC Ondansetron HCl (Zofran) 4 mg PRN Q8HRS PRN IV NAUSEA/VOMITING Last administered on 09/25/20at 11:33; Start 09/25/20 at 10:45; Stop 09/26/20 at 10:44; Status DC Fentanyl Citrate (Fentanyl 2ml Vial) 50 mcg Q2HR PRN IV PAIN Last administered on 09/26/20at 09:04; Start 09/25/20 at 10:45; Stop 09/26/20 at 10:44; Status DC Insulin Human Lispro (HumaLOG) 0-5 UNITS TIDWMEALS SQ ; Start 09/25/20 at 12:00; Stop 09/26/20 at 11:03; Status DC Dextrose (Dextrose 50%-Water Syringe) 12.5 gm PRN Q15MIN PRN IV SEE COMMENTS; Start 09/25/20 at 10:45; Stop 09/25/20 at 13:01; Status DC Labetalol HCl (Normodyne Iv Push) 20 mg 1X ONCE IVP Last administered on 09/25/20at 12:01; Start 09/25/20 at 12:00; Stop 09/25/20 at 12:01; Status DC Labetalol HCl (Normodyne Iv Push) 20 mg STK-MED ONCE IVP ; Start 09/25/20 at 11:42; Stop 09/25/20 at 11:42; Status DC Magnesium Sulfate/ Dextrose 100 ml @ 100 mls/hr 1X ONCE IV Last administered on 09/25/20at 14:25; Start 09/25/20 at 13:30; Stop 09/25/20 at 14:29; Status DC Azithromycin 250 ml @ 250 mls/hr DAILY07 IV ; Start 09/26/20 at 07:00; Status UNV Ceftriaxone Sodium (Rocephin) 1 gm Q24H IVP ; Start 09/25/20 at 13:00; Status Cancel Sodium Chloride (Normal Saline Flush) 3 ml QSHIFT PRN IV AFTER MEDS AND BLOOD DRAWS; Start 09/25/20 at 13:00 Ondansetron HCl (Zofran) 4 mg PRN Q4HRS PRN IV NAUSEA/VOMITING Last administered on 09/27/20at 11:18; Start 09/25/20 at 13:00 Acetaminophen (Tylenol) 650 mg PRN Q4HRS PRN PO TEMP OVER 100.4F OR MILD PAIN Last administered on 09/26/20at 09:00; Start 09/25/20 at 13:00 Al Hydroxide/Mg Hydroxide (Mylanta Plus Xs) 30 ml PRN DAILY PRN PO HEARTBURN / GAS; Start 09/25/20 at 13:00 Clonidine HCl (Catapres) 0.1 mg PRN Q6HRS PRN PO SBP>160 OR DBP>90 Last administered on 09/27/20at 11:00; Start 09/25/20 at 13:00 Sodium Monofluorophosphate (Fleet Adult) 133 ml PRN DAILY PRN [place] CONSTIPATION; Start 09/25/20 at 13:00 Docusate Sodium (Colace) 100 mg PRN BID PRN PO HARD STOOLS; Start 09/25/20 at 13:00 Albuterol/ Ipratropium (Duoneb) 3 ml Q4HRS NEB ; Start 09/25/20 at 16:00; Stop 09/26/20 at 01:06; Status DC Guaifenesin (Robitussin) 200 mg PRN Q4HRS PRN PO COUGH; Start 09/25/20 at 13:00 Enoxaparin Sodium (Lovenox 40mg Syringe) 40 mg Q24H SQ Last administered on 10/10/20at 21:00; Start 09/25/20 at 21:00 Ceftriaxone Sodium (Rocephin) 1 gm Q24H IVP Last administered on 10/05/20at 09:51; Start 09/26/20 at 09:00; Stop 10/05/20 at 09:04; Status DC Dexamethasone Sodium Phosphate (Decadron) 6 mg DAILY IVP Last administered on 10/07/20at 07:48; Start 09/26/20 at 09:00; Stop 10/07/20 at 13:17; Status DC Insulin Human Lispro (HumaLOG) 0-7 UNITS TIDWMEALS SQ Last administered on 09/26/20at 17:26; Start 09/25/20 at 17:00; Stop 09/27/20 at 07:25; Status DC Dextrose (Dextrose 50%-Water Syringe) 12.5 gm PRN Q15MIN PRN IV SEE COMMENTS Last administered on 10/09/20at 06:12; Start 09/25/20 at 13:00 Azithromycin 500 mg/Sodium Chloride 250 ml @ 250 mls/hr Q24H IV Last administered on 10/03/20at 13:20; Start 09/26/20 at 13:00; Stop 10/04/20 at 13:43; Status DC Hydralazine HCl (Apresoline Inj) 10 mg PRN Q4HRS PRN IVP ELEVATED BP, SEE COMMENTS Last administered on 09/29/20at 08:07; Start 09/25/20 at 13:15 Amlodipine Besylate (Norvasc) 5 mg DAILY PO Last administered on 09/27/20at 08:02; Start 09/25/20 at 13:15; Stop 09/29/20 at 07:44; Status DC Albuterol/ Ipratropium (Combivent Respimat 20-100 Mcg) 1 puff Q4HRS W/A INH Last administered on 09/29/20at 06:07; Start 09/26/20 at 06:00; Stop 09/30/20 at 01:15; Status DC Pantoprazole Sodium (PROTONIX VIAL for IV PUSH) 40 mg DAILYAC IVP Last administered on 10/10/20at 08:37; Start 09/26/20 at 09:00 Fluticasone Propionate (Flonase) 2 spray DAILY NS Last administered on 09/26/20at 11:32; Start 09/26/20 at 10:45 Lactobacillus Rhamnosus (Culturelle) 1 cap BID PO Last administered on 09/30/20at 10:01; Start 09/26/20 at 21:00; Stop 09/30/20 at 10:57; Status DC Remdesivir 200 mg/ Sodium Chloride 210 ml @ 210 mls/hr 1X ONCE IV ; Start 09/26/20 at 14:30; Stop 09/26/20 at 15:29; Status DC Remdesivir 100 mg/ Sodium Chloride 230 ml @ 460 mls/hr Q24H IV Last administered on 10/01/20at 12:36; Start 09/27/20 at 14:30; Stop 10/01/20 at 12:29; Status DC Ibuprofen (Motrin) 600 mg PRN Q6HRS PRN PO INFLAMMATION Last administered on 09/26/20at 19:44; Start 09/26/20 at 18:30 Insulin Human Lispro (HumaLOG) 0-9 UNITS QIDACHS SQ Last administered on 09/30/20at 17:00; Start 09/27/20 at 07:30; Stop 09/30/20 at 19:30; Status DC Insulin Glargine (Lantus Syringe) 10 unit QHS SQ Last administered on 10/01/20at 20:40; Start 09/27/20 at 21:00; Stop 10/02/20 at 09:54; Status DC Lorazepam (Ativan) 1 mg PRN Q6HRS PRN PO ANXIETY / AGITATION; Start 09/27/20 at 10:45; Stop 09/28/20 at 12:54; Status DC Lorazepam (Ativan) 2 mg PRN Q6HRS PRN PO ANXIETY / AGITATION Last administered on 09/28/20at 10:43; Start 09/27/20 at 10:45; Stop 09/28/20 at 12:54; Status DC Morphine Sulfate (Morphine Sulfate) 2 mg 1X ONCE IV Last administered on 09/27/20at 11:06; Start 09/27/20 at 11:00; Stop 09/27/20 at 11:01; Status DC Metoprolol Tartrate (Lopressor) 25 mg BID PO Last administered on 10/08/20at 20:26; Start 09/27/20 at 12:00 Tamsulosin HCl (Flomax) 0.4 mg DAILY PO Last administered on 10/08/20at 08:00; Start 09/27/20 at 12:00 Fluticasone/ Vilanterol (Breo Ellipta 100-25 Mcg) 1 puff DAILY INH Last administered on 09/27/20at 14:43; Start 09/27/20 at 12:00 Remdesivir 200 mg/ Sodium Chloride 210 ml @ 210 mls/hr 1X ONCE IV Last administered on 09/27/20at 12:49; Start 09/27/20 at 12:00; Stop 09/27/20 at 12:59; Status DC Acetaminophen/ Hydrocodone Bitart (Lortab 5/325) 1 tab PRN Q4HRS PRN PO MODERATE PAIN 4-6 Last administered on 09/28/20at 05:11; Start 09/27/20 at 21:45 Lorazepam (Ativan Inj) 2 mg PRN Q4HRS PRN IVP ANXIETY / AGITATION Last administered on 09/29/20at 09:24; Start 09/28/20 at 13:00 Haloperidol Lactate (Haldol Inj) 5 mg PRN Q6HRS PRN IVP AGITATION - 2ND CHOICE Last administered on 09/29/20at 08:06; Start 09/28/20 at 17:15 Ziprasidone (Geodon Im) 20 mg 1X ONCE IM Last administered on 09/28/20at 19:33; Start 09/28/20 at 17:15; Stop 09/28/20 at 17:16; Status DC Amlodipine Besylate (Norvasc) 10 mg DAILY PO Last administered on 10/10/20at 08:38; Start 09/29/20 at 09:00 Dexmedetomidine HCl 400 mcg/ Sodium Chloride 100 ml @ 0 mls/hr CONT PRN IV PER PROTOCOL Last administered on 10/11/20at 02:27; Start 09/29/20 at 09:00 Sodium Chloride 500 ml @ 500 mls/hr 1X PRN PRN IV SEE COMMENTS; Start 09/29/20 at 09:00 Atropine Sulfate (ATROPINE 0.5mg SYRINGE) 0.5 mg PRN Q5MIN PRN IV SEE COMMENTS; Start 09/29/20 at 09:00 Fentanyl Citrate 30 ml @ 0 mls/hr CONT PRN IV SEE PROTOCOL Last administered on 10/10/20at 22:12; Start 09/29/20 at 10:00 Propofol 100 ml @ 0 mls/hr CONT PRN IV PER PROTOCOL Last administered on 10/11/20at 05:54; Start 09/29/20 at 10:00 Fentanyl Citrate (Fentanyl 2ml Vial) 25 mcg PRN Q1HR PRN IV SEE COMMENTS; Start 09/29/20 at 10:00 Fentanyl Citrate (Fentanyl 2ml Vial) 50 mcg PRN Q1HR PRN IV SEE COMMENTS; Start 09/29/20 at 10:00 Morphine Sulfate (Morphine Sulfate) 2 mg PRN Q1HR PRN IV SEE COMMENTS.; Start 09/29/20 at 10:00; Stop 10/07/20 at 03:45; Status DC Morphine Sulfate (Morphine Sulfate) 4 mg PRN Q1HR PRN IV SEE COMMENTS.; Start 09/29/20 at 10:00; Stop 10/07/20 at 03:45; Status DC Midazolam HCl 100 ml @ 0 mls/hr CONT PRN IV SEE PROTOCOL Last administered on 10/09/20at 06:39; Start 09/29/20 at 10:00 Norepinephrine Bitartrate 8 mg/ Dextrose 258 ml @ 18.692 mls/ hr CONT PRN IV PER PROTOCOL Last administered on 09/29/20at 10:28; Start 09/29/20 at 10:15 Succinylcholine Chloride (Anectine) 100 mg 1X ONCE IV Last administered on 09/29/20at 10:25; Start 09/29/20 at 10:30; Stop 09/29/20 at 10:31; Status DC Etomidate (Amidate) 12 mg 1X ONCE IV Last administered on 09/29/20at 10:24; Start 09/29/20 at 10:30; Stop 09/29/20 at 10:31; Status DC Vecuronium Wrens (Norcuron Bolus) 6 mg PRN Q2HR PRN IV VENTILATOR COMPLIANCE Last administered on 10/06/20at 16:19; Start 09/29/20 at 10:45 Sodium Chloride 1,000 ml @ 75 mls/hr [id number] IV Last administered on 10/07/20at 05:00; Start 09/30/20 at 05:45; Stop 10/07/20 at 10:03; Status DC Propofol (Diprivan) 1,000 mg STK-MED ONCE IV ; Start 09/29/20 at 10:15; Stop 09/30/20 at 12:58; Status DC Insulin Human Lispro (HumaLOG) 0-9 UNITS Q6HRS SQ Last administered on 10/04/20at 06:05; Start 10/01/20 at 00:00; Stop 10/04/20 at 10:41; Status DC Insulin Glargine (Lantus Syringe) 15 unit QHS SQ Last administered on 10/02/20at 20:14; Start 10/02/20 at 21:00; Stop 10/03/20 at 09:30; Status DC Insulin Glargine (Lantus Syringe) 20 unit QHS SQ Last administered on 10/05/20at 22:22; Start 10/03/20 at 21:00; Stop 10/06/20 at 07:34; Status DC Insulin Human Lispro (HumaLOG) 10 units TIDAC SQ Last administered on 10/04/20at 17:27; Start 10/04/20 at 11:30; Stop 10/05/20 at 10:15; Status DC Insulin Human Lispro (HumaLOG) 0-7 UNITS Q6HRS SQ Last administered on 10/11/20at 06:31; Start 10/04/20 at 12:00 Insulin Human Lispro (HumaLOG) 10 units Q6HRS SQ Last administered on 10/06/20at 06:00; Start 10/05/20 at 12:00; Stop 10/06/20 at 07:34; Status DC Insulin Glargine (Lantus Syringe) 20 unit BID SQ Last administered on 10/10/20at 08:40; Start 10/06/20 at 09:00 Insulin Human Lispro (HumaLOG) 15 units Q6HRS SQ Last administered on 10/09/20at 00:36; Start 10/06/20 at 12:00 Furosemide (Lasix) 40 mg DAILY IVP Last administered on 10/10/20at 09:15; Start 10/07/20 at 11:00 Albumin Human 500 ml @ 125 mls/hr DAILY08 IV ; Start 10/08/20 at 09:00; Stop 10/08/20 at 09:21; Status DC Albumin Human 50 ml @ 50 mls/hr DAILY IV Last administered on 10/10/20at 08:38; Start 10/08/20 at 09:30; Stop 10/10/20 at 10:00; Status DC Active Scripts Active Reported Flomax (Tamsulosin Hcl) 0.4 Mg Cap.er.24h 1 Cap PO DAILY Semglee (Insulin Glargine,Hum.rec.anlog) 100 Unit/1 Ml Vial 20 Unit SQ QHS Semglee (Insulin Glargine,Hum.rec.anlog) 100 Unit/1 Ml Vial 30 Unit SQ QAM Novolin R (Insulin Regular, Human) 100 Unit/1 Ml Vial 100 Unit IJ SSI PRN Naproxen 500 Mg Tablet 1 Tab PO BID PRN 30 Days Metoprolol Tartrate 25 Mg Tablet 1 Tab PO BID Alvesco (Ciclesonide) 6.1 Gm Hfa.aer.ad 6.1 Gm IH Q12HR Proair Hfa Inhaler (Albuterol Sulfate) 8.5 Gm Hfa.aer.ad 2 Puff IH PRN Q4-6HRS PRN 21 Days Vitals/I & O Vital Sign - Last 24 Hours 10/10/20 10/10/20 10/10/20 10/10/20 08:32 08:38 09:00 10:00 Pulse 53 54 48 Resp 18 18 B/P (MAP) 120/65 124/77 (93) 110/64 (79) Pulse Ox 96 97 96 O2 Delivery Ventilator Ventilator Ventilator 10/10/20 10/10/20 10/10/20 10/10/20 11:00 11:30 12:00 12:00 Temp 98.0 98.0 Pulse 59 50 Resp 18 18 B/P (MAP) 109/66 (80) 122/72 (89) Pulse Ox 96 95 96 O2 Delivery Ventilator Ventilator Mechanical Ventilator Ventilator 10/10/20 10/10/20 10/10/20 10/10/20 13:00 14:00 15:00 16:00 Temp 98.5 98.5 Pulse 52 50 54 58 Resp 18 18 18 18 B/P (MAP) 130/75 (93) 122/71 (88) 137/74 (95) 127/70 (89) Pulse Ox 96 96 97 97 O2 Delivery Ventilator Ventilator Ventilator Ventilator 10/10/20 10/10/20 10/10/20 10/10/20 16:00 16:58 17:00 18:00 Pulse 54 56 Resp 18 18 B/P (MAP) 136/71 (92) 138/75 (96) Pulse Ox 96 97 97 O2 Delivery Mechanical Ventilator Ventilator Ventilator Ventilator 10/10/20 10/10/20 10/10/20 10/10/20 19:00 20:00 20:00 20:31 Temp 98.8 98.8 Pulse 56 56 Resp 18 18 B/P (MAP) 125/68 (87) 125/68 (87) Pulse Ox 94 94 93 O2 Delivery Ventilator Mechanical Ventilator Ventilator Ventilator 10/10/20 10/10/20 10/10/20 10/10/20 21:00 21:00 22:00 22:12 Pulse 50 50 50 Resp 18 18 B/P (MAP) 128/71 128/71 (90) 131/71 (91) Pulse Ox 95 94 95 O2 Delivery Ventilator Ventilator O2 Flow Rate 15.0 10/10/20 10/10/20 10/10/20 10/11/20 22:42 23:00 23:53 00:00 Temp 98.3 98.3 Pulse 50 50 Resp 18 18 B/P (MAP) 124/69 (87) 154/91 (112) Pulse Ox 95 95 95 94 O2 Delivery Ventilator Ventilator Ventilator O2 Flow Rate 15.0 10/11/20 10/11/20 10/11/20 10/11/20 00:00 01:00 02:00 02:46 Pulse 49 48 Resp 18 17 B/P (MAP) 121/71 (88) 119/69 (86) Pulse Ox 93 94 94 O2 Delivery Mechanical Ventilator Ventilator Ventilator Ventilator 10/11/20 10/11/20 10/11/20 10/11/20 03:00 04:00 04:00 05:00 Temp 97.8 97.8 Pulse 52 46 47 Resp 17 18 18 B/P (MAP) 116/72 (87) 132/74 (93) 125/75 (92) Pulse Ox 95 95 94 O2 Delivery Ventilator Ventilator Mechanical Ventilator Ventilator 10/11/20 10/11/20 10/11/20 05:17 06:00 07:54 Pulse 46 Resp 17 B/P (MAP) 127/74 (91) Pulse Ox 94 95 94 O2 Delivery Ventilator Ventilator Ventilator Intake and Output 10/10/20 10/10/20 10/11/20 15:00 23:00 07:00 Intake Total 200 ml 1775.12 ml 1184 ml Output Total 1800 ml 1135 ml 1170 ml Balance -1600 ml 640.12 ml 14 ml Justicifation of Admission Dx: Justifications for Admission: Justification of Admission Dx: Yes Comminuty Aquired Pneumonia: Hypoxemia NIRANJAN KIM MD Oct 11, 2020 08:23
--- NOTE | 2020-10-11 08:23 | RAD ---
EXAM: XR CHEST 1V 10/11/2020 5:08 AM CLINICAL INDICATION: Covid COMPARISON: Chest radiograph 10/08/2020 TECHNIQUE: AP semiupright view of the chest FINDINGS: The endotracheal tube terminates 5.6 cm above the fran. A right internal jugular central venous catheter tip projects over the superior cavoatrial junction. The nasogastric tube is coiled i n the stomach. The cardiac silhouette is stable. Pulmonary opacities are unchanged to slightly increa sed on the left and unchanged on the right. Small left pleural effusion is unchanged. No pneumothorax . IMPRESSION: Bilateral pulmonary opacities, unchanged to slightly increased on the left. Electronically signed by: Lisa Beebe MD (10/11/2020 8:20 AM) [id number]
[2020-10-11] MEDS: PANTOPRAZOLE IV PUSH 40 MG VIAL. IVP SCH (09:50)
[2020-10-11] MEDS: FLUTICASONE 50MCG/NASAL SPRAY 16GM BOTTLE. NS SCH (09:50)
[2020-10-11] MEDS: FLUTICASONE/VILANTEROL 100/25 INHALER. INH SCH (09:50)
[2020-10-11] MEDS: TAMSULOSIN 0.4 MG CAP.ER.24H. PO SCH (09:51)
[2020-10-11] MEDS: METOPROLOL TART IMMED RELEASE 25 MG TABLET. PO SCH ×2 (09:51→20:33)
[2020-10-11] MEDS: INSULIN GLARGINE SYRINGE. SQ SCH ×2 (09:52→21:00)
[2020-10-11] MEDS: FUROSEMIDE 40 MG/4 ML VIAL. IVP SCH (09:57)
--- NOTE | 2020-10-11 10:18 | PDOC ---
PULMONARY PROGRESS NOTES DATE: 10/11/20 TIME: 10:14 Subjective remains on vent support 50% and PEEP of 5 did not tolerate PS 10/10/20 No overnight events afebrile Vitals Vital Signs Date Time Temp Pulse Resp B/P (MAP) Pulse Ox O2 Delivery O2 Flow Rate FiO2 10/11/20 09:51 46 127/74 10/11/20 07:54 94 Ventilator 10/11/20 06:00 17 10/11/20 04:00 97.8 97.8 10/10/20 22:42 15.0 Comments Patient seen during the COVID- pandemic, and visual inspection of BiPAP no respiratory distress no paroxysmal breathing pattern no increasing edema no new rash Labs Laboratory Tests Test 10/09/20 11:50 10/10/20 00:15 10/10/20 06:00 10/10/20 06:16 Glucose (Fingerstick) 155 mg/dL (70-99) 164 mg/dL (70-99) 179 mg/dL (70-99) White Blood Count 7.8 x10^3/uL (4.0-11.0) Red Blood Count 3.86 x10^6/uL (4.30-5.70) Hemoglobin 12.7 g/dL (13.0-17.5) Hematocrit 37.1 % (39.0-53.0) Mean Corpuscular Volume 96 fL (79-100) Mean Corpuscular Hemoglobin 33 pg (25-35) Mean Corpuscular Hemoglobin Concent 34 g/dL (31-37) Red Cell Distribution Width 14.3 % (11.5-14.5) Platelet Count 61 x10^3/uL (140-400) Neutrophils (%) (Auto) 66 % (31-73) Lymphocytes (%) (Auto) 18 % (24-48) Monocytes (%) (Auto) 15 % (0-9) Eosinophils (%) (Auto) 1 % (0-3) Basophils (%) (Auto) 0 % (0-3) Neutrophils # (Auto) 5.2 x10^3/uL (1.8-7.7) Lymphocytes # (Auto) 1.4 x10^3/uL (1.0-4.8) Monocytes # (Auto) 1.1 x10^3/uL (0.0-1.1) Eosinophils # (Auto) 0.1 x10^3/uL (0.0-0.7) Basophils # (Auto) 0.0 x10^3/uL (0.0-0.2) Sodium Level 139 mmol/L (136-145) Potassium Level 3.9 mmol/L (3.5-5.1) Chloride Level 104 mmol/L (98-107) Carbon Dioxide Level 34 mmol/L (21-32) Anion Gap 1 (6-14) Blood Urea Nitrogen 20 mg/dL (8-26) Creatinine 0.6 mg/dL (0.7-1.3) Estimated GFR (Cockcroft-Gault) 137.9 Glucose Level 187 mg/dL (70-99) Calcium Level 7.8 mg/dL (8.5-10.1) Magnesium Level 1.7 mg/dL (1.8-2.4) Test 10/10/20 08:40 10/10/20 11:26 10/10/20 12:35 10/10/20 18:06 O2 Saturation 97 % (92-99) 97 % (92-99) Arterial Blood pH 7.50 (7.35-7.45) 7.49 (7.35-7.45) Arterial Blood pCO2 at Patient Temp 41 mmHg (35-46) 46 mmHg (35-46) Arterial Blood pO2 at Patient Temp 83 mmHg (65-108) 86 mmHg (65-108) Arterial Blood HCO3 32 mmol/L (21-28) 34 mmol/L (21-28) Arterial Blood Base Excess 8 mmol/L (-3-3) 9 mmol/L (-3-3) FiO2 50 50 cpap trial Glucose (Fingerstick) 138 mg/dL (70-99) 156 mg/dL (70-99) Test 10/10/20 21:33 10/10/20 23:58 10/11/20 05:00 10/11/20 06:19 Glucose (Fingerstick) 107 mg/dL (70-99) 167 mg/dL (70-99) 197 mg/dL (70-99) White Blood Count 7.4 x10^3/uL (4.0-11.0) Red Blood Count 3.91 x10^6/uL (4.30-5.70) Hemoglobin 12.5 g/dL (13.0-17.5) Hematocrit 37.1 % (39.0-53.0) Mean Corpuscular Volume 95 fL (79-100) Mean Corpuscular Hemoglobin 32 pg (25-35) Mean Corpuscular Hemoglobin Concent 34 g/dL (31-37) Red Cell Distribution Width 14.5 % (11.5-14.5) Platelet Count 64 x10^3/uL (140-400) Neutrophils (%) (Auto) 68 % (31-73) Lymphocytes (%) (Auto) 19 % (24-48) Monocytes (%) (Auto) 12 % (0-9) Eosinophils (%) (Auto) 2 % (0-3) Basophils (%) (Auto) 0 % (0-3) Neutrophils # (Auto) 5.1 x10^3/uL (1.8-7.7) Lymphocytes # (Auto) 1.4 x10^3/uL (1.0-4.8) Monocytes # (Auto) 0.9 x10^3/uL (0.0-1.1) Eosinophils # (Auto) 0.1 x10^3/uL (0.0-0.7) Basophils # (Auto) 0.0 x10^3/uL (0.0-0.2) Test 10/11/20 07:57 O2 Saturation 95 % (92-99) Arterial Blood pH 7.51 (7.35-7.45) Arterial Blood pCO2 at Patient Temp 41 mmHg (35-46) Arterial Blood pO2 at Patient Temp 69 mmHg (65-108) Arterial Blood HCO3 32 mmol/L (21-28) Arterial Blood Base Excess 8 mmol/L (-3-3) FiO2 50% vent Laboratory Tests Test 10/10/20 11:26 10/10/20 12:35 10/10/20 18:06 10/10/20 21:33 Glucose (Fingerstick) 138 mg/dL (70-99) 156 mg/dL (70-99) 107 mg/dL (70-99) O2 Saturation 97 % (92-99) Arterial Blood pH 7.49 (7.35-7.45) Arterial Blood pCO2 at Patient Temp 46 mmHg (35-46) Arterial Blood pO2 at Patient Temp 86 mmHg (65-108) Arterial Blood HCO3 34 mmol/L (21-28) Arterial Blood Base Excess 9 mmol/L (-3-3) FiO2 50 cpap trial Test 10/10/20 23:58 10/11/20 05:00 10/11/20 06:19 10/11/20 07:57 Glucose (Fingerstick) 167 mg/dL (70-99) 197 mg/dL (70-99) White Blood Count 7.4 x10^3/uL (4.0-11.0) Red Blood Count 3.91 x10^6/uL (4.30-5.70) Hemoglobin 12.5 g/dL (13.0-17.5) Hematocrit 37.1 % (39.0-53.0) Mean Corpuscular Volume 95 fL (79-100) Mean Corpuscular Hemoglobin 32 pg (25-35) Mean Corpuscular Hemoglobin Concent 34 g/dL (31-37) Red Cell Distribution Width 14.5 % (11.5-14.5) Platelet Count 64 x10^3/uL (140-400) Neutrophils (%) (Auto) 68 % (31-73) Lymphocytes (%) (Auto) 19 % (24-48) Monocytes (%) (Auto) 12 % (0-9) Eosinophils (%) (Auto) 2 % (0-3) Basophils (%) (Auto) 0 % (0-3) Neutrophils # (Auto) 5.1 x10^3/uL (1.8-7.7) Lymphocytes # (Auto) 1.4 x10^3/uL (1.0-4.8) Monocytes # (Auto) 0.9 x10^3/uL (0.0-1.1) Eosinophils # (Auto) 0.1 x10^3/uL (0.0-0.7) Basophils # (Auto) 0.0 x10^3/uL (0.0-0.2) O2 Saturation 95 % (92-99) Arterial Blood pH 7.51 (7.35-7.45) Arterial Blood pCO2 at Patient Temp 41 mmHg (35-46) Arterial Blood pO2 at Patient Temp 69 mmHg (65-108) Arterial Blood HCO3 32 mmol/L (21-28) Arterial Blood Base Excess 8 mmol/L (-3-3) FiO2 50% vent Medications Active Scripts Medications Dose Route/Sig Max Daily Dose Days Date Category Flomax (Tamsulosin Hcl) 0.4 Mg Cap.er.24h 1 Cap PO DAILY 09/26/20 Reported Semglee (Insulin Glargine,Hum.rec.anlog) 100 Unit/1 Ml Vial 20 Unit SQ QHS 09/26/20 Reported Semglee (Insulin Glargine,Hum.rec.anlog) 100 Unit/1 Ml Vial 30 Unit SQ QAM 09/26/20 Reported Novolin R (Insulin Regular, Human) 100 Unit/1 Ml Vial 100 Unit IJ SSI PRN 09/26/20 Reported Naproxen 500 Mg Tablet 1 Tab PO BID PRN 30 09/26/20 Reported Metoprolol Tartrate 25 Mg Tablet 1 Tab PO BID 09/26/20 Reported Alvesco (Ciclesonide) 6.1 Gm Hfa.aer.ad 6.1 Gm IH Q12HR 09/26/20 Reported Proair Hfa Inhaler (Albuterol Sulfate) 8.5 Gm Hfa.aer.ad 2 Puff IH PRN Q4-6HRS PRN 21 09/26/20 Reported Impression . IMPRESSION: 1. Acute hypoxemic respiratory failure secondary to COVID-19./ARDS 2. COVID-19 viral pneumonia. 3. Possible bacterial pneumonia. 4. Other comorbidities including chronic obstructive pulmonary disease with acute exacerbation, tobacco dependent, chronic back pain and hypertension. 5. Abnormal chest x-ray with bilateral interstitial infiltrates related to COVID-19 pneumonia. 6. Status post intubation 09/29 Chest x-ray from 730, reviewed no significant consolidation improving. Plan . Updated 10/11/20 Continue current vent support 50% and PEEP of 5, pt. didn't tolerate PS 10/10/20, attempt weaning trial again today Follow CXR/ABG --reviewed Patient has Finished course of antibiotics, remdesivir and steroids Continue nutrional support DVT/GI PPX:lovenox D/W RN and RT Updated 10/10/20 Continue current vent support 50% and PEEP of 5, PS trial today with ABG Follow CXR/ABG --reviewed Continue antibiotics, remdesivir and steroids Continue nutrional support DVT/GI PPX:lovenox D/W RN and RT Updated 10/09 ABG noted, discussed with RT, will proceed with trial Discussed with SAMUEL NIÑO sedation Finish course of antibiotics and remdesivir Continue steroids DVT GI prophylaxis Labs, pending, per PCP updated 10/08 Chest x-ray read ABG noted, PaO2 of 90 Discussed with RN, decrease sedation, possible trial Decrease PEEP Finish course of antibiotics and remdesivir Steroids Nutritional support DVT prophylaxis Updated 10/07 Patient making slow improve ABG noted PaO2 of 82 Continue assist control ventilation Status post remdesivir Monitor off of antibiotics Steroids Discussed with RN, start decreasing sedation possible trial YVAN ZEE MD Oct 11, 2020 10:18
[2020-10-11 11:09] LABS: CALCIUM 7.8 mg/dL (8.5-10.1); CREATININE 0.4 mg/dL (0.7-1.3); GFR 220.2; MAGNESIUM 1.6 mg/dL (1.8-2.4); POTASSIUM 3.5 mmol/L (3.5-5.1)
[2020-10-11] MEDS ORDERED: MAGNESIUM SULFATE 2GM 50 ML IV ONE (14:15)
--- NOTE | 2020-10-11 15:25 | RAD ---
EXAM: Abdomen, single view. HISTORY: Distention. COMPARISON: None. FINDINGS: A frontal view of the abdomen is obtained. There is a moderate amount of gas and stool thro ughout the colon and within the rectum, the latter which is partially excluded from the [id number] . There is mild gaseous distention of the stomach. There is a nasogastric tube within the stomach. Th ere is no evidence of bowel obstruction. There are degenerative changes involving the spine. There ar e postoperative changes at the lumbosacral junction. IMPRESSION: Moderate colonic gas and stool. No evidence of bowel obstruction. Electronically signed by: Vanessa Esposito MD (10/11/2020 3:23 PM) [id number]
[2020-10-11] MEDS ORDERED: PIP/TAZO PER PHARMACY MC PRN (16:30)
--- NOTE | 2020-10-11 17:46 | RAD ---
US ABDOMEN COMPLETE History: Excessive tube feed residuals. Comparison: CTA chest 09/25/2020. Ultrasound abdomen 09/25/2020. Technique: Sonographic examination of the abdomen. Findings: Pancreas: Not well visualized. Liver: The liver measures 14.7 cm. Liver echotexture is coarsened. No focal hepatic lesions. Promin ent hepatic arteries are demonstrated. Provided images of the questioned portal vein without color Do ppler flow. Gallbladder: No gallstones, wall thickening or pericholecystic fluid. Sonographic Eldridge's sign is re portedly negative. Bile ducts: The common duct measures 8 mm. Right kidney: 12.6 cm length. No focal lesion, calculi or hydronephrosis. Left kidney: 14.7 cm length. No focal lesion, calculi or hydronephrosis. Spleen: 15.5 cm length. No focal lesion. Aorta/IVC: Not well visualized. Other: No ascites. Left pleural effusion. Impression: 1. No main portal vein color Doppler flow identified concerning for portal vein thrombosis. Associat ed splenomegaly. 2. Coarsened hepatic echogenicity likely relates to cirrhosis. No ascites seen. Electronically signed by: Hernando Acharya MD (10/11/2020 5:44 PM) [facility]
[2020-10-11] MEDS: PIPERACILLIN/TAZOBACTAM 3.375 GM in IV NORMAL SALINE 50ML 50 ML IV SCH ×2 (17:55→23:13)
[2020-10-11 19:11] LABS: BILIRUBIN,URINE NEGATIVE (NEG); CLARITY,URINE CLOUDY; COLOR,URINE AMBER; NITRITE,URINE NEGATIVE (NEG); PH,URINE 6.5 (<5.0-8.0); PROTEIN,URINE NEGATIVE (NEG-TRACE)
[2020-10-11 19:24] LABS: BACTERIA,URINE FEW /HPF (0-FEW); RBC,URINE 20-40 /HPF (0-2); WBC,URINE TNTC /HPF (0-4)
[2020-10-11 19:25] LABS: YEAST,URINE PRESENT /HPF
[2020-10-11] MEDS: ENOXAPARIN 40 MG/0.4 ML SYRINGE. SQ SCH (20:33)
[2020-10-12] VITALS (24 sets, daily range): BP systolic 88–181; BP diastolic 53–108
[2020-10-12] MEDS: DEXMEDETOMIDINE 400 MCG in IV NORMAL SALINE 100ML 96 ML IV PRN ×4 (02:54→22:19)
[2020-10-12 05:21] LABS: BASO # 0.1 x10^3/uL (0.0-0.2); BASO % 1 % (0-3); EOS # 0.1 x10^3/uL (0.0-0.7); EOS % 2 % (0-3); HEMATOCRIT 37.6 % (39.0-53.0); HEMOGLOBIN 12.8 g/dL (13.0-17.5); LYMPH # 1.4 x10^3/uL (1.0-4.8); LYMPH % 17 % (24-48); MEAN CORPUSCULAR HEMOGLOBIN 33 pg (25-35); MEAN CORPUSCULAR HGB CONC 34 g/dL (31-37); MEAN CORPUSCULAR VOLUME 95 fL (79-100); MONO # 0.9 x10^3/uL (0.0-1.1); MONO % 10 % (0-9); NEUT # 5.9 x10^3/uL (1.8-7.7); NEUT % 71 % (31-73); PLATELET COUNT 81 x10^3/uL (140-400); RED BLOOD COUNT 3.95 x10^6/uL (4.30-5.70); RED CELL DISTRIBUTION WIDTH 14.3 % (11.5-14.5); WHITE BLOOD COUNT 8.4 x10^3/uL (4.0-11.0)
[2020-10-12 05:49] LABS: ALBUMIN 1.7 g/dL (3.4-5.0); ALBUMIN/GLOBULIN RATIO 0.5 (1.0-1.7); CALCIUM 7.7 mg/dL (8.5-10.1); CREATININE 0.5 mg/dL (0.7-1.3); GFR 170.2; MAGNESIUM 1.9 mg/dL (1.8-2.4); POTASSIUM 3.4 mmol/L (3.5-5.1); TOTAL BILIRUBIN 0.7 mg/dL (0.2-1.0); TOTAL PROTEIN 5.2 g/dL (6.4-8.2)
[2020-10-12] MEDS: INSULIN LISPRO 300 UNITS/3 ML VIAL. SQ SCH ×4 (06:00→17:02)
[2020-10-12] MEDS: PIPERACILLIN/TAZOBACTAM 3.375 GM in IV NORMAL SALINE 50ML 50 ML IV SCH ×4 (06:10→23:17)
--- NOTE | 2020-10-12 08:43 | PDOC ---
PROGRESS NOTES Date of Service: DATE: 10/12/20 TIME: 08:43 Chief Complaint Chief Complaint COVID-19 respiratory failure requiring intubation COPD Cirrhosis Severe pneumonia Remote history of alcohol issues mediastinal adenopathy Hyperglycemia and diabetes Severe protein calorie malnutrition Hypomagnesemia History of Present Illness History of Present Illness 10/12/2020 59 year old male presented via EMS from [facility] with work of breathing x2 days with low O2 Sat at facility down to 78% on RA. known history of COPD and cough. Patient seen and examined in the [place] [address] ICU He remains mechanically ventilated Mediastinal adenopathy, malignancy is not excluded.suggest follow-up CT of the chest in 3 months. AC/18/500/50 percent with 5 of PEEP We might do a weaning trial later today He has a 2 cm blister on his left forearm We aspirated it was mostly clear OG running at 60 cc/h Sedated with Dex Chart reviewed Discussed with RN Finished course of antibiotics, remdesivir and steroids, start iv zosyn 10-11 Continue nutrional support HYPOTHERMIC , ID CONSULT, BLOOD CULTURE 32 min cc time 10/11/2020 59 year old male presented via EMS from [facility] with work of breathing x2 days with low O2 Sat at facility down to 78% on RA. known history of COPD and cough. Patient seen and examined in the [place] [address] ICU He remains mechanically ventilated Mediastinal adenopathy, malignancy is not excluded.suggest follow-up CT of the chest in 3 months. AC/18/500/50 percent with 5 of PEEP We might do a weaning trial later today He has a 2 cm blister on his left forearm We aspirated it was mostly clear OG running at 60 cc/h Sedated with Dex Chart reviewed Discussed with RN Finished course of antibiotics, remdesivir and steroids Continue nutrional support HYPOTHERMIC , ID CONSULT, BLOOD CULTURE 36 min cc time 10/10/2020 Patient seen and examined in the [place] [address] ICU He remains mechanically ventilated AC/18/500/50 percent with 5 of PEEP We might do a weaning trial later today He has a 2 cm blister on his left forearm We aspirated it was mostly clear OG running at 60 cc/h Sedated with Dex Chart reviewed Discussed with RN 10/09/2020 Patient seen and examined in the [place] [address] ICU He is on the vent AC/18/500/50 percent with 5 of PEEP 2 corrections officers are present Patient is shackled left arm and left leg Has IV albumin hanging Sedated with fentanyl and Versed Chart reviewed Discussed with RN Has OG feeds running 10/08/2020 Patient seen and examined in the [place] [address] ICU He is still intubated AC/18/500/50 percent with 5 of PEEP We are possibly going to trial him today Has OG feeds running at 60 cc an hour Has SCDs on Olsen to bedside drainage Corrections officers are present Patient is shackled Sedated with fentanyl and Versed Discussed with RN Chart reviewed 10/07/2020 Patient seen and examined in the [place] [address] ICU He remains on the ventilator Assist-control/18/500/50 percent with 7 of PEEP Sedated with Versed and fentanyl Shackled to the bed with 2 corrections officers present Chart reviewed Discussed with RN He is critically ill 10/06/2020 Patient seen and examined in the [place] [address] ICU He has corrections officers present He is shackled on his left ankle Still remains on the vent AC/18/500/50 5% with 7 of PEEP Sedated with Versed and fentanyl Chart reviewed Discussed with RN He remains very critically ill 10/05/2020 Patient seen and examined in the [place] [address] ICU He is still intubated AC/20/500/60 5% with 7 of PEEP Discussed with RN Patient with OG feeds running Mitts for patient safety Has Olsen to bedside drainage 2 corrections officers are present Patient is shackled Sedated with fentanyl and Versed He remains very critically ill 10/04/2020 Patient seen and examined in the [place] [address] ICU He remains intubated Shackled AC/20/500/60 5% with 8 of PEEP He has OG feeds running Has mitts on for patient safety Has SCDs in place Olsen to bedside drainage He is sedated with fentanyl and Versed Discussed with RN His glucose is running a little high we are adding in scheduled NovoLog 10 units 3 times daily and continue the sliding scale and Lantus 20 a day Chart reviewed He remains very critically ill Corrections officers are present 59 year old male presented via EMS from [facility] with work of breathing x2 days with low O2 Sat at facility down to 78% on RA. known history of COPD and cough. Patient also complains of headache. EMS noted patient was 84% and tripoding on 3 L nasal cannula. EMS reports giving a DuoNeb treatment x2 in route and placement nonrebreather with subsequent improvement in up to 95%. remote alcohol abuse YRS AGO , smoked until one month ago when he was arrested received the [employer] COVID-19 vaccination x1 approximately 5 months ago at the [place]. Patient denies known exposure to COVID-19. Panlobular airspace disease,c/w multifocal pneumonia. PUI Pulmonary edema less likely. 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 Remote alcohol abuse "6-8 cans of beer a day years ago" Thickened distal esophagus with 9 x 10 mm luminal density, likely ingested medication tablet. Mediastinal adenopathy, malignancy is not excluded.suggest follow-up CT of the chest in 3 months. / Hyperglycemia on accuchecks // Severe protein-caloric malnutrition CTA CHEST C/W Panlobular airspace disease, most likely multifocal pneumonia. 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 Patient tolerating BiPAP and saturating 91%. Started patient on IV Protonix because he is still on steroids. And has a history of esophageal varices. Patient's chart, labs, images were reviewed and discussed with RN 09/27/20 Patient evaluated at bedside He was having laboring respirations initially on the BiPAP concerned patient may need ICU transfer however was given a dose of Ativan and was able to calm down and respiratory status improved Continue steroids Pulmonary consult Plan of care discussed with bedside RN 09/28/20 Patient evaluated bedside He was on BiPAP required to be increased 100% FiO2 this morning Remains on remdesivir, Decadron, Rocephin, and azithromycin Continuing supportive care Plan of care discussed with bedside nurse 09/29/20 Patient evaluated at bedside Patient remains significantly agitated and anxious despite aggressive medication measures while on BiPAP BiPAP settings increasing over the past several days and given his agitation will transfer to ICU Continuing remdesivir Decadron Rocephin and azithromycin Plan of care discussed with bedside nurse 09/30/2020: Patient transferred from out to ICU yesterday due to worsening re spiratory distress. He was intubated and currently on vent with FiO2 90% and PEEP of 8. We will continue treatment with remdesivir, steroids, and empiric antibiotics. Critical care time 30 minutes spent reviewing charts, reviewing imaging, reviewing labs, discussion with RN. 10/01/2020: Afebrile. On vent with FiO2 85%, PEEP 8. Continue treatment with remdesivir, steroids, Rocephin and azithromycin. Critical care time 30 minutes spent reviewing charts, imaging, reviewing labs, discussion with RN. 10/02/2020: Afebrile, FiO2 80%, PEEP 5. Finished remdesivir. Continue antibiotics and Decadron. Will increase insulin regimen due to persistent hyperglycemia. Supportive care. Critical care time 30 minutes spent reviewing charts, labs, reviewing imaging, discussion with RN. 10/03/2020: Afebrile, on vent with FiO2 70%, PEEP 5. Still with some significant hyperglycemia. Will increase basal insulin. Finished remdesivir. Will continue antibiotics and steroids. Repeat chest x-ray today. Critical care time 30 minutes spent reviewing charts, labs, reviewing imaging, discussion with RN. Vitals Vitals Vital Signs Date Time Temp Pulse Resp B/P (MAP) Pulse Ox O2 Delivery O2 Flow Rate FiO2 10/12/20 07:38 97 Ventilator 10/12/20 07:00 46 18 131/61 (84) 10/12/20 04:00 98.5 98.5 Physical Exam General: No acute distress, Other (Intubated and sedated) Heart: Regular rate, Normal S1 Abdomen: Normal bowel sounds, Soft, No tenderness, No masses, Other (obese) Extremities: No cyanosis Skin: No rashes Labs LABS PATIENT: BHAVESH SIMMONS ACCOUNT: [id number] : 1960 LOCATION: 1 [facility] AGE: 59 SEX: M EXAM STATUS: ADM IN ORD. PHYSICIAN: NIRANJAN KIM MD REASON: distention; excessive TF residuals PROCEDURE: ABDOMEN COMPLETE US ABDOMEN COMPLETE History: Excessive tube feed residuals. Comparison: CTA chest 09/25/2020. Ultrasound abdomen 09/25/2020. Technique: Sonographic examination of the abdomen. Findings: Pancreas: Not well visualized. Liver: The liver measures 14.7 cm. Liver echotexture is coarsened. No focal hepatic lesions. Prominent hepatic arteries are demonstrated. Provided images of the questioned portal vein without color Doppler flow. Gallbladder: No gallstones, wall thickening or pericholecystic fluid. Sonographic Eldridge's sign is reportedly negative. Bile ducts: The common duct measures 8 mm. Right kidney: 12.6 cm length. No focal lesion, calculi or hydronephrosis. Left kidney: 14.7 cm length. No focal lesion, calculi or hydronephrosis. Spleen: 15.5 cm length. No focal lesion. Aorta/IVC: Not well visualized. Other: No ascites. Left pleural effusion. Impression: 1. No main portal vein color Doppler flow identified concerning for portal vein thrombosis. Associated splenomegaly. 2. Coarsened hepatic echogenicity likely relates to cirrhosis. No ascites seen. Electronically signed by: Hernando Dorado MD (10/11/2020 5:44 PM) [facility] DICTATED and SIGNED BY: HERNANDO DORADO MD DATE: 10/11/20 [id number] Laboratory Tests Test 10/11/20 10:45 10/11/20 12:42 10/11/20 16:43 10/11/20 17:53 Sodium Level 143 mmol/L (136-145) Potassium Level 3.5 mmol/L (3.5-5.1) Chloride Level 107 mmol/L (98-107) Carbon Dioxide Level 31 mmol/L (21-32) Anion Gap 5 (6-14) Blood Urea Nitrogen 15 mg/dL (8-26) Creatinine 0.4 mg/dL (0.7-1.3) Estimated GFR (Cockcroft-Gault) 220.2 Glucose Level 257 mg/dL (70-99) Calcium Level 7.8 mg/dL (8.5-10.1) Magnesium Level 1.6 mg/dL (1.8-2.4) C-Reactive Protein, Quantitative 80.9 mg/L (0-3.3) Glucose (Fingerstick) 243 mg/dL (70-99) 109 mg/dL (70-99) Urine Collection Type Unknown Urine Color Riddhi Urine Clarity Cloudy Urine pH 6.5 (<5.0-8.0) Urine Specific Pitts 1.025 (1.000-1.030) Urine Protein Negative mg/dL (NEG-TRACE) Urine Glucose (UA) Negative mg/dL (NEG) Urine Ketones (Stick) Negative mg/dL (NEG) Urine Blood Large (NEG) Urine Nitrite Negative (NEG) Urine Bilirubin Negative (NEG) Urine Urobilinogen Dipstick 4.0 mg/dL (0.2 mg/dL) Urine Leukocyte Esterase Moderate (NEG) Urine RBC 20-40 /HPF (0-2) Urine WBC Tntc /HPF (0-4) Urine Squamous Epithelial Cells Few /LPF Urine Bacteria Few /HPF (0-FEW) Urine Yeast Present /HPF Test 10/12/20 05:05 10/12/20 06:57 White Blood Count 8.4 x10^3/uL (4.0-11.0) Red Blood Count 3.95 x10^6/uL (4.30-5.70) Hemoglobin 12.8 g/dL (13.0-17.5) Hematocrit 37.6 % (39.0-53.0) Mean Corpuscular Volume 95 fL (79-100) Mean Corpuscular Hemoglobin 33 pg (25-35) Mean Corpuscular Hemoglobin Concent 34 g/dL (31-37) Red Cell Distribution Width 14.3 % (11.5-14.5) Platelet Count 81 x10^3/uL (140-400) Neutrophils (%) (Auto) 71 % (31-73) Lymphocytes (%) (Auto) 17 % (24-48) Monocytes (%) (Auto) 10 % (0-9) Eosinophils (%) (Auto) 2 % (0-3) Basophils (%) (Auto) 1 % (0-3) Neutrophils # (Auto) 5.9 x10^3/uL (1.8-7.7) Lymphocytes # (Auto) 1.4 x10^3/uL (1.0-4.8) Monocytes # (Auto) 0.9 x10^3/uL (0.0-1.1) Eosinophils # (Auto) 0.1 x10^3/uL (0.0-0.7) Basophils # (Auto) 0.1 x10^3/uL (0.0-0.2) Sodium Level 144 mmol/L (136-145) Potassium Level 3.4 mmol/L (3.5-5.1) Chloride Level 109 mmol/L (98-107) Carbon Dioxide Level 32 mmol/L (21-32) Anion Gap 3 (6-14) Blood Urea Nitrogen 15 mg/dL (8-26) Creatinine 0.5 mg/dL (0.7-1.3) Estimated GFR (Cockcroft-Gault) 170.2 BUN/Creatinine Ratio 30 (6-20) Glucose Level 49 mg/dL (70-99) Calcium Level 7.7 mg/dL (8.5-10.1) Magnesium Level 1.9 mg/dL (1.8-2.4) Total Bilirubin 0.7 mg/dL (0.2-1.0) Aspartate Amino Transf (AST/SGOT) 35 U/L (15-37) Alanine Aminotransferase (ALT/SGPT) 35 U/L (16-63) Alkaline Phosphatase 58 U/L (46-116) Total Protein 5.2 g/dL (6.4-8.2) Albumin 1.7 g/dL (3.4-5.0) Albumin/Globulin Ratio 0.5 (1.0-1.7) Glucose (Fingerstick) 83 mg/dL (70-99) Assessment and Plan Assessmemt and Plan Problems Medical Problems: (1) COPD exacerbation Status: Acute (2) Headache Status: Acute (3) Hypoxia Status: Acute (4) Pneumonia Status: Acute (5) Respiratory failure Status: Acute (6) Suspected 2019 novel coronavirus infection Status: Acute Comment Review of Relevant I have reviewed the following items herlinda (where applicable) has been applied. Labs Laboratory Tests Test 10/10/20 11:26 10/10/20 12:35 10/10/20 18:06 10/10/20 21:33 Glucose (Fingerstick) 138 mg/dL (70-99) 156 mg/dL (70-99) 107 mg/dL (70-99) O2 Saturation 97 % (92-99) Arterial Blood pH 7.49 (7.35-7.45) Arterial Blood pCO2 at Patient Temp 46 mmHg (35-46) Arterial Blood pO2 at Patient Temp 86 mmHg (65-108) Arterial Blood HCO3 34 mmol/L (21-28) Arterial Blood Base Excess 9 mmol/L (-3-3) FiO2 50 cpap trial Test 10/10/20 23:58 10/11/20 05:00 10/11/20 06:19 10/11/20 07:57 Glucose (Fingerstick) 167 mg/dL (70-99) 197 mg/dL (70-99) White Blood Count 7.4 x10^3/uL (4.0-11.0) Red Blood Count 3.91 x10^6/uL (4.30-5.70) Hemoglobin 12.5 g/dL (13.0-17.5) Hematocrit 37.1 % (39.0-53.0) Mean Corpuscular Volume 95 fL (79-100) Mean Corpuscular Hemoglobin 32 pg (25-35) Mean Corpuscular Hemoglobin Concent 34 g/dL (31-37) Red Cell Distribution Width 14.5 % (11.5-14.5) Platelet Count 64 x10^3/uL (140-400) Neutrophils (%) (Auto) 68 % (31-73) Lymphocytes (%) (Auto) 19 % (24-48) Monocytes (%) (Auto) 12 % (0-9) Eosinophils (%) (Auto) 2 % (0-3) Basophils (%) (Auto) 0 % (0-3) Neutrophils # (Auto) 5.1 x10^3/uL (1.8-7.7) Lymphocytes # (Auto) 1.4 x10^3/uL (1.0-4.8) Monocytes # (Auto) 0.9 x10^3/uL (0.0-1.1) Eosinophils # (Auto) 0.1 x10^3/uL (0.0-0.7) Basophils # (Auto) 0.0 x10^3/uL (0.0-0.2) O2 Saturation 95 % (92-99) Arterial Blood pH 7.51 (7.35-7.45) Arterial Blood pCO2 at Patient Temp 41 mmHg (35-46) Arterial Blood pO2 at Patient Temp 69 mmHg (65-108) Arterial Blood HCO3 32 mmol/L (21-28) Arterial Blood Base Excess 8 mmol/L (-3-3) FiO2 50% vent Test 10/11/20 10:45 10/11/20 12:42 10/11/20 16:43 10/11/20 17:53 Sodium Level 143 mmol/L (136-145) Potassium Level 3.5 mmol/L (3.5-5.1) Chloride Level 107 mmol/L (98-107) Carbon Dioxide Level 31 mmol/L (21-32) Anion Gap 5 (6-14) Blood Urea Nitrogen 15 mg/dL (8-26) Creatinine 0.4 mg/dL (0.7-1.3) Estimated GFR (Cockcroft-Gault) 220.2 Glucose Level 257 mg/dL (70-99) Calcium Level 7.8 mg/dL (8.5-10.1) Magnesium Level 1.6 mg/dL (1.8-2.4) C-Reactive Protein, Quantitative 80.9 mg/L (0-3.3) Glucose (Fingerstick) 243 mg/dL (70-99) 109 mg/dL (70-99) Urine Collection Type Unknown Urine Color Riddhi Urine Clarity Cloudy Urine pH 6.5 (<5.0-8.0) Urine Specific Pitts 1.025 (1.000-1.030) Urine Protein Negative mg/dL (NEG-TRACE) Urine Glucose (UA) Negative mg/dL (NEG) Urine Ketones (Stick) Negative mg/dL (NEG) Urine Blood Large (NEG) Urine Nitrite Negative (NEG) Urine Bilirubin Negative (NEG) Urine Urobilinogen Dipstick 4.0 mg/dL (0.2 mg/dL) Urine Leukocyte Esterase Moderate (NEG) Urine RBC 20-40 /HPF (0-2) Urine WBC Tntc /HPF (0-4) Urine Squamous Epithelial Cells Few /LPF Urine Bacteria Few /HPF (0-FEW) Urine Yeast Present /HPF Test 10/12/20 05:05 10/12/20 06:57 White Blood Count 8.4 x10^3/uL (4.0-11.0) Red Blood Count 3.95 x10^6/uL (4.30-5.70) Hemoglobin 12.8 g/dL (13.0-17.5) Hematocrit 37.6 % (39.0-53.0) Mean Corpuscular Volume 95 fL (79-100) Mean Corpuscular Hemoglobin 33 pg (25-35) Mean Corpuscular Hemoglobin Concent 34 g/dL (31-37) Red Cell Distribution Width 14.3 % (11.5-14.5) Platelet Count 81 x10^3/uL (140-400) Neutrophils (%) (Auto) 71 % (31-73) Lymphocytes (%) (Auto) 17 % (24-48) Monocytes (%) (Auto) 10 % (0-9) Eosinophils (%) (Auto) 2 % (0-3) Basophils (%) (Auto) 1 % (0-3) Neutrophils # (Auto) 5.9 x10^3/uL (1.8-7.7) Lymphocytes # (Auto) 1.4 x10^3/uL (1.0-4.8) Monocytes # (Auto) 0.9 x10^3/uL (0.0-1.1) Eosinophils # (Auto) 0.1 x10^3/uL (0.0-0.7) Basophils # (Auto) 0.1 x10^3/uL (0.0-0.2) Sodium Level 144 mmol/L (136-145) Potassium Level 3.4 mmol/L (3.5-5.1) Chloride Level 109 mmol/L (98-107) Carbon Dioxide Level 32 mmol/L (21-32) Anion Gap 3 (6-14) Blood Urea Nitrogen 15 mg/dL (8-26) Creatinine 0.5 mg/dL (0.7-1.3) Estimated GFR (Cockcroft-Gault) 170.2 BUN/Creatinine Ratio 30 (6-20) Glucose Level 49 mg/dL (70-99) Calcium Level 7.7 mg/dL (8.5-10.1) Magnesium Level 1.9 mg/dL (1.8-2.4) Total Bilirubin 0.7 mg/dL (0.2-1.0) Aspartate Amino Transf (AST/SGOT) 35 U/L (15-37) Alanine Aminotransferase (ALT/SGPT) 35 U/L (16-63) Alkaline Phosphatase 58 U/L (46-116) Total Protein 5.2 g/dL (6.4-8.2) Albumin 1.7 g/dL (3.4-5.0) Albumin/Globulin Ratio 0.5 (1.0-1.7) Glucose (Fingerstick) 83 mg/dL (70-99) Laboratory Tests Test 10/11/20 10:45 10/11/20 12:42 10/11/20 16:43 10/11/20 17:53 Sodium Level 143 mmol/L (136-145) Potassium Level 3.5 mmol/L (3.5-5.1) Chloride Level 107 mmol/L (98-107) Carbon Dioxide Level 31 mmol/L (21-32) Anion Gap 5 (6-14) Blood Urea Nitrogen 15 mg/dL (8-26) Creatinine 0.4 mg/dL (0.7-1.3) Estimated GFR (Cockcroft-Gault) 220.2 Glucose Level 257 mg/dL (70-99) Calcium Level 7.8 mg/dL (8.5-10.1) Magnesium Level 1.6 mg/dL (1.8-2.4) C-Reactive Protein, Quantitative 80.9 mg/L (0-3.3) Glucose (Fingerstick) 243 mg/dL (70-99) 109 mg/dL (70-99) Urine Collection Type Unknown Urine Color Riddhi Urine Clarity Cloudy Urine pH 6.5 (<5.0-8.0) Urine Specific Pitts 1.025 (1.000-1.030) Urine Protein Negative mg/dL (NEG-TRACE) Urine Glucose (UA) Negative mg/dL (NEG) Urine Ketones (Stick) Negative mg/dL (NEG) Urine Blood Large (NEG) Urine Nitrite Negative (NEG) Urine Bilirubin Negative (NEG) Urine Urobilinogen Dipstick 4.0 mg/dL (0.2 mg/dL) Urine Leukocyte Esterase Moderate (NEG) Urine RBC 20-40 /HPF (0-2) Urine WBC Tntc /HPF (0-4) Urine Squamous Epithelial Cells Few /LPF Urine Bacteria Few /HPF (0-FEW) Urine Yeast Present /HPF Test 10/12/20 05:05 10/12/20 06:57 White Blood Count 8.4 x10^3/uL (4.0-11.0) Red Blood Count 3.95 x10^6/uL (4.30-5.70) Hemoglobin 12.8 g/dL (13.0-17.5) Hematocrit 37.6 % (39.0-53.0) Mean Corpuscular Volume 95 fL (79-100) Mean Corpuscular Hemoglobin 33 pg (25-35) Mean Corpuscular Hemoglobin Concent 34 g/dL (31-37) Red Cell Distribution Width 14.3 % (11.5-14.5) Platelet Count 81 x10^3/uL (140-400) Neutrophils (%) (Auto) 71 % (31-73) Lymphocytes (%) (Auto) 17 % (24-48) Monocytes (%) (Auto) 10 % (0-9) Eosinophils (%) (Auto) 2 % (0-3) Basophils (%) (Auto) 1 % (0-3) Neutrophils # (Auto) 5.9 x10^3/uL (1.8-7.7) Lymphocytes # (Auto) 1.4 x10^3/uL (1.0-4.8) Monocytes # (Auto) 0.9 x10^3/uL (0.0-1.1) Eosinophils # (Auto) 0.1 x10^3/uL (0.0-0.7) Basophils # (Auto) 0.1 x10^3/uL (0.0-0.2) Sodium Level 144 mmol/L (136-145) Potassium Level 3.4 mmol/L (3.5-5.1) Chloride Level 109 mmol/L (98-107) Carbon Dioxide Level 32 mmol/L (21-32) Anion Gap 3 (6-14) Blood Urea Nitrogen 15 mg/dL (8-26) Creatinine 0.5 mg/dL (0.7-1.3) Estimated GFR (Cockcroft-Gault) 170.2 BUN/Creatinine Ratio 30 (6-20) Glucose Level 49 mg/dL (70-99) Calcium Level 7.7 mg/dL (8.5-10.1) Magnesium Level 1.9 mg/dL (1.8-2.4) Total Bilirubin 0.7 mg/dL (0.2-1.0) Aspartate Amino Transf (AST/SGOT) 35 U/L (15-37) Alanine Aminotransferase (ALT/SGPT) 35 U/L (16-63) Alkaline Phosphatase 58 U/L (46-116) Total Protein 5.2 g/dL (6.4-8.2) Albumin 1.7 g/dL (3.4-5.0) Albumin/Globulin Ratio 0.5 (1.0-1.7) Glucose (Fingerstick) 83 mg/dL (70-99) Microbiology 09/25/20 Blood Culture - Final, Complete NO GROWTH AFTER 5 DAYS Medications Current Medications Sodium Chloride 1,000 ml @ 1,000 mls/hr 1X ONCE IV Last administered on 09/25/20at 08:27; Start 09/25/20 at 07:00; Stop 09/25/20 at 07:59; Status DC Dexamethasone Sodium Phosphate (Decadron) 10 mg 1X ONCE IVP Last administered on 09/25/20at 08:24; Start 09/25/20 at 07:00; Stop 09/25/20 at 07:01; Status DC Ketorolac Tromethamine (Toradol 15mg Vial) 15 mg 1X ONCE IVP Last administered on 09/25/20at 09:35; Start 09/25/20 at 09:00; Stop 09/25/20 at 09:01; Status DC Aspirin (Ecotrin) 325 mg 1X ONCE PO Last administered on 09/25/20at 09:35; S tart 09/25/20 at 09:15; Stop 09/25/20 at 09:16; Status DC Iohexol (Omnipaque 350 Mg/ml) 100 ml 1X ONCE IV Last administered on 09/25/20at 10:05; Start 09/25/20 at 10:00; Stop 09/25/20 at 10:01; Status DC Info (CONTRAST GIVEN -- Rx MONITORING) 1 each PRN DAILY PRN MC SEE COMMENTS; Start 09/25/20 at 10:00; Stop 09/27/20 at 09:59; Status DC Azithromycin 250 ml @ 250 mls/hr 1X ONCE IV Last administered on 09/25/20at 11:37; Start 09/25/20 at 10:30; Stop 09/25/20 at 11:29; Status DC Ceftriaxone Sodium (Rocephin) 1 gm 1X ONCE IVP Last administered on 09/25/20at 11:36; Start 09/25/20 at 10:30; Stop 09/25/20 at 10:34; Status DC Ondansetron HCl (Zofran) 4 mg PRN Q8HRS PRN IV NAUSEA/VOMITING Last administered on 09/25/20at 11:33; Start 09/25/20 at 10:45; Stop 09/26/20 at 10:44; Status DC Fentanyl Citrate (Fentanyl 2ml Vial) 50 mcg Q2HR PRN IV PAIN Last administered on 09/26/20at 09:04; Start 09/25/20 at 10:45; Stop 09/26/20 at 10:44; Status DC Insulin Human Lispro (HumaLOG) 0-5 UNITS TIDWMEALS SQ ; Start 09/25/20 at 12:00; Stop 09/26/20 at 11:03; Status DC Dextrose (Dextrose 50%-Water Syringe) 12.5 gm PRN Q15MIN PRN IV SEE COMMENTS; Start 09/25/20 at 10:45; Stop 09/25/20 at 13:01; Status DC Labetalol HCl (Normodyne Iv Push) 20 mg 1X ONCE IVP Last administered on 09/25/20at 12:01; Start 09/25/20 at 12:00; Stop 09/25/20 at 12:01; Status DC Labetalol HCl (Normodyne Iv Push) 20 mg STK-MED ONCE IVP ; Start 09/25/20 at 11:42; Stop 09/25/20 at 11:42; Status DC Magnesium Sulfate/ Dextrose 100 ml @ 100 mls/hr 1X ONCE IV Last administered on 09/25/20at 14:25; Start 09/25/20 at 13:30; Stop 09/25/20 at 14:29; Status DC Azithromycin 250 ml @ 250 mls/hr DAILY07 IV ; Start 09/26/20 at 07:00; Status UNV Ceftriaxone Sodium (Rocephin) 1 gm Q24H IVP ; Start 09/25/20 at 13:00; Status Cancel Sodium Chloride (Normal Saline Flush) 3 ml QSHIFT PRN IV AFTER MEDS AND BLOOD DRAWS; Start 09/25/20 at 13:00 Ondansetron HCl (Zofran) 4 mg PRN Q4HRS PRN IV NAUSEA/VOMITING Last administered on 09/27/20at 11:18; Start 09/25/20 at 13:00 Acetaminophen (Tylenol) 650 mg PRN Q4HRS PRN PO TEMP OVER 100.4F OR MILD PAIN Last administered on 09/26/20at 09:00; Start 09/25/20 at 13:00 Al Hydroxide/Mg Hydroxide (Mylanta Plus Xs) 30 ml PRN DAILY PRN PO HEARTBURN / GAS; Start 09/25/20 at 13:00 Clonidine HCl (Catapres) 0.1 mg PRN Q6HRS PRN PO SBP>160 OR DBP>90 Last administered on 09/27/20at 11:00; Start 09/25/20 at 13:00 Sodium Monofluorophosphate (Fleet Adult) 133 ml PRN DAILY PRN OK CONSTIPATION; Start 09/25/20 at 13:00 Docusate Sodium (Colace) 100 mg PRN BID PRN PO HARD STOOLS Last administered on 10/11/20at 09:55; Start 09/25/20 at 13:00 Albuterol/ Ipratropium (Duoneb) 3 ml Q4HRS NEB ; Start 09/25/20 at 16:00; Stop 09/26/20 at 01:06; Status DC Guaifenesin (Robitussin) 200 mg PRN Q4HRS PRN PO COUGH; Start 09/25/20 at 13:00 Enoxaparin Sodium (Lovenox 40mg Syringe) 40 mg Q24H SQ Last administered on 10/11/20at 20:33; Start 09/25/20 at 21:00 Ceftriaxone Sodium (Rocephin) 1 gm Q24H IVP Last administered on 10/05/20at 09:51; Start 09/26/20 at 09:00; Stop 10/05/20 at 09:04; Status DC Dexamethasone Sodium Phosphate (Decadron) 6 mg DAILY IVP Last administered on 10/07/20at 07:48; Start 09/26/20 at 09:00; Stop 10/07/20 at 13:17; Status DC Insulin Human Lispro (HumaLOG) 0-7 UNITS TIDWMEALS SQ Last administered on 09/26/20at 17:26; Start 09/25/20 at 17:00; Stop 09/27/20 at 07:25; Status DC Dextrose (Dextrose 50%-Water Syringe) 12.5 gm PRN Q15MIN PRN IV SEE COMMENTS Last administered on 10/09/20at 06:12; Start 09/25/20 at 13:00 Azithromycin 500 mg/Sodium Chloride 250 ml @ 250 mls/hr Q24H IV Last administered on 10/03/20at 13:20; Start 09/26/20 at 13:00; Stop 10/04/20 at 13:43; Status DC Hydralazine HCl (Apresoline Inj) 10 mg PRN Q4HRS PRN IVP ELEVATED BP, SEE COMMENTS Last administered on 09/29/20at 08:07; Start 09/25/20 at 13:15 Amlodipine Besylate (Norvasc) 5 mg DAILY PO Last administered on 09/27/20at 08:02; Start 09/25/20 at 13:15; Stop 09/29/20 at 07:44; Status DC Albuterol/ Ipratropium (Combivent Respimat 20-100 Mcg) 1 puff Q4HRS W/A INH Last administered on 09/29/20at 06:07; Start 09/26/20 at 06:00; Stop 09/30/20 at 01:15; Status DC Pantoprazole Sodium (PROTONIX VIAL for IV PUSH) 40 mg DAILYAC IVP Last administered on 10/11/20at 09:50; Start 09/26/20 at 09:00 Fluticasone Propionate (Flonase) 2 spray DAILY NS Last administered on 09/26/20at 11:32; Start 09/26/20 at 10:45 Lactobacillus Rhamnosus (Culturelle) 1 cap BID PO Last administered on 09/30/20at 10:01; Start 09/26/20 at 21:00; Stop 09/30/20 at 10:57; Status DC Remdesivir 200 mg/ Sodium Chloride 210 ml @ 210 mls/hr 1X ONCE IV ; Start 09/26/20 at 14:30; Stop 09/26/20 at 15:29; Status DC Remdesivir 100 mg/ Sodium Chloride 230 ml @ 460 mls/hr Q24H IV Last administered on 10/01/20at 12:36; Start 09/27/20 at 14:30; Stop 10/01/20 at 12:29; Status DC Ibuprofen (Motrin) 600 mg PRN Q6HRS PRN PO INFLAMMATION Last administered on 09/26/20at 19:44; Start 09/26/20 at 18:30 Insulin Human Lispro (HumaLOG) 0-9 UNITS QIDACHS SQ Last administered on 09/30/20at 17:00; Start 09/27/20 at 07:30; Stop 09/30/20 at 19:30; Status DC Insulin Glargine (Lantus Syringe) 10 unit QHS SQ Last administered on 10/01/20at 20:40; Start 09/27/20 at 21:00; Stop 10/02/20 at 09:54; Status DC Lorazepam (Ativan) 1 mg PRN Q6HRS PRN PO ANXIETY / AGITATION; Start 09/27/20 at 10:45; Stop 09/28/20 at 12:54; Status DC Lorazepam (Ativan) 2 mg PRN Q6HRS PRN PO ANXIETY / AGITATION Last administered on 09/28/20at 10:43; Start 09/27/20 at 10:45; Stop 09/28/20 at 12:54; Status DC Morphine Sulfate (Morphine Sulfate) 2 mg 1X ONCE IV Last administered on 09/27/20at 11:06; Start 09/27/20 at 11:00; Stop 09/27/20 at 11:01; Status DC Metoprolol Tartrate (Lopressor) 25 mg BID PO Last administered on 10/08/20at 20:26; Start 09/27/20 at 12:00 Tamsulosin HCl (Flomax) 0.4 mg DAILY PO Last administered on 10/08/20at 08:00; Start 09/27/20 at 12:00 Fluticasone/ Vilanterol (Breo Ellipta 100-25 Mcg) 1 puff DAILY INH Last administered on 09/27/20at 14:43; Start 09/27/20 at 12:00 Remdesivir 200 mg/ Sodium Chloride 210 ml @ 210 mls/hr 1X ONCE IV Last administered on 09/27/20at 12:49; Start 09/27/20 at 12:00; Stop 09/27/20 at 12:59; Status DC Acetaminophen/ Hydrocodone Bitart (Lortab 5/325) 1 tab PRN Q4HRS PRN PO MODERATE PAIN 4-6 Last administered on 09/28/20at 05:11; Start 09/27/20 at 21:45 Lorazepam (Ativan Inj) 2 mg PRN Q4HRS PRN IVP ANXIETY / AGITATION Last administered on 09/29/20at 09:24; Start 09/28/20 at 13:00 Haloperidol Lactate (Haldol Inj) 5 mg PRN Q6HRS PRN IVP AGITATION - 2ND CHOICE Last administered on 09/29/20at 08:06; Start 09/28/20 at 17:15 Ziprasidone (Geodon Im) 20 mg 1X ONCE IM Last administered on 09/28/20at 19:33; Start 09/28/20 at 17:15; Stop 09/28/20 at 17:16; Status DC Amlodipine Besylate (Norvasc) 10 mg DAILY PO Last administered on 10/11/20at 09:51; Start 09/29/20 at 09:00 Dexmedetomidine HCl 400 mcg/ Sodium Chloride 100 ml @ 0 mls/hr CONT PRN IV PER PROTOCOL Last administered on 10/12/20at 02:54; Start 09/29/20 at 09:00 Sodium Chloride 500 ml @ 500 mls/hr 1X PRN PRN IV SEE COMMENTS; Start 09/29/20 at 09:00 Atropine Sulfate (ATROPINE 0.5mg SYRINGE) 0.5 mg PRN Q5MIN PRN IV SEE COMMENTS; Start 09/29/20 at 09:00 Fentanyl Citrate 30 ml @ 0 mls/hr CONT PRN IV SEE PROTOCOL Last administered on 10/11/20at 12:51; Start 09/29/20 at 10:00 Propofol 100 ml @ 0 mls/hr CONT PRN IV PER PROTOCOL Last administered on 10/11/20at 23:13; Start 09/29/20 at 10:00 Fentanyl Citrate (Fentanyl 2ml Vial) 25 mcg PRN Q1HR PRN IV SEE COMMENTS; Start 09/29/20 at 10:00 Fentanyl Citrate (Fentanyl 2ml Vial) 50 mcg PRN Q1HR PRN IV SEE COMMENTS; Start 09/29/20 at 10:00 Morphine Sulfate (Morphine Sulfate) 2 mg PRN Q1HR PRN IV SEE COMMENTS.; Start 09/29/20 at 10:00; Stop 10/07/20 at 03:45; Status DC Morphine Sulfate (Morphine Sulfate) 4 mg PRN Q1HR PRN IV SEE COMMENTS.; Start 09/29/20 at 10:00; Stop 10/07/20 at 03:45; Status DC Midazolam HCl 100 ml @ 0 mls/hr CONT PRN IV SEE PROTOCOL Last administered on 10/09/20at 06:39; Start 09/29/20 at 10:00 Norepinephrine Bitartrate 8 mg/ Dextrose 258 ml @ 18.692 mls/ hr CONT PRN IV PER PROTOCOL Last administered on 09/29/20at 10:28; Start 09/29/20 at 10:15 Succinylcholine Chloride (Anectine) 100 mg 1X ONCE IV Last administered on 09/29/20at 10:25; Start 09/29/20 at 10:30; Stop 09/29/20 at 10:31; Status DC Etomidate (Amidate) 12 mg 1X ONCE IV Last administered on 09/29/20at 10:24; Start 09/29/20 at 10:30; Stop 09/29/20 at 10:31; Status DC Vecuronium Taft (Norcuron Bolus) 6 mg PRN Q2HR PRN IV VENTILATOR COMPLIANCE Last administered on 10/06/20at 16:19; Start 09/29/20 at 10:45 Sodium Chloride 1,000 ml @ 75 mls/hr [id number] IV Last administered on 10/07/20at 05:00; Start 09/30/20 at 05:45; Stop 10/07/20 at 10:03; Status DC Propofol (Diprivan) 1,000 mg STK-MED ONCE IV ; Start 09/29/20 at 10:15; Stop 09/30/20 at 12:58; Status DC Insulin Human Lispro (HumaLOG) 0-9 UNITS Q6HRS SQ Last administered on 10/04/20at 06:05; Start 10/01/20 at 00:00; Stop 10/04/20 at 10:41; Status DC Insulin Glargine (Lantus Syringe) 15 unit QHS SQ Last administered on 10/02/20at 20:14; Start 10/02/20 at 21:00; Stop 10/03/20 at 09:30; Status DC Insulin Glargine (Lantus Syringe) 20 unit QHS SQ Last administered on 10/05/20at 22:22; Start 10/03/20 at 21:00; Stop 10/06/20 at 07:34; Status DC Insulin Human Lispro (HumaLOG) 10 units TIDAC SQ Last administered on 10/04/20at 17:27; Start 10/04/20 at 11:30; Stop 10/05/20 at 10:15; Status DC Insulin Human Lispro (HumaLOG) 0-7 UNITS Q6HRS SQ Last administered on 10/11/20at 12:49; Start 10/04/20 at 12:00 Insulin Human Lispro (HumaLOG) 10 units Q6HRS SQ Last administered on 10/06/20at 06:00; Start 10/05/20 at 12:00; Stop 10/06/20 at 07:34; Status DC Insulin Glargine (Lantus Syringe) 20 unit BID SQ Last administered on 10/11/20at 21:00; Start 10/06/20 at 09:00 Insulin Human Lispro (HumaLOG) 15 units Q6HRS SQ Last administered on 10/09/20at 00:36; Start 10/06/20 at 12:00; Stop 10/11/20 at 15:47; Status DC Furosemide (Lasix) 40 mg DAILY IVP Last administered on 10/11/20at 09:57; Start 10/07/20 at 11:00 Albumin Human 500 ml @ 125 mls/hr DAILY08 IV ; Start 10/08/20 at 09:00; Stop 10/08/20 at 09:21; Status DC Albumin Human 50 ml @ 50 mls/hr DAILY IV Last administered on 10/10/20at 08:38; Start 10/08/20 at 09:30; Stop 10/10/20 at 10:00; Status DC Magnesium Sulfate 50 ml @ 25 mls/hr 1X ONCE IV Last administered on 10/11/20at 14:22; Start 10/11/20 at 14:15; Stop 10/11/20 at 16:14; Status DC Piperacillin Sod/ Tazobactam Sod (Zosyn Per Pharmacy) 1 each PRN DAILY PRN MC SEE COMMENTS; Start 10/11/20 at 16:30 Piperacillin Sod/ Tazobactam Sod 3.375 gm/Sodium Chloride 50 ml @ 100 mls/hr Q6HRS IV Last administered on 10/12/20at 06:10; Start 10/11/20 at 18:00 Potassium Chloride/Water 100 ml @ 100 mls/hr Q1H IV ; Start 10/12/20 at 08:30; Stop 10/12/20 at 10:29 Active Scripts Active Reported Flomax (Tamsulosin Hcl) 0.4 Mg Cap.er.24h 1 Cap PO DAILY Semglee (Insulin Glargine,Hum.rec.anlog) 100 Unit/1 Ml Vial 20 Unit SQ QHS Semglee (Insulin Glargine,Hum.rec.anlog) 100 Unit/1 Ml Vial 30 Unit SQ QAM Novolin R (Insulin Regular, Human) 100 Unit/1 Ml Vial 100 Unit IJ SSI PRN Naproxen 500 Mg Tablet 1 Tab PO BID PRN 30 Days Metoprolol Tartrate 25 Mg Tablet 1 Tab PO BID Alvesco (Ciclesonide) 6.1 Gm Hfa.aer.ad 6.1 Gm IH Q12HR Proair Hfa Inhaler (Albuterol Sulfate) 8.5 Gm Hfa.aer.ad 2 Puff IH PRN Q4-6HRS PRN 21 Days Vitals/I & O Vital Sign - Last 24 Hours 10/11/20 10/11/20 10/11/20 10/11/20 09:00 09:51 09:51 10:00 Pulse 44 43 46 42 Resp 18 18 B/P (MAP) 128/74 (92) 122/70 127/74 120/71 (87) Pulse Ox 94 93 O2 Delivery Ventilator Ventilator 10/11/20 10/11/20 10/11/20 10/11/20 11:00 12:00 12:00 12:42 Temp 97.7 97.7 Pulse 42 44 Resp 18 18 B/P (MAP) 114/64 (81) 104/59 (74) Pulse Ox 95 92 94 O2 Delivery Ventilator Mechanical Ventilator Ventilator Ventilator 10/11/20 10/11/20 10/11/20 10/11/20 12:51 13:00 13:21 14:00 Pulse 46 47 Resp 18 18 18 18 B/P (MAP) 111/59 (76) 92/53 (66) Pulse Ox 94 92 94 93 O2 Delivery Ventilator Ventilator Ventilator Ventilator 10/11/20 10/11/20 10/11/20 10/11/20 15:00 15:58 16:00 16:18 Temp 98.6 98.6 Pulse 47 46 Resp 18 18 B/P (MAP) 100/57 (71) 98/61 (73) Pulse Ox 94 93 94 O2 Delivery Ventilator Mechanical Ventilator Ventilator Ventilator 10/11/20 10/11/20 10/11/20 10/11/20 17:00 18:00 19:00 20:00 Pulse 46 46 47 Resp 18 18 18 B/P (MAP) 94/58 (70) 97/56 (70) 80/49 (59) Pulse Ox 95 97 97 O2 Delivery Ventilator Ventilator Ventilator Mechanical Ventilator 10/11/20 10/11/20 10/11/20 10/11/20 20:00 20:00 20:33 21:00 Temp 98.9 98.9 Pulse 47 47 46 Resp 18 18 B/P (MAP) 100/60 (73) 93/55 103/60 (74) Pulse Ox 97 97 97 O2 Delivery Ventilator Ventilator Ventilator 10/11/20 10/11/20 10/11/20 10/12/20 22:00 23:00 23:00 00:00 Pulse 48 47 Resp 18 18 B/P (MAP) 109/62 (78) 107/66 (80) Pulse Ox 97 96 96 O2 Delivery Ventilator Ventilator Ventilator Mechanical Ventilator 10/12/20 10/12/20 10/12/20 10/12/20 00:00 01:00 02:00 02:00 Temp 98.6 98.6 Pulse 47 49 49 Resp 18 18 18 B/P (MAP) 101/63 (76) 102/63 (76) 88/53 (65) Pulse Ox 95 94 94 94 O2 Delivery Ventilator Ventilator Ventilator Ventilator 10/12/20 10/12/20 10/12/20 10/12/20 03:00 04:00 04:00 05:00 Temp 98.5 98.5 Pulse 48 49 Resp 18 18 B/P (MAP) 104/62 (76) 117/59 (78) Pulse Ox 95 97 97 O2 Delivery Ventilator Mechanical Ventilator Ventilator Ventilator 10/12/20 10/12/20 10/12/20 10/12/20 05:00 06:00 07:00 07:38 Pulse 47 46 46 Resp 18 18 18 B/P (MAP) 121/63 (82) 120/61 (80) 131/61 (84) Pulse Ox 97 97 97 97 O2 Delivery Ventilator Ventilator Ventilator Ventilator Intake and Output 10/11/20 10/11/20 10/12/20 15:00 23:00 07:00 Intake Total 200 ml 1109.97 ml 200 ml Output Total 2475 ml 1310 ml 1310 ml Balance -2275 ml -200.03 ml -1110 ml Justicifation of Admission Dx: Justifications for Admission: Justification of Admission Dx: Yes Comminuty Aquired Pneumonia: Hypoxemia FULBRIGHT,NIRANJAN W MD Oct 12, 2020 08:43
[2020-10-12 08:52] LABS: BASE EXCESS ABG 6 mmol/L (-3-3); HCO3 ABG 28 mmol/L (21-28); PCO2 ABG 35 mmHg (35-46); PO2 ABG 88 mmHg (65-108); SAT O2 ABG 97 % (92-99)
[2020-10-12 08:56] LABS: FIO2 ABG 50/VENT
[2020-10-12] MEDS: METOPROLOL TART IMMED RELEASE 25 MG TABLET. PO SCH ×3 (09:00→21:00)
[2020-10-12] MEDS: TAMSULOSIN 0.4 MG CAP.ER.24H. PO SCH (09:00)
[2020-10-12] MEDS: FLUTICASONE 50MCG/NASAL SPRAY 16GM BOTTLE. NS SCH (09:00)
[2020-10-12] MEDS: INSULIN GLARGINE SYRINGE. SQ SCH ×2 (09:00→22:18)
[2020-10-12] MEDS: FLUTICASONE/VILANTEROL 100/25 INHALER. INH SCH (09:00)
[2020-10-12] MEDS: PROPOFOL 100 ML IV PRN (09:33)
[2020-10-12] MEDS: PANTOPRAZOLE IV PUSH 40 MG VIAL. IVP SCH (09:59)
[2020-10-12] MEDS: POTASSIUM CHLORIDE 20MEQ 100 ML IV SCH ×2 (10:00→12:12)
[2020-10-12] MEDS: FUROSEMIDE 40 MG/4 ML VIAL. IVP SCH (10:00)
[2020-10-12] MEDS: DEXTROSE 50% 25 GM / 50ML DISP.SYRIN. IV PRN (10:28)
--- NOTE | 2020-10-12 11:06 | PDOC ---
PULMONARY PROGRESS NOTES DATE: 10/12/20 TIME: 11:03 Subjective remains on vent support 50% and PEEP of 5 Nursing reports hypoglycemia and increased tube feed residuals, tube feeds currently on hold Patient sedated with propofol/fentanyl/Precedex Vitals Vital Signs Date Time Temp Pulse Resp B/P (MAP) Pulse Ox O2 Delivery O2 Flow Rate FiO2 10/12/20 09:36 96 Ventilator 10/12/20 09:00 46 126/65 10/12/20 07:00 18 10/12/20 04:00 98.5 98.5 Comments Patient seen during the ID pandemic, and visual inspection no paroxysmal breathing pattern no increasing edema no new rash Intubated/sedated No distress Labs Laboratory Tests Test 10/10/20 11:26 10/10/20 12:35 10/10/20 18:06 10/10/20 21:33 Glucose (Fingerstick) 138 mg/dL (70-99) 156 mg/dL (70-99) 107 mg/dL (70-99) O2 Saturation 97 % (92-99) Arterial Blood pH 7.49 (7.35-7.45) Arterial Blood pCO2 at Patient Temp 46 mmHg (35-46) Arterial Blood pO2 at Patient Temp 86 mmHg (65-108) Arterial Blood HCO3 34 mmol/L (21-28) Arterial Blood Base Excess 9 mmol/L (-3-3) FiO2 50 cpap trial Test 10/10/20 23:58 10/11/20 05:00 10/11/20 06:19 10/11/20 07:57 Glucose (Fingerstick) 167 mg/dL (70-99) 197 mg/dL (70-99) White Blood Count 7.4 x10^3/uL (4.0-11.0) Red Blood Count 3.91 x10^6/uL (4.30-5.70) Hemoglobin 12.5 g/dL (13.0-17.5) Hematocrit 37.1 % (39.0-53.0) Mean Corpuscular Volume 95 fL (79-100) Mean Corpuscular Hemoglobin 32 pg (25-35) Mean Corpuscular Hemoglobin Concent 34 g/dL (31-37) Red Cell Distribution Width 14.5 % (11.5-14.5) Platelet Count 64 x10^3/uL (140-400) Neutrophils (%) (Auto) 68 % (31-73) Lymphocytes (%) (Auto) 19 % (24-48) Monocytes (%) (Auto) 12 % (0-9) Eosinophils (%) (Auto) 2 % (0-3) Basophils (%) (Auto) 0 % (0-3) Neutrophils # (Auto) 5.1 x10^3/uL (1.8-7.7) Lymphocytes # (Auto) 1.4 x10^3/uL (1.0-4.8) Monocytes # (Auto) 0.9 x10^3/uL (0.0-1.1) Eosinophils # (Auto) 0.1 x10^3/uL (0.0-0.7) Basophils # (Auto) 0.0 x10^3/uL (0.0-0.2) O2 Saturation 95 % (92-99) Arterial Blood pH 7.51 (7.35-7.45) Arterial Blood pCO2 at Patient Temp 41 mmHg (35-46) Arterial Blood pO2 at Patient Temp 69 mmHg (65-108) Arterial Blood HCO3 32 mmol/L (21-28) Arterial Blood Base Excess 8 mmol/L (-3-3) FiO2 50% vent Test 10/11/20 10:45 10/11/20 12:42 10/11/20 16:43 10/11/20 17:53 Sodium Level 143 mmol/L (136-145) Potassium Level 3.5 mmol/L (3.5-5.1) Chloride Level 107 mmol/L (98-107) Carbon Dioxide Level 31 mmol/L (21-32) Anion Gap 5 (6-14) Blood Urea Nitrogen 15 mg/dL (8-26) Creatinine 0.4 mg/dL (0.7-1.3) Estimated GFR (Cockcroft-Gault) 220.2 Glucose Level 257 mg/dL (70-99) Calcium Level 7.8 mg/dL (8.5-10.1) Magnesium Level 1.6 mg/dL (1.8-2.4) C-Reactive Protein, Quantitative 80.9 mg/L (0-3.3) Glucose (Fingerstick) 243 mg/dL (70-99) 109 mg/dL (70-99) Urine Collection Type Unknown Urine Color Riddhi Urine Clarity Cloudy Urine pH 6.5 (<5.0-8.0) Urine Specific [place] 1.025 (1.000-1.030) Urine Protein Negative mg/dL (NEG-TRACE) Urine Glucose (UA) Negative mg/dL (NEG) Urine Ketones (Stick) Negative mg/dL (NEG) Urine Blood Large (NEG) Urine Nitrite Negative (NEG) Urine Bilirubin Negative (NEG) Urine Urobilinogen Dipstick 4.0 mg/dL (0.2 mg/dL) Urine Leukocyte Esterase Moderate (NEG) Urine RBC 20-40 /HPF (0-2) Urine WBC Tntc /HPF (0-4) Urine Squamous Epithelial Cells Few /LPF Urine Bacteria Few /HPF (0-FEW) Urine Yeast Present /HPF Test 10/12/20 05:05 10/12/20 06:57 10/12/20 08:00 10/12/20 10:26 White Blood Count 8.4 x10^3/uL (4.0-11.0) Red Blood Count 3.95 x10^6/uL (4.30-5.70) Hemoglobin 12.8 g/dL (13.0-17.5) Hematocrit 37.6 % (39.0-53.0) Mean Corpuscular Volume 95 fL (79-100) Mean Corpuscular Hemoglobin 33 pg (25-35) Mean Corpuscular Hemoglobin Concent 34 g/dL (31-37) Red Cell Distribution Width 14.3 % (11.5-14.5) Platelet Count 81 x10^3/uL (140-400) Neutrophils (%) (Auto) 71 % (31-73) Lymphocytes (%) (Auto) 17 % (24-48) Monocytes (%) (Auto) 10 % (0-9) Eosinophils (%) (Auto) 2 % (0-3) Basophils (%) (Auto) 1 % (0-3) Neutrophils # (Auto) 5.9 x10^3/uL (1.8-7.7) Lymphocytes # (Auto) 1.4 x10^3/uL (1.0-4.8) Monocytes # (Auto) 0.9 x10^3/uL (0.0-1.1) Eosinophils # (Auto) 0.1 x10^3/uL (0.0-0.7) Basophils # (Auto) 0.1 x10^3/uL (0.0-0.2) Sodium Level 144 mmol/L (136-145) Potassium Level 3.4 mmol/L (3.5-5.1) Chloride Level 109 mmol/L (98-107) Carbon Dioxide Level 32 mmol/L (21-32) Anion Gap 3 (6-14) Blood Urea Nitrogen 15 mg/dL (8-26) Creatinine 0.5 mg/dL (0.7-1.3) Estimated GFR (Cockcroft-Gault) 170.2 BUN/Creatinine Ratio 30 (6-20) Glucose Level 49 mg/dL (70-99) Calcium Level 7.7 mg/dL (8.5-10.1) Magnesium Level 1.9 mg/dL (1.8-2.4) Total Bilirubin 0.7 mg/dL (0.2-1.0) Aspartate Amino Transf (AST/SGOT) 35 U/L (15-37) Alanine Aminotransferase (ALT/SGPT) 35 U/L (16-63) Alkaline Phosphatase 58 U/L (46-116) Total Protein 5.2 g/dL (6.4-8.2) Albumin 1.7 g/dL (3.4-5.0) Albumin/Globulin Ratio 0.5 (1.0-1.7) Glucose (Fingerstick) 83 mg/dL (70-99) 63 mg/dL (70-99) O2 Saturation 97 % (92-99) Arterial Blood pH 7.52 (7.35-7.45) Arterial Blood pCO2 at Patient Temp 35 mmHg (35-46) Arterial Blood pO2 at Patient Temp 88 mmHg (65-108) Arterial Blood HCO3 28 mmol/L (21-28) Arterial Blood Base Excess 6 mmol/L (-3-3) FiO2 50/vent Test 10/12/20 10:47 Glucose (Fingerstick) 115 mg/dL (70-99) Laboratory Tests Test 10/11/20 12:42 10/11/20 16:43 10/11/20 17:53 10/12/20 05:05 Glucose (Fingerstick) 243 mg/dL (70-99) 109 mg/dL (70-99) Urine Collection Type Unknown Urine Color Riddhi Urine Clarity Cloudy Urine pH 6.5 (<5.0-8.0) Urine Specific [place] 1.025 (1.000-1.030) Urine Protein Negative mg/dL (NEG-TRACE) Urine Glucose (UA) Negative mg/dL (NEG) Urine Ketones (Stick) Negative mg/dL (NEG) Urine Blood Large (NEG) Urine Nitrite Negative (NEG) Urine Bilirubin Negative (NEG) Urine Urobilinogen Dipstick 4.0 mg/dL (0.2 mg/dL) Urine Leukocyte Esterase Moderate (NEG) Urine RBC 20-40 /HPF (0-2) Urine WBC Tntc /HPF (0-4) Urine Squamous Epithelial Cells Few /LPF Urine Bacteria Few /HPF (0-FEW) Urine Yeast Present /HPF White Blood Count 8.4 x10^3/uL (4.0-11.0) Red Blood Count 3.95 x10^6/uL (4.30-5.70) Hemoglobin 12.8 g/dL (13.0-17.5) Hematocrit 37.6 % (39.0-53.0) Mean Corpuscular Volume 95 fL (79-100) Mean Corpuscular Hemoglobin 33 pg (25-35) Mean Corpuscular Hemoglobin Concent 34 g/dL (31-37) Red Cell Distribution Width 14.3 % (11.5-14.5) Platelet Count 81 x10^3/uL (140-400) Neutrophils (%) (Auto) 71 % (31-73) Lymphocytes (%) (Auto) 17 % (24-48) Monocytes (%) (Auto) 10 % (0-9) Eosinophils (%) (Auto) 2 % (0-3) Basophils (%) (Auto) 1 % (0-3) Neutrophils # (Auto) 5.9 x10^3/uL (1.8-7.7) Lymphocytes # (Auto) 1.4 x10^3/uL (1.0-4.8) Monocytes # (Auto) 0.9 x10^3/uL (0.0-1.1) Eosinophils # (Auto) 0.1 x10^3/uL (0.0-0.7) Basophils # (Auto) 0.1 x10^3/uL (0.0-0.2) Sodium Level 144 mmol/L (136-145) Potassium Level 3.4 mmol/L (3.5-5.1) Chloride Level 109 mmol/L (98-107) Carbon Dioxide Level 32 mmol/L (21-32) Anion Gap 3 (6-14) Blood Urea Nitrogen 15 mg/dL (8-26) Creatinine 0.5 mg/dL (0.7-1.3) Estimated GFR (Cockcroft-Gault) 170.2 BUN/Creatinine Ratio 30 (6-20) Glucose Level 49 mg/dL (70-99) Calcium Level 7.7 mg/dL (8.5-10.1) Magnesium Level 1.9 mg/dL (1.8-2.4) Total Bilirubin 0.7 mg/dL (0.2-1.0) Aspartate Amino Transf (AST/SGOT) 35 U/L (15-37) Alanine Aminotransferase (ALT/SGPT) 35 U/L (16-63) Alkaline Phosphatase 58 U/L (46-116) Total Protein 5.2 g/dL (6.4-8.2) Albumin 1.7 g/dL (3.4-5.0) Albumin/Globulin Ratio 0.5 (1.0-1.7) Test 10/12/20 06:57 10/12/20 08:00 10/12/20 10:26 10/12/20 10:47 Glucose (Fingerstick) 83 mg/dL (70-99) 63 mg/dL (70-99) 115 mg/dL (70-99) O2 Saturation 97 % (92-99) Arterial Blood pH 7.52 (7.35-7.45) Arterial Blood pCO2 at Patient Temp 35 mmHg (35-46) Arterial Blood pO2 at Patient Temp 88 mmHg (65-108) Arterial Blood HCO3 28 mmol/L (21-28) Arterial Blood Base Excess 6 mmol/L (-3-3) FiO2 50/vent Medications Active Scripts Medications Dose Route/Sig Max Daily Dose Days Date Category Flomax (Tamsulosin Hcl) 0.4 Mg Cap.er.24h 1 Cap PO DAILY 09/26/20 Reported Semglee (Insulin Glargine,Hum.rec.anlog) 100 Unit/1 Ml Vial 20 Unit SQ QHS 09/26/20 Reported Semglee (Insulin Glargine,Hum.rec.anlog) 100 Unit/1 Ml Vial 30 Unit SQ QAM 09/26/20 Reported Novolin R (Insulin Regular, Human) 100 Unit/1 Ml Vial 100 Unit IJ SSI PRN 09/26/20 Reported Naproxen 500 Mg Tablet 1 Tab PO BID PRN 30 09/26/20 Reported Metoprolol Tartrate 25 Mg Tablet 1 Tab PO BID 09/26/20 Reported Alvesco (Ciclesonide) 6.1 Gm Hfa.aer.ad 6.1 Gm IH Q12HR 09/26/20 Reported Proair Hfa Inhaler (Albuterol Sulfate) 8.5 Gm Hfa.aer.ad 2 Puff IH PRN Q4-6HRS PRN 21 09/26/20 Reported Impression . IMPRESSION: 1. Acute hypoxemic respiratory failure secondary to COVID-19./ARDS 2. COVID-19 viral pneumonia. 3. Possible bacterial pneumonia. 4. Other comorbidities including chronic obstructive pulmonary disease with acute exacerbation, tobacco dependent, chronic back pain and hypertension. 5. Abnormal chest x-ray with bilateral interstitial infiltrates related to COVID-19 pneumonia. 6. Status post intubation 09/29 Plan . Updated 10/12/20 Continue current vent [id number]/5/50% Reduce/DC sedation and proceed with pressure support trial Follow CXR/ABG --reviewed, reduce respiratory rate, give a one-time dose of Lasix today Patient has Finished course of remdesivir and steroids Follow ID recommendations for antibiotics, currently on Zosyn, started 10/11/2020 Continue nutrional support --tube feeding on hold secondary to high residuals, start PPN DVT/GI PPX:lovenox D/W RN and RT Critical care time 30 minutes Updated 10/11/20 Continue current vent support 50% and PEEP of 5, pt. didn't tolerate PS 10/10/20, attempt weaning trial again today Follow CXR/ABG --reviewed Patient has Finished course of antibiotics, remdesivir and steroids Continue nutrional support DVT/GI PPX:lovenox D/W RN and RT Updated 10/10/20 Continue current vent support 50% and PEEP of 5, PS trial today with ABG Follow CXR/ABG --reviewed Continue antibiotics, remdesivir and steroids Continue nutrional support DVT/GI PPX:lovenox D/W RN and RT SAROJ SQUIRES MD Oct 12, 2020 11:06
[2020-10-12] MEDS: METOCLOPRAMIDE HCL 10 MG/2 ML VIAL. IVP SCH ×3 (12:15→21:13)
[2020-10-12] MEDS: AA 4.25 %/CALCIUM/LYTES/D5W 1,000 ML IV SCH ×2 (12:15→23:16)
--- NOTE | 2020-10-12 12:44 | CONS ---
DATE OF CONSULTATION: 10/12/2020 REQUESTING PHYSICIAN: Grant Jaime MD REASON FOR CONSULTATION: Hypothermia, COVID positive. HISTORY OF PRESENT ILLNESS: This is a 59-year-old gentleman who was admitted initially with shortness of breath. The patient has been at [facility] and had progressive shortness of breath for 2 days with low oxygen saturation. The patient also had a headache. The patient denied any fever, chills or any other complaint. The patient eventually was intubated and the patient is intubated on a ventilator since then. The patient had received azithromycin and the patient had been off antibiotics now for a while. The patient did have hypothermia, hence the consultation. The patient is orally intubated, unable to provide any information. All the information was obtained through chart review and discussing with the patient's RN. PAST MEDICAL HISTORY: Positive for COPD, diabetes mellitus, hypertension, chronic back problem. Has had appendicectomy. The [facility] is at [facility]. SOCIAL HISTORY: Positive for smoking, but further social history unable to obtain right now. ALLERGIES: No known drug allergies. CURRENT MEDICATIONS: Reviewed. REVIEW OF SYSTEMS: As per HPI. All other systems reviewed and are negative. PHYSICAL EXAMINATION: GENERAL: Sedated, orally intubated gentleman, not in distress. VITAL SIGNS: Temperature 98.5, pulse 47, respirations 18, blood pressure 120/61. HEENT: Both pupils are round and reacting. No conjunctival lesions. Mouth cannot be visualized much, orally intubated. NECK: Supple. No JVP, no lymphadenopathy. LUNGS: Clear. HEART: S1 and S2 regular. ABDOMEN: Soft, nontender. No organomegaly. EXTREMITIES: No edema or cyanosis. SKIN: Unremarkable other than minor skin infection/small superficial abscess in the left upper extremity, which was I and D'd at some point during this hospitalization. Rest of skin exam is unremarkable. NEUROLOGIC: The patient is sedated, intubated, unable to dragger his mentation. LABORATORY DATA: White count is 8.4, hemoglobin 12.8, platelets are 81,000. BUN and creatinine are 15 and 0.5. CRP yesterday was 80.9. Albumin is 1.7. Urinalysis showed too numerous to count wbc. COVID positive. Blood cultures earlier negative. Blood cultures done yesterday, they are pending. Chest x-ray, bilateral pulmonary opacities. IMPRESSION: 1. Hypothermia, which actually has improved. 2. COVID-19 positive. 3. Respiratory failure. 4. Pulmonary infiltrate. 5. Chronic obstructive pulmonary disease. 6. Diabetes. 7. Hypertension. RECOMMENDATIONS: Recommend Zosyn as I had started yesterday. We will continue that. Supportive care. We will follow the cultures and follow the course and continue to adjust. Thank you very much, Dr. Jaime, for giving me opportunity to participate in this patient's care. RACHNA/ROGERIO/[facility] [place]: Anabela TID: [id number]
[2020-10-12 13:14] LABS: BASE EXCESS ABG 3 mmol/L (-3-3); HCO3 ABG 26 mmol/L (21-28); PCO2 ABG 34 mmHg (35-46); PO2 ABG 68 mmHg (65-108); SAT O2 ABG 94 % (92-99)
[2020-10-12] MEDS: hydrALAZINE 20 MG/ML VIAL. IVP PRN (14:19)
[2020-10-12] MEDS ORDERED: RACEPINEPHRINE 2.25% 0.5 ML NEBU. NEB ONE (15:15)
--- NOTE | 2020-10-12 15:17 | NUR ---
Verbal order to extubate at 1430. Patient extubated at 1503 to 50% VM. PRN Bipap at bedside.
[2020-10-12] MEDS: methylPREDNISolone SOD SUCC PF 125 MG/2 ML VIAL. IV SCH ×2 (15:26→23:17)
[2020-10-12] MEDS: HALOPERIDOL LACTATE 5 MG/ML VIAL. IVP PRN (15:31)
[2020-10-12] MEDS: fentaNYL PF VIAL 100 MCG/2 ML VIAL IV PRN (15:51)
--- NOTE | 2020-10-12 18:32 | NUR ---
Patient extubated at 1515. Placed on Bipap 40%, RR in high 30's, patient puling at mask. Precedex restarted, PRN Haldol given along with IV push Fent 25mcg. Patient current O2 sat 97% RR 27, with coarse diminished breath sounds. Seems to finally be resting comfortable.
[2020-10-12] MEDS: ENOXAPARIN 40 MG/0.4 ML SYRINGE. SQ SCH (21:14)
[2020-10-13] VITALS (22 sets, daily range): BP systolic 119–199; BP diastolic 64–86
[2020-10-13] MEDS: INSULIN LISPRO 300 UNITS/3 ML VIAL. SQ SCH ×5 (00:20→23:49)
[2020-10-13] MEDS: DEXMEDETOMIDINE 400 MCG in IV NORMAL SALINE 100ML 96 ML IV PRN ×5 (02:11→21:32)
--- NOTE | 2020-10-13 05:22 | PDOC ---
PULMONARY PROGRESS NOTES DATE: 10/13/20 TIME: 05:18 Subjective Patient was extubated 10/12/2020, experience some post extubation stridor placed on BiPAP Now on BiPAP at 40% No overnight concerns remains on Precedex drip Vitals Vital Signs Date Time Temp Pulse Resp B/P (MAP) Pulse Ox O2 Delivery O2 Flow Rate FiO2 10/13/20 04:00 98.2 63 20 158/86 (110) 97 BiPAP/CPAP 98.2 Comments Patient seen during the pandemic, and visual inspection no paroxysmal breathing pattern no increasing edema no new rash BIPAP No distress Labs Laboratory Tests Test 10/11/20 06:19 10/11/20 07:57 10/11/20 10:45 10/11/20 12:42 Glucose (Fingerstick) 197 mg/dL (70-99) 243 mg/dL (70-99) O2 Saturation 95 % (92-99) Arterial Blood pH 7.51 (7.35-7.45) Arterial Blood pCO2 at Patient Temp 41 mmHg (35-46) Arterial Blood pO2 at Patient Temp 69 mmHg (65-108) Arterial Blood HCO3 32 mmol/L (21-28) Arterial Blood Base Excess 8 mmol/L (-3-3) FiO2 50% vent Sodium Level 143 mmol/L (136-145) Potassium Level 3.5 mmol/L (3.5-5.1) Chloride Level 107 mmol/L (98-107) Carbon Dioxide Level 31 mmol/L (21-32) Anion Gap 5 (6-14) Blood Urea Nitrogen 15 mg/dL (8-26) Creatinine 0.4 mg/dL (0.7-1.3) Estimated GFR (Cockcroft-Gault) 220.2 Glucose Level 257 mg/dL (70-99) Calcium Level 7.8 mg/dL (8.5-10.1) Magnesium Level 1.6 mg/dL (1.8-2.4) C-Reactive Protein, Quantitative 80.9 mg/L (0-3.3) Test 10/11/20 16:43 10/11/20 17:53 10/12/20 05:05 10/12/20 06:57 Urine Collection Type Unknown Urine Color Riddhi Urine Clarity Cloudy Urine pH 6.5 (<5.0-8.0) Urine Specific [place] 1.025 (1.000-1.030) Urine Protein Negative mg/dL (NEG-TRACE) Urine Glucose (UA) Negative mg/dL (NEG) Urine Ketones (Stick) Negative mg/dL (NEG) Urine Blood Large (NEG) Urine Nitrite Negative (NEG) Urine Bilirubin Negative (NEG) Urine Urobilinogen Dipstick 4.0 mg/dL (0.2 mg/dL) Urine Leukocyte Esterase Moderate (NEG) Urine RBC 20-40 /HPF (0-2) Urine WBC Tntc /HPF (0-4) Urine Squamous Epithelial Cells Few /LPF Urine Bacteria Few /HPF (0-FEW) Urine Yeast Present /HPF Glucose (Fingerstick) 109 mg/dL (70-99) 83 mg/dL (70-99) White Blood Count 8.4 x10^3/uL (4.0-11.0) Red Blood Count 3.95 x10^6/uL (4.30-5.70) Hemoglobin 12.8 g/dL (13.0-17.5) Hematocrit 37.6 % (39.0-53.0) Mean Corpuscular Volume 95 fL (79-100) Mean Corpuscular Hemoglobin 33 pg (25-35) Mean Corpuscular Hemoglobin Concent 34 g/dL (31-37) Red Cell Distribution Width 14.3 % (11.5-14.5) Platelet Count 81 x10^3/uL (140-400) Neutrophils (%) (Auto) 71 % (31-73) Lymphocytes (%) (Auto) 17 % (24-48) Monocytes (%) (Auto) 10 % (0-9) Eosinophils (%) (Auto) 2 % (0-3) Basophils (%) (Auto) 1 % (0-3) Neutrophils # (Auto) 5.9 x10^3/uL (1.8-7.7) Lymphocytes # (Auto) 1.4 x10^3/uL (1.0-4.8) Monocytes # (Auto) 0.9 x10^3/uL (0.0-1.1) Eosinophils # (Auto) 0.1 x10^3/uL (0.0-0.7) Basophils # (Auto) 0.1 x10^3/uL (0.0-0.2) Sodium Level 144 mmol/L (136-145) Potassium Level 3.4 mmol/L (3.5-5.1) Chloride Level 109 mmol/L (98-107) Carbon Dioxide Level 32 mmol/L (21-32) Anion Gap 3 (6-14) Blood Urea Nitrogen 15 mg/dL (8-26) Creatinine 0.5 mg/dL (0.7-1.3) Estimated GFR (Cockcroft-Gault) 170.2 BUN/Creatinine Ratio 30 (6-20) Glucose Level 49 mg/dL (70-99) Calcium Level 7.7 mg/dL (8.5-10.1) Magnesium Level 1.9 mg/dL (1.8-2.4) Total Bilirubin 0.7 mg/dL (0.2-1.0) Aspartate Amino Transf (AST/SGOT) 35 U/L (15-37) Alanine Aminotransferase (ALT/SGPT) 35 U/L (16-63) Alkaline Phosphatase 58 U/L (46-116) Total Protein 5.2 g/dL (6.4-8.2) Albumin 1.7 g/dL (3.4-5.0) Albumin/Globulin Ratio 0.5 (1.0-1.7) Test 10/12/20 08:00 10/12/20 10:26 10/12/20 10:47 10/12/20 12:26 O2 Saturation 97 % (92-99) Arterial Blood pH 7.52 (7.35-7.45) Arterial Blood pCO2 at Patient Temp 35 mmHg (35-46) Arterial Blood pO2 at Patient Temp 88 mmHg (65-108) Arterial Blood HCO3 28 mmol/L (21-28) Arterial Blood Base Excess 6 mmol/L (-3-3) FiO2 50/vent Glucose (Fingerstick) 63 mg/dL (70-99) 115 mg/dL (70-99) 111 mg/dL (70-99) Test 10/12/20 13:07 10/12/20 17:00 10/12/20 21:44 10/13/20 00:04 O2 Saturation 94 % (92-99) Arterial Blood pH 7.49 (7.35-7.45) Arterial Blood pCO2 at Patient Temp 34 mmHg (35-46) Arterial Blood pO2 at Patient Temp 68 mmHg (65-108) Arterial Blood HCO3 26 mmol/L (21-28) Arterial Blood Base Excess 3 mmol/L (-3-3) FiO2 40/cpap 10/5 Glucose (Fingerstick) 204 mg/dL (70-99) 238 mg/dL (70-99) 242 mg/dL (70-99) Laboratory Tests Test 10/12/20 06:57 10/12/20 08:00 10/12/20 10:26 10/12/20 10:47 Glucose (Fingerstick) 83 mg/dL (70-99) 63 mg/dL (70-99) 115 mg/dL (70-99) O2 Saturation 97 % (92-99) Arterial Blood pH 7.52 (7.35-7.45) Arterial Blood pCO2 at Patient Temp 35 mmHg (35-46) Arterial Blood pO2 at Patient Temp 88 mmHg (65-108) Arterial Blood HCO3 28 mmol/L (21-28) Arterial Blood Base Excess 6 mmol/L (-3-3) FiO2 50/vent Test 10/12/20 12:26 10/12/20 13:07 10/12/20 17:00 10/12/20 21:44 Glucose (Fingerstick) 111 mg/dL (70-99) 204 mg/dL (70-99) 238 mg/dL (70-99) O2 Saturation 94 % (92-99) Arterial Blood pH 7.49 (7.35-7.45) Arterial Blood pCO2 at Patient Temp 34 mmHg (35-46) Arterial Blood pO2 at Patient Temp 68 mmHg (65-108) Arterial Blood HCO3 26 mmol/L (21-28) Arterial Blood Base Excess 3 mmol/L (-3-3) FiO2 40/cpap 10/5 Test 10/13/20 00:04 Glucose (Fingerstick) 242 mg/dL (70-99) Medications Active Scripts Medications Dose Route/Sig Max Daily Dose Days Date Category Flomax (Tamsulosin Hcl) 0.4 Mg Cap.er.24h 1 Cap PO DAILY 09/26/20 Reported Semglee (Insulin Glargine,Hum.rec.anlog) 100 Unit/1 Ml Vial 20 Unit SQ QHS 09/26/20 Reported Semglee (Insulin Glargine,Hum.rec.anlog) 100 Unit/1 Ml Vial 30 Unit SQ QAM 09/26/20 Reported Novolin R (Insulin Regular, Human) 100 Unit/1 Ml Vial 100 Unit IJ SSI PRN 09/26/20 Reported Naproxen 500 Mg Tablet 1 Tab PO BID PRN 30 09/26/20 Reported Metoprolol Tartrate 25 Mg Tablet 1 Tab PO BID 09/26/20 Reported [place]ves[place] (Ciclesonide) 6.1 Gm Hfa.aer.ad 6.1 Gm IH Q12HR 09/26/20 Reported Proair Hfa Inhaler (Albuterol Sulfate) 8.5 Gm Hfa.aer.ad 2 Puff IH PRN Q4-6HRS PRN 21 09/26/20 Reported Impression . IMPRESSION: 1. Acute hypoxemic respiratory failure secondary to COVID-19./ARDS--improved now extubated 2. COVID-19 viral pneumonia. 3. Possible bacterial pneumonia. 4. Other comorbidities including chronic obstructive pulmonary disease with acute exacerbation, tobacco dependent, chronic back pain and hypertension. 5. Abnormal chest x-ray with bilateral interstitial infiltrates related to COVID-19 pneumonia. 6. Status post intubation 09/29 Plan . Updated 10/13/20 Continue supplemental oxygen to keep oxygen saturations greater than 92%, currently on BiPAP 40% patient was extubated 10/12/2020 BiPAP settings reviewed: 18/ with a rate of 18 and 40% Patient has Finished course of remdesivir and steroids Follow ID recommendations for antibiotics, currently on Zosyn, started 10/11/2020 Continue nutrional support with PPN Hyperglycemia per PCP Physical therapy/Occupational Therapy/speech therapy DVT/GI PPX:lovenox D/W RN and RT Critical care time 30 minutes Updated 10/12/20 Continue current vent [id number]/5/50% Reduce/DC sedation and proceed with pressure support trial Follow CXR/ABG --reviewed, reduce respiratory rate, give a one-time dose of Lasix today Patient has Finished course of remdesivir and steroids Follow ID recommendations for antibiotics, currently on Zosyn, started 10/11/2020 Continue nutrional support --tube feeding on hold secondary to high residuals, start PPN DVT/GI PPX:lovenox D/W RN and RT Critical care time 30 minutes Updated 10/11/20 Continue current vent support 50% and PEEP of 5, pt. didn't tolerate PS 10/10/20, attempt weaning trial again today Follow CXR/ABG --reviewed Patient has Finished course of antibiotics, remdesivir and steroids Continue nutrional support DVT/GI PPX:last D/Yaya RN and RT SAROJ SQUIRES MD Oct 13, 2020 05:22
[2020-10-13] MEDS: PIPERACILLIN/TAZOBACTAM 3.375 GM in IV NORMAL SALINE 50ML 50 ML IV SCH ×4 (05:34→23:48)
[2020-10-13] MEDS: FLUTICASONE/VILANTEROL 100/25 INHALER. INH SCH (07:53)
[2020-10-13] MEDS: FLUTICASONE 50MCG/NASAL SPRAY 16GM BOTTLE. NS SCH (07:54)
[2020-10-13] MEDS: TAMSULOSIN 0.4 MG CAP.ER.24H. PO SCH (07:54)
--- NOTE | 2020-10-13 07:56 | PDOC ---
Infectious Disease Note Subjective Subjective extubated, awake on VM ROS ROS no n/v/d/ Vital Sign Vital Signs Vital Signs Date Time Temp Pulse Resp B/P (MAP) Pulse Ox O2 Delivery O2 Flow Rate FiO2 10/13/20 06:00 60 18 156/82 (106) 99 BiPAP/CPAP 10/13/20 04:00 98.2 98.2 Physical Exam PHYSICAL EXAM GENERAL: Sedated, orally intubated gentleman, not in distress. VITAL SIGNS: stable HEENT: Both pupils are round and reacting. No conjunctival lesions. Mouth cannot be visualized much, orally intubated. NECK: Supple. No JVP, no lymphadenopathy. LUNGS: Clear. HEART: S1 and S2 regular. ABDOMEN: Soft, nontender. No organomegaly. EXTREMITIES: No edema or cyanosis. SKIN: Unremarkable other than minor skin infection/small superficial abscess in the left upper extremity, which was I and D'd at some point during this hospitalization. Rest of skin exam is unremarkable. NEUROLOGIC: The patient is sedated, intubated, unable to building analyst/supervisor his mentation. Labs Lab Laboratory Tests Test 10/12/20 08:00 10/12/20 10:26 10/12/20 10:47 10/12/20 12:26 O2 Saturation 97 % (92-99) Arterial Blood pH 7.52 (7.35-7.45) Arterial Blood pCO2 at Patient Temp 35 mmHg (35-46) Arterial Blood pO2 at Patient Temp 88 mmHg (65-108) Arterial Blood HCO3 28 mmol/L (21-28) Arterial Blood Base Excess 6 mmol/L (-3-3) FiO2 50/vent Glucose (Fingerstick) 63 mg/dL (70-99) 115 mg/dL (70-99) 111 mg/dL (70-99) Test 10/12/20 13:07 10/12/20 17:00 10/12/20 21:44 10/13/20 00:04 O2 Saturation 94 % (92-99) Arterial Blood pH 7.49 (7.35-7.45) Arterial Blood pCO2 at Patient Temp 34 mmHg (35-46) Arterial Blood pO2 at Patient Temp 68 mmHg (65-108) Arterial Blood HCO3 26 mmol/L (21-28) Arterial Blood Base Excess 3 mmol/L (-3-3) FiO2 40/cpap 10/5 Glucose (Fingerstick) 204 mg/dL (70-99) 238 mg/dL (70-99) 242 mg/dL (70-99) Test 10/13/20 06:01 Glucose (Fingerstick) 261 mg/dL (70-99) Micro Microbiology 10/11/20 Blood Culture - Preliminary, Resulted NO GROWTH AFTER 1 DAY Objective Assessment IMPRESSION: 1. Hypothermia, which actually has improved. 2. COVID-19 positive. 3. Respiratory failure. 4. Pulmonary infiltrate. 5. Chronic obstructive pulmonary disease. 6. Diabetes. 7. Hypertension. Plan Plan of Care cont supportive care cont antibiotics ALINA AGUAYO MD Oct 13, 2020 07:56
[2020-10-13 08:56] LABS: BASE EXCESS ABG 5 mmol/L (-3-3); HCO3 ABG 28 mmol/L (21-28); PCO2 ABG 35 mmHg (35-46); PO2 ABG 81 mmHg (65-108); SAT O2 ABG 96 % (92-99)
[2020-10-13] MEDS: METOPROLOL TART IMMED RELEASE 25 MG TABLET. PO SCH ×2 (09:00→19:56)
[2020-10-13 09:03] LABS: FIO2 ABG 40
--- NOTE | 2020-10-13 09:05 | PDOC ---
PROGRESS NOTES Date of Service: DATE: 10/13/20 TIME: 09:05 Chief Complaint Chief Complaint COVID-19 respiratory failure requiring intubation COPD Cirrhosis Severe pneumonia Remote history of alcohol issues mediastinal adenopathy Hyperglycemia and diabetes Severe protein calorie malnutrition Hypomagnesemia History of Present Illness History of Present Illness 10/13/2020 extubated, awake on VM 59 year old male presented via EMS from [facility] with work of breathing x2 days with low O2 Sat at facility down to 78% on RA. known history of COPD and cough. Patient seen and examined in the [facility] [facility] [address] ICU Mediastinal adenopathy, malignancy is not excluded.suggest follow-up CT of the chest in 3 months. He has a 2 cm blister on his left forearm Chart reviewed Discussed with RN Finished course of antibiotics, remdesivir and steroids, start iv zosyn 8-02 Continue nutrional support HYPOTHERMIC , ID CONSULT, BLOOD CULTURE 34 min cc time 10/12/2020 59 year old male presented via EMS from [facility] with work of breathing x2 days with low O2 Sat at facility down to 78% on RA. known history of COPD and cough. Patient seen and examined in the [facility] [address] ICU He remains mechanically ventilated Mediastinal adenopathy, malignancy is not excluded.suggest follow-up CT of the chest in 3 months. AC/18/500/50 percent with 5 of PEEP We might do a weaning trial later today He has a 2 cm blister on his left forearm We aspirated it was mostly clear OG running at 60 cc/h Sedated with Dex Chart reviewed Discussed with RN Finished course of antibiotics, remdesivir and steroids, start iv zosyn 8-02 Continue nutrional support HYPOTHERMIC , ID CONSULT, BLOOD CULTURE 32 min cc time 10/11/2020 59 year old male presented via EMS from [facility] with work of breathing x2 days with low O2 Sat at facility down to 78% on RA. known history of COPD and cough. Patient seen and examined in the [facility] [address] ICU He remains mechanically ventilated Mediastinal adenopathy, malignancy is not excluded.suggest follow-up CT of the chest in 3 months. AC/18/500/50 percent with 5 of PEEP We might do a weaning trial later today He has a 2 cm blister on his left forearm We aspirated it was mostly clear OG running at 60 cc/h Sedated with Dex Chart reviewed Discussed with RN Finished course of antibiotics, remdesivir and steroids Continue nutrional support HYPOTHERMIC , ID CONSULT, BLOOD CULTURE 36 min cc time 10/10/2020 Patient seen and examined in the [facility] [address] ICU He remains mechanically ventilated AC/18/500/50 percent with 5 of PEEP We might do a weaning trial later today He has a 2 cm blister on his left forearm We aspirated it was mostly clear OG running at 60 cc/h Sedated with Dex Chart reviewed Discussed with RN 10/09/2020 Patient seen and examined in the [facility] [address] ICU He is on the vent AC/18/500/50 percent with 5 of PEEP 2 corrections officers are present Patient is shackled left arm and left leg Has IV albumin hanging Sedated with fentanyl and Versed Chart reviewed Discussed with RN Has OG feeds running 10/08/2020 Patient seen and examined in the [facility] [address] ICU He is still intubated AC/18/500/50 percent with 5 of PEEP We are possibly going to trial him today Has OG feeds running at 60 cc an hour Has SCDs on Olsen to bedside drainage Corrections officers are present Patient is shackled Sedated with fentanyl and Versed Discussed with RN Chart reviewed 10/07/2020 Patient seen and examined in the [facility] [address] ICU He remains on the ventilator Assist-control/18/500/50 percent with 7 of PEEP Sedated with Versed and fentanyl Shackled to the bed with 2 corrections officers present Chart reviewed Discussed with RN He is critically ill 10/06/2020 Patient seen and examined in the [facility] [address] ICU He has corrections officers present He is shackled on his left ankle Still remains on the vent AC/18/500/50 5% with 7 of PEEP Sedated with Versed and fentanyl Chart reviewed Discussed with RN He remains very critically ill 10/05/2020 Patient seen and examined in the [facility] [address] ICU He is still intubated AC/20/500/60 5% with 7 of PEEP Discussed with RN Patient with OG feeds running Mitts for patient safety Has Olsen to bedside drainage 2 corrections officers are present Patient is shackled Sedated with fentanyl and Versed He remains very critically ill 10/04/2020 Patient seen and examined in the [facility] [address] ICU He remains intubated Shackled AC/20/500/60 5% with 8 of PEEP He has OG feeds running Has mitts on for patient safety Has SCDs in place Olsen to bedside drainage He is sedated with fentanyl and Versed Discussed with RN His glucose is running a little high we are adding in scheduled NovoLog 10 units 3 times daily and continue the sliding scale and Lantus 20 a day Chart reviewed He remains very critically ill Corrections officers are present 59 year old male presented via EMS from [facility] with work of breathing x2 days with low O2 Sat at facility down to 78% on RA. known history of COPD and cough. Patient also complains of headache. EMS noted patient was 84% and tripoding on 3 L nasal cannula. EMS reports giving a DuoNeb treatment x2 in route and placement nonrebreather with subsequent improvement in up to 95%. remote alcohol abuse YRS AGO , smoked until one month ago when he was arrested received the [employer] COVID-19 vaccination x1 approximately 5 months ago at the [place]. Patient denies known exposure to COVID-19. Panlobular airspace disease,c/w multifocal pneumonia. PUI Pulmonary edema less likely. 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 Remote alcohol abuse "6-8 cans of beer a day years ago" Thickened distal esophagus with 9 x 10 mm luminal density, likely ingested medication tablet. Mediastinal adenopathy, malignancy is not excluded.suggest follow-up CT of the chest in 3 months. / Hyperglycemia on accuchecks // Severe protein-caloric malnutrition CTA CHEST C/W Panlobular airspace disease, most likely multifocal pneumonia. 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 Patient tolerating BiPAP and saturating 91%. Starte d patient on IV Protonix because he is still on steroids. And has a history of esophageal varices. Patient's chart, labs, images were reviewed and discussed with RN 09/27/20 Patient evaluated at bedside He was having laboring respirations initially on the BiPAP concerned patient may need ICU transfer however was given a dose of Ativan and was able to calm down and respiratory status improved Continue steroids Pulmonary consult Plan of care discussed with bedside RN 09/28/20 Patient evaluated bedside He was on BiPAP required to be increased 100% FiO2 this morning Remains on remdesivir, Decadron, Rocephin, and azithromycin Continuing supportive care Plan of care discussed with bedside nurse 09/29/20 Patient evaluated at bedside Patient remains significantly agitated and anxious despite aggressive medication measures while on BiPAP BiPAP settings increasing over the past several days and given his agitation will transfer to ICU Continuing remdesivir Decadron Rocephin and azithromycin Plan of care discussed with bedside nurse 09/30/2020: Patient transferred from out to ICU yesterday due to worsening respiratory distress. He was intubated and currently on vent with FiO2 90% and PEEP of 8. We will continue treatment with remdesivir, steroids, and empiric antibiotics. Critical care time 30 minutes spent reviewing charts, reviewing imaging, reviewing labs, discussion with RN. 10/01/2020: Afebrile. On vent with FiO2 85%, PEEP 8. Continue treatment with remdesivir, steroids, Rocephin and azithromycin. Critical care time 30 minutes spent reviewing charts, imaging, reviewing labs, discussion with RN. 10/02/2020: Afebrile, FiO2 80%, PEEP 5. Finished remdesivir. Continue antibiotics and Decadron. Will increase insulin regimen due to persistent hyperglycemia. Supportive care. Critical care time 30 minutes spent reviewing charts, labs, reviewing imaging, discussion with RN. 10/03/2020: Afebrile, on vent with FiO2 70%, PEEP 5. Still with some significant hyperglycemia. Will increase basal insulin. Finished remdesivir. Will continue antibiotics and steroids. Repeat chest x-ray today. Critical care time 30 minutes spent reviewing charts, labs, reviewing imaging, discussion with RN. Vitals Vitals Vital Signs Date Time Temp Pulse Resp B/P (MAP) Pulse Ox O2 Delivery O2 Flow Rate FiO2 10/13/20 08:43 99 BiPAP/CPAP 10/13/20 06:00 60 18 156/82 (106) 10/13/20 04:00 98.2 98.2 Physical Exam Physical Exam GENERAL: Sedated, orally intubated gentleman, not in distress. VITAL SIGNS: stable HEENT: Both pupils are round and reacting. No conjunctival lesions. Mouth cannot be visualized much, orally intubated. NECK: Supple. No JVP, no lymphadenopathy. LUNGS: Clear. HEART: S1 and S2 regular. ABDOMEN: Soft, nontender. No organomegaly. EXTREMITIES: No edema or cyanosis. SKIN: Unremarkable other than minor skin infection/small superficial abscess in the left upper extremity, which was I and D'd at some point during this hospitalization. Rest of skin exam is unremarkable. 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 General: No acute distress, Other (Intubated and sedated) Heart: Regular rate, Normal S1 Abdomen: Normal bowel sounds, Soft, No tenderness, No masses, Other (obese) Extremities: No cyanosis Skin: No rashes Labs LABS Laboratory Tests Test 10/12/20 10:26 10/12/20 10:47 10/12/20 12:26 10/12/20 13:07 Glucose (Fingerstick) 63 mg/dL (70-99) 115 mg/dL (70-99) 111 mg/dL (70-99) O2 Saturation 94 % (92-99) Arterial Blood pH 7.49 (7.35-7.45) Arterial Blood pCO2 at Patient Temp 34 mmHg (35-46) Arterial Blood pO2 at Patient Temp 68 mmHg (65-108) Arterial Blood HCO3 26 mmol/L (21-28) Arterial Blood Base Excess 3 mmol/L (-3-3) FiO2 40/cpap 10/5 Test 10/12/20 17:00 10/12/20 21:44 10/13/20 00:04 10/13/20 06:01 Glucose (Fingerstick) 204 mg/dL (70-99) 238 mg/dL (70-99) 242 mg/dL (70-99) 261 mg/dL (70-99) Test 10/13/20 08:55 O2 Saturation 96 % (92-99) Arterial Blood pH 7.51 (7.35-7.45) Arterial Blood pCO2 at Patient Temp 35 mmHg (35-46) Arterial Blood pO2 at Patient Temp 81 mmHg (65-108) Arterial Blood HCO3 28 mmol/L (21-28) Arterial Blood Base Excess 5 mmol/L (-3-3) FiO2 40 Assessment and Plan Assessmemt and Plan Problems Medical Problems: (1) COPD exacerbation Status: Acute (2) Headache Status: Acute (3) Hypoxia Status: Acute (4) Pneumonia Status: Acute (5) Respiratory failure Status: Acute (6) Suspected 2019 novel coronavirus infection Status: Acute Comment Review of Relevant I have reviewed the following items herlinda (where applicable) has been applied. Labs Laboratory Tests Test 10/11/20 10:45 10/11/20 12:42 10/11/20 16:43 10/11/20 17:53 Sodium Level 143 mmol/L (136-145) Potassium Level 3.5 mmol/L (3.5-5.1) Chloride Level 107 mmol/L (98-107) Carbon Dioxide Level 31 mmol/L (21-32) Anion Gap 5 (6-14) Blood Urea Nitrogen 15 mg/dL (8-26) Creatinine 0.4 mg/dL (0.7-1.3) Estimated GFR (Cockcroft-Gault) 220.2 Glucose Level 257 mg/dL (70-99) Calcium Level 7.8 mg/dL (8.5-10.1) Magnesium Level 1.6 mg/dL (1.8-2.4) C-Reactive Protein, Quantitative 80.9 mg/L (0-3.3) Glucose (Fingerstick) 243 mg/dL (70-99) 109 mg/dL (70-99) Urine Collection Type Unknown Urine Color Riddhi Urine Clarity Cloudy Urine pH 6.5 (<5.0-8.0) Urine Specific [place] 1.025 (1.000-1.030) Urine Protein Negative mg/dL (NEG-TRACE) Urine Glucose (UA) Negative mg/dL (NEG) Urine Ketones (Stick) Negative mg/dL (NEG) Urine Blood Large (NEG) Urine Nitrite Negative (NEG) Urine Bilirubin Negative (NEG) Urine Urobilinogen Dipstick 4.0 mg/dL (0.2 mg/dL) Urine Leukocyte Esterase Moderate (NEG) Urine RBC 20-40 /HPF (0-2) Urine WBC Tntc /HPF (0-4) Urine Squamous Epithelial Cells Few /LPF Urine Bacteria Few /HPF (0-FEW) Urine Yeast Present /HPF Test 10/12/20 05:05 10/12/20 06:57 10/12/20 08:00 10/12/20 10:26 White Blood Count 8.4 x10^3/uL (4.0-11.0) Red Blood Count 3.95 x10^6/uL (4.30-5.70) Hemoglobin 12.8 g/dL (13.0-17.5) Hematocrit 37.6 % (39.0-53.0) Mean Corpuscular Volume 95 fL (79-100) Mean Corpuscular Hemoglobin 33 pg (25-35) Mean Corpuscular Hemoglobin Concent 34 g/dL (31-37) Red Cell Distribution Width 14.3 % (11.5-14.5) Platelet Count 81 x10^3/uL (140-400) Neutrophils (%) (Auto) 71 % (31-73) Lymphocytes (%) (Auto) 17 % (24-48) Monocytes (%) (Auto) 10 % (0-9) Eosinophils (%) (Auto) 2 % (0-3) Basophils (%) (Auto) 1 % (0-3) Neutrophils # (Auto) 5.9 x10^3/uL (1.8-7.7) Lymphocytes # (Auto) 1.4 x10^3/uL (1.0-4.8) Monocytes # (Auto) 0.9 x10^3/uL (0.0-1.1) Eosinophils # (Auto) 0.1 x10^3/uL (0.0-0.7) Basophils # (Auto) 0.1 x10^3/uL (0.0-0.2) Sodium Level 144 mmol/L (136-145) Potassium Level 3.4 mmol/L (3.5-5.1) Chloride Level 109 mmol/L (98-107) Carbon Dioxide Level 32 mmol/L (21-32) Anion Gap 3 (6-14) Blood Urea Nitrogen 15 mg/dL (8-26) Creatinine 0.5 mg/dL (0.7-1.3) Estimated GFR (Cockcroft-Gault) 170.2 BUN/Creatinine Ratio 30 (6-20) Glucose Level 49 mg/dL (70-99) Calcium Level 7.7 mg/dL (8.5-10.1) Magnesium Level 1.9 mg/dL (1.8-2.4) Total Bilirubin 0.7 mg/dL (0.2-1.0) Aspartate Amino Transf (AST/SGOT) 35 U/L (15-37) Alanine Aminotransferase (ALT/SGPT) 35 U/L (16-63) Alkaline Phosphatase 58 U/L (46-116) Total Protein 5.2 g/dL (6.4-8.2) Albumin 1.7 g/dL (3.4-5.0) Albumin/Globulin Ratio 0.5 (1.0-1.7) Glucose (Fingerstick) 83 mg/dL (70-99) 63 mg/dL (70-99) O2 Saturation 97 % (92-99) Arterial Blood pH 7.52 (7.35-7.45) Arterial Blood pCO2 at Patient Temp 35 mmHg (35-46) Arterial Blood pO2 at Patient Temp 88 mmHg (65-108) Arterial Blood HCO3 28 mmol/L (21-28) Arterial Blood Base Excess 6 mmol/L (-3-3) FiO2 50/vent Test 10/12/20 10:47 10/12/20 12:26 10/12/20 13:07 10/12/20 17:00 Glucose (Fingerstick) 115 mg/dL (70-99) 111 mg/dL (70-99) 204 mg/dL (70-99) O2 Saturation 94 % (92-99) Arterial Blood pH 7.49 (7.35-7.45) Arterial Blood pCO2 at Patient Temp 34 mmHg (35-46) Arterial Blood pO2 at Patient Temp 68 mmHg (65-108) Arterial Blood HCO3 26 mmol/L (21-28) Arterial Blood Base Excess 3 mmol/L (-3-3) FiO2 40/cpap 10/5 Test 10/12/20 21:44 10/13/20 00:04 10/13/20 06:01 10/13/20 08:55 Glucose (Fingerstick) 238 mg/dL (70-99) 242 mg/dL (70-99) 261 mg/dL (70-99) O2 Saturation 96 % (92-99) Arterial Blood pH 7.51 (7.35-7.45) Arterial Blood pCO2 at Patient Temp 35 mmHg (35-46) Arterial Blood pO2 at Patient Temp 81 mmHg (65-108) Arterial Blood HCO3 28 mmol/L (21-28) Arterial Blood Base Excess 5 mmol/L (-3-3) FiO2 40 Laboratory Tests Test 10/12/20 10:26 10/12/20 10:47 10/12/20 12:26 10/12/20 13:07 Glucose (Fingerstick) 63 mg/dL (70-99) 115 mg/dL (70-99) 111 mg/dL (70-99) O2 Saturation 94 % (92-99) Arterial Blood pH 7.49 (7.35-7.45) Arterial Blood pCO2 at Patient Temp 34 mmHg (35-46) Arterial Blood pO2 at Patient Temp 68 mmHg (65-108) Arterial Blood HCO3 26 mmol/L (21-28) Arterial Blood Base Excess 3 mmol/L (-3-3) FiO2 40/cpap 10/5 Test 10/12/20 17:00 10/12/20 21:44 10/13/20 00:04 10/13/20 06:01 Glucose (Fingerstick) 204 mg/dL (70-99) 238 mg/dL (70-99) 242 mg/dL (70-99) 261 mg/dL (70-99) Test 10/13/20 08:55 O2 Saturation 96 % (92-99) Arterial Blood pH 7.51 (7.35-7.45) Arterial Blood pCO2 at Patient Temp 35 mmHg (35-46) Arterial Blood pO2 at Patient Temp 81 mmHg (65-108) Arterial Blood HCO3 28 mmol/L (21-28) Arterial Blood Base Excess 5 mmol/L (-3-3) FiO2 40 Microbiology 10/11/20 Blood Culture - Preliminary, Resulted NO GROWTH AFTER 1 DAY Medications Current Medications Sodium Chloride 1,000 ml @ 1,000 mls/hr 1X ONCE IV Last administered on 09/25/20at 08:27; Start 09/25/20 at 07:00; Stop 09/25/20 at 07:59; Status DC Dexamethasone Sodium Phosphate (Decadron) 10 mg 1X ONCE IVP Last administered on 09/25/20at 08:24; Start 09/25/20 at 07:00; Stop 09/25/20 at 07:01; Status DC Ketorolac Tromethamine (Toradol 15mg Vial) 15 mg 1X ONCE IVP Last administered on 09/25/20at 09:35; Start 09/25/20 at 09:00; Stop 09/25/20 at 09:01; Status DC Aspirin (Ecotrin) 325 mg 1X ONCE PO Last administered on 09/25/20at 09:35; Start 09/25/20 at 09:15; Stop 09/25/20 at 09:16; Status DC Iohexol (Omnipaque 350 Mg/ml) 100 ml 1X ONCE IV Last administered on 09/25/20at 10:05; Start 09/25/20 at 10:00; Stop 09/25/20 at 10:01; Status DC Info (CONTRAST GIVEN -- Rx MONITORING) 1 each PRN DAILY PRN MC SEE COMMENTS; Start 09/25/20 at 10:00; Stop 09/27/20 at 09:59; Status DC Azithromycin 250 ml @ 250 mls/hr 1X ONCE IV Last administered on 09/25/20at 11:37; Start 09/25/20 at 10:30; Stop 09/25/20 at 11:29; Status DC Ceftriaxone Sodium (Rocephin) 1 gm 1X ONCE IVP Last administered on 09/25/20at 11:36; Start 09/25/20 at 10:30; Stop 09/25/20 at 10:34; Status DC Ondansetron HCl (Zofran) 4 mg PRN Q8HRS PRN IV NAUSEA/VOMITING Last administered on 09/25/20at 11:33; Start 09/25/20 at 10:45; Stop 09/26/20 at 10:44; Status DC Fentanyl Citrate (Fentanyl 2ml Vial) 50 mcg Q2HR PRN IV PAIN Last administered on 09/26/20at 09:04; Start 09/25/20 at 10:45; Stop 09/26/20 at 10:44; Status DC Insulin Human Lispro (HumaLOG) 0-5 UNITS TIDWMEALS SQ ; Start 09/25/20 at 12:00; Stop 09/26/20 at 11:03; Status DC Dextrose (Dextrose 50%-Water Syringe) 12.5 gm PRN Q15MIN PRN IV SEE COMMENTS; Start 09/25/20 at 10:45; Stop 09/25/20 at 13:01; Status DC Labetalol HCl (Normodyne Iv Push) 20 mg 1X ONCE IVP Last administered on 09/25/20at 12:01; Start 09/25/20 at 12:00; Stop 09/25/20 at 12:01; Status DC Labetalol HCl (Normodyne Iv Push) 20 mg STK-MED ONCE IVP ; Start 09/25/20 at 11:42; Stop 09/25/20 at 11:42; Status DC Magnesium Sulfate/ Dextrose 100 ml @ 100 mls/hr 1X ONCE IV Last administered on 09/25/20at 14:25; Start 09/25/20 at 13:30; Stop 09/25/20 at 14:29; Status DC Azithromycin 250 ml @ 250 mls/hr DAILY07 IV ; Start 09/26/20 at 07:00; Status UNV Ceftriaxone Sodium (Rocephin) 1 gm Q24H IVP ; Start 09/25/20 at 13:00; Status Cancel Sodium Chloride (Normal Saline Flush) 3 ml QSHIFT PRN IV AFTER MEDS AND BLOOD DRAWS; Start 09/25/20 at 13:00 Ondansetron HCl (Zofran) 4 mg PRN Q4HRS PRN IV NAUSEA/VOMITING Last administered on 09/27/20at 11:18; Start 09/25/20 at 13:00 Acetaminophen (Tylenol) 650 mg PRN Q4HRS PRN PO TEMP OVER 100.4F OR MILD PAIN Last administered on 09/26/20at 09:00; Start 09/25/20 at 13:00 Al Hydroxide/Mg Hydroxide (Mylanta Plus Xs) 30 ml PRN DAILY PRN PO HEARTBURN / GAS; Start 09/25/20 at 13:00 Clonidine HCl (Catapres) 0.1 mg PRN Q6HRS PRN PO SBP>160 OR DBP>90 Last administered on 09/27/20at 11:00; Start 09/25/20 at 13:00 Sodium Monofluorophosphate (Fleet Adult) 133 ml PRN DAILY PRN ME CONSTIPATION; Start 09/25/20 at 13:00 Docusate Sodium (Colace) 100 mg PRN BID PRN PO HARD STOOLS Last administered on 10/11/20at 09:55; Start 09/25/20 at 13:00 Albuterol/ Ipratropium (Duoneb) 3 ml Q4HRS NEB ; Start 09/25/20 at 16:00; Stop 09/26/20 at 01:06; Status DC Guaifenesin (Robitussin) 200 mg PRN Q4HRS PRN PO COUGH; Start 09/25/20 at 13:00 Enoxaparin Sodium (Lovenox 40mg Syringe) 40 mg Q24H SQ Last administered on 10/12/20at 21:14; Start 09/25/20 at 21:00 Ceftriaxone Sodium (Rocephin) 1 gm Q24H IVP Last administered on 10/05/20at 09:51; Start 09/26/20 at 09:00; Stop 10/05/20 at 09:04; Status DC Dexamethasone Sodium Phosphate (Decadron) 6 mg DAILY IVP Last administered on 10/07/20at 07:48; Start 09/26/20 at 09:00; Stop 10/07/20 at 13:17; Status DC Insulin Human Lispro (HumaLOG) 0-7 UNITS TIDWMEALS SQ Last administered on 09/26/20at 17:26; Start 09/25/20 at 17:00; Stop 09/27/20 at 07:25; Status DC Dextrose (Dextrose 50%-Water Syringe) 12.5 gm PRN Q15MIN PRN IV SEE COMMENTS Last administered on 10/12/20at 10:28; Start 09/25/20 at 13:00 Azithromycin 500 mg/Sodium Chloride 250 ml @ 250 mls/hr Q24H IV Last administered on 10/03/20at 13:20; Start 09/26/20 at 13:00; Stop 10/04/20 at 13:43; Status DC Hydralazine HCl (Apresoline Inj) 10 mg PRN Q4HRS PRN IVP ELEVATED BP, SEE COMMENTS Last administered on 10/12/20at 14:19; Start 09/25/20 at 13:15 Amlodipine Besylate (Norvasc) 5 mg DAILY PO Last administered on 09/27/20at 08:02; Start 09/25/20 at 13:15; Stop 09/29/20 at 07:44; Status DC Albuterol/ Ipratropium (Combivent Respimat 20-100 Mcg) 1 puff Q4HRS W/A INH Last administered on 09/29/20at 06:07; Start 09/26/20 at 06:00; Stop 09/30/20 at 01:15; Status DC Pantoprazole Sodium (PROTONIX VIAL for IV PUSH) 40 mg DAILYAC IVP Last administered on 10/12/20at 09:59; Start 09/26/20 at 09:00 Fluticasone Propionate (Flonase) 2 spray DAILY NS Last administered on 09/26/20at 11:32; Start 09/26/20 at 10:45 Lactobacillus Rhamnosus (Culturelle) 1 cap BID PO Last administered on 09/30/20at 10:01; Start 09/26/20 at 21:00; Stop 09/30/20 at 10:57; Status DC Remdesivir 200 mg/ Sodium Chloride 210 ml @ 210 mls/hr 1X ONCE IV ; Start 09/26/20 at 14:30; Stop 09/26/20 at 15:29; Status DC Remdesivir 100 mg/ Sodium Chloride 230 ml @ 460 mls/hr Q24H IV Last administered on 10/01/20at 12:36; Start 09/27/20 at 14:30; Stop 10/01/20 at 12:29; Status DC Ibuprofen (Motrin) 600 mg PRN Q6HRS PRN PO INFLAMMATION Last administered on 09/26/20at 19:44; Start 09/26/20 at 18:30 Insulin Human Lispro (HumaLOG) 0-9 UNITS QIDACHS SQ Last administered on 09/30/20at 17:00; Start 09/27/20 at 07:30; Stop 09/30/20 at 19:30; Status DC Insulin Glargine (Lantus Syringe) 10 unit QHS SQ Last administered on 10/01/20at 20:40; Start 09/27/20 at 21:00; Stop 10/02/20 at 09:54; Status DC Lorazepam (Ativan) 1 mg PRN Q6HRS PRN PO ANXIETY / AGITATION; Start 09/27/20 at 10:45; Stop 09/28/20 at 12:54; Status DC Lorazepam (Ativan) 2 mg PRN Q6HRS PRN PO ANXIETY / AGITATION Last administered on 09/28/20at 10:43; Start 09/27/20 at 10:45; Stop 09/28/20 at 12:54; Status DC Morphine Sulfate (Morphine Sulfate) 2 mg 1X ONCE IV Last administered on 09/27/20at 11:06; Start 09/27/20 at 11:00; Stop 09/27/20 at 11:01; Status DC Metoprolol Tartrate (Lopressor) 25 mg BID PO Last administered on 10/12/20at 14:20; Start 09/27/20 at 12:00 Tamsulosin HCl (Flomax) 0.4 mg DAILY PO Last administered on 10/08/20at 08:00; Start 09/27/20 at 12:00 Fluticasone/ Vilanterol (Breo Ellipta 100-25 Mcg) 1 puff DAILY INH Last administered on 09/27/20at 14:43; Start 09/27/20 at 12:00 Remdesivir 200 mg/ Sodium Chloride 210 ml @ 210 mls/hr 1X ONCE IV Last administered on 09/27/20at 12:49; Start 09/27/20 at 12:00; Stop 09/27/20 at 12:59; Status DC Acetaminophen/ Hydrocodone Bitart (Lortab 5/325) 1 tab PRN Q4HRS PRN PO MOD ERATE PAIN 4-6 Last administered on 09/28/20at 05:11; Start 09/27/20 at 21:45 Lorazepam (Ativan Inj) 2 mg PRN Q4HRS PRN IVP ANXIETY / AGITATION Last administered on 09/29/20at 09:24; Start 09/28/20 at 13:00; Stop 10/13/20 at 05:22; Status DC Haloperidol Lactate (Haldol Inj) 5 mg PRN Q6HRS PRN IVP AGITATION - 2ND CHOICE Last administered on 10/12/20at 15:31; Start 09/28/20 at 17:15 Ziprasidone (Geodon Im) 20 mg 1X ONCE IM Last administered on 09/28/20at 19:33; Start 09/28/20 at 17:15; Stop 09/28/20 at 17:16; Status DC Amlodipine Besylate (Norvasc) 10 mg DAILY PO Last administered on 10/12/20at 11:23; Start 09/29/20 at 09:00 Dexmedetomidine HCl 400 mcg/ Sodium Chloride 100 ml @ 0 mls/hr CONT PRN IV PER PROTOCOL Last administered on 10/13/20at 02:11; Start 09/29/20 at 09:00 Sodium Chloride 500 ml @ 500 mls/hr 1X PRN PRN IV SEE COMMENTS; Start 09/29/20 at 09:00 Atropine Sulfate (ATROPINE 0.5mg SYRINGE) 0.5 mg PRN Q5MIN PRN IV SEE COMMENTS; Start 09/29/20 at 09:00 Fentanyl Citrate 30 ml @ 0 mls/hr CONT PRN IV SEE PROTOCOL Last administered on 10/11/20at 12:51; Start 09/29/20 at 10:00; Stop 10/13/20 at 05:22; Status DC Propofol 100 ml @ 0 mls/hr CONT PRN IV PER PROTOCOL Last administered on 10/12/20at 09:33; Start 09/29/20 at 10:00; Stop 10/13/20 at 05:22; Status DC Fentanyl Citrate (Fentanyl 2ml Vial) 25 mcg PRN Q1HR PRN IV SEE COMMENTS Last administered on 10/12/20at 15:51; Start 09/29/20 at 10:00 Fentanyl Citrate (Fentanyl 2ml Vial) 50 mcg PRN Q1HR PRN IV SEE COMMENTS; Start 09/29/20 at 10:00 Morphine Sulfate (Morphine Sulfate) 2 mg PRN Q1HR PRN IV SEE COMMENTS.; Start 09/29/20 at 10:00; Stop 10/07/20 at 03:45; Status DC Morphine Sulfate (Morphine Sulfate) 4 mg PRN Q1HR PRN IV SEE COMMENTS.; Start 09/29/20 at 10:00; Stop 10/07/20 at 03:45; Status DC Midazolam HCl 100 ml @ 0 mls/hr CONT PRN IV SEE PROTOCOL Last administered on 10/09/20at 06:39; Start 09/29/20 at 10:00; Stop 10/13/20 at 05:22; Status DC Norepinephrine Bitartrate 8 mg/ Dextrose 258 ml @ 18.692 mls/ hr CONT PRN IV PER PROTOCOL Last administered on 09/29/20at 10:28; Start 09/29/20 at 10:15; Stop 10/13/20 at 05:22; Status DC Succinylcholine Chloride (Anectine) 100 mg 1X ONCE IV Last administered on 09/29/20at 10:25; Start 09/29/20 at 10:30; Stop 09/29/20 at 10:31; Status DC Etomidate (Amidate) 12 mg 1X ONCE IV Last administered on 09/29/20at 10:24; Start 09/29/20 at 10:30; Stop 09/29/20 at 10:31; Status DC Vecuronium [place] (Norcuron Bolus) 6 mg PRN Q2HR PRN IV VENTILATOR COMPLIANCE Last administered on 10/06/20at 16:19; Start 09/29/20 at 10:45; Stop 10/13/20 at 05:22; Status DC Sodium Chloride 1,000 ml @ 75 mls/hr [id number] IV Last administered on 10/07/20at 05:00; Start 09/30/20 at 05:45; Stop 10/07/20 at 10:03; Status DC Propofol (Diprivan) 1,000 mg STK-MED ONCE IV ; Start 09/29/20 at 10:15; Stop 09/30/20 at 12:58; Status DC Insulin Human Lispro (HumaLOG) 0-9 UNITS Q6HRS SQ Last administered on 10/04/20at 06:05; Start 10/01/20 at 00:00; Stop 10/04/20 at 10:41; Status DC Insulin Glargine (Lantus Syringe) 15 unit QHS SQ Last administered on 10/02/20at 20:14; Start 10/02/20 at 21:00; Stop 10/03/20 at 09:30; Status DC Insulin Glargine (Lantus Syringe) 20 unit QHS SQ Last administered on 10/05/20at 22:22; Start 10/03/20 at 21:00; Stop 10/06/20 at 07:34; Status DC Insulin Human Lispro (HumaLOG) 10 units TIDAC SQ Last administered on 10/04/20at 17:27; Start 10/04/20 at 11:30; Stop 10/05/20 at 10:15; Status DC Insulin Human Lispro (HumaLOG) 0-7 UNITS Q6HRS SQ Last administered on 10/13/20at 06:05; Start 10/04/20 at 12:00 Insulin Human Lispro (HumaLOG) 10 units Q6HRS SQ Last administered on 10/06/20at 06:00; Start 10/05/20 at 12:00; Stop 10/06/20 at 07:34; Status DC Insulin Glargine (Lantus Syringe) 20 unit BID SQ Last administered on 10/12/20at 22:18; Start 10/06/20 at 09:00 Insulin Human Lispro (HumaLOG) 15 units Q6HRS SQ Last administered on 10/09/20at 00:36; Start 10/06/20 at 12:00; Stop 10/11/20 at 15:47; Status DC Furosemide (Lasix) 40 mg DAILY IVP Last administered on 10/12/20at 10:00; Start 10/07/20 at 11:00 Albumin Human 500 ml @ 125 mls/hr [id number] IV ; Start 10/08/20 at 09:00; Stop 10/08/20 at 09:21; Status DC Albumin Human 50 ml @ 50 mls/hr DAILY IV Last administered on 10/10/20at 08:38; Start 10/08/20 at 09:30; Stop 10/10/20 at 10:00; Status DC Magnesium Sulfate 50 ml @ 25 mls/hr 1X ONCE IV Last administered on 10/11/20at 14:22; Start 10/11/20 at 14:15; Stop 10/11/20 at 16:14; Status DC Piperacillin Sod/ Tazobactam Sod (Zosyn Per Pharmacy) 1 each PRN DAILY PRN MC SEE COMMENTS; Start 10/11/20 at 16:30 Piperacillin Sod/ Tazobactam Sod 3.375 gm/Sodium Chloride 50 ml @ 100 mls/hr Q6HRS IV Last administered on 10/13/20at 05:34; Start 10/11/20 at 18:00 Potassium Chloride/Water 100 ml @ 100 mls/hr Q1H IV Last administered on 10/12/20at 12:12; Start 10/12/20 at 08:30; Stop 10/12/20 at 10:29; Status DC Metoclopramide HCl (Reglan Vial) 5 mg QIDACHS IVP Last administered on 10/12/20at 21:13; Start 10/12/20 at 11:30 Amino Acids/ Electrolytes/ Dextrose 1,000 ml @ 80 mls/hr [id number] IV Last administered on 10/12/20at 23:16; Start 10/12/20 at 11:15 Epinephrine (S2 Racepinephrine) 0.5 ml 1X ONCE NEB Last administered on 10/12/20at 15:20; Start 10/12/20 at 15:15; Stop 10/12/20 at 15:18; Status DC Methylprednisolone Sodium Succinate (SOLU-Medrol 125MG VIAL) 125 mg Q6HRS IV Last administered on 10/12/20at 23:17; Start 10/12/20 at 16:00; Stop 10/13/20 at 05:22; Status DC Methylprednisolone Sodium Succinate (SOLU-Medrol 125MG VIAL) 60 mg BID IV ; Start 10/13/20 at 09:00 Active Scripts Active Reported Flomax (Tamsulosin Hcl) 0.4 Mg Cap.er.24h 1 Cap PO DAILY Semglee (Insulin Glargine,Hum.rec.anlog) 100 Unit/1 Ml Vial 20 Unit SQ QHS Semglee (Insulin Glargine,Hum.rec.anlog) 100 Unit/1 Ml Vial 30 Unit SQ QAM Novolin R (Insulin Regular, Human) 100 Unit/1 Ml Vial 100 Unit IJ SSI PRN Naproxen 500 Mg Tablet 1 Tab PO BID PRN 30 Days Metoprolol Tartrate 25 Mg Tablet 1 Tab PO BID [place] (Ciclesonide) 6.1 Gm Hfa.aer.ad 6.1 Gm IH Q12HR Proair Hfa Inhaler (Albuterol Sulfate) 8.5 Gm Hfa.aer.ad 2 Puff IH PRN Q4-6HRS PRN 21 Days Vitals/I & O Vital Sign - Last 24 Hours 10/12/20 10/12/20 10/12/20 10/12/20 09:36 10:00 11:00 11:05 Pulse 46 44 Resp 14 14 B/P (MAP) 122/67 (85) 123/67 (85) Pulse Ox 96 95 96 96 O2 Delivery Ventilator Ventilator Ventilator Ventilator 10/12/20 10/12/20 10/12/20 10/12/20 11:23 11:57 12:00 12:00 Temp 98.4 98.4 Pulse 47 64 Resp 24 B/P (MAP) 167/82 137/79 (98) Pulse Ox 96 96 O2 Delivery Ventilator Ventilator Mechanical Ventilator 10/12/20 10/12/20 10/12/20 10/12/20 13:00 13:09 14:00 14:19 Pulse 86 100 104 Resp 27 27 B/P (MAP) 147/81 (103) 181/108 (132) 194/90 Pulse Ox 94 94 96 O2 Delivery Ventilator Ventilator Ventilator 10/12/20 10/12/20 10/12/2010/12/21 14:20 15:00 15:15 15:51 Pulse 104 82 Resp 33 37 B/P (MAP) 194/90 173/89 (117) Pulse Ox 92 92 92 O2 Delivery BiPAP/CPAP BiPAP/CPAP BiPAP/CPAP 10/12/20 10/12/20 10/12/20 10/12/20 16:00 16:00 16:21 16:39 Temp 98.5 98.5 Pulse 86 Resp 34 34 B/P (MAP) 150/64 (92) Pulse Ox 93 94 94 O2 Delivery BiPAP/CPAP Bi-pap BiPAP/CPAP BiPAP/CPAP 10/12/20 10/12/20 10/12/20 10/12/20 17:00 18:00 18:15 19:00 Pulse 82 75 71 Resp 29 27 23 B/P (MAP) 136/67 (90) 137/71 (93) 140/68 (92) Pulse Ox 93 97 96 97 O2 Delivery BiPAP/CPAP BiPAP/CPAP BiPAP/CPAP BiPAP/CPAP 10/12/20 10/12/20 10/12/20 10/12/20 20:00 20:00 20:20 21:00 Temp 98.6 98.6 Pulse 71 71 Resp 23 B/P (MAP) 159/79 (105) 140/68 Pulse Ox 97 98 O2 Delivery BiPAP/CPAP Bi-pap BiPAP/CPAP 10/12/20 10/12/20 10/12/20 10/12/20 21:00 22:00 23:00 23:30 Pulse 67 71 70 Resp 21 B/P (MAP) 148/72 (97) 147/76 (99) 147/74 (98) Pulse Ox 98 98 97 98 O2 Delivery BiPAP/CPAP BiPAP/CPAP BiPAP/CPAP BiPAP/CPAP 10/13/20 10/13/20 10/13/20 10/13/20 00:00 00:01 01:00 01:19 Temp 98.6 98.6 Pulse 67 65 Resp 19 23 B/P (MAP) 156/81 (106) 133/70 (91) Pulse Ox 97 98 96 O2 Delivery Bi-pap BiPAP/CPAP BiPAP/CPAP BiPAP/CPAP 10/13/20 10/13/20 10/13/20 10/13/20 02:00 02:55 03:00 04:00 Pulse 63 61 Resp 19 19 B/P (MAP) 133/72 (92) 140/77 (98) Pulse Ox 96 97 97 O2 Delivery BiPAP/CPAP BiPAP/CPAP BiPAP/CPAP Bi-pap 10/13/20 10/13/20 10/13/20 10/13/20 04:00 05:00 05:35 06:00 Temp 98.2 98.2 Pulse 63 64 60 Resp 20 20 18 B/P (MAP) 158/86 (110) 147/78 (101) 156/82 (106) Pulse Ox 97 98 99 99 O2 Delivery BiPAP/CPAP BiPAP/CPAP BiPAP/CPAP BiPAP/CPAP 10/13/20 08:43 Pulse Ox 99 O2 Delivery BiPAP/CPAP Intake and Output 10/12/20 10/12/20 10/13/20 15:00 23:00 07:00 Intake Total 630.9 ml 875.3 ml 1241.1 ml Output Total 1385 ml 890 ml 515 ml Balance -754.1 ml -14.7 ml 726.1 ml Justicifation of Admission Dx: Justifications for Admission: Justification of Admission Dx: Yes Comminuty Aquired Pneumonia: Hypoxemia NIRANJAN KIM MD Oct 13, 2020 09:05
[2020-10-13] MEDS: methylPREDNISolone SOD SUCC PF 125 MG/2 ML VIAL. IV SCH ×2 (09:13→21:27)
[2020-10-13] MEDS: PANTOPRAZOLE IV PUSH 40 MG VIAL. IVP SCH (09:13)
[2020-10-13] MEDS: METOCLOPRAMIDE HCL 10 MG/2 ML VIAL. IVP SCH ×4 (09:13→21:27)
[2020-10-13] MEDS: FUROSEMIDE 40 MG/4 ML VIAL. IVP SCH (09:14)
[2020-10-13] MEDS: INSULIN GLARGINE SYRINGE. SQ SCH ×2 (09:23→21:29)
[2020-10-13] MEDS: AA 4.25 %/CALCIUM/LYTES/D5W 1,000 ML IV SCH ×2 (12:01→23:52)
--- NOTE | 2020-10-13 12:42 | RAD ---
EXAM: Chest, single view. HISTORY: Pneumonia. COMPARISON: 10/11/2020 FINDINGS: A frontal view of the chest obtained. There is a right internal jugular catheter with the t ip in the right atrium. There has been slight interval decrease in lower lobe predominant multifocal interstitial infiltrate and suspected small pleural effusions. There is a stable cardiac silhouette. There has been interval removal of an endotracheal tube and nasogastric tube. IMPRESSION: 1. Slight interval decrease in lower lobe predominant multifocal infiltrate and small pleural effusio ns. 2. Interval extubation. Electronically signed by: Vanessa Esposito MD (10/13/2020 12:39 PM) [id number]
--- NOTE | 2020-10-13 14:18 | NUR ---
Verified Erin Garcia hung new bag Versed gtt @ 1800 on 10/09; witness forgot to save transaction.
[2020-10-13] MEDS: hydrALAZINE 20 MG/ML VIAL. IVP PRN (14:28)
[2020-10-13] MEDS: fentaNYL PF VIAL 100 MCG/2 ML VIAL IV PRN (16:05)
[2020-10-13] MEDS: ENOXAPARIN 40 MG/0.4 ML SYRINGE. SQ SCH (21:30)
[2020-10-14] VITALS (24 sets, daily range): BP systolic 112–159; BP diastolic 59–105
[2020-10-14] MEDS: DEXMEDETOMIDINE 400 MCG in IV NORMAL SALINE 100ML 96 ML IV PRN ×5 (01:38→22:01)
--- NOTE | 2020-10-14 05:11 | PDOC ---
PULMONARY PROGRESS NOTES DATE: 10/14/20 TIME: 05:07 Subjective Patient is currently on BiPAP at 40%, tolerates nasal cannula during the day On Precedex drip Bradycardia on the monitor No overnight concerns from nursing Vitals Vital Signs Date Time Temp Pulse Resp B/P (MAP) Pulse Ox O2 Delivery O2 Flow Rate FiO2 10/14/20 04:00 95.7 45 25 121/66 (84) 100 BiPAP/CPAP 95.7 10/13/20 22:00 4.0 Comments Patient seen during the pandemic, and visual inspection no paroxysmal breathing pattern no increasing edema no new rash BIPAP 40% No distress Labs Laboratory Tests Test 10/12/20 06:57 10/12/20 08:00 10/12/20 10:26 10/12/20 10:47 Glucose (Fingerstick) 83 mg/dL (70-99) 63 mg/dL (70-99) 115 mg/dL (70-99) O2 Saturation 97 % (92-99) Arterial Blood pH 7.52 (7.35-7.45) Arterial Blood pCO2 at Patient Temp 35 mmHg (35-46) Arterial Blood pO2 at Patient Temp 88 mmHg (65-108) Arterial Blood HCO3 28 mmol/L (21-28) Arterial Blood Base Excess 6 mmol/L (-3-3) FiO2 50/vent Test 10/12/20 12:26 10/12/20 13:07 10/12/20 17:00 10/12/20 21:44 Glucose (Fingerstick) 111 mg/dL (70-99) 204 mg/dL (70-99) 238 mg/dL (70-99) O2 Saturation 94 % (92-99) Arterial Blood pH 7.49 (7.35-7.45) Arterial Blood pCO2 at Patient Temp 34 mmHg (35-46) Arterial Blood pO2 at Patient Temp 68 mmHg (65-108) Arterial Blood HCO3 26 mmol/L (21-28) Arterial Blood Base Excess 3 mmol/L (-3-3) FiO2 40/cpap 12/14 Test 10/13/20 00:04 10/13/20 06:01 10/13/20 08:55 10/13/20 11:59 Glucose (Fingerstick) 242 mg/dL (70-99) 261 mg/dL (70-99) 324 mg/dL (70-99) O2 Saturation 96 % (92-99) Arterial Blood pH 7.51 (7.35-7.45) Arterial Blood pCO2 at Patient Temp 35 mmHg (35-46) Arterial Blood pO2 at Patient Temp 81 mmHg (65-108) Arterial Blood HCO3 28 mmol/L (21-28) Arterial Blood Base Excess 5 mmol/L (-3-3) FiO2 40 Test 10/13/20 17:21 10/13/20 23:00 Glucose (Fingerstick) 346 mg/dL (70-99) 324 mg/dL (70-99) Laboratory Tests Test 10/13/20 06:01 10/13/20 08:55 10/13/20 11:59 10/13/20 17:21 Glucose (Fingerstick) 261 mg/dL (70-99) 324 mg/dL (70-99) 346 mg/dL (70-99) O2 Saturation 96 % (92-99) Arterial Blood pH 7.51 (7.35-7.45) Arterial Blood pCO2 at Patient Temp 35 mmHg (35-46) Arterial Blood pO2 at Patient Temp 81 mmHg (65-108) Arterial Blood HCO3 28 mmol/L (21-28) Arterial Blood Base Excess 5 mmol/L (-3-3) FiO2 40 Test 10/13/20 23:00 Glucose (Fingerstick) 324 mg/dL (70-99) Medications Active Scripts Medications Dose Route/Sig Max Daily Dose Days Date Category Flomax (Tamsulosin Hcl) 0.4 Mg Cap.er.24h 1 Cap PO DAILY 09/26/20 Reported Semglee (Insulin Glargine,Hum.rec.anlog) 100 Unit/1 Ml Vial 20 Unit SQ QHS 09/26/20 Reported Semglee (Insulin Glargine,Hum.rec.anlog) 100 Unit/1 Ml Vial 30 Unit SQ QAM 09/26/20 Reported Novolin R (Insulin Regular, Human) 100 Unit/1 Ml Vial 100 Unit IJ SSI PRN 09/26/20 Reported Naproxen 500 Mg Tablet 1 Tab PO BID PRN 30 09/26/20 Reported Metoprolol Tartrate 25 Mg Tablet 1 Tab PO BID 09/26/20 Reported [place] (Ciclesonide) 6.1 Gm Hfa.aer.ad 6.1 Gm IH Q12HR 09/26/20 Reported Proair Hfa Inhaler (Albuterol Sulfate) 8.5 Gm Hfa.aer.ad 2 Puff IH PRN Q4-6HRS PRN 21 09/26/20 Reported Impression . IMPRESSION: 1. Acute hypoxemic respiratory failure secondary to COVID-19./ARDS--improved now extubated as of 10/12/20 2. COVID-19 viral pneumonia. 3. Possible bacterial pneumonia. 4. Other comorbidities including chronic obstructive pulmonary disease with acute exacerbation, tobacco dependent, chronic back pain and hypertension. 5. Abnormal chest x-ray with bilateral interstitial infiltrates related to COVID-19 pneumonia. 6. Status post intubation 09/29--extubated 10/12/20 Plan . Updated 10/14/20 Continue supplemental oxygen to keep oxygen saturations greater than 92%, currently on BiPAP 40% patient was extubated 10/12/2020, tolerating nasal cannula during the day BiPAP settings reviewed: 27/08 with a rate of 18 and 40% Patient has Finished course of remdesivir Patient restarted on steroids for wheezing 10/13/2020, currently on 60 mg IV twice daily, will taper slowly Follow ID recommendations for antibiotics, currently on Zosyn, started 10/11/2020 Continue nutritional support with PPN Hyperglycemia per PCP Physical therapy/Occupational Therapy/speech therapy DVT/GI PPX:lovenox D/W RN and RT Updated 10/13/20 Continue supplemental oxygen to keep oxygen saturations greater than 92%, currently on BiPAP 40% patient was extubated 10/12/2020 BiPAP settings reviewed: 27/08 with a rate of 18 and 40% Patient has Finished course of remdesivir and steroids Follow ID recommendations for antibiotics, currently on Zosyn, started 10/11/2020 Continue nutrional support with PPN Hyperglycemia per PCP Physical therapy/Occupational Therapy/speech therapy DVT/GI PPX:lovenox D/W RN and RT Critical care time 30 minutes Updated 10/12/20 Continue current vent [id number]/5/50% Reduce/DC sedation and proceed with pressure support trial Follow CXR/ABG --reviewed, reduce respiratory rate, give a one-time dose of Lasix today Patient has Finished course of remdesivir and steroids Follow ID recommendations for antibiotics, currently on Zosyn, started 10/11/2020 Continue nutrional support --tube feeding on hold secondary to high residuals, start PPN DVT/GI PPX:lovenox D/W RN and RT Critical care time 30 minutes SAROJ SQUIRES MD Oct 14, 2020 05:11
[2020-10-14] MEDS: PIPERACILLIN/TAZOBACTAM 3.375 GM in IV NORMAL SALINE 50ML 50 ML IV SCH ×3 (05:43→17:44)
[2020-10-14] MEDS: INSULIN LISPRO 300 UNITS/3 ML VIAL. SQ SCH ×3 (06:02→18:00)
[2020-10-14 06:34] LABS: BASO % 0 % (0-3); EOS % 0 % (0-3); HEMATOCRIT 36.1 % (39.0-53.0); HEMOGLOBIN 12.2 g/dL (13.0-17.5); LYMPH # 0.9 x10^3/uL (1.0-4.8); LYMPH % 19 % (24-48); MEAN CORPUSCULAR HEMOGLOBIN 32 pg (25-35); MEAN CORPUSCULAR HGB CONC 34 g/dL (31-37); MEAN CORPUSCULAR VOLUME 95 fL (79-100); MONO # 0.3 x10^3/uL (0.0-1.1); MONO % 5 % (0-9); NEUT # 3.7 x10^3/uL (1.8-7.7); NEUT % 76 % (31-73); PLATELET COUNT 73 x10^3/uL (140-400); RED BLOOD COUNT 3.82 x10^6/uL (4.30-5.70); RED CELL DISTRIBUTION WIDTH 13.8 % (11.5-14.5); WHITE BLOOD COUNT 4.9 x10^3/uL (4.0-11.0)
[2020-10-14 06:47] LABS: ALBUMIN 1.6 g/dL (3.4-5.0); ALBUMIN/GLOBULIN RATIO 0.4 (1.0-1.7); CALCIUM 8.2 mg/dL (8.5-10.1); CREATININE 0.6 mg/dL (0.7-1.3); GFR 137.9; POTASSIUM 3.8 mmol/L (3.5-5.1); TOTAL BILIRUBIN 0.7 mg/dL (0.2-1.0); TOTAL PROTEIN 5.7 g/dL (6.4-8.2)
--- NOTE | 2020-10-14 07:26 | PDOC ---
Infectious Disease Note Subjective Subjective extubated, awake on VM ROS ROS no n/v/d/ Vital Sign Vital Signs Vital Signs Date Time Temp Pulse Resp B/P (MAP) Pulse Ox O2 Delivery O2 Flow Rate FiO2 10/14/20 06:00 49 20 120/72 (88) 100 BiPAP/CPAP 10/14/20 04:00 95.7 95.7 10/13/20 22:00 4.0 Physical Exam PHYSICAL EXAM GENERAL: on bipap VITAL SIGNS: stable HEENT: Both pupils are round and reacting. No conjunctival lesions. Mouth cannot be visualized much, orally intubated. NECK: Supple. No JVP, no lymphadenopathy. LUNGS: Clear. HEART: S1 and S2 regular. ABDOMEN: Soft, nontender. No organomegaly. EXTREMITIES: No edema or cyanosis. SKIN: Unremarkable other than minor skin infection/small superficial abscess in the left upper extremity, which was I and D'd at some point during this hospitalization. Rest of skin exam is unremarkable. NEUROLOGIC: on bipap Labs Lab Laboratory Tests Test 10/13/20 08:55 10/13/20 11:59 10/13/20 17:21 10/13/20 23:00 O2 Saturation 96 % (92-99) Arterial Blood pH 7.51 (7.35-7.45) Arterial Blood pCO2 at Patient Temp 35 mmHg (35-46) Arterial Blood pO2 at Patient Temp 81 mmHg (65-108) Arterial Blood HCO3 28 mmol/L (21-28) Arterial Blood Base Excess 5 mmol/L (-3-3) FiO2 40 Glucose (Fingerstick) 324 mg/dL (70-99) 346 mg/dL (70-99) 324 mg/dL (70-99) Test 10/14/20 05:45 10/14/20 05:58 White Blood Count 4.9 x10^3/uL (4.0-11.0) Red Blood Count 3.82 x10^6/uL (4.30-5.70) Hemoglobin 12.2 g/dL (13.0-17.5) Hematocrit 36.1 % (39.0-53.0) Mean Corpuscular Volume 95 fL (79-100) Mean Corpuscular Hemoglobin 32 pg (25-35) Mean Corpuscular Hemoglobin Concent 34 g/dL (31-37) Red Cell Distribution Width 13.8 % (11.5-14.5) Platelet Count 73 x10^3/uL (140-400) Neutrophils (%) (Auto) 76 % (31-73) Lymphocytes (%) (Auto) 19 % (24-48) Monocytes (%) (Auto) 5 % (0-9) Eosinophils (%) (Auto) 0 % (0-3) Basophils (%) (Auto) 0 % (0-3) Neutrophils # (Auto) 3.7 x10^3/uL (1.8-7.7) Lymphocytes # (Auto) 0.9 x10^3/uL (1.0-4.8) Monocytes # (Auto) 0.3 x10^3/uL (0.0-1.1) Eosinophils # (Auto) 0.0 x10^3/uL (0.0-0.7) Basophils # (Auto) 0.0 x10^3/uL (0.0-0.2) Sodium Level 141 mmol/L (136-145) Potassium Level 3.8 mmol/L (3.5-5.1) Chloride Level 109 mmol/L (98-107) Carbon Dioxide Level 30 mmol/L (21-32) Anion Gap 2 (6-14) Blood Urea Nitrogen 32 mg/dL (8-26) Creatinine 0.6 mg/dL (0.7-1.3) Estimated GFR (Cockcroft-Gault) 137.9 BUN/Creatinine Ratio 53 (6-20) Glucose Level 337 mg/dL (70-99) Calcium Level 8.2 mg/dL (8.5-10.1) Total Bilirubin 0.7 mg/dL (0.2-1.0) Aspartate Amino Transf (AST/SGOT) 39 U/L (15-37) Alanine Aminotransferase (ALT/SGPT) 34 U/L (16-63) Alkaline Phosphatase 52 U/L (46-116) Total Protein 5.7 g/dL (6.4-8.2) Albumin 1.6 g/dL (3.4-5.0) Albumin/Globulin Ratio 0.4 (1.0-1.7) Glucose (Fingerstick) 332 mg/dL (70-99) Micro Microbiology 10/11/20 Blood Culture - Preliminary, Resulted NO GROWTH AFTER 1 DAY Objective Assessment IMPRESSION: 1. Hypothermia, which actually has improved. 2. COVID-19 positive. 3. Respiratory failure. 4. Pulmonary infiltrate. 5. Chronic obstructive pulmonary disease. 6. Diabetes. 7. Hypertension. Plan Plan of Care cont supportive care cont antibiotics ALINA AGUAYO MD Oct 14, 2020 07:26
--- NOTE | 2020-10-14 08:57 | PDOC ---
PROGRESS NOTES Date of Service: DATE: 10/14/20 TIME: 08:57 Chief Complaint Chief Complaint COVID-19 respiratory failure requiring intubation COPD Cirrhosis Severe pneumonia Remote history of alcohol issues mediastinal adenopathy Hyperglycemia and diabetes Severe protein calorie malnutrition Hypomagnesemia History of Present Illness History of Present Illness 10/14/2020 cont antibiotics extubated, awake on VM, NAD Slight interval decrease in lower lobe predominant multifocal infiltrate and small pleural effusions. Interval extubation. 10-13 59 year old male presented via EMS from [facility] with work of breathing x2 days with low O2 Sat at facility down to 78% on RA. known history of COPD and cough. Patient seen and examined in the [place] [address] ICU COVID POS Mediastinal adenopathy, malignancy is not excluded.suggest follow-up CT of the chest in 3 months. 2 cm blister on his left forearm Chart reviewed GLUCOSE UNCONTROLLED., INC LANTUS TO 21 UNITS SQ BID 10-14 Discussed with RN Finished course of antibiotics, remdesivir and steroids, start iv zosyn 8 Continue nutrional support HYPOTHERMIC , ID CONSULT, BLOOD CULTURE 33 min cc time 10/13/2020 extubated, awake on VM 59 year old male presented via EMS from [facility] with work of breathing x2 days with low O2 Sat at facility down to 78% on RA. known history of COPD and cough. Patient seen and examined in the [place] [address] ICU Mediastinal adenopathy, malignancy is not excluded.suggest follow-up CT of the chest in 3 months. He has a 2 cm blister on his left forearm Chart reviewed Discussed with RN Finished course of antibiotics, remdesivir and steroids, start iv zosyn 10-11 Continue nutrional support HYPOTHERMIC , ID CONSULT, BLOOD CULTURE 34 min cc time 10/12/2020 59 year old male presented via EMS from [facility] with work of breathing x2 days with low O2 Sat at facility down to 78% on RA. known history of COPD and cough. Patient seen and examined in the [place] [address] ICU He remains mechanically ventilated Mediastinal adenopathy, malignancy is not excluded.suggest follow-up CT of the chest in 3 months. AC/18/500/50 percent with 5 of PEEP We might do a weaning trial later today He has a 2 cm blister on his left forearm We aspirated it was mostly clear OG running at 60 cc/h Sedated with Dex Chart reviewed Discussed with RN Finished course of antibiotics, remdesivir and steroids, start iv zosyn 8- Continue nutrional support HYPOTHERMIC , ID CONSULT, BLOOD CULTURE 32 min cc time 10/11/2020 59 year old male presented via EMS from [facility] with work of breathing x2 days with low O2 Sat at facility down to 78% on RA. known history of COPD and cough. Patient seen and examined in the [place] [address] ICU He remains mechanically ventilated Mediastinal adenopathy, malignancy is not excluded.suggest follow-up CT of the chest in 3 months. AC/18/500/50 percent with 5 of PEEP We might do a weaning trial later today He has a 2 cm blister on his left forearm We aspirated it was mostly clear OG running at 60 cc/h Sedated with Dex Chart reviewed Discussed with RN Finished course of antibiotics, remdesivir and steroids Continue nutrional support HYPOTHERMIC , ID CONSULT, BLOOD CULTURE 36 min cc time 10/10/2020 Patient seen and examined in the [place] [address] ICU He remains mechanically ventilated AC/18/500/50 percent with 5 of PEEP We might do a weaning trial later today He has a 2 cm blister on his left forearm We aspirated it was mostly clear OG running at 60 cc/h Sedated with Dex Chart reviewed Discussed with RN 10/09/2020 Patient seen and examined in the [place] [address] ICU He is on the vent AC/18/500/50 percent with 5 of PEEP 2 corrections officers are present Patient is shackled left arm and left leg Has IV albumin hanging Sedated with fentanyl and Versed Chart reviewed Discussed with RN Has OG feeds running 10/08/2020 Patient seen and examined in the [place] [address] ICU He is still intubated AC/18/500/50 percent with 5 of PEEP We are possibly going to trial him today Has OG feeds running at 60 cc an hour Has SCDs on Olsen to bedside drainage Corrections officers are present Patient is shackled Sedated with fentanyl and Versed Discussed with RN Chart reviewed 10/07/2020 Patient seen and examined in the [place] [address] ICU He remains on the ventilator Assist-control/18/500/50 percent with 7 of PEEP Sedated with Versed and fentanyl Shackled to the bed with 2 corrections officers present Chart reviewed Discussed with RN He is critically ill 10/06/2020 Patient seen and examined in the [place] [address] ICU He has corrections officers present He is shackled on his left ankle Still remains on the vent AC/18/500/50 5% with 7 of PEEP Sedated with Versed and fentanyl Chart reviewed Discussed with RN He remains very critically ill 10/05/2020 Patient seen and examined in the [place] [address] ICU He is still intubated AC/20/500/60 5% with 7 of PEEP Discussed with RN Patient with OG feeds running Mitts for patient safety Has Olsen to bedside drainage 2 corrections officers are present Patient is shackled Sedated with fentanyl and Versed He remains very critically ill 10/04/2020 Patient seen and examined in the [place] [address] ICU He remains intubated Shackled AC/20/500/60 5% with 8 of PEEP He has OG feeds running Has mitts on for patient safety Has SCDs in place Olsen to bedside drainage He is sedated with fentanyl and Versed Discussed with RN His glucose is running a little high we are adding in scheduled NovoLog 10 units 3 times daily and continue the sliding scale and Lantus 20 a day Chart reviewed He remains very critically ill Corrections officers are present 59 year old male [facility] with work of breathing x2 days with low O2 Sat at facility down to 78% on RA. known history of COPD and cough. Patient also complains of headache. EMS noted p atient was 84% and tripoding on 3 L nasal cannula. EMS reports giving a DuoNeb treatment x2 in route and placement nonrebreather with subsequent improvement in up to 95%. remote alcohol abuse YRS AGO , smoked until one month ago when he was arrested received the [employer] COVID-19 vaccination x1 approximately 5 months ago at the [facility]. Patient denies known exposure to COVID-19. Panlobular airspace disease,c/w multifocal pneumonia. PUI Pulmonary edema less likely. 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 Remote alcohol abuse "6-8 cans of beer a day years ago" Thickened distal esophag us with 9 x 10 mm luminal density, likely ingested medication tablet. Mediastinal adenopathy, malignancy is not excluded.suggest follow-up CT of the chest in 3 months. / Hyperglycemia on accuchecks // Severe protein-caloric malnutrition CTA CHEST C/W Panlobular airspace disease, most likely multifocal pneumonia. 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 Patient tolerating BiPAP and saturating 91%. Started patient on IV Protonix because he is still on steroids. And has a history of esophageal varices. Patient's chart, labs, images were reviewed and discussed with RN 09/27/20 Patient evaluated at bedside He was having laboring respirations initially on the BiPAP concerned patient may need ICU transfer however was given a dose of Ativan and was able to calm down and respiratory status improved Continue steroids Pulmonary consult Plan of care discussed with bedside RN 09/28/20 Patient evaluated bedside He was on BiPAP required to be increased 100% FiO2 this morning Remains on remdesivir, Decadron, Rocephin, and azithromycin Continuing supportive care Plan of care discussed with bedside nurse 09/29/20 Patient evaluated at bedside Patient remains significantly agitated and anxious despite aggressive medication measures while on BiPAP BiPAP settings increasing over the past several days and given his agitation will transfer to ICU Continuing remdesivir Decadron Rocephin and azithromycin Plan of care discussed with bedside nurse 09/30/2020: Patient transferred from out to ICU yesterday due to worsening respiratory distress. He was intubated and currently on vent with FiO2 90% and PEEP of 8. We will continue treatment with remdesivir, steroids, and empiric antibiotics. Critical care time 30 minutes spent reviewing charts, reviewing imaging, reviewing labs, discussion with RN. 10/01/2020: Afebrile. On vent with FiO2 85%, PEEP 8. Continue treatment with remdesivir, steroids, Rocephin and azithromycin. Critical care time 30 minutes spent reviewing charts, imaging, reviewing labs, discussion with RN. 10/02/2020: Afebrile, FiO2 80%, PEEP 5. Finished remdesivir. Continue antibiotics and Decadron. Will increase insulin regimen due to persistent hyperglycemia. Supportive care. Critical care time 30 minutes spent reviewing charts, labs, reviewing imaging, discussion with RN. 10/03/2020: Afebrile, on vent with FiO2 70%, PEEP 5. Still with some significant hyperglycemia. Will increase basal insulin. Finished remdesivir. Will continue antibiotics and steroids. Repeat chest x-ray today. Critical care time 30 minutes spent reviewing charts, labs, reviewing imaging, discussion with RN. Vitals Vitals Vital Signs Date Time Temp Pulse Resp B/P (MAP) Pulse Ox O2 Delivery O2 Flow Rate FiO2 10/14/20 08:00 100 BiPAP/CPAP 10/14/20 06:00 49 20 120/72 (88) 10/14/20 04:00 95.7 95.7 10/13/20 22:00 4.0 Physical Exam Physical Exam GENERAL: on bipap VITAL SIGNS: stable HEENT: Both pupils are round and reacting. No conjunctival lesions. Mouth cannot be visualized much, orally intubated. NECK: Supple. No JVP, no lymphadenopathy. LUNGS: Clear. HEART: S1 and S2 regular. ABDOMEN: Soft, nontender. No organomegaly. EXTREMITIES: No edema or cyanosis. SKIN: Unremarkable other than minor skin infection/small superficial abscess in the left upper extremity, which was I and D'd at some point during this hospitalization. Rest of skin exam is unremarkable. NEUROLOGIC: on bipap General: Cooperative, No acute distress, Other (Intubated and sedated) Heart: Regular rate, Normal S1 Abdomen: Normal bowel sounds, Soft, No tenderness, No masses, Other (obese) Extremities: No cyanosis Skin: No rashes Labs LABS -- SPEC #: [id number] MYRA: 10/11/20 STATUS: RES REQ #: [id number] RECD: 10/11/20-[address]: NIRANJAN KIM MD SOURCE: BLOOD ENTR: 10/11/20-[address]: NO PCP SPDESC: YVNA ZEE MD ORDERED: BCULT Procedure Result BLOOD CULTURE Preliminary NO GROWTH AFTER 2 DAYS SPEC #: [id number] MYRA: 10/11/20 STATUS: COMP REQ #: [id number] RECD: 10/11/[address]: NIRANJAN KIM MD SOURCE: URINE CC ENTR: 10/11/[address]: ALINA AGUAYO MD SPDESC: YVAN IYER MD ORDERED: URINE CULTURE Procedure Result URINE CULTURE Final Final 80,000 CFU/ML YEAST on 10/13/20 at 1122 FINAL ID= [SANDRA TROPICALIS] Testing Performed by: [address] [address] For Inquires, the Physician may contact the Microbiology department at [phone] SANDRA TROPICALIS Unless otherwise specified, Testing Performed by: [address] [address] For Inquires, the Physician may contact the Microbiology department at [phone] -- EXAM: Chest, single view. HISTORY: Pneumonia. COMPARISON: 10/11/2020 FINDINGS: A frontal view of the chest obtained. There is a right internal jugular catheter with the tip in the right atrium. There has been slight interval decrease in lower lobe predominant multifocal interstitial infiltrate and suspected small pleural effusions. There is a stable cardiac silhouette. There has been interval removal of an endotracheal tube and nasogastric tube. IMPRESSION: 1. Slight interval decrease in lower lobe predominant multifocal infiltrate and small pleural effusions. 2. Interval extubation. Electronically signed by: Vanessa Johnson MD (10/13/2020 12:39 PM) [id number] DICTATED and SIGNED BY: VANESSA JOHNSON MD DATE: 10/13/20 [id number] Laboratory Tests Test 10/13/20 11:59 10/13/20 17:21 10/13/20 23:00 10/14/20 05:45 Glucose (Fingerstick) 324 mg/dL (70-99) 346 mg/dL (70-99) 324 mg/dL (70-99) White Blood Count 4.9 x10^3/uL (4.0-11.0) Red Blood Count 3.82 x10^6/uL (4.30-5.70) Hemoglobin 12.2 g/dL (13.0-17.5) Hematocrit 36.1 % (39.0-53.0) Mean Corpuscular Volume 95 fL (79-100) Mean Corpuscular Hemoglobin 32 pg (25-35) Mean Corpuscular Hemoglobin Concent 34 g/dL (31-37) Red Cell Distribution Width 13.8 % (11.5-14.5) Platelet Count 73 x10^3/uL (140-400) Neutrophils (%) (Auto) 76 % (31-73) Lymphocytes (%) (Auto) 19 % (24-48) Monocytes (%) (Auto) 5 % (0-9) Eosinophils (%) (Auto) 0 % (0-3) Basophils (%) (Auto) 0 % (0-3) Neutrophils # (Auto) 3.7 x10^3/uL (1.8-7.7) Lymphocytes # (Auto) 0.9 x10^3/uL (1.0-4.8) Monocytes # (Auto) 0.3 x10^3/uL (0.0-1.1) Eosinophils # (Auto) 0.0 x10^3/uL (0.0-0.7) Basophils # (Auto) 0.0 x10^3/uL (0.0-0.2) Sodium Level 141 mmol/L (136-145) Potassium Level 3.8 mmol/L (3.5-5.1) Chloride Level 109 mmol/L (98-107) Carbon Dioxide Level 30 mmol/L (21-32) Anion Gap 2 (6-14) Blood Urea Nitrogen 32 mg/dL (8-26) Creatinine 0.6 mg/dL (0.7-1.3) Estimated GFR (Cockcroft-Gault) 137.9 BUN/Creatinine Ratio 53 (6-20) Glucose Level 337 mg/dL (70-99) Calcium Level 8.2 mg/dL (8.5-10.1) Total Bilirubin 0.7 mg/dL (0.2-1.0) Aspartate Amino Transf (AST/SGOT) 39 U/L (15-37) Alanine Aminotransferase (ALT/SGPT) 34 U/L (16-63) Alkaline Phosphatase 52 U/L (46-116) Total Protein 5.7 g/dL (6.4-8.2) Albumin 1.6 g/dL (3.4-5.0) Albumin/Globulin Ratio 0.4 (1.0-1.7) Test 10/14/20 05:58 Glucose (Fingerstick) 332 mg/dL (70-99) Assessment and Plan Assessmemt and Plan Problems Medical Problems: (1) COPD exacerbation Status: Acute (2) Headache Status: Acute (3) Hypoxia Status: Acute (4) Pneumonia Status: Acute (5) Respiratory failure Status: Acute (6) Suspected 2019 novel coronavirus infection Status: Acute Comment Review of Relevant I have reviewed the following items herlinda (where applicable) has been applied. Labs Laboratory Tests Test 10/12/20 10:26 10/12/20 10:47 10/12/20 12:26 10/12/20 13:07 Glucose (Fingerstick) 63 mg/dL (70-99) 115 mg/dL (70-99) 111 mg/dL (70-99) O2 Saturation 94 % (92-99) Arterial Blood pH 7.49 (7.35-7.45) Arterial Blood pCO2 at Patient Temp 34 mmHg (35-46) Arterial Blood pO2 at Patient Temp 68 mmHg (65-108) Arterial Blood HCO3 26 mmol/L (21-28) Arterial Blood Base Excess 3 mmol/L (-3-3) FiO2 40/cpap 12/14 Test 10/12/20 17:00 10/12/20 21:44 10/13/20 00:04 10/13/20 06:01 Glucose (Fingerstick) 204 mg/dL (70-99) 238 mg/dL (70-99) 242 mg/dL (70-99) 261 mg/dL (70-99) Test 10/13/20 08:55 10/13/20 11:59 10/13/20 17:21 10/13/20 23:00 O2 Saturation 96 % (92-99) Arterial Blood pH 7.51 (7.35-7.45) Arterial Blood pCO2 at Patient Temp 35 mmHg (35-46) Arterial Blood pO2 at Patient Temp 81 mmHg (65-108) Arterial Blood HCO3 28 mmol/L (21-28) Arterial Blood Base Excess 5 mmol/L (-3-3) FiO2 40 Glucose (Fingerstick) 324 mg/dL (70-99) 346 mg/dL (70-99) 324 mg/dL (70-99) Test 10/14/20 05:45 10/14/20 05:58 White Blood Count 4.9 x10^3/uL (4.0-11.0) Red Blood Count 3.82 x10^6/uL (4.30-5.70) Hemoglobin 12.2 g/dL (13.0-17.5) Hematocrit 36.1 % (39.0-53.0) Mean Corpuscular Volume 95 fL (79-100) Mean Corpuscular Hemoglobin 32 pg (25-35) Mean Corpuscular Hemoglobin Concent 34 g/dL (31-37) Red Cell Distribution Width 13.8 % (11.5-14.5) Platelet Count 73 x10^3/uL (140-400) Neutrophils (%) (Auto) 76 % (31-73) Lymphocytes (%) (Auto) 19 % (24-48) Monocytes (%) (Auto) 5 % (0-9) Eosinophils (%) (Auto) 0 % (0-3) Basophils (%) (Auto) 0 % (0-3) Neutrophils # (Auto) 3.7 x10^3/uL (1.8-7.7) Lymphocytes # (Auto) 0.9 x10^3/uL (1.0-4.8) Monocytes # (Auto) 0.3 x10^3/uL (0.0-1.1) Eosinophils # (Auto) 0.0 x10^3/uL (0.0-0.7) Basophils # (Auto) 0.0 x10^3/uL (0.0-0.2) Sodium Level 141 mmol/L (136-145) Potassium Level 3.8 mmol/L (3.5-5.1) Chloride Level 109 mmol/L (98-107) Carbon Dioxide Level 30 mmol/L (21-32) Anion Gap 2 (6-14) Blood Urea Nitrogen 32 mg/dL (8-26) Creatinine 0.6 mg/dL (0.7-1.3) Estimated GFR (Cockcroft-Gault) 137.9 BUN/Creatinine Ratio 53 (6-20) Glucose Level 337 mg/dL (70-99) Calcium Level 8.2 mg/dL (8.5-10.1) Total Bilirubin 0.7 mg/dL (0.2-1.0) Aspartate Amino Transf (AST/SGOT) 39 U/L (15-37) Alanine Aminotransferase (ALT/SGPT) 34 U/L (16-63) Alkaline Phosphatase 52 U/L (46-116) Total Protein 5.7 g/dL (6.4-8.2) Albumin 1.6 g/dL (3.4-5.0) Albumin/Globulin Ratio 0.4 (1.0-1.7) Glucose (Fingerstick) 332 mg/dL (70-99) Laboratory Tests Test 10/13/20 11:59 10/13/20 17:21 10/13/20 23:00 10/14/20 05:45 Glucose (Fingerstick) 324 mg/dL (70-99) 346 mg/dL (70-99) 324 mg/dL (70-99) White Blood Count 4.9 x10^3/uL (4.0-11.0) Red Blood Count 3.82 x10^6/uL (4.30-5.70) Hemoglobin 12.2 g/dL (13.0-17.5) Hematocrit 36.1 % (39.0-53.0) Mean Corpuscular Volume 95 fL (79-100) Mean Corpuscular Hemoglobin 32 pg (25-35) Mean Corpuscular Hemoglobin Concent 34 g/dL (31-37) Red Cell Distribution Width 13.8 % (11.5-14.5) Platelet Count 73 x10^3/uL (140-400) Neutrophils (%) (Auto) 76 % (31-73) Lymphocytes (%) (Auto) 19 % (24-48) Monocytes (%) (Auto) 5 % (0-9) Eosinophils (%) (Auto) 0 % (0-3) Basophils (%) (Auto) 0 % (0-3) Neutrophils # (Auto) 3.7 x10^3/uL (1.8-7.7) Lymphocytes # (Auto) 0.9 x10^3/uL (1.0-4.8) Monocytes # (Auto) 0.3 x10^3/uL (0.0-1.1) Eosinophils # (Auto) 0.0 x10^3/uL (0.0-0.7) Basophils # (Auto) 0.0 x10^3/uL (0.0-0.2) Sodium Level 141 mmol/L (136-145) Potassium Level 3.8 mmol/L (3.5-5.1) Chloride Level 109 mmol/L (98-107) Carbon Dioxide Level 30 mmol/L (21-32) Anion Gap 2 (6-14) Blood Urea Nitrogen 32 mg/dL (8-26) Creatinine 0.6 mg/dL (0.7-1.3) Estimated GFR (Cockcroft-Gault) 137.9 BUN/Creatinine Ratio 53 (6-20) Glucose Level 337 mg/dL (70-99) Calcium Level 8.2 mg/dL (8.5-10.1) Total Bilirubin 0.7 mg/dL (0.2-1.0) Aspartate Amino Transf (AST/SGOT) 39 U/L (15-37) Alanine Aminotransferase (ALT/SGPT) 34 U/L (16-63) Alkaline Phosphatase 52 U/L (46-116) Total Protein 5.7 g/dL (6.4-8.2) Albumin 1.6 g/dL (3.4-5.0) Albumin/Globulin Ratio 0.4 (1.0-1.7) Test 10/14/20 05:58 Glucose (Fingerstick) 332 mg/dL (70-99) Microbiology 10/11/20 Urine Culture - Final, Complete 10/11/20 Blood Culture - Preliminary, Resulted NO GROWTH AFTER 2 DAYS Medications Current Medications Sodium Chloride 1,000 ml @ 1,000 mls/hr 1X ONCE IV Last administered on 09/25/20at 08:27; Start 09/25/20 at 07:00; Stop 09/25/20 at 07:59; Status DC Dexamethasone Sodium Phosphate (Decadron) 10 mg 1X ONCE IVP Last administered on 09/25/20at 08:24; Start 09/25/20 at 07:00; Stop 09/25/20 at 07:01; Status DC Ketorolac Tromethamine (Toradol 15mg Vial) 15 mg 1X ONCE IVP Last administered on 09/25/20at 09:35; Start 09/25/20 at 09:00; Stop 09/25/20 at 09:01; Status DC Aspirin (Ecotrin) 325 mg 1X ONCE PO Last administered on 09/25/20at 09:35; Start 09/25/20 at 09:15; Stop 09/25/20 at 09:16; Status DC Iohexol (Omnipaque 350 Mg/ml) 100 ml 1X ONCE IV Last administered on 09/25/20at 10:05; Start 09/25/20 at 10:00; Stop 09/25/20 at 10:01; Status DC Info (CONTRAST GIVEN -- Rx MONITORING) 1 each PRN DAILY PRN MC SEE COMMENTS; Start 09/25/20 at 10:00; Stop 09/27/20 at 09:59; Status DC Azithromycin 250 ml @ 250 mls/hr 1X ONCE IV Last administered on 09/25/20at 11:37; Start 09/25/20 at 10:30; Stop 09/25/20 at 11:29; Status DC Ceftriaxone Sodium (Rocephin) 1 gm 1X ONCE IVP Last administered on 09/25/20at 11:36; Start 09/25/20 at 10:30; Stop 09/25/20 at 10:34; Status DC Ondansetron HCl (Zofran) 4 mg PRN Q8HRS PRN IV NAUSEA/VOMITING Last ad ministered on 09/25/20at 11:33; Start 09/25/20 at 10:45; Stop 09/26/20 at 10:44; Status DC Fentanyl Citrate (Fentanyl 2ml Vial) 50 mcg Q2HR PRN IV PAIN Last administered on 09/26/20at 09:04; Start 09/25/20 at 10:45; Stop 09/26/20 at 10:44; Status DC Insulin Human Lispro (HumaLOG) 0-5 UNITS TIDWMEALS SQ ; Start 09/25/20 at 12:00; Stop 09/26/20 at 11:03; Status DC Dextrose (Dextrose 50%-Water Syringe) 12.5 gm PRN Q15MIN PRN IV SEE COMMENTS; Start 09/25/20 at 10:45; Stop 09/25/20 at 13:01; Status DC Labetalol HCl (Normodyne Iv Push) 20 mg 1X ONCE IVP Last administered on 09/25/20at 12:01; Start 09/25/20 at 12:00; Stop 09/25/20 at 12:01; Status DC Labetalol HCl (Normodyne Iv Push) 20 mg STK-MED ONCE IVP ; Start 09/25/20 at 11:42; Stop 09/25/20 at 11:42; Status DC Magnesium Sulfate/ Dextrose 100 ml @ 100 mls/hr 1X ONCE IV Last administered on 09/25/20at 14:25; Start 09/25/20 at 13:30; Stop 09/25/20 at 14:29; Status DC Azithromycin 250 ml @ 250 mls/hr DAILY07 IV ; Start 09/26/20 at 07:00; Status UNV Ceftriaxone Sodium (Rocephin) 1 gm Q24H IVP ; Start 09/25/20 at 13:00; Status Cancel Sodium Chloride (Normal Saline Flush) 3 ml QSHIFT PRN IV AFTER MEDS AND BLOOD DRAWS; Start 09/25/20 at 13:00 Ondansetron HCl (Zofran) 4 mg PRN Q4HRS PRN IV NAUSEA/VOMITING Last administered on 09/27/20at 11:18; Start 09/25/20 at 13:00 Acetaminophen (Tylenol) 650 mg PRN Q4HRS PRN PO TEMP OVER 100.4F OR MILD PAIN Last administered on 09/26/20at 09:00; Start 09/25/20 at 13:00 Al Hydroxide/Mg Hydroxide (Mylanta Plus Xs) 30 ml PRN DAILY PRN PO HEARTBURN / GAS; Start 09/25/20 at 13:00 Clonidine HCl (Catapres) 0.1 mg PRN Q6HRS PRN PO SBP>160 OR DBP>90 Last administered on 09/27/20at 11:00; Start 09/25/20 at 13:00 Sodium Monofluorophosphate (Fleet Adult) 133 ml PRN DAILY PRN VT CONSTIPATION; Start 09/25/20 at 13:00 Docusate Sodium (Colace) 100 mg PRN BID PRN PO HARD STOOLS Last administered on 10/11/20at 09:55; Start 09/25/20 at 13:00 Albuterol/ Ipratropium (Duoneb) 3 ml Q4HRS NEB ; Start 09/25/20 at 16:00; Stop 09/26/20 at 01:06; Status DC Guaifenesin (Robitussin) 200 mg PRN Q4HRS PRN PO COUGH; Start 09/25/20 at 13:00 Enoxaparin Sodium (Lovenox 40mg Syringe) 40 mg Q24H SQ Last administered on 10/13/20at 21:30; Start 09/25/20 at 21:00 Ceftriaxone Sodium (Rocephin) 1 gm Q24H IVP Last administered on 10/05/20at 09:51; Start 09/26/20 at 09:00; Stop 10/05/20 at 09:04; Status DC Dexamethasone Sodium Phosphate (Decadron) 6 mg DAILY IVP Last administered on 10/07/20at 07:48; Start 09/26/20 at 09:00; Stop 10/07/20 at 13:17; Status DC Insulin Human Lispro (HumaLOG) 0-7 UNITS TIDWMEALS SQ Last administered on 09/26/20at 17:26; Start 09/25/20 at 17:00; Stop 09/27/20 at 07:25; Status DC Dextrose (Dextrose 50%-Water Syringe) 12.5 gm PRN Q15MIN PRN IV SEE COMMENTS Last administered on 10/12/20at 10:28; Start 09/25/20 at 13:00 Azithromycin 500 mg/Sodium Chloride 250 ml @ 250 mls/hr Q24H IV Last administered on 10/03/20at 13:20; Start 09/26/20 at 13:00; Stop 10/04/20 at 13:43; Status DC Hydralazine HCl (Apresoline Inj) 10 mg PRN Q4HRS PRN IVP ELEVATED BP, SEE COMMENTS Last administered on 10/13/20at 14:28; Start 09/25/20 at 13:15 Amlodipine Besylate (Norvasc) 5 mg DAILY PO Last administered on 09/27/20at 08:02; Start 09/25/20 at 13:15; Stop 09/29/20 at 07:44; Status DC Albuterol/ Ipratropium (Combivent Respimat 20-100 Mcg) 1 puff Q4HRS W/A INH Last administered on 09/29/20at 06:07; Start 09/26/20 at 06:00; Stop 09/30/20 at 01:15; Status DC Pantoprazole Sodium (PROTONIX VIAL for IV PUSH) 40 mg DAILYAC IVP Last administered on 10/13/20at 09:13; Start 09/26/20 at 09:00 Fluticasone Propionate (Flonase) 2 spray DAILY NS Last administered on 09/26/20at 11:32; Start 09/26/20 at 10:45 Lactobacillus Rhamnosus (Culturelle) 1 cap BID PO Last administered on 09/30/20at 10:01; Start 09/26/20 at 21:00; Stop 09/30/20 at 10:57; Status DC Remdesivir 200 mg/ Sodium Chloride 210 ml @ 210 mls/hr 1X ONCE IV ; Start 09/26/20 at 14:30; Stop 09/26/20 at 15:29; Status DC Remdesivir 100 mg/ Sodium Chloride 230 ml @ 460 mls/hr Q24H IV Last administered on 10/01/20at 12:36; Start 09/27/20 at 14:30; Stop 10/01/20 at 12:29; Status DC Ibuprofen (Motrin) 600 mg PRN Q6HRS PRN PO INFLAMMATION Last administered on 09/26/20at 19:44; Start 09/26/20 at 18:30 Insulin Human Lispro (HumaLOG) 0-9 UNITS QIDACHS SQ Last administered on at 17:00; Start 09/27/20 at 07:30; Stop 09/30/20 at 19:30; Status DC Insulin Glargine (Lantus Syringe) 10 unit QHS SQ Last administered on 10/01/20at 20:40; Start 09/27/20 at 21:00; Stop 10/02/20 at 09:54; Status DC Lorazepam (Ativan) 1 mg PRN Q6HRS PRN PO ANXIETY / AGITATION; Start 09/27/20 at 10:45; Stop 09/28/20 at 12:54; Status DC Lorazepam (Ativan) 2 mg PRN Q6HRS PRN PO ANXIETY / AGITATION Last administered on 09/28/20at 10:43; Start 09/27/20 at 10:45; Stop 09/28/20 at 12:54; Status DC Morphine Sulfate (Morphine Sulfate) 2 mg 1X ONCE IV Last administered on 09/27/20at 11:06; Start 09/27/20 at 11:00; Stop 09/27/20 at 11:01; Status DC Metoprolol Tartrate (Lopressor) 25 mg BID PO Last administered on 10/12/20at 14:20; Start 09/27/20 at 12:00 Tamsulosin HCl (Flomax) 0.4 mg DAILY PO Last administered on 10/08/20at 08:00; Start 09/27/20 at 12:00 Fluticasone/ Vilanterol (Breo Ellipta 100-25 Mcg) 1 puff DAILY INH Last administered on 09/27/20at 14:43; Start 09/27/20 at 12:00 Remdesivir 200 mg/ Sodium Chloride 210 ml @ 210 mls/hr 1X ONCE IV Last administered on 09/27/20at 12:49; Start 09/27/20 at 12:00; Stop 09/27/20 at 12:59 ; Status DC Acetaminophen/ Hydrocodone Bitart (Lortab 5/325) 1 tab PRN Q4HRS PRN PO MODERATE PAIN 4-6 Last administered on 09/28/20at 05:11; Start 09/27/20 at 21:45 Lorazepam (Ativan Inj) 2 mg PRN Q4HRS PRN IVP ANXIETY / AGITATION Last administered on 09/29/20at 09:24; Start 09/28/20 at 13:00; Stop 10/13/20 at 05:22; Status DC Haloperidol Lactate (Haldol Inj) 5 mg PRN Q6HRS PRN IVP AGITATION - 2ND CHOICE Last administered on 10/12/20 15:31; Start 09/28/20 at 17:15 Ziprasidone (Geodon Im) 20 mg 1X ONCE IM Last administered on 09/28/20at 19:33; Start 09/28/20 at 17:15; Stop 09/28/20 at 17:16; Status DC Amlodipine Besylate (Norvasc) 10 mg DAILY PO Last administered on 10/12/20 11:23; Start 09/29/20 at 09:00 Dexmedetomidine HCl 400 mcg/ Sodium Chloride 100 ml @ 0 mls/hr CONT PRN IV PER PROTOCOL Last administered on 10/14/20at 05:43; Start 09/29/20 at 09:00 Sodium Chloride 500 ml @ 500 mls/hr 1X PRN PRN IV SEE COMMENTS; Start 09/29/20 at 09:00 Atropine Sulfate (ATROPINE 0.5mg SYRINGE) 0.5 mg PRN Q5MIN PRN IV SEE COMMENTS; Start 09/29/20 at 09:00 Fentanyl Citrate 30 ml @ 0 mls/hr CONT PRN IV SEE PROTOCOL Last administered on 10/11/20at 12:51; Start 09/29/20 at 10:00; Stop 10/13/20 at 05:22; Status DC Propofol 100 ml @ 0 mls/hr CONT PRN IV PER PROTOCOL Last administered on 10/12/20at 09:33; Start 09/29/20 at 10:00; Stop 10/13/20 at 05:22; Status DC Fentanyl Citrate (Fentanyl 2ml Vial) 25 mcg PRN Q1HR PRN IV SEE COMMENTS Last administered on 10/12/20at 15:51; Start 09/29/20 at 10:00 Fentanyl Citrate (Fentanyl 2ml Vial) 50 mcg PRN Q1HR PRN IV SEE COMMENTS Last administered on 10/13/20at 16:05; Start 09/29/20 at 10:00 Morphine Sulfate (Morphine Sulfate) 2 mg PRN Q1HR PRN IV SEE COMMENTS.; Start 09/29/20 at 10:00; Stop 10/07/20 at 03:45; Status DC Morphine Sulfate (Morphine Sulfate) 4 mg PRN Q1HR PRN IV SEE COMMENTS.; Start 09/29/20 at 10:00; Stop 10/07/20 at 03:45; Status DC Midazolam HCl 100 ml @ 0 mls/hr CONT PRN IV SEE PROTOCOL Last administered on 10/09/20at 06:39; Start 09/29/20 at 10:00; Stop 10/13/20 at 05:22; Status DC Norepinephrine Bitartrate 8 mg/ Dextrose 258 ml @ 18.692 mls/ hr CONT PRN IV PER PROTOCOL Last administered on 09/29/20at 10:28; Start 09/29/20 at 10:15; Stop 10/13/20 at 05:22; Status DC Succinylcholine Chloride (Anectine) 100 mg 1X ONCE IV Last administered on 09/29/20at 10:25; Start 09/29/20 at 10:30; Stop 09/29/20 at 10:31; Status DC Etomidate (Amidate) 12 mg 1X ONCE IV Last administered on 09/29/20at 10:24; Start 09/29/20 at 10:30; Stop 09/29/20 at 10:31; Status DC Vecuronium [place] (Norcuron Bolus) 6 mg PRN Q2HR PRN IV VENTILATOR COMPLIANCE Last administered on 10/06/20at 16:19; Start 09/29/20 at 10:45; Stop 10/13/20 at 05:22; Status DC Sodium Chloride 1,000 ml @ 75 mls/hr [id number] IV Last administered on 10/07/20at 05:00; Start 09/30/20 at 05:45; Stop 10/07/20 at 10:03; Status DC Propofol (Diprivan) 1,000 mg STK-MED ONCE IV ; Start 09/29/20 at 10:15; Stop at 12:58; Status DC Insulin Human Lispro (HumaLOG) 0-9 UNITS Q6HRS SQ Last administered on 10/04/20at 06:05; Start 10/01/20 at 00:00; Stop 10/04/20 at 10:41; Status DC Insulin Glargine (Lantus Syringe) 15 unit QHS SQ Last administered on 10/02/20at 20:14; Start 10/02/20 at 21:00; Stop 10/03/20 at 09:30; Status DC Insulin Glargine (Lantus Syringe) 20 unit QHS SQ Last administered on 10/05/20at 22:22; Start 10/03/20 at 21:00; Stop 10/06/20 at 07:34; Status DC Insulin Human Lispro (HumaLOG) 10 units TIDAC SQ Last administered on 10/04/20at 17:27; Start 10/04/20 at 11:30; Stop 10/05/20 at 10:15; Status DC Insulin Human Lispro (HumaLOG) 0-7 UNITS Q6HRS SQ Last administered on 10/14/20at 06:02; Start 10/04/20 at 12:00 Insulin Human Lispro (HumaLOG) 10 units Q6HRS SQ Last administered on 10/06/20at 06:00; Start 10/05/20 at 12:00; Stop 10/06/20 at 07:34; Status DC Insulin Glargine (Lantus Syringe) 20 unit BID SQ Last administered on 10/13/20at 09:23; Start 10/06/20 at 09:00; Stop 10/13/20 at 10:42; Status DC Insulin Human Lispro (HumaLOG) 15 units Q6HRS SQ Last administered on 10/09/20at 00:36; Start 10/06/20 at 12:00; Stop 10/11/20 at 15:47; Status DC Furosemide (Lasix) 40 mg DAILY IVP Last administered on 10/13/20at 09:14; Start 10/07/20 at 11:00 Albumin Human 500 ml @ 125 mls/hr DAILY08 IV ; Start 10/08/20 at 09:00; Stop 10/08/20 at 09:21; Status DC Albumin Human 50 ml @ 50 mls/hr DAILY IV Last administered on 10/10/20at 08:38; Start 10/08/20 at 09:30; Stop 10/10/20 at 10:00; Status DC Magnesium Sulfate 50 ml @ 25 mls/hr 1X ONCE IV Last administered on 10/11/20at 14:22; Start 10/11/20 at 14:15; Stop 10/11/20 at 16:14; Status DC Piperacillin Sod/ Tazobactam Sod (Zosyn Per Pharmacy) 1 each PRN DAILY PRN MC SEE COMMENTS; Start 10/11/20 at 16:30 Piperacillin Sod/ Tazobactam Sod 3.375 gm/Sodium Chloride 50 ml @ 100 mls/hr Q6HRS IV Last administered on 10/14/20at 05:43; Start 10/11/20 at 18:00 Potassium Chloride/Water 100 ml @ 100 mls/hr Q1H IV Last administered on 10/12/20at 12:12; Start 10/12/20 at 08:30; Stop 10/12/20 at 10:29; Status DC Metoclopramide HCl (Reglan Vial) 5 mg QIDACHS IVP Last administered on 10/13/20at 21:27; Start 10/12/20 at 11:30 Amino Acids/ Electrolytes/ Dextrose 1,000 ml @ 80 mls/hr [id number] IV Last administered on 10/13/20at 23:52; Start 10/12/20 at 11:15 Epinephrine (S2 Racepinephrine) 0.5 ml 1X ONCE NEB Last administered on 10/12/20at 15:20; Start 10/12/20 at 15:15; Stop 10/12/20 at 15:18; Status DC Methylprednisolone Sodium Succinate (SOLU-Medrol 125MG VIAL) 125 mg Q6HRS IV Last administered on 10/12/20at 23:17; Start 10/12/20 at 16:00; Stop 10/13/20 at 05:22; Status DC Methylprednisolone Sodium Succinate (SOLU-Medrol 125MG VIAL) 60 mg BID IV Last administered on 10/13/20at 21:27; Start 10/13/20 at 09:00 Insulin Glargine (Lantus Syringe) 18 unit BID SQ Last administered on 10/13/20at 21:29; Start 10/13/20 at 21:00 Active Scripts Active Reported Flomax (Tamsulosin Hcl) 0.4 Mg Cap.er.24h 1 Cap PO DAILY Semglee (Insulin Glargine,Hum.rec.anlog) 100 Unit/1 Ml Vial 20 Unit SQ QHS Semglee (Insulin Glargine,Hum.rec.anlog) 100 Unit/1 Ml Vial 30 Unit SQ QAM Novolin R (Insulin Regular, Human) 100 Unit/1 Ml Vial 100 Unit IJ SSI PRN Naproxen 500 Mg Tablet 1 Tab PO BID PRN 30 Days Metoprolol Tartrate 25 Mg Tablet 1 Tab PO BID [place] (Ciclesonide) 6.1 Gm Hfa.aer.ad 6.1 Gm IH Q12HR Proair Hfa Inhaler (Albuterol Sulfate) 8.5 Gm Hfa.aer.ad 2 Puff IH PRN Q4-6HRS PRN 21 Days Vitals/I & O Vital Sign - Last 24 Hours 10/13/20 10/13/20 10/13/20 10/13/20 09:00 09:00 10:00 11:00 Pulse 59 60 68 72 Resp 18 22 23 B/P (MAP) 161/81 (107) 156/78 (104) 168/84 (112) Pulse Ox 99 94 97 O2 Delivery BiPAP/CPAP Venturi Mask Venturi Mask 10/13/20 10/13/20 10/13/20 10/13/20 12:00 12:00 13:00 14:00 Temp 98.2 98.2 Pulse 78 78 72 Resp 24 25 24 B/P (MAP) 158/78 (104) 156/71 (99) 167/78 (107) Pulse Ox 96 95 95 O2 Delivery Venturi Mask Nasal Cannula Nasal Cannula Nasal Cannula O2 Flow Rate 4.0 4.0 4.0 10/13/20 10/13/20 10/13/20 10/13/20 14:28 16:00 16:05 16:11 Temp 97.7 97.7 Pulse 74 72 Resp 30 36 B/P (MAP) 170/80 199/70 (113) Pulse Ox 99 100 O2 Delivery BiPAP/CPAP BiPAP/CPAP Bi-pap 10/13/20 10/13/20 10/13/20 10/13/20 16:50 17:59 19:00 19:56 Pulse 55 52 55 Resp 20 21 B/P (MAP) 135/64 (87) 137/73 (94) 135/64 Pulse Ox 100 99 100 O2 Delivery BiPAP/CPAP BiPAP/CPAP BiPAP/CPAP O2 Flow Rate 4.0 10/13/20 10/13/20 10/13/20 10/13/20 20:00 20:00 20:55 21:00 Temp 97.8 97.8 Pulse 50 47 Resp 23 23 B/P (MAP) 119/65 (83) 136/74 (94) Pulse Ox 100 100 100 O2 Delivery BiPAP/CPAP Bi-pap BiPAP/CPAP BiPAP/CPAP O2 Flow Rate 4.0 4.0 10/13/20 10/13/20 10/13/20 10/14/20 22:00 23:00 23:29 00:00 Pulse 47 49 Resp 21 22 B/P (MAP) 137/75 (95) 140/80 (100) Pulse Ox 100 100 100 O2 Delivery BiPAP/CPAP BiPAP/CPAP BiPAP/CPAP Bi-pap O2 Flow Rate 4.0 10/14/20 10/14/20 10/14/20 10/14/20 00:01 01:00 01:12 02:00 Temp 96.7 96.7 Pulse 47 46 45 Resp 22 20 21 B/P (MAP) 134/77 (96) 127/69 (88) 130/70 (90) Pulse Ox 100 100 99 100 O2 Delivery BiPAP/CPAP BiPAP/CPAP BiPAP/CPAP BiPAP/CPAP 10/14/20 10/14/20 10/14/20 10/14/20 03:00 03:52 04:00 04:00 Temp 95.7 95.7 Pulse 44 45 Resp 25 25 B/P (MAP) 127/69 (88) 121/66 (84) Pulse Ox 100 100 100 O2 Delivery BiPAP/CPAP BiPAP/CPAP Bi-pap BiPAP/CPAP 10/14/20 10/14/20 10/14/20 05:00 06:00 08:00 Pulse 44 49 Resp 22 20 B/P (MAP) 129/71 (90) 120/72 (88) Pulse Ox 100 100 100 O2 Delivery BiPAP/CPAP BiPAP/CPAP BiPAP/CPAP Intake and Output 10/13/20 10/13/20 10/14/20 15:00 23:00 07:00 Intake Total 1219 ml 2261.5 ml Output Total 1005 ml 315 ml 375 ml Balance -1005 ml 904 ml 1886.5 ml Justicifation of Admission Dx: Justifications for Admission: Justification of Admission Dx: Yes Comminuty Aquired Pneumonia: Hypoxemia NIRANJAN KIM MD Oct 14, 2020 08:57
[2020-10-14] MEDS: METOPROLOL TART IMMED RELEASE 25 MG TABLET. PO SCH ×3 (09:00→19:42)
[2020-10-14] MEDS: FLUTICASONE/VILANTEROL 100/25 INHALER. INH SCH (09:00)
[2020-10-14] MEDS: TAMSULOSIN 0.4 MG CAP.ER.24H. PO SCH ×2 (09:00→09:03)
[2020-10-14] MEDS: FLUTICASONE 50MCG/NASAL SPRAY 16GM BOTTLE. NS SCH (09:00)
[2020-10-14] MEDS: METOCLOPRAMIDE HCL 10 MG/2 ML VIAL. IVP SCH ×4 (09:04→20:33)
[2020-10-14] MEDS: PANTOPRAZOLE IV PUSH 40 MG VIAL. IVP SCH (09:04)
[2020-10-14] MEDS: methylPREDNISolone SOD SUCC PF 125 MG/2 ML VIAL. IV SCH ×2 (09:04→20:35)
[2020-10-14] MEDS: INSULIN GLARGINE SYRINGE. SQ SCH ×2 (09:05→20:31)
[2020-10-14] MEDS: FUROSEMIDE 40 MG/4 ML VIAL. IVP SCH (11:02)
[2020-10-14] MEDS: AA 4.25 %/CALCIUM/LYTES/D5W 1,000 ML IV SCH (14:13)
[2020-10-14] MEDS: ENOXAPARIN 40 MG/0.4 ML SYRINGE. SQ SCH (20:32)
[2020-10-15] VITALS (24 sets, daily range): BP systolic 119–169; BP diastolic 69–97
[2020-10-15] MEDS: PIPERACILLIN/TAZOBACTAM 3.375 GM in IV NORMAL SALINE 50ML 50 ML IV SCH ×4 (00:20→18:13)
[2020-10-15] MEDS: INSULIN LISPRO 300 UNITS/3 ML VIAL. SQ SCH ×4 (01:20→17:46)
[2020-10-15] MEDS: AA 4.25 %/CALCIUM/LYTES/D5W 1,000 ML IV SCH ×3 (01:24→23:34)
[2020-10-15] MEDS: DEXMEDETOMIDINE 400 MCG in IV NORMAL SALINE 100ML 96 ML IV PRN ×5 (01:38→22:05)
--- NOTE | 2020-10-15 05:46 | PDOC ---
PULMONARY PROGRESS NOTES DATE: 10/15/20 TIME: 05:44 Subjective Patient remains on BiPAP at 40% Patient was able to tolerate nasal cannula/Ventimask during the day intermittently Remains on Precedex Afebrile, no overnight concerns from nursing Vitals Vital Signs Date Time Temp Pulse Resp B/P (MAP) Pulse Ox O2 Delivery O2 Flow Rate FiO2 10/15/20 05:00 44 26 151/86 (107) 98 BiPAP/CPAP 10/15/20 04:00 95.8 95.8 10/14/20 19:00 12.0 Comments Patient seen during the pandemic, and visual inspection no paroxysmal breathing pattern no increasing edema no new rash BIPAP 40% No distress Labs Laboratory Tests Test 10/13/20 06:01 10/13/20 08:55 10/13/20 11:59 10/13/20 17:21 Glucose (Fingerstick) 261 mg/dL (70-99) 324 mg/dL (70-99) 346 mg/dL (70-99) O2 Saturation 96 % (92-99) Arterial Blood pH 7.51 (7.35-7.45) Arterial Blood pCO2 at Patient Temp 35 mmHg (35-46) Arterial Blood pO2 at Patient Temp 81 mmHg (65-108) Arterial Blood HCO3 28 mmol/L (21-28) Arterial Blood Base Excess 5 mmol/L (-3-3) FiO2 40 Test 10/13/20 23:00 10/14/20 05:45 10/14/20 05:58 10/14/20 12:16 Glucose (Fingerstick) 324 mg/dL (70-99) 332 mg/dL (70-99) 286 mg/dL (70-99) White Blood Count 4.9 x10^3/uL (4.0-11.0) Red Blood Count 3.82 x10^6/uL (4.30-5.70) Hemoglobin 12.2 g/dL (13.0-17.5) Hematocrit 36.1 % (39.0-53.0) Mean Corpuscular Volume 95 fL (79-100) Mean Corpuscular Hemoglobin 32 pg (25-35) Mean Corpuscular Hemoglobin Concent 34 g/dL (31-37) Red Cell Distribution Width 13.8 % (11.5-14.5) Platelet Count 73 x10^3/uL (140-400) Neutrophils (%) (Auto) 76 % (31-73) Lymphocytes (%) (Auto) 19 % (24-48) Monocytes (%) (Auto) 5 % (0-9) Eosinophils (%) (Auto) 0 % (0-3) Basophils (%) (Auto) 0 % (0-3) Neutrophils # (Auto) 3.7 x10^3/uL (1.8-7.7) Lymphocytes # (Auto) 0.9 x10^3/uL (1.0-4.8) Monocytes # (Auto) 0.3 x10^3/uL (0.0-1.1) Eosinophils # (Auto) 0.0 x10^3/uL (0.0-0.7) Basophils # (Auto) 0.0 x10^3/uL (0.0-0.2) Sodium Level 141 mmol/L (136-145) Potassium Level 3.8 mmol/L (3.5-5.1) Chloride Level 109 mmol/L (98-107) Carbon Dioxide Level 30 mmol/L (21-32) Anion Gap 2 (6-14) Blood Urea Nitrogen 32 mg/dL (8-26) Creatinine 0.6 mg/dL (0.7-1.3) Estimated GFR (Cockcroft-Gault) 137.9 BUN/Creatinine Ratio 53 (6-20) Glucose Level 337 mg/dL (70-99) Calcium Level 8.2 mg/dL (8.5-10.1) Total Bilirubin 0.7 mg/dL (0.2-1.0) Aspartate Amino Transf (AST/SGOT) 39 U/L (15-37) Alanine Aminotransferase (ALT/SGPT) 34 U/L (16-63) Alkaline Phosphatase 52 U/L (46-116) Total Protein 5.7 g/dL (6.4-8.2) Albumin 1.6 g/dL (3.4-5.0) Albumin/Globulin Ratio 0.4 (1.0-1.7) Test 10/14/20 17:55 10/15/20 00:27 Glucose (Fingerstick) 323 mg/dL (70-99) 244 mg/dL (70-99) Laboratory Tests Test 10/14/20 05:45 10/14/20 05:58 10/14/20 12:16 10/14/20 17:55 White Blood Count 4.9 x10^3/uL (4.0-11.0) Red Blood Count 3.82 x10^6/uL (4.30-5.70) Hemoglobin 12.2 g/dL (13.0-17.5) Hematocrit 36.1 % (39.0-53.0) Mean Corpuscular Volume 95 fL (79-100) Mean Corpuscular Hemoglobin 32 pg (25-35) Mean Corpuscular Hemoglobin Concent 34 g/dL (31-37) Red Cell Distribution Width 13.8 % (11.5-14.5) Platelet Count 73 x10^3/uL (140-400) Neutrophils (%) (Auto) 76 % (31-73) Lymphocytes (%) (Auto) 19 % (24-48) Monocytes (%) (Auto) 5 % (0-9) Eosinophils (%) (Auto) 0 % (0-3) Basophils (%) (Auto) 0 % (0-3) Neutrophils # (Auto) 3.7 x10^3/uL (1.8-7.7) Lymphocytes # (Auto) 0.9 x10^3/uL (1.0-4.8) Monocytes # (Auto) 0.3 x10^3/uL (0.0-1.1) Eosinophils # (Auto) 0.0 x10^3/uL (0.0-0.7) Basophils # (Auto) 0.0 x10^3/uL (0.0-0.2) Sodium Level 141 mmol/L (136-145) Potassium Level 3.8 mmol/L (3.5-5.1) Chloride Level 109 mmol/L (98-107) Carbon Dioxide Level 30 mmol/L (21-32) Anion Gap 2 (6-14) Blood Urea Nitrogen 32 mg/dL (8-26) Creatinine 0.6 mg/dL (0.7-1.3) Estimated GFR (Cockcroft-Gault) 137.9 BUN/Creatinine Ratio 53 (6-20) Glucose Level 337 mg/dL (70-99) Calcium Level 8.2 mg/dL (8.5-10.1) Total Bilirubin 0.7 mg/dL (0.2-1.0) Aspartate Amino Transf (AST/SGOT) 39 U/L (15-37) Alanine Aminotransferase (ALT/SGPT) 34 U/L (16-63) Alkaline Phosphatase 52 U/L (46-116) Total Protein 5.7 g/dL (6.4-8.2) Albumin 1.6 g/dL (3.4-5.0) Albumin/Globulin Ratio 0.4 (1.0-1.7) Glucose (Fingerstick) 332 mg/dL (70-99) 286 mg/dL (70-99) 323 mg/dL (70-99) Test 10/15/20 00:27 Glucose (Fingerstick) 244 mg/dL (70-99) Medications Active Scripts Medications Dose Route/Sig Max Daily Dose Days Date Category Flomax (Tamsulosin Hcl) 0.4 Mg Cap.er.24h 1 Cap PO DAILY 09/26/20 Reported Semglee (Insulin Glargine,Hum.rec.anlog) 100 Unit/1 Ml Vial 20 Unit SQ QHS 09/26/20 Reported Semglee (Insulin Glargine,Hum.rec.anlog) 100 Unit/1 Ml Vial 30 Unit SQ QAM 09/26/20 Reported Novolin R (Insulin Regular, Human) 100 Unit/1 Ml Vial 100 Unit IJ SSI PRN 09/26/20 Reported Naproxen 500 Mg Tablet 1 Tab PO BID PRN 30 09/26/20 Reported Metoprolol Tartrate 25 Mg Tablet 1 Tab PO BID 09/26/20 Reported [place]ves[place] (Ciclesonide) 6.1 Gm Hfa.aer.ad 6.1 Gm IH Q12HR 09/26/20 Reported Proair Hfa Inhaler (Albuterol Sulfate) 8.5 Gm Hfa.aer.ad 2 Puff IH PRN Q4-6HRS PRN 21 09/26/20 Reported Impression . IMPRESSION: 1. Acute hypoxemic respiratory failure secondary to COVID-19./ARDS--improved now extubated as of 10/12/20 2. COVID-19 viral pneumonia. 3. Possible bacterial pneumonia. 4. Other comorbidities including chronic obstructive pulmonary disease with acute exacerbation, tobacco dependent, chronic back pain and hypertension. 5. Abnormal chest x-ray with bilateral interstitial infiltrates related to COVID-19 pneumonia. 6. Status post intubation 09/29--extubated 10/12/20 Plan . Updated 10/15/20 Continue supplemental oxygen to keep oxygen saturations greater than 92%, currently on BiPAP 40% patient was extubated 10/12/2020, continue with BiPAP as needed and Ventimask/nasal cannula as tolerated BiPAP settings reviewed: 18/ with a rate of 18 and 40% Wean Precedex drip as tolerated S/P remdesivir Decrease steroid dose to daily dosing Follow ID recommendations for antibiotics, currently on Zosyn, started 10/11/2020 Continue nutritional support with PPN Physical therapy/Occupational Therapy/speech therapy DVT/GI PPX:lovenox D/W RN and RT Discussed with Dr. Jaime. Patient is a stable for LTAC transfer. Updated 10/14/20 Continue supplemental oxygen to keep oxygen saturations greater than 92%, currently on BiPAP 40% patient was extubated 10/12/2020, tolerating nasal cannula during the day BiPAP settings reviewed: 18/ with a rate of 18 and 40% Patient has Finished course of remdesivir Patient restarted on steroids for wheezing 10/13/2020, currently on 60 mg IV twice daily, will taper slowly Follow ID recommendations for antibiotics, currently on Zosyn, started 10/11/2020 Continue nutritional support with PPN Hyperglycemia per PCP Physical therapy/Occupational Therapy/speech therapy DVT/GI PPX:lovenox D/W RN and RT Updated 10/13/20 Continue supplemental oxygen to keep oxygen saturations greater than 92%, currently on BiPAP 40% patient was extubated 10/12/2020 BiPAP settings reviewed: 18 with a rate of 18 and 40% Patient has Finished course of remdesivir and steroids Follow ID recommendations for antibiotics, currently on Zosyn, started 10/11/2020 Continue nutrional support with PPN Hyperglycemia per PCP Physical therapy/Occupational Therapy/speech therapy DVT/GI PPX:lovenox D/W RN and RT Critical care time 30 minutes SAROJ SQUIRES MD Oct 15, 2020 05:46
[2020-10-15 06:57] LABS: ALBUMIN 1.9 g/dL (3.4-5.0); CALCIUM 8.3 mg/dL (8.5-10.1); CREATININE 0.7 mg/dL (0.7-1.3); GFR 115.4; POTASSIUM 3.9 mmol/L (3.5-5.1)
[2020-10-15] MEDS: METOCLOPRAMIDE HCL 10 MG/2 ML VIAL. IVP SCH ×4 (07:30→21:16)
--- NOTE | 2020-10-15 07:59 | PDOC ---
Infectious Disease Note Subjective Subjective awake on VM ROS ROS no n/v/d/ Vital Sign Vital Signs Vital Signs Date Time Temp Pulse Resp B/P (MAP) Pulse Ox O2 Delivery O2 Flow Rate FiO2 10/15/20 06:00 45 26 154/82 (106) 94 BiPAP/CPAP 10/15/20 04:00 95.8 95.8 10/14/20 19:00 12.0 Physical Exam PHYSICAL EXAM GENERAL: on bipap VITAL SIGNS: stable HEENT: Both pupils are round and reacting. No conjunctival lesions. Mouth cannot be visualized much, orally intubated. NECK: Supple. No JVP, no lymphadenopathy. LUNGS: Clear. HEART: S1 and S2 regular. ABDOMEN: Soft, nontender. No organomegaly. EXTREMITIES: No edema or cyanosis. SKIN: Unremarkable other than minor skin infection/small superficial abscess in the left upper extremity, which was I and D'd at some point during this hospitalization. Rest of skin exam is unremarkable. NEUROLOGIC: on bipap Labs Lab Laboratory Tests Test 10/14/20 12:16 10/14/20 17:55 10/15/20 00:27 10/15/20 06:34 Glucose (Fingerstick) 286 mg/dL (70-99) 323 mg/dL (70-99) 244 mg/dL (70-99) 163 mg/dL (70-99) Test 10/15/20 06:35 Sodium Level 143 mmol/L (136-145) Potassium Level 3.9 mmol/L (3.5-5.1) Chloride Level 108 mmol/L (98-107) Carbon Dioxide Level 32 mmol/L (21-32) Anion Gap 3 (6-14) Blood Urea Nitrogen 36 mg/dL (8-26) Creatinine 0.7 mg/dL (0.7-1.3) Estimated GFR (Cockcroft-Gault) 115.4 Glucose Level 173 mg/dL (70-99) Calcium Level 8.3 mg/dL (8.5-10.1) Phosphorus Level 3.0 mg/dL (2.6-4.7) Albumin 1.9 g/dL (3.4-5.0) Micro Microbiology 10/11/20 Blood Culture - Preliminary, Resulted NO GROWTH AFTER 1 DAY Objective Assessment IMPRESSION: 1. Hypothermia, which actually has improved. 2. COVID-19 positive. 3. Respiratory failure. 4. Pulmonary infiltrate. 5. Chronic obstructive pulmonary disease. 6. Diabetes. 7. Hypertension. Plan Plan of Care cont supportive care cont antibiotics ALINA AGUAYO MD Oct 15, 2020 07:59
[2020-10-15] MEDS: FLUTICASONE/VILANTEROL 100/25 INHALER. INH SCH (09:00)
[2020-10-15] MEDS: METOPROLOL TART IMMED RELEASE 25 MG TABLET. PO SCH ×2 (09:00→21:00)
[2020-10-15] MEDS ORDERED: methylPREDNISolone SOD SUCC PF 40 MG/ML VIAL. IV SCH (09:00)
[2020-10-15] MEDS: TAMSULOSIN 0.4 MG CAP.ER.24H. PO SCH (09:00)
[2020-10-15] MEDS: FLUTICASONE 50MCG/NASAL SPRAY 16GM BOTTLE. NS SCH (09:00)
[2020-10-15] MEDS: PANTOPRAZOLE IV PUSH 40 MG VIAL. IVP SCH (09:19)
[2020-10-15] MEDS: FUROSEMIDE 40 MG/4 ML VIAL. IVP SCH (09:19)
[2020-10-15] MEDS: INSULIN GLARGINE SYRINGE. SQ SCH ×2 (09:21→21:13)
--- NOTE | 2020-10-15 10:09 | PDOC ---
PROGRESS NOTES Date of Service: DATE: 10/15/20 TIME: 10:08 Chief Complaint Chief Complaint COVID-19 respiratory failure requiring intubation COPD Cirrhosis Severe pneumonia Remote history of alcohol issues mediastinal adenopathy Hyperglycemia and diabetes Severe protein calorie malnutrition Hypomagnesemia History of Present Illness History of Present Illness 10/15/2020 stable for transfer to LTAC today cont antibiotics extubated, awake on VM, NAD Slight interval decrease in lower lobe predominant multifocal infiltrate and small pleural effusions. Interval extubation. 10-13 59 year old male presented via EMS from [facility] with work of breathing x2 days with low O2 Sat at facility down to 78% on RA. known history of COPD and cough. Patient seen and examined in the [place] [id number] ICU COVID POS Mediastinal adenopathy, malignancy is not excluded.suggest follow-up CT of the chest in 3 months. 2 cm blister on his left forearm Chart reviewed GLUCOSE UNCONTROLLED., INC LANTUS TO 21 UNITS SQ BID 8 Discussed with RN Finished course of antibiotics, remdesivir and steroids, start iv zosyn 8- Continue nutrional support HYPOTHERMIC , ID CONSULT, BLOOD CULTURE 33 min cc time 10/14/2020 cont antibiotics extubated, awake on VM, NAD Slight interval decrease in lower lobe predominant multifocal infiltrate and small pleural effusions. Interval extubation. 10-13 59 year old male presented via EMS from [facility] with work of breathing x2 days with low O2 Sat at facility down to 78% on RA. known history of COPD and cough. Patient seen and examined in the [place] [id number] ICU COVID POS Mediastinal adenopathy, malignancy is not excluded.suggest follow-up CT of the chest in 3 months. 2 cm blister on his left forearm Chart reviewed GLUCOSE UNCONTROLLED., INC LANTUS TO 21 UNITS SQ BID 8 Discussed with RN Finished course of antibiotics, remdesivir and steroids, start iv zosyn 8-02 Continue nutrional support HYPOTHERMIC , ID CONSULT, BLOOD CULTURE 33 min cc time 10/13/2020 extubated, awake on VM 59 year old male presented via EMS from [facility] with work of breathing x2 days with low O2 Sat at facility down to 78% on RA. known history of COPD and cough. Patient seen and examined in the [place] [id number] ICU Mediastinal adenopathy, malignancy is not excluded.suggest follow-up CT of the chest in 3 months. He has a 2 cm blister on his left forearm Chart reviewed Discussed with RN Finished course of antibiotics, remdesivir and steroids, start iv zosyn 8-02 Continue nutrional support HYPOTHERMIC , ID CONSULT, BLOOD CULTURE 34 min cc time 10/12/2020 59 year old male presented via EMS from [facility] with work of breathing x2 days with low O2 Sat at facility down to 78% on RA. known history of COPD and cough. Patient seen and examined in the [place] [id number] ICU He remains mechanically ventilated Mediastinal adenopathy, malignancy is not excluded.suggest follow-up CT of the chest in 3 months. AC/18/500/50 percent with 5 of PEEP We might do a weaning trial later today He has a 2 cm blister on his left forearm We aspirated it was mostly clear OG running at 60 cc/h Sedated with Dex Chart reviewed Discussed with RN Finished course of antibiotics, remdesivir and steroids, start iv zosyn 8-02 Continue nutrional support HYPOTHERMIC , ID CONSULT, BLOOD CULTURE 32 min cc time 10/11/2020 59 year old male presented via EMS from [facility] with work of breathing x2 days with low O2 Sat at facility down to 78% on RA. known history of COPD and cough. Patient seen and examined in the [place] [id number] ICU He remains mechanically ventilated Mediastinal adenopathy, malignancy is not excluded.suggest follow-up CT of the chest in 3 months. AC/18/500/50 percent with 5 of PEEP We might do a weaning trial later today He has a 2 cm blister on his left forearm We aspirated it was mostly clear OG running at 60 cc/h Sedated with Dex Chart reviewed Discussed with RN Finished course of antibiotics, remdesivir and steroids Continue nutrional support HYPOTHERMIC , ID CONSULT, BLOOD CULTURE 36 min cc time 10/10/2020 Patient seen and examined in the [place] [address] ICU He remains mechanically ventilated AC/18/500/50 percent with 5 of PEEP We might do a weaning trial later today He has a 2 cm blister on his left forearm We aspirated it was mostly clear OG running at 60 cc/h Sedated with Dex Chart reviewed Discussed with RN 10/09/2020 Patient seen and examined in the [place] [id number] ICU He is on the vent AC/18/500/50 percent with 5 of PEEP 2 corrections officers are present Patient is shackled left arm and left leg Has IV albumin hanging Sedated with fentanyl and Versed Chart reviewed Discussed with RN Has OG feeds running 10/08/2020 Patient seen and examined in the [place] [id number] ICU He is still intubated AC/18/500/50 percent with 5 of PEEP We are possibly going to trial him today Has OG feeds running at 60 cc an hour Has SCDs on Olsen to bedside drainage Corrections officers are present Patient is shackled Sedated with fentanyl and Versed Discussed with RN Chart reviewed 10/07/2020 Patient seen and examined in the [place] [id number] ICU He remains on the ventilator Assist-control/18/500/50 percent with 7 of PEEP Sedated with Versed and fentanyl Shackled to the bed with 2 corrections officers present Chart reviewed Discussed with RN He is critically ill 10/06/2020 Patient seen and examined in the [place] [id number] ICU He has corrections officers present He is shackled on his left ankle Still remains on the vent AC/18/500/50 5% with 7 of PEEP Sedated with Versed and fentanyl Chart reviewed Discussed with RN He remains very critically ill 10/05/2020 Patient seen and examined in the [place] [id number] ICU He is still intubated AC/20/500/60 5% with 7 of PEEP Discussed with RN Patient with OG feeds running Mitts for patient safety Has Losen to bedside drainage 2 corrections officers are present Patient is shackled Sedated with fentanyl and Versed He remains very critically ill 10/04/2020 Patient seen and examined in the [place] [id number] ICU He remains intubated Shackled AC/20/500/60 5% with 8 of PEEP He has OG feeds running Has mitts on for patient safety Has SCDs in place Olsen to bedside drainage He is sedated with fentanyl and Versed Discussed with RN His glucose is running a little high we are adding in scheduled NovoLog 10 units 3 times daily and continue the sliding scale and Lantus 20 a day Chart reviewed He remains very critically ill Corrections officers are present 59 year old male presented via EMS from [facility] with work of breathing x2 days with low O2 Sat at facility down to 78% on RA. known history of COPD and cough. Patient also complains of headache. EMS noted patient was 84% and tripoding on 3 L nasal cannula. EMS reports giving a DuoNeb treatment x2 in route and placement nonrebreather with subsequent improvement in up to 95%. remote alcohol abuse YRS AGO , smoked until one month ago when he was arrested received the [employer] COVID-19 vaccination x1 approximately 5 months ago at the [place]. Patient denies known exposure to COVID-19. Panlobular airspace disease,c/w multifocal pneumonia. PUI Pulmonary edema less likely. 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 Remote alcohol abuse "6-8 cans of beer a day years ago" Thickened distal esophagus with 9 x 10 mm luminal density, likely ingested medication tablet. Mediastinal adenopathy, malignancy is not excluded.suggest follow-up CT of the chest in 3 months. / Hyperglycemia on accuchecks // Severe protein-caloric malnutrition CTA CHEST C/W Panlobular airspace disease, most likely multifocal pneumonia. 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 Patient tolerating BiPAP and saturating 91%. Sta rted patient on IV Protonix because he is still on steroids. And has a history of esophageal varices. Patient's chart, labs, images were reviewed and discussed with RN 09/27/20 Patient evaluated at bedside He was having laboring respirations initially on the BiPAP concerned patient may need ICU transfer however was given a dose of Ativan and was able to calm down and respiratory status improved Continue steroids Pulmonary consult Plan of care discussed with bedside RN 09/28/20 Patient evaluated bedside He was on BiPAP required to be increased 100% FiO2 this morning Remains on remdesivir, Decadron, Rocephin, and azithromycin Continuing supportive care Plan of care discussed with bedside nurse 09/29/20 Patient evaluated at bedside Patient remains significantly agitated and anxious despite aggressive medication measures while on BiPAP BiPAP settings increasing over the past several days and given his agitation will transfer to ICU Continuing remdesivir Decadron Rocephin and azithromycin Plan of care discussed with bedside nurse 09/30/2020: Patient transferred from out to ICU yesterday due to worsening respiratory distress. He was intubated and currently on vent with FiO2 90% and PEEP of 8. We will continue treatment with remdesivir, steroids, and empiric an tibiotics. Critical care time 30 minutes spent reviewing charts, reviewing imaging, reviewing labs, discussion with RN. 10/01/2020: Afebrile. On vent with FiO2 85%, PEEP 8. Continue treatment with remdesivir, steroids, Rocephin and azithromycin. Critical care time 30 minutes spent reviewing charts, imaging, reviewing labs, discussion with RN. 10/02/2020: Afebrile, FiO2 80%, PEEP 5. Finished remdesivir. Continue antibiotics and Decadron. Will increase insulin regimen due to persistent hyperglycemia. Supportive care. Critical care time 30 minutes spent reviewing charts, labs, reviewing imaging, discussion with RN. 10/03/2020: Afebrile, on vent with FiO2 70%, PEEP 5. Still with some significant hyperglycemia. Will increase basal insulin. Finished remdesivir. Will continue antibiotics and steroids. Repeat chest x-ray today. Critical care time 30 minutes spent reviewing charts, labs, reviewing imaging, discussion with RN. Vitals Vitals Vital Signs Date Time Temp Pulse Resp B/P (MAP) Pulse Ox O2 Delivery O2 Flow Rate FiO2 10/15/20 08:03 97 BiPAP/CPAP 10/15/20 06:00 45 26 154/82 (106) 10/15/20 04:00 95.8 95.8 10/14/20 19:00 12.0 Physical Exam Physical Exam GENERAL: on bipap VITAL SIGNS: stable HEENT: Both pupils are round and reacting. No conjunctival lesions. Mouth cannot be visualized much, orally intubated. NECK: Supple. No JVP, no lymphadenopathy. LUNGS: Clear. HEART: S1 and S2 regular. ABDOMEN: Soft, nontender. No organomegaly. EXTREMITIES: No edema or cyanosis. SKIN: Unremarkable other than minor skin infection/small superficial abscess in the left upper extremity, which was I and D'd at some point during this hospitalization. Rest of skin exam is unremarkable. NEUROLOGIC: on bipap General: Cooperative, No acute distress, Other (Intubated and sedated) Heart: Regular rate, Normal S1 Abdomen: Normal bowel sounds, Soft, No tenderness, No masses, Other (obese) Extremities: No cyanosis Skin: No rashes Labs LABS Laboratory Tests Test 10/14/20 12:16 10/14/20 17:55 10/15/20 00:27 10/15/20 06:34 Glucose (Fingerstick) 286 mg/dL (70-99) 323 mg/dL (70-99) 244 mg/dL (70-99) 163 mg/dL (70-99) Test 10/15/20 06:35 Sodium Level 143 mmol/L (136-145) Potassium Level 3.9 mmol/L (3.5-5.1) Chloride Level 108 mmol/L (98-107) Carbon Dioxide Level 32 mmol/L (21-32) Anion Gap 3 (6-14) Blood Urea Nitrogen 36 mg/dL (8-26) Creatinine 0.7 mg/dL (0.7-1.3) Estimated GFR (Cockcroft-Gault) 115.4 Glucose Level 173 mg/dL (70-99) Calcium Level 8.3 mg/dL (8.5-10.1) Phosphorus Level 3.0 mg/dL (2.6-4.7) Albumin 1.9 g/dL (3.4-5.0) Assessment and Plan Assessmemt and Plan Problems Medical Problems: (1) COPD exacerbation Status: Acute (2) Headache Status: Acute (3) Hypoxia Status: Acute (4) Pneumonia Status: Acute (5) Respiratory failure Status: Acute (6) Suspected 2019 novel coronavirus infection Status: Acute Comment Review of Relevant I have reviewed the following items herlinda (where applicable) has been applied. Labs Laboratory Tests Test 10/13/20 11:59 10/13/20 17:21 10/13/20 23:00 10/14/20 05:45 Glucose (Fingerstick) 324 mg/dL (70-99) 346 mg/dL (70-99) 324 mg/dL (70-99) White Blood Count 4.9 x10^3/uL (4.0-11.0) Red Blood Count 3.82 x10^6/uL (4.30-5.70) Hemoglobin 12.2 g/dL (13.0-17.5) Hematocrit 36.1 % (39.0-53.0) Mean Corpuscular Volume 95 fL (79-100) Mean Corpuscular Hemoglobin 32 pg (25-35) Mean Corpuscular Hemoglobin Concent 34 g/dL (31-37) Red Cell Distribution Width 13.8 % (11.5-14.5) Platelet Count 73 x10^3/uL (140-400) Neutrophils (%) (Auto) 76 % (31-73) Lymphocytes (%) (Auto) 19 % (24-48) Monocytes (%) (Auto) 5 % (0-9) Eosinophils (%) (Auto) 0 % (0-3) Basophils (%) (Auto) 0 % (0-3) Neutrophils # (Auto) 3.7 x10^3/uL (1.8-7.7) Lymphocytes # (Auto) 0.9 x10^3/uL (1.0-4.8) Monocytes # (Auto) 0.3 x10^3/uL (0.0-1.1) Eosinophils # (Auto) 0.0 x10^3/uL (0.0-0.7) Basophils # (Auto) 0.0 x10^3/uL (0.0-0.2) Sodium Level 141 mmol/L (136-145) Potassium Level 3.8 mmol/L (3.5-5.1) Chloride Level 109 mmol/L (98-107) Carbon Dioxide Level 30 mmol/L (21-32) Anion Gap 2 (6-14) Blood Urea Nitrogen 32 mg/dL (8-26) Creatinine 0.6 mg/dL (0.7-1.3) Estimated GFR (Cockcroft-Gault) 137.9 BUN/Creatinine Ratio 53 (6-20) Glucose Level 337 mg/dL (70-99) Calcium Level 8.2 mg/dL (8.5-10.1) Total Bilirubin 0.7 mg/dL (0.2-1.0) Aspartate Amino Transf (AST/SGOT) 39 U/L (15-37) Alanine Aminotransferase (ALT/SGPT) 34 U/L (16-63) Alkaline Phosphatase 52 U/L (46-116) Total Protein 5.7 g/dL (6.4-8.2) Albumin 1.6 g/dL (3.4-5.0) Albumin/Globulin Ratio 0.4 (1.0-1.7) Test 10/14/20 05:58 10/14/20 12:16 10/14/20 17:55 10/15/20 00:27 Glucose (Fingerstick) 332 mg/dL (70-99) 286 mg/dL (70-99) 323 mg/dL (70-99) 244 mg/dL (70-99) Test 10/15/20 06:34 10/15/20 06:35 Glucose (Fingerstick) 163 mg/dL (70-99) Sodium Level 143 mmol/L (136-145) Potassium Level 3.9 mmol/L (3.5-5.1) Chloride Level 108 mmol/L (98-107) Carbon Dioxide Level 32 mmol/L (21-32) Anion Gap 3 (6-14) Blood Urea Nitrogen 36 mg/dL (8-26) Creatinine 0.7 mg/dL (0.7-1.3) Estimated GFR (Cockcroft-Gault) 115.4 Glucose Level 173 mg/dL (70-99) Calcium Level 8.3 mg/dL (8.5-10.1) Phosphorus Level 3.0 mg/dL (2.6-4.7) Albumin 1.9 g/dL (3.4-5.0) Laboratory Tests Test 10/14/20 12:16 10/14/20 17:55 10/15/20 00:27 10/15/20 06:34 Glucose (Fingerstick) 286 mg/dL (70-99) 323 mg/dL (70-99) 244 mg/dL (70-99) 163 mg/dL (70-99) Test 10/15/20 06:35 Sodium Level 143 mmol/L (136-145) Potassium Level 3.9 mmol/L (3.5-5.1) Chloride Level 108 mmol/L (98-107) Carbon Dioxide Level 32 mmol/L (21-32) Anion Gap 3 (6-14) Blood Urea Nitrogen 36 mg/dL (8-26) Creatinine 0.7 mg/dL (0.7-1.3) Estimated GFR (Cockcroft-Gault) 115.4 Glucose Level 173 mg/dL (70-99) Calcium Level 8.3 mg/dL (8.5-10.1) Phosphorus Level 3.0 mg/dL (2.6-4.7) Albumin 1.9 g/dL (3.4-5.0) Microbiology 10/11/20 Urine Culture - Final, Complete 10/11/20 Blood Culture - Preliminary, Resulted NO GROWTH AFTER 3 DAYS Medications Current Medications Sodium Chloride 1,000 ml @ 1,000 mls/hr 1X ONCE IV Last administered on 09/25/20at 08:27; Start 09/25/20 at 07:00; Stop 09/25/20 at 07:59; Status DC Dexamethasone Sodium Phosphate (Decadron) 10 mg 1X ONCE IVP Last administered on 09/25/20at 08:24; Start 09/25/20 at 07:00; Stop 09/25/20 at 07:01; Status DC Ketorolac Tromethamine (Toradol 15mg Vial) 15 mg 1X ONCE IVP Last administered on 09/25/20at 09:35; Start 09/25/20 at 09:00; Stop 09/25/20 at 09:01; Status DC Aspirin (Ecotrin) 325 mg 1X ONCE PO Last administered on 09/25/20at 09:35; Start 09/25/20 at 09:15; Stop 09/25/20 at 09:16; Status DC Iohexol (Omnipaque 350 Mg/ml) 100 ml 1X ONCE IV Last administered on 09/25/20at 10:05; Start 09/25/20 at 10:00; Stop 09/25/20 at 10:01; Status DC Info (CONTRAST GIVEN -- Rx MONITORING) 1 each PRN DAILY PRN MC SEE COMMENTS; Start 09/25/20 at 10:00; Stop 09/27/20 at 09:59; Status DC Azithromycin 250 ml @ 250 mls/hr 1X ONCE IV Last administered on 09/25/20at 11:37; Start 09/25/20 at 10:30; Stop 09/25/20 at 11:29; Status DC Ceftriaxone Sodium (Rocephin) 1 gm 1X ONCE IVP Last administered on 09/25/20at 11:36; Start 09/25/20 at 10:30; Stop 09/25/20 at 10:34; Status DC Ondansetron HCl (Zofran) 4 mg PRN Q8HRS PRN IV NAUSEA/VOMITING Last administered on 09/25/20at 11:33; Start 09/25/20 at 10:45; Stop 09/26/20 at 10:44; Status DC Fentanyl Citrate (Fentanyl 2ml Vial) 50 mcg Q2HR PRN IV PAIN Last administered on 09/26/20at 09:04; Start 09/25/20 at 10:45; Stop 09/26/20 at 10:44; Status DC Insulin Human Lispro (HumaLOG) 0-5 UNITS TIDWMEALS SQ ; Start 09/25/20 at 12:00; Stop 09/26/20 at 11:03; Status DC Dextrose (Dextrose 50%-Water Syringe) 12.5 gm PRN Q15MIN PRN IV SEE COMMENTS; Start 09/25/20 at 10:45; Stop 09/25/20 at 13:01; Status DC Labetalol HCl (Normodyne Iv Push) 20 mg 1X ONCE IVP Last administered on 09/09 09/29at 12:01; Start 09/25/20 at 12:00; Stop 09/25/20 at 12:01; Status DC Labetalol HCl (Normodyne Iv Push) 20 mg STK-MED ONCE IVP ; Start 09/25/20 at 11:42; Stop 09/25/20 at 11:42; Status DC Magnesium Sulfate/ Dextrose 100 ml @ 100 mls/hr 1X ONCE IV Last administered on 09/25/20at 14:25; Start 09/25/20 at 13:30; Stop 09/25/20 at 14:29; Status DC Azithromycin 250 ml @ 250 mls/hr DAILY07 IV ; Start 09/26/20 at 07:00; Status UNV Ceftriaxone Sodium (Rocephin) 1 gm Q24H IVP ; Start 09/25/20 at 13:00; Status Cancel Sodium Chloride (Normal Saline Flush) 3 ml QSHIFT PRN IV AFTER MEDS AND BLOOD DRAWS; Start 09/25/20 at 13:00 Ondansetron HCl (Zofran) 4 mg PRN Q4HRS PRN IV NAUSEA/VOMITING Last administered on 09/27/20at 11:18; Start 09/25/20 at 13:00 Acetaminophen (Tylenol) 650 mg PRN Q4HRS PRN PO TEMP OVER 100.4F OR MILD PAIN Last administered on 09/26/20at 09:00; Start 09/25/20 at 13:00 Al Hydroxide/Mg Hydroxide (Mylanta Plus Xs) 30 ml PRN DAILY PRN PO HEARTBURN / GAS; Start 09/25/20 at 13:00 Clonidine HCl (Catapres) 0.1 mg PRN Q6HRS PRN PO SBP>160 OR DBP>90 Last administered on 09/27/20at 11:00; Start 09/25/20 at 13:00 Sodium Monofluorophosphate (Fleet Adult) 133 ml PRN DAILY PRN FL CONSTIPATION; Start 09/25/20 at 13:00 Docusate Sodium (Colace) 100 mg PRN BID PRN PO HARD STOOLS Last administered on 10/11/20at 09:55; Start 09/25/20 at 13:00 Albuterol/ Ipratropium (Duoneb) 3 ml Q4HRS NEB ; Start 09/25/20 at 16:00; Stop 09/26/20 at 01:06; Status DC Guaifenesin (Robitussin) 200 mg PRN Q4HRS PRN PO COUGH; Start 09/25/20 at 13:00 Enoxaparin Sodium (Lovenox 40mg Syringe) 40 mg Q24H SQ Last administered on 10/14/20at 20:32; Start 09/25/20 at 21:00 Ceftriaxone Sodium (Rocephin) 1 gm Q24H IVP Last administered on 10/05/20at 09:51; Start 09/26/20 at 09:00; Stop 10/05/20 at 09:04; Status DC Dexamethasone Sodium Phosphate (Decadron) 6 mg DAILY IVP Last administered on 10/07/20at 07:48; Start 09/26/20 at 09:00; Stop 10/07/20 at 13:17; Status DC Insulin Human Lispro (HumaLOG) 0-7 UNITS TIDWMEALS SQ Last administered on at 17:26; Start 09/25/20 at 17:00; Stop 09/27/20 at 07:25; Status DC Dextrose (Dextrose 50%-Water Syringe) 12.5 gm PRN Q15MIN PRN IV SEE COMMENTS Last administered on 10/12/20at 10:28; Start 09/25/20 at 13:00 Azithromycin 500 mg/Sodium Chloride 250 ml @ 250 mls/hr Q24H IV Last administered on 10/03/20at 13:20; Start 09/26/20 at 13:00; Stop 10/04/20 at 13:43; Status DC Hydralazine HCl (Apresoline Inj) 10 mg PRN Q4HRS PRN IVP ELEVATED BP, SEE COMMENTS Last administered on 10/13/20at 14:28; Start 09/25/20 at 13:15 Amlodipine Besylate (Norvasc) 5 mg DAILY PO Last administered on 09/27/20at 08:02; Start 09/25/20 at 13:15; Stop 09/29/20 at 07:44; Status DC Albuterol/ Ipratropium (Combivent Respimat 20-100 Mcg) 1 puff Q4HRS W/A INH Last administered on 09/29/20at 06:07; Start 09/26/20 at 06:00; Stop 09/30/20 at 01:15; Status DC Pantoprazole Sodium (PROTONIX VIAL for IV PUSH) 40 mg DAILYAC IVP Last administered on 10/15/20at 09:19; Start 09/26/20 at 09:00 Fluticasone Propionate (Flonase) 2 spray DAILY NS Last administered on 09/26/20at 11:32; Start 09/26/20 at 10:45 Lactobacillus Rhamnosus (Culturelle) 1 cap BID PO Last administered on 09/30/20at 10:01; Start 09/26/20 at 21:00; Stop 09/30/20 at 10:57; Status DC Remdesivir 200 mg/ Sodium Chloride 210 ml @ 210 mls/hr 1X ONCE IV ; Start 09/26/20 at 14:30; Stop 09/26/20 at 15:29; Status DC Remdesivir 100 mg/ Sodium Chloride 230 ml @ 460 mls/hr Q24H IV Last administered on 10/01/20at 12:36; Start 09/27/20 at 14:30; Stop 10/01/20 at 12:29; Status DC Ibuprofen (Motrin) 600 mg PRN Q6HRS PRN PO INFLAMMATION Last administered on 09/26/20at 19:44; Start 09/26/20 at 18:30 Insulin Human Lispro (HumaLOG) 0-9 UNITS QIDACHS SQ Last administered on 09/30/20at 17:00; Start 09/27/20 at 07:30; Stop 09/30/20 at 19:30; Status DC Insulin Glargine (Lantus Syringe) 10 unit QHS SQ Last administered on 10/01/20at 20:40; Start 09/27/20 at 21:00; Stop 10/02/20 at 09:54; Status DC Lorazepam (Ativan) 1 mg PRN Q6HRS PRN PO ANXIETY / AGITATION; Start 09/27/20 at 10:45; Stop 09/28/20 at 12:54; Status DC Lorazepam (Ativan) 2 mg PRN Q6HRS PRN PO ANXIETY / AGITATION Last administered on 09/28/20at 10:43; Start 09/27/20 at 10:45; Stop 09/28/20 at 12:54; Status DC Morphine Sulfate (Morphine Sulfate) 2 mg 1X ONCE IV Last administered on 09/09 11/30at 11:06; Start 09/27/20 at 11:00; Stop 09/27/20 at 11:01; Status DC Metoprolol Tartrate (Lopressor) 25 mg BID PO Last administered on 10/12/20at 14:20; Start 09/27/20 at 12:00 Tamsulosin HCl (Flomax) 0.4 mg DAILY PO Last administered on 10/08/20at 08:00; Start 09/27/20 at 12:00 Fluticasone/ Vilanterol (Breo Ellipta 100-25 Mcg) 1 puff DAILY INH Last administered on 09/27/20at 14:43; Start 09/27/20 at 12:00 Remdesivir 200 mg/ Sodium Chloride 210 ml @ 210 mls/hr 1X ONCE IV Last administered on 09/27/20at 12:49; Start 09/27/20 at 12:00; Stop 09/27/20 at 12:59; Status DC Acetaminophen/ Hydrocodone Bitart (Lortab 5/325) 1 tab PRN Q4HRS PRN PO MODERATE PAIN 4-6 Last administered on 09/28/20at 05:11; Start 09/27/20 at 21:45 Lorazepam (Ativan Inj) 2 mg PRN Q4HRS PRN IVP ANXIETY / AGITATION Last administered on 09/29/20at 09:24; Start 09/28/20 at 13:00; Stop 10/13/20 at 05:22; Status DC Haloperidol Lactate (Haldol Inj) 5 mg PRN Q6HRS PRN IVP AGITATION - 2ND CHOICE Last administered on 10/12/20at 15:31; Start 09/28/20 at 17:15 Ziprasidone (Geodon Im) 20 mg 1X ONCE IM Last administered on 09/28/20at 19:33; Start 09/28/20 at 17:15; Stop 09/28/20 at 17:16; Status DC Amlodipine Besylate (Norvasc) 10 mg DAILY PO Last administered on 10/12/20at 11:23; Start 09/29/20 at 09:00 Dexmedetomidine HCl 400 mcg/ Sodium Chloride 100 ml @ 0 mls/hr CONT PRN IV PER PROTOCOL Last administered on 10/15/20 06:05; Start 09/29/20 at 09:00 Sodium Chloride 500 ml @ 500 mls/hr 1X PRN PRN IV SEE COMMENTS; Start 09/29/20 at 09:00 Atropine Sulfate (ATROPINE 0.5mg SYRINGE) 0.5 mg PRN Q5MIN PRN IV SEE COMMENTS; Start 09/29/20 at 09:00 Fentanyl Citrate 30 ml @ 0 mls/hr CONT PRN IV SEE PROTOCOL Last administered on 10/11/20at 12:51; Start 09/29/20 at 10:00; Stop 10/13/20 at 05:22; Status DC Propofol 100 ml @ 0 mls/hr CONT PRN IV PER PROTOCOL Last administered on 10/12/20 09:33; Start 09/29/20 at 10:00; Stop 10/13/20 at 05:22; Status DC Fentanyl Citrate (Fentanyl 2ml Vial) 25 mcg PRN Q1HR PRN IV SEE COMMENTS Last administered on 10/12/20at 15:51; Start 09/29/20 at 10:00 Fentanyl Citrate (Fentanyl 2ml Vial) 50 mcg PRN Q1HR PRN IV SEE COMMENTS Last administered on 10/13/20 16:05; Start 09/29/20 at 10:00 Morphine Sulfate (Morphine Sulfate) 2 mg PRN Q1HR PRN IV SEE COMMENTS.; Start 09/29/20 at 10:00; Stop 10/07/20 at 03:45; Status DC Morphine Sulfate (Morphine Sulfate) 4 mg PRN Q1HR PRN IV SEE COMMENTS.; Start 09/29/20 at 10:00; Stop 10/07/20 at 03:45; Status DC Midazolam HCl 100 ml @ 0 mls/hr CONT PRN IV SEE PROTOCOL Last administered on 10/09/20at 06:39; Start 09/29/20 at 10:00; Stop 10/13/20 at 05:22; Status DC Norepinephrine Bitartrate 8 mg/ Dextrose 258 ml @ 18.692 mls/ hr CONT PRN IV PER PROTOCOL Last administered on 09/29/20at 10:28; Start 09/29/20 at 10:15; Stop 10/13/20 at 05:22; Status DC Succinylcholine Chloride (Anectine) 100 mg 1X ONCE IV Last administered on 09/29/20at 10:25; Start 09/29/20 at 10:30; Stop 09/29/20 at 10:31; Status DC Etomidate (Amidate) 12 mg 1X ONCE IV Last administered on 09/29/20at 10:24; Start 09/29/20 at 10:30; Stop 09/29/20 at 10:31; Status DC Vecuronium Anton (Norcuron Bolus) 6 mg PRN Q2HR PRN IV VENTILATOR COMPLIANCE Last administered on 10/06/20at 16:19; Start 09/29/20 at 10:45; Stop 10/13/20 at 05:22; Status DC Sodium Chloride 1,000 ml @ 75 mls/hr [id number] IV Last administered on 10/07/20at 05:00; Start 09/30/20 at 05:45; Stop 10/07/20 at 10:03; Status DC Propofol (Diprivan) 1,000 mg STK-MED ONCE IV ; Start 09/29/20 at 10:15; Stop 09/30/20 at 12:58; Status DC Insulin Human Lispro (HumaLOG) 0-9 UNITS Q6HRS SQ Last administered on 10/04/20at 06:05; Start 10/01/20 at 00:00; Stop 10/04/20 at 10:41; Status DC Insulin Glargine (Lantus Syringe) 15 unit QHS SQ Last administered on 10/02/20at 20:14; Start 10/02/20 at 21:00; Stop 10/03/20 at 09:30; Status DC Insulin Glargine (Lantus Syringe) 20 unit QHS SQ Last administered on 10/05/20at 22:22; Start 10/03/20 at 21:00; Stop 10/06/20 at 07:34; Status DC Insulin Human Lispro (HumaLOG) 10 units TIDAC SQ Last administered on 10/04/20at 17:27; Start 10/04/20 at 11:30; Stop 10/05/20 at 10:15; Status DC Insulin Human Lispro (HumaLOG) 0-7 UNITS Q6HRS SQ Last administered on 10/15/20at 01:20; Start 10/04/20 at 12:00 Insulin Human Lispro (HumaLOG) 10 units Q6HRS SQ Last administered on 10/06/20at 06:00; Start 10/05/20 at 12:00; Stop 10/06/20 at 07:34; Status DC Insulin Glargine (Lantus Syringe) 20 unit BID SQ Last administered on 10/13/20at 09:23; Start 10/06/20 at 09:00; Stop 10/13/20 at 10:42; Status DC Insulin Human Lispro (HumaLOG) 15 units Q6HRS SQ Last administered on 10/09/20at 00:36; Start 10/06/20 at 12:00; Stop 10/11/20 at 15:47; Status DC Furosemide (Lasix) 40 mg DAILY IVP Last administered on 10/15/20at 09:19; Start 10/07/20 at 11:00 Albumin Human 500 ml @ 125 mls/hr DAILY08 IV ; Start 10/08/20 at 09:00; Stop 10/08/20 at 09:21; Status DC Albumin Human 50 ml @ 50 mls/hr DAILY IV Last administered on 10/10/20at 08:38; Start 10/08/20 at 09:30; Stop 10/10/20 at 10:00; Status DC Magnesium Sulfate 50 ml @ 25 mls/hr 1X ONCE IV Last administered on 10/11/20at 14:22; Start 10/11/20 at 14:15; Stop 10/11/20 at 16:14; Status DC Piperacillin Sod/ Tazobactam Sod (Zosyn Per Pharmacy) 1 each PRN DAILY PRN MC SEE COMMENTS; Start 10/11/20 at 16:30 Piperacillin Sod/ Tazobactam Sod 3.375 gm/Sodium Chloride 50 ml @ 100 mls/hr Q6HRS IV Last administered on 10/15/20at 06:05; Start 10/11/20 at 18:00 Potassium Chloride/Water 100 ml @ 100 mls/hr Q1H IV Last administered on 10/12/20at 12:12; Start 10/12/20 at 08:30; Stop 10/12/20 at 10:29; Status DC Metoclopramide HCl (Reglan Vial) 5 mg QIDACHS IVP Last administered on 10/15/20at 07:30; Start 10/12/20 at 11:30 Amino Acids/ Electrolytes/ Dextrose 1,000 ml @ 80 mls/hr [id number] IV Last administered on 10/15/20at 01:24; Start 10/12/20 at 11:15 Epinephrine (S2 Racepinephrine) 0.5 ml 1X ONCE NEB Last administered on 10/12/20at 15:20; Start 10/12/20 at 15:15; Stop 10/12/20 at 15:18; Status DC Methylprednisolone Sodium Succinate (SOLU-Medrol 125MG VIAL) 125 mg Q6HRS IV Last administered on 10/12/20at 23:17; Start 10/12/20 at 16:00; Stop 10/13/20 at 05:22; Status DC Methylprednisolone Sodium Succinate (SOLU-Medrol 125MG VIAL) 60 mg BID IV Last administered on 10/14/20at 20:35; Start 10/13/20 at 09:00; Stop 10/15/20 at 05:44; Status DC Insulin Glargine (Lantus Syringe) 18 unit BID SQ Last administered on 10/14/20at 09:05; Start 10/13/20 at 21:00; Stop 10/14/20 at 10:08; Status DC Insulin Glargine (Lantus Syringe) 21 unit BID SQ Last administered on 10/15/20at 09:21; Start 10/14/20 at 21:00 Methylprednisolone Sodium Succinate (SOLU-Medrol 40MG VIAL) 40 mg DAILY IV Last administered on 10/15/20at 09:19; Start 10/15/20 at 09:00 Active Scripts Active Reported Flomax (Tamsulosin Hcl) 0.4 Mg Cap.er.24h 1 Cap PO DAILY Semglee (Insulin Glargine,Hum.rec.anlog) 100 Unit/1 Ml Vial 20 Unit SQ QHS Semglee (Insulin Glargine,Hum.rec.anlog) 100 Unit/1 Ml Vial 30 Unit SQ QAM Novolin R (Insulin Regular, Human) 100 Unit/1 Ml Vial 100 Unit IJ SSI PRN Naproxen 500 Mg Tablet 1 Tab PO BID PRN 30 Days Metoprolol Tartrate 25 Mg Tablet 1 Tab PO BID Alvesco (Ciclesonide) 6.1 Gm Hfa.aer.ad 6.1 Gm IH Q12HR Proair Hfa Inhaler (Albuterol Sulfate) 8.5 Gm Hfa.aer.ad 2 Puff IH PRN Q4-6HRS PRN 21 Days Vitals/I & O Vital Sign - Last 24 Hours 10/14/20 10/14/20 10/14/20 10/14/20 11:00 12:00 12:00 13:00 Temp 98.1 98.1 Pulse 50 52 50 Resp 20 20 20 B/P (MAP) 133/67 (89) 134/59 (84) 134/77 (96) Pulse Ox 99 99 99 O2 Delivery BiPAP/CPAP BiPAP/CPAP Bi-pap BiPAP/CPAP 10/14/20 10/14/20 10/14/20 10/14/20 14:00 15:00 16:00 16:00 Pulse 52 50 50 Resp 20 20 23 B/P (MAP) 134/74 (94) 157/84 (108) 136/72 (93) Pulse Ox 99 99 99 O2 Delivery BiPAP/CPAP Venturi Mask Bi-pap Venturi Mask O2 Flow Rate 12.0 12.0 10/14/20 10/14/20 10/14/20 10/14/20 17:00 18:00 19:00 19:42 Temp 98.3 98.3 Pulse 48 50 52 52 Resp 22 23 32 B/P (MAP) 154/105 (121) 148/84 (105) 131/75 (93) 131/75 Pulse Ox 99 99 99 O2 Delivery Venturi Mask Venturi Mask Venturi Mask O2 Flow Rate 12.0 12.0 12.0 10/14/20 10/14/20 10/14/20 10/14/20 20:00 20:00 20:00 21:00 Temp 96.7 96.7 Pulse 51 46 Resp 14 15 B/P (MAP) 140/78 (98) 159/81 (107) Pulse Ox 95 99 100 O2 Delivery Venturi Mask Bi-pap BiPAP/CPAP BiPAP/CPAP 10/14/20 10/14/20 10/14/20 10/15/20 22:00 22:35 23:00 00:01 Pulse 45 45 Resp 19 16 B/P (MAP) 152/79 (103) 158/88 (111) Pulse Ox 100 100 100 O2 Delivery BiPAP/CPAP BiPAP/CPAP BiPAP/CPAP Bi-pap 10/15/20 10/15/20 10/15/20 10/15/20 00:01 01:00 01:00 02:00 Temp 95.7 95.7 Pulse 46 45 49 Resp 26 28 26 B/P (MAP) 161/92 (115) 147/78 (101) 136/71 (92) Pulse Ox 99 98 99 98 O2 Delivery BiPAP/CPAP BiPAP/CPAP BiPAP/CPAP BiPAP/CPAP 10/15/20 10/15/20 10/15/20 10/15/20 03:00 03:00 04:00 04:00 Temp 95.8 95.8 Pulse 47 42 Resp 23 26 B/P (MAP) 148/81 (103) 143/78 (99) Pulse Ox 98 98 98 O2 Delivery BiPAP/CPAP BiPAP/CPAP Bi-pap BiPAP/CPAP 10/15/20 10/15/20 10/15/20 10/15/20 05:00 05:00 06:00 08:03 Pulse 44 45 Resp 26 26 B/P (MAP) 151/86 (107) 154/82 (106) Pulse Ox 98 98 94 97 O2 Delivery BiPAP/CPAP BiPAP/CPAP BiPAP/CPAP BiPAP/CPAP Intake and Output 10/14/20 10/14/20 10/15/20 15:00 23:00 07:00 Intake Total 50 ml 2483.6 ml 523 ml Output Total 525 ml 415 ml 185 ml Balance -475 ml 2068.6 ml 338 ml Justicifation of Admission Dx: Justifications for Admission: Justification of Admission Dx: Yes Comminuty Aquired Pneumonia: Hypoxemia NIRANJAN KIM MD Oct 15, 2020 10:09
[2020-10-15] MEDS: ENOXAPARIN 40 MG/0.4 ML SYRINGE. SQ SCH (21:16)
[2020-10-16] VITALS (24 sets, daily range): BP systolic 128–164; BP diastolic 68–94
[2020-10-16] MEDS: DEXMEDETOMIDINE 400 MCG in IV NORMAL SALINE 100ML 96 ML IV PRN ×4 (01:09→20:02)
[2020-10-16] MEDS: INSULIN LISPRO 300 UNITS/3 ML VIAL. SQ SCH ×4 (01:16→18:00)
--- NOTE | 2020-10-16 05:41 | PDOC ---
PULMONARY PROGRESS NOTES DATE: 10/16/20 TIME: 05:39 Subjective Patient remains on BiPAP at 40% Remains on Precedex Mild shortness of breath overnight Vitals Vital Signs Date Time Temp Pulse Resp B/P (MAP) Pulse Ox O2 Delivery O2 Flow Rate FiO2 10/16/20 01:00 50 20 140/78 (98) 95 Nasal Cannula 5.0 10/16/20 00:01 97.2 97.2 Comments Patient seen during the pandemic, and visual inspection no paroxysmal breathing pattern no increasing edema no new rash BIPAP 40% No distress Labs Laboratory Tests Test 10/14/20 05:45 10/14/20 05:58 10/14/20 12:16 10/14/20 17:55 White Blood Count 4.9 x10^3/uL (4.0-11.0) Red Blood Count 3.82 x10^6/uL (4.30-5.70) Hemoglobin 12.2 g/dL (13.0-17.5) Hematocrit 36.1 % (39.0-53.0) Mean Corpuscular Volume 95 fL (79-100) Mean Corpuscular Hemoglobin 32 pg (25-35) Mean Corpuscular Hemoglobin Concent 34 g/dL (31-37) Red Cell Distribution Width 13.8 % (11.5-14.5) Platelet Count 73 x10^3/uL (140-400) Neutrophils (%) (Auto) 76 % (31-73) Lymphocytes (%) (Auto) 19 % (24-48) Monocytes (%) (Auto) 5 % (0-9) Eosinophils (%) (Auto) 0 % (0-3) Basophils (%) (Auto) 0 % (0-3) Neutrophils # (Auto) 3.7 x10^3/uL (1.8-7.7) Lymphocytes # (Auto) 0.9 x10^3/uL (1.0-4.8) Monocytes # (Auto) 0.3 x10^3/uL (0.0-1.1) Eosinophils # (Auto) 0.0 x10^3/uL (0.0-0.7) Basophils # (Auto) 0.0 x10^3/uL (0.0-0.2) Sodium Level 141 mmol/L (136-145) Potassium Level 3.8 mmol/L (3.5-5.1) Chloride Level 109 mmol/L (98-107) Carbon Dioxide Level 30 mmol/L (21-32) Anion Gap 2 (6-14) Blood Urea Nitrogen 32 mg/dL (8-26) Creatinine 0.6 mg/dL (0.7-1.3) Estimated GFR (Cockcroft-Gault) 137.9 BUN/Creatinine Ratio 53 (6-20) Glucose Level 337 mg/dL (70-99) Calcium Level 8.2 mg/dL (8.5-10.1) Total Bilirubin 0.7 mg/dL (0.2-1.0) Aspartate Amino Transf (AST/SGOT) 39 U/L (15-37) Alanine Aminotransferase (ALT/SGPT) 34 U/L (16-63) Alkaline Phosphatase 52 U/L (46-116) Total Protein 5.7 g/dL (6.4-8.2) Albumin 1.6 g/dL (3.4-5.0) Albumin/Globulin Ratio 0.4 (1.0-1.7) Glucose (Fingerstick) 332 mg/dL (70-99) 286 mg/dL (70-99) 323 mg/dL (70-99) Test 10/15/20 00:27 10/15/20 06:34 10/15/20 06:35 10/15/20 12:50 Glucose (Fingerstick) 244 mg/dL (70-99) 163 mg/dL (70-99) 220 mg/dL (70-99) Sodium Level 143 mmol/L (136-145) Potassium Level 3.9 mmol/L (3.5-5.1) Chloride Level 108 mmol/L (98-107) Carbon Dioxide Level 32 mmol/L (21-32) Anion Gap 3 (6-14) Blood Urea Nitrogen 36 mg/dL (8-26) Creatinine 0.7 mg/dL (0.7-1.3) Estimated GFR (Cockcroft-Gault) 115.4 Glucose Level 173 mg/dL (70-99) Calcium Level 8.3 mg/dL (8.5-10.1) Phosphorus Level 3.0 mg/dL (2.6-4.7) Albumin 1.9 g/dL (3.4-5.0) Test 10/15/20 17:33 10/16/20 01:14 Glucose (Fingerstick) 153 mg/dL (70-99) 155 mg/dL (70-99) Laboratory Tests Test 10/15/20 06:34 10/15/20 06:35 10/15/20 12:50 10/15/20 17:33 Glucose (Fingerstick) 163 mg/dL (70-99) 220 mg/dL (70-99) 153 mg/dL (70-99) Sodium Level 143 mmol/L (136-145) Potassium Level 3.9 mmol/L (3.5-5.1) Chloride Level 108 mmol/L (98-107) Carbon Dioxide Level 32 mmol/L (21-32) Anion Gap 3 (6-14) Blood Urea Nitrogen 36 mg/dL (8-26) Creatinine 0.7 mg/dL (0.7-1.3) Estimated GFR (Cockcroft-Gault) 115.4 Glucose Level 173 mg/dL (70-99) Calcium Level 8.3 mg/dL (8.5-10.1) Phosphorus Level 3.0 mg/dL (2.6-4.7) Albumin 1.9 g/dL (3.4-5.0) Test 10/16/20 01:14 Glucose (Fingerstick) 155 mg/dL (70-99) Medications Active Scripts Medications Dose Route/Sig Max Daily Dose Days Date Category Flomax (Tamsulosin Hcl) 0.4 Mg Cap.er.24h 1 Cap PO DAILY 09/26/20 Reported Semglee (Insulin Glargine,Hum.rec.anlog) 100 Unit/1 Ml Vial 20 Unit SQ QHS 09/26/20 Reported Semglee (Insulin Glargine,Hum.rec.anlog) 100 Unit/1 Ml Vial 30 Unit SQ QAM 09/26/20 Reported Novolin R (Insulin Regular, Human) 100 Unit/1 Ml Vial 100 Unit IJ SSI PRN 09/26/20 Reported Naproxen 500 Mg Tablet 1 Tab PO BID PRN 30 09/26/20 Reported Metoprolol Tartrate 25 Mg Tablet 1 Tab PO BID 09/26/20 Reported Alvesco (Ciclesonide) 6.1 Gm Hfa.aer.ad 6.1 Gm IH Q12HR 09/26/20 Reported Proair Hfa Inhaler (Albuterol Sulfate) 8.5 Gm Hfa.aer.ad 2 Puff IH PRN Q4-6HRS PRN 21 09/26/20 Reported Impression . IMPRESSION: 1. Acute hypoxemic respiratory failure secondary to COVID-19./ARDS--improved now extubated as of 10/12/20 2. COVID-19 viral pneumonia. 3. Possible bacterial pneumonia. 4. Other comorbidities including chronic obstructive pulmonary disease with acute exacerbation, tobacco dependent, chronic back pain and hypertension. 5. Abnormal chest x-ray with bilateral interstitial infiltrates related to COVID-19 pneumonia. 6. Status post intubation 09/29--extubated 10/12/20 Plan . Updated 10/16/20 Continue supplemental oxygen to keep oxygen saturations greater than 92%, currently on BiPAP 40% patient was extubated 10/12/2020, continue with BiPAP as needed and Ventimask/nasal cannula as tolerated BiPAP settings reviewed: 27/08 with a rate of 18 and 40% Wean Precedex drip as tolerated, Haldol as needed S/P remdesivir DC steroids Follow ID recommendations for antibiotics, currently on Zosyn, started 10/11/2020 Continue nutritional support with PPN Physical therapy/Occupational Therapy/speech therapy DVT/GI PPX:lovenox D/W RN and RT Patient has been accepted at [facility] Updated 10/15/20 Continue supplemental oxygen to keep oxygen saturations greater than 92%, currently on BiPAP 40% patient was extubated 10/12/2020, continue with BiPAP as needed and Ventimask/nasal cannula as tolerated BiPAP settings reviewed: 27/08 with a rate of 18 and 40% Wean Precedex drip as tolerated S/P remdesivir Decrease steroid dose to daily dosing Follow ID recommendations for antibiotics, currently on Zosyn, started 10/11/2020 Continue nutritional support with PPN Physical therapy/Occupational Therapy/speech therapy DVT/GI PPX:lovenox D/W RN and RT Discussed with Dr. Jaime. Patient is a stable for LTAC transfer. Updated 10/14/20 Continue supplemental oxygen to keep oxygen saturations greater than 92%, currently on BiPAP 40% patient was extubated 10/12/2020, tolerating nasal cannula during the day BiPAP settings reviewed: 27/08 with a rate of 18 and 40% Patient has Finished course of remdesivir Patient restarted on steroids for wheezing 10/13/2020, currently on 60 mg IV twice daily, will taper slowly Follow ID recommendations for antibiotics, currently on Zosyn, started 10/11/2020 Continue nutritional support with PPN Hyperglycemia per PCP Physical therapy/Occupational Therapy/speech therapy DVT/GI PPX:lovenox D/W RN and RT SAROJ SQUIRES MD Oct 16, 2020 05:41
[2020-10-16] MEDS: PIPERACILLIN/TAZOBACTAM 3.375 GM in IV NORMAL SALINE 50ML 50 ML IV SCH ×2 (06:27)
[2020-10-16] MEDS: METOPROLOL TART IMMED RELEASE 25 MG TABLET. PO SCH ×2 (08:15→21:00)
[2020-10-16] MEDS: TAMSULOSIN 0.4 MG CAP.ER.24H. PO SCH (08:21)
[2020-10-16] MEDS: FLUTICASONE 50MCG/NASAL SPRAY 16GM BOTTLE. NS SCH (09:00)
[2020-10-16] MEDS: FLUTICASONE/VILANTEROL 100/25 INHALER. INH SCH (09:00)
[2020-10-16] MEDS: fentaNYL PF VIAL 100 MCG/2 ML VIAL IV PRN (09:02)
[2020-10-16] MEDS: FUROSEMIDE 40 MG/4 ML VIAL. IVP SCH (09:45)
[2020-10-16] MEDS: METOCLOPRAMIDE HCL 10 MG/2 ML VIAL. IVP SCH ×4 (09:45→21:09)
[2020-10-16] MEDS: PANTOPRAZOLE IV PUSH 40 MG VIAL. IVP SCH (09:45)
--- NOTE | 2020-10-16 09:52 | PDOC ---
Infectious Disease Note Subjective Subjective awake on BiPAP ROS ROS No nausea vomiting diarrhea chest pain Vital Sign Vital Signs Vital Signs Date Time Temp Pulse Resp B/P (MAP) Pulse Ox O2 Delivery O2 Flow Rate FiO2 10/16/20 09:30 22 95 BiPAP/CPAP 10/16/20 09:00 44 154/87 (109) 10/16/20 04:00 6.0 10/16/20 04:00 97.6 97.6 Physical Exam PHYSICAL EXAM GENERAL: on bipap VITAL SIGNS: stable HEENT: Both pupils are round and reacting. No conjunctival lesions. Mouth cannot be visualized much, orally intubated. NECK: Supple. No JVP, no lymphadenopathy. LUNGS: Clear. HEART: S1 and S2 regular. ABDOMEN: Soft, nontender. No organomegaly. EXTREMITIES: No edema or cyanosis. SKIN: Unremarkable other than minor skin infection/small superficial abscess in the left upper extremity, which was I and D'd at some point during this hospitalization. Rest of skin exam is unremarkable. NEUROLOGIC: on bipap Labs Lab Laboratory Tests Test 10/15/20 12:50 10/15/20 17:33 10/16/20 01:14 Glucose (Fingerstick) 220 mg/dL (70-99) 153 mg/dL (70-99) 155 mg/dL (70-99) Micro Microbiology 10/11/20 Blood Culture - Preliminary, Resulted NO GROWTH AFTER 1 DAY Objective Assessment IMPRESSION: 1. Hypothermia, which actually has improved. 2. COVID-19 positive. 3. Respiratory failure. 4. Pulmonary infiltrate. 5. Chronic obstructive pulmonary disease. 6. Diabetes. 7. Hypertension. Plan Plan of Care cont supportive care Discontinue antibiotics ALINA AGUAYO MD Oct 16, 2020 09:52
--- NOTE | 2020-10-16 10:17 | PDOC ---
PROGRESS NOTES Date of Service: DATE: 10/16/20 TIME: 10:17 Chief Complaint Chief Complaint COVID-19 respiratory failure requiring intubation COPD Cirrhosis Severe pneumonia Remote history of alcohol issues mediastinal adenopathy Hyperglycemia and diabetes Severe protein calorie malnutrition Hypomagnesemia History of Present Illness History of Present Illness 10/16/2020 stable for transfer to LTAC today cont antibiotics extubated, awake on VM, NAD Slight interval decrease in lower lobe predominant multifocal infiltrate and small pleural effusions. Interval extubation. 10-13 59 year old male presented via EMS from [facility] with work of breathing x2 days with low O2 Sat at facility down to 78% on RA. known history of COPD and cough. Patient seen and examined in the [facility] COVID POS Mediastinal adenopathy, malignancy is not excluded.suggest follow-up CT of the chest in 3 months. 2 cm blister on his left forearm Chart reviewed GLUCOSE UNCONTROLLED., INC LANTUS TO 21 UNITS SQ BID 8 Discussed with RN Finished course of antibiotics, remdesivir and steroids, start iv zosyn 8 Continue nutrional support HYPOTHERMIC , ID CONSULT, BLOOD CULTURE 32 min cc time 10/15/2020 stable for transfer to LTAC today cont antibiotics extubated, awake on VM, NAD Slight interval decrease in lower lobe predominant multifocal infiltrate and small pleural effusions. Interval extubation. 10-13 59 year old male presented via EMS from [facility] with work of breathing x2 days with low O2 Sat at facility down to 78% on RA. known history of COPD and cough. Patient seen and examined in the [facility] ICU COVID POS Mediastinal adenopathy, malignancy is not excluded.suggest follow-up CT of the chest in 3 months. 2 cm blister on his left forearm Chart reviewed GLUCOSE UNCONTROLLED., INC LANTUS TO 21 UNITS SQ BID 8 Discussed with RN Finished course of antibiotics, remdesivir and steroids, start iv zosyn 8- Continue nutrional support HYPOTHERMIC , ID CONSULT, BLOOD CULTURE 33 min cc time 10/14/2020 cont antibiotics extubated, awake on VM, NAD Slight interval decrease in lower lobe predominant multifocal infiltrate and small pleural effusions. Interval extubation. 10-13 59 year old male presented via EMS from [facility] with work of breathing x2 days with low O2 Sat at facility down to 78% on RA. known history of COPD and cough. Patient seen and examined in the [place] [address] ICU COVID POS Mediastinal adenopathy, malignancy is not excluded.suggest follow-up CT of the chest in 3 months. 2 cm blister on his left forearm Chart reviewed GLUCOSE UNCONTROLLED., INC LANTUS TO 21 UNITS SQ BID 10-14 Discussed with RN Finished course of antibiotics, remdesivir and steroids, start iv zosyn 8- Continue nutrional support HYPOTHERMIC , ID CONSULT, BLOOD CULTURE 33 min cc time 10/13/2020 extubated, awake on VM 59 year old male presented via EMS from [facility] with work of breathing x2 days with low O2 Sat at facility down to 78% on RA. known h istory of COPD and cough. Patient seen and examined in the [place] [address] ICU Mediastinal adenopathy, malignancy is not excluded.suggest follow-up CT of the chest in 3 months. He has a 2 cm blister on his left forearm Chart reviewed Discussed with RN Finished course of antibiotics, remdesivir and steroids, start iv zosyn 10-11 Continue nutrional support HYPOTHERMIC , ID CONSULT, BLOOD CULTURE 34 min cc time 10/12/2020 59 year old male presented via EMS from [facility] with work of breathing x2 days with low O2 Sat at facility down to 78% on RA. known history of COPD and cough. Patient seen and examined in the [place] [address] ICU He remains mechanically ventilated Mediastinal adenopathy, malignancy is not excluded.suggest follow-up CT of the chest in 3 months. AC/18/500/50 percent with 5 of PEEP We might do a weaning trial later today He has a 2 cm blister on his left forearm We aspirated it was mostly clear OG running at 60 cc/h Sedated with Dex Chart reviewed Discussed with RN Finished course of antibiotics, remdesivir and steroids, start iv zosyn 8- Continue nutrional support HYPOTHERMIC , ID CONSULT, BLOOD CULTURE 32 min cc time 10/11/2020 59 year old male presented via EMS from [facility] with work of breathing x2 days with low O2 Sat at facility down to 78% on RA. known history of COPD and cough. Patient seen and examined in the [place] [address] ICU He remains mechanically ventilated Mediastinal adenopathy, malignancy is not excluded.suggest follow-up CT of the chest in 3 months. AC/18/500/50 percent with 5 of PEEP We might do a weaning trial later today He has a 2 cm blister on his left forearm We aspirated it was mostly clear OG running at 60 cc/h Sedated with Dex Chart reviewed Discussed with RN Finished course of antibiotics, remdesivir and steroids Continue nutrional support HYPOTHERMIC , ID CONSULT, BLOOD CULTURE 36 min cc time 10/10/2020 Patient seen and examined in the [place] [address] ICU He remains mechanically ventilated AC/18/500/50 percent with 5 of PEEP We might do a weaning trial later today He has a 2 cm blister on his left forearm We aspirated it was mostly clear OG running at 60 cc/h Sedated with Dex Chart reviewed Discussed with RN 10/09/2020 Patient seen and examined in the [place] [address] ICU He is on the vent AC/18/500/50 percent with 5 of PEEP 2 corrections officers are present Patient is shackled left arm and left leg Has IV albumin hanging Sedated with fentanyl and Versed Chart reviewed Discussed with RN Has OG feeds running 10/08/2020 Patient seen and examined in the [place] [address] ICU He is still intubated AC/18/500/50 percent with 5 of PEEP We are possibly going to trial him today Has OG feeds running at 60 cc an hour Has SCDs on Olsen to bedside drainage Corrections officers are present Patient is shackled Sedated with fentanyl and Versed Discussed with RN Chart reviewed 10/07/2020 Patient seen and examined in the [place] [address] ICU He remains on the ventilator Assist-control/18/500/50 percent with 7 of PEEP Sedated with Versed and fentanyl Shackled to the bed with 2 corrections officers present Chart reviewed Discussed with RN He is critically ill 10/06/2020 Patient seen and examined in the [place] [address] ICU He has corrections officers present He is shackled on his left ankle Still remains on the vent AC/18/500/50 5% with 7 of PEEP Sedated with Versed and fentanyl Chart reviewed Discussed with RN He remains very critically ill 10/05/2020 Patient seen and examined in the [place] [address] ICU He is still intubated AC/20/500/60 5% with 7 of PEEP Discussed with RN Patient with OG feeds running Mitts for patient safety Has Olsen to bedside drainage 2 corrections officers are present Patient is shackled Sedated with fentanyl and Versed He remains very critically ill 10/04/2020 Patient seen and examined in the [facility] ICU He remains intubated Shackled AC/20/500/60 5% with 8 of PEEP He has OG feeds running Has mitts on for patient safety Has SCDs in place Olsen to bedside drainage He is sedated with fentanyl and Versed Discussed with RN His glucose is running a little high we are adding in scheduled NovoLog 10 units 3 times daily and continue the sliding scale and Lantus 20 a day Chart reviewed He remains very critically ill Corrections officers are present 59 year old male presented via EMS from [facility] with work of breathing x2 days with low O2 Sat at facility down to 78% on RA. known history of COPD and cough. Patient also complains of headache. EMS noted patient was 84% and tripoding on 3 L nasal cannula. EMS reports giving a DuoNeb treatment x2 in route and placement nonrebreather with subsequent improvement in up to 95%. remote alcohol abuse YRS AGO , smoked until one month ago when he was arrested received the [employer] COVID-19 vaccination x1 [facility]. Patient denies known exposure to COVID-19. Panlobular airspace disease,c/w multifocal pneumonia. PUI Pulmonary edema less likely. 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 Remote alcohol abuse "6-8 cans of beer a day years ago" Thickened distal esophagus with 9 x 10 mm luminal density, likely ingested medication tablet. Mediastinal adenopathy, malignancy is not excluded.suggest follow-up CT of the chest in 3 months. / Hyperglycemia on accuchecks // Severe protein-caloric malnutrition CTA CHEST C/W Panlobular airspace disease, most likely multifocal pneumonia. 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 Patient tolerating BiPAP and saturating 91%. Started patient on IV Protonix because he is still on steroids. And has a history of esophageal varices. Patient's chart, labs, images were reviewed and discussed with RN 09/27/20 Patient evaluated at bedside He was having laboring respirations initially on the BiPAP concerned patient may need ICU transfer however was given a dose of Ativan and was able to calm down and respiratory status improved Continue steroids Pulmonary consult Plan of care discussed with bedside RN 09/28/20 Patient evaluated bedside He was on BiPAP required to be increased 100% FiO2 this morning Remains on remdesivir, Decadron, Rocephin, and azithromycin Continuing supportive care Plan of care discussed with bedside nurse 09/29/20 Patient evaluated at bedside Patient remains significantly agitated and anxious despite aggressive medication measures while on BiPAP BiPAP settings increasing over the past several days and given his agitation will transfer to ICU Continuing remdesivir Decadron Rocephin and azithromycin Plan of care discussed with bedside nurse 09/30/2020: Patient transferred from out to ICU yesterday due to worsening respiratory distress. He was intubated and currently on vent with FiO2 90% and PEEP of 8. We will continue treatment with remdesivir, steroids, and empiric antibiotics. Critical care time 30 minutes spent reviewing charts, reviewing imaging, reviewing labs, discussion with RN. 10/01/2020: Afebrile. On vent with FiO2 85%, PEEP 8. Continue treatment with remdesivir, steroids, Rocephin and azithromycin. Critical care time 30 minutes spent reviewing charts, imaging, reviewing labs, discussion with RN. 10/02/2020: Afebrile, FiO2 80%, PEEP 5. Finished remdesivir. Continue anti biotics and Decadron. Will increase insulin regimen due to persistent hyperglycemia. Supportive care. Critical care time 30 minutes spent reviewing charts, labs, reviewing imaging, discussion with RN. 10/03/2020: Afebrile, on vent with FiO2 70%, PEEP 5. Still with some significant hyperglycemia. Will increase basal insulin. Finished remdesivir. Will continue antibiotics and steroids. Repeat chest x-ray today. Critical care time 30 minutes spent reviewing charts, labs, reviewing imaging, discussion with RN. Vitals Vitals Vital Signs Date Time Temp Pulse Resp B/P (MAP) Pulse Ox O2 Delivery O2 Flow Rate FiO2 10/16/20 09:30 22 95 BiPAP/CPAP 10/16/20 09:00 44 154/87 (109) 10/16/20 04:00 6.0 10/16/20 04:00 97.6 97.6 Physical Exam Physical Exam GENERAL: on bipap VITAL SIGNS: stable HEENT: Both pupils are round and reacting. No conjunctival lesions. Mouth cannot be visualized much, orally intubated. NECK: Supple. No JVP, no lymphadenopathy. LUNGS: Clear. HEART: S1 and S2 regular. ABDOMEN: Soft, nontender. No organomegaly. EXTREMITIES: No edema or cyanosis. SKIN: Unremarkable other than minor skin infection/small superficial abscess in the left upper extremity, which was I and D'd at some point during this hospitalization. Rest of skin exam is unremarkable. NEUROLOGIC: on bipap General: Cooperative, No acute distress, Other (Intubated and sedated) Heart: Regular rate, Normal S1 Abdomen: Normal bowel sounds, Soft, No tenderness, No masses, Other (obese) Extremities: No cyanosis Skin: No rashes Labs LABS STATUS: ADM IN TLOC: SPEC #: [id number] MYRA: 10/11/20161 STATUS: RES REQ #: [id number] RECD: 10/11/[address]: NIRANJAN KIM MD SOURCE: BLOOD ENTR: 10/11/20-1432 [facility] DR: RICHARD PCP SPDESC: YVAN ZEE MD ORDERED: BCULT Procedure Result BLOOD CULTURE Preliminary NO GROWTH AFTER 4 DAYS Laboratory Tests Test 10/15/20 12:50 10/15/20 17:33 10/16/20 01:14 Glucose (Fingerstick) 220 mg/dL (70-99) 153 mg/dL (70-99) 155 mg/dL (70-99) Assessment and Plan Assessmemt and Plan Problems Medical Problems: (1) COPD exacerbation Status: Acute (2) Headache Status: Acute (3) Hypoxia Status: Acute (4) Pneumonia Status: Acute (5) Respiratory failure Status: Acute (6) Suspected 2019 novel coronavirus infection Status: Acute Comment Review of Relevant I have reviewed the following items herlinda (where applicable) has been applied. Labs Laboratory Tests Test 10/14/20 12:16 10/14/20 17:55 10/15/20 00:27 10/15/20 06:34 Glucose (Fingerstick) 286 mg/dL (70-99) 323 mg/dL (70-99) 244 mg/dL (70-99) 163 mg/dL (70-99) Test 10/15/20 06:35 10/15/20 12:50 10/15/20 17:33 10/16/20 01:14 Sodium Level 143 mmol/L (136-145) Potassium Level 3.9 mmol/L (3.5-5.1) Chloride Level 108 mmol/L (98-107) Carbon Dioxide Level 32 mmol/L (21-32) Anion Gap 3 (6-14) Blood Urea Nitrogen 36 mg/dL (8-26) Creatinine 0.7 mg/dL (0.7-1.3) Estimated GFR (Cockcroft-Gault) 115.4 Glucose Level 173 mg/dL (70-99) Calcium Level 8.3 mg/dL (8.5-10.1) Phosphorus Level 3.0 mg/dL (2.6-4.7) Albumin 1.9 g/dL (3.4-5.0) Glucose (Fingerstick) 220 mg/dL (70-99) 153 mg/dL (70-99) 155 mg/dL (70-99) Laboratory Tests Test 10/15/20 12:50 10/15/20 17:33 10/16/20 01:14 Glucose (Fingerstick) 220 mg/dL (70-99) 153 mg/dL (70-99) 155 mg/dL (70-99) Microbiology 10/11/20 Urine Culture - Final, Complete 10/11/20 Blood Culture - Preliminary, Resulted NO GROWTH AFTER 4 DAYS Medications Current Medications Sodium Chloride 1,000 ml @ 1,000 mls/hr 1X ONCE IV Last administered on 09/25/20at 08:27; Start 09/25/20 at 07:00; Stop 09/25/20 at 07:59; Status DC Dexamethasone Sodium Phosphate (Decadron) 10 mg 1X ONCE IVP Last administered on 09/25/20at 08:24; Start 09/25/20 at 07:00; Stop 09/25/20 at 07:01; Status DC Ketorolac Tromethamine (Toradol 15mg Vial) 15 mg 1X ONCE IVP Last administered on 09/25/20at 09:35; Start 09/25/20 at 09:00; Stop 09/25/20 at 09:01; Status DC Aspirin (Ecotrin) 325 mg 1X ONCE PO Last administered on 09/25/20at 09:35; Start 09/25/20 at 09:15; Stop 09/25/20 at 09:16; Status DC Iohexol (Omnipaque 350 Mg/ml) 100 ml 1X ONCE IV Last administered on 09/25/20at 10:05; Start 09/25/20 at 10:00; Stop 09/25/20 at 10:01; Status DC Info (CONTRAST GIVEN -- Rx MONITORING) 1 each PRN DAILY PRN MC SEE COMMENTS; Start 09/25/20 at 10:00; Stop 09/27/20 at 09:59; Status DC Azithromycin 250 ml @ 250 mls/hr 1X ONCE IV Last administered on 09/25/20at 11:37; Start 09/25/20 at 10:30; Stop 09/25/20 at 11:29; Status DC Ceftriaxone Sodium (Rocephin) 1 gm 1X ONCE IVP Last administered on 09/25/20at 11:36; Start 09/25/20 at 10:30; Stop 09/25/20 at 10:34; Status DC Ondansetron HCl (Zofran) 4 mg PRN Q8HRS PRN IV NAUSEA/VOMITING Last administered on 09/25/20at 11:33; Start 09/25/20 at 10:45; Stop 09/26/20 at 10:44; Status DC Fentanyl Citrate (Fentanyl 2ml Vial) 50 mcg Q2HR PRN IV PAIN Last administered on 09/26/20at 09:04; Start 09/25/20 at 10:45; Stop 09/26/20 at 10:44; Status DC Insulin Human Lispro (HumaLOG) 0-5 UNITS TIDWMEALS SQ ; Start 09/25/20 at 12:00; Stop 09/26/20 at 11:03; Status DC Dextrose (Dextrose 50%-Water Syringe) 12.5 gm PRN Q15MIN PRN IV SEE COMMENTS; Start 09/25/20 at 10:45; Stop 09/25/20 at 13:01; Status DC Labetalol HCl (Normodyne Iv Push) 20 mg 1X ONCE IVP Last administered on 09/25/20at 12:01; Start 09/25/20 at 12:00; Stop 09/25/20 at 12:01; Status DC Labetalol HCl (Normodyne Iv Push) 20 mg STK-MED ONCE IVP ; Start 09/25/20 at 11:42; Stop 09/25/20 at 11:42; Status DC Magnesium Sulfate/ Dextrose 100 ml @ 100 mls/hr 1X ONCE IV Last administered on 09/25/20at 14:25; Start 09/25/20 at 13:30; Stop 09/25/20 at 14:29; Status DC Azithromycin 250 ml @ 250 mls/hr DAILY07 IV ; Start 09/26/20 at 07:00; Status UNV Ceftriaxone Sodium (Rocephin) 1 gm Q24H IVP ; Start 09/25/20 at 13:00; Status Cancel Sodium Chloride (Normal Saline Flush) 3 ml QSHIFT PRN IV AFTER MEDS AND BLOOD DRAWS; Start 09/25/20 at 13:00 Ondansetron HCl (Zofran) 4 mg PRN Q4HRS PRN IV NAUSEA/VOMITING Last administered on 09/27/20at 11:18; Start 09/25/20 at 13:00 Acetaminophen (Tylenol) 650 mg PRN Q4HRS PRN PO TEMP OVER 100.4F OR MILD PAIN Last administered on 09/26/20at 09:00; Start 09/25/20 at 13:00 Al Hydroxide/Mg Hydroxide (Mylanta Plus Xs) 30 ml PRN DAILY PRN PO HEARTBURN / GAS; Start 09/25/20 at 13:00 Clonidine HCl (Catapres) 0.1 mg PRN Q6HRS PRN PO SBP>160 OR DBP>90 Last administered on 09/27/20at 11:00; Start 09/25/20 at 13:00 Sodium Monofluorophosphate (Fleet Adult) 133 ml PRN DAILY PRN [place] CONSTIPATION; Start 09/25/20 at 13:00 Docusate Sodium (Colace) 100 mg PRN BID PRN PO HARD STOOLS Last administered on 10/11/20at 09:55; Start 09/25/20 at 13:00 Albuterol/ Ipratropium (Duoneb) 3 ml Q4HRS NEB ; Start 09/25/20 at 16:00; Stop 09/26/20 at 01:06; Status DC Guaifenesin (Robitussin) 200 mg PRN Q4HRS PRN PO COUGH; Start 09/25/20 at 13:00 Enoxaparin Sodium (Lovenox 40mg Syringe) 40 mg Q24H SQ Last administered on 10/15/20at 21:16; Start 09/25/20 at 21:00 Ceftriaxone Sodium (Rocephin) 1 gm Q24H IVP Last administered on 10/05/20at 09:51; Start 09/26/20 at 09:00; Stop 10/05/20 at 09:04; Status DC Dexamethasone Sodium Phosphate (Decadron) 6 mg DAILY IVP Last administered on 10/07/20at 07:48; Start 09/26/20 at 09:00; Stop 10/07/20 at 13:17; Status DC Insulin Human Lispro (HumaLOG) 0-7 UNITS TIDWMEALS SQ Last administered on 09/26/20at 17:26; Start 09/25/20 at 17:00; Stop 09/27/20 at 07:25; Status DC Dextrose (Dextrose 50%-Water Syringe) 12.5 gm PRN Q15MIN PRN IV SEE COMMENTS Last administered on 10/12/20at 10:28; Start 09/25/20 at 13:00 Azithromycin 500 mg/Sodium Chloride 250 ml @ 250 mls/hr Q24H IV Last admi nistered on 10/03/20at 13:20; Start 09/26/20 at 13:00; Stop 10/04/20 at 13:43; Status DC Hydralazine HCl (Apresoline Inj) 10 mg PRN Q4HRS PRN IVP ELEVATED BP, SEE COMMENTS Last administered on 10/13/20at 14:28; Start 09/25/20 at 13:15 Amlodipine Besylate (Norvasc) 5 mg DAILY PO Last administered on 09/27/20at 08:02; Start 09/25/20 at 13:15; Stop 09/29/20 at 07:44; Status DC Albuterol/ Ipratropium (Combivent Respimat 20-100 Mcg) 1 puff Q4HRS W/A INH Last administered on 09/29/20at 06:07; Start 09/26/20 at 06:00; Stop 09/30/20 at 01:15; Status DC Pantoprazole Sodium (PROTONIX VIAL for IV PUSH) 40 mg DAILYAC IVP Last administered on 10/16/20at 09:45; Start 09/26/20 at 09:00 Fluticasone Propionate (Flonase) 2 spray DAILY NS Last administered on 09/26/20at 11:32; Start 09/26/20 at 10:45 Lactobacillus Rhamnosus (Culturelle) 1 cap BID PO Last administered on 09/30/20at 10:01; Start 09/26/20 at 21:00; Stop 09/30/20 at 10:57; Status DC Remdesivir 200 mg/ Sodium Chloride 210 ml @ 210 mls/hr 1X ONCE IV ; Start 09/26/20 at 14:30; Stop 09/26/20 at 15:29; Status DC Remdesivir 100 mg/ Sodium Chloride 230 ml @ 460 mls/hr Q24H IV Last administe red on 10/01/20at 12:36; Start 09/27/20 at 14:30; Stop 10/01/20 at 12:29; Status DC Ibuprofen (Motrin) 600 mg PRN Q6HRS PRN PO INFLAMMATION Last administered on 09/26/20at 19:44; Start 09/26/20 at 18:30 Insulin Human Lispro (HumaLOG) 0-9 UNITS QIDACHS SQ Last administered on 09/30/20at 17:00; Start 09/27/20 at 07:30; Stop 09/30/20 at 19:30; Status DC Insulin Glargine (Lantus Syringe) 10 unit QHS SQ Last administered on 10/01/20at 20:40; Start 09/27/20 at 21:00; Stop 10/02/20 at 09:54; Status DC Lorazepam (Ativan) 1 mg PRN Q6HRS PRN PO ANXIETY / AGITATION; Start 09/27/20 at 10:45; Stop 09/28/20 at 12:54; Status DC Lorazepam (Ativan) 2 mg PRN Q6HRS PRN PO ANXIETY / AGITATION Last administered on 09/28/20at 10:43; Start 09/27/20 at 10:45; Stop 09/28/20 at 12:54; Status DC Morphine Sulfate (Morphine Sulfate) 2 mg 1X ONCE IV Last administered on 09/27/20at 11:06; Start 09/27/20 at 11:00; Stop 09/27/20 at 11:01; Status DC Metoprolol Tartrate (Lopressor) 25 mg BID PO Last administered on 10/12/20at 14:20; Start 09/27/20 at 12:00 Tamsulosin HCl (Flomax) 0.4 mg DAILY PO Last administered on 10/08/20at 08:00; Start 09/27/20 at 12:00 Fluticasone/ Vilanterol (Breo Ellipta 100-25 Mcg) 1 puff DAILY INH Last administered on 09/27/20at 14:43; Start 09/27/20 at 12:00 Remdesivir 200 mg/ Sodium Chloride 210 ml @ 210 mls/hr 1X ONCE IV Last administered on 09/27/20at 12:49; Start 09/27/20 at 12:00; Stop 09/27/20 at 12:59; Status DC Acetaminophen/ Hydrocodone Bitart (Lortab 5/325) 1 tab PRN Q4HRS PRN PO MODERATE-SEVERE PAIN Last administered on 09/28/20at 05:11; Start 09/27/20 at 21:45 Lorazepam (Ativan Inj) 2 mg PRN Q4HRS PRN IVP ANXIETY / AGITATION Last administered on 09/29/20at 09:24; Start 09/28/20 at 13:00; Stop 10/13/20 at 05:22; Status DC Haloperidol Lactate (Haldol Inj) 5 mg PRN Q6HRS PRN IVP AGITATION - 2ND CHOICE Last administered on 10/12/20at 15:31; Start 09/28/20 at 17:15 Ziprasidone (Geodon Im) 20 mg 1X ONCE IM Last administered on 09/28/20at 19:33; Start 09/28/20 at 17:15; Stop 09/28/20 at 17:16; Status DC Amlodipine Besylate (Norvasc) 10 mg DAILY PO Last administered on 10/12/20at 11:23; Start 09/29/20 at 09:00 Dexmedetomidine HCl 400 mcg/ Sodium Chloride 100 ml @ 0 mls/hr CONT PRN IV PER PROTOCOL Last administered on 10/16/20at 04:37; Start 09/29/20 at 09:00 Sodium Chloride 500 ml @ 500 mls/hr 1X PRN PRN IV SEE COMMENTS; Start 09/29/20 at 09:00 Atropine Sulfate (ATROPINE 0.5mg SYRINGE) 0.5 mg PRN Q5MIN PRN IV SEE COMMENTS; Start 09/29/20 at 09:00 Fentanyl Citrate 30 ml @ 0 mls/hr CONT PRN IV SEE PROTOCOL Last administered on 10/11/20at 12:51; Start 09/29/20 at 10:00; Stop 10/13/20 at 05:22; Status DC Propofol 100 ml @ 0 mls/hr CONT PRN IV PER PROTOCOL Last administered on 10/12/20 09:33; Start 09/29/20 at 10:00; Stop 10/13/20 at 05:22; Status DC Fentanyl Citrate (Fentanyl 2ml Vial) 25 mcg PRN Q1HR PRN IV SEE COMMENTS Last administered on 10/12/20at 15:51; Start 09/29/20 at 10:00 Fentanyl Citrate (Fentanyl 2ml Vial) 50 mcg PRN Q1HR PRN IV SEE COMMENTS Last administered on 10/16/20at 09:02; Start 09/29/20 at 10:00 Morphine Sulfate (Morphine Sulfate) 2 mg PRN Q1HR PRN IV SEE COMMENTS.; Start 09/29/20 at 10:00; Stop 10/07/20 at 03:45; Status DC Morphine Sulfate (Morphine Sulfate) 4 mg PRN Q1HR PRN IV SEE COMMENTS.; Start 09/29/20 at 10:00; Stop 10/07/20 at 03:45; Status DC Midazolam HCl 100 ml @ 0 mls/hr CONT PRN IV SEE PROTOCOL Last administered on 10/09/20at 06:39; Start 09/29/20 at 10:00; Stop 10/13/20 at 05:22; Status DC Norepinephrine Bitartrate 8 mg/ Dextrose 258 ml @ 18.692 mls/ hr CONT PRN IV PER PROTOCOL Last administered on 09/29/20at 10:28; Start 09/29/20 at 10:15; Stop 10/13/20 at 05:22; Status DC Succinylcholine Chloride (Anectine) 100 mg 1X ONCE IV Last administered on 09/29/20at 10:25; Start 09/29/20 at 10:30; Stop 09/29/20 at 10:31; Status DC Etomidate (Amidate) 12 mg 1X ONCE IV Last administered on 09/29/20at 10:24; Start 09/29/20 at 10:30; Stop 09/29/20 at 10:31; Status DC Vecuronium [place] (Norcuron Bolus) 6 mg PRN Q2HR PRN IV VENTILATOR COMPLIANCE Last administered on 10/06/20at 16:19; Start 09/29/20 at 10:45; Stop 10/13/20 at 05:22; Status DC Sodium Chloride 1,000 ml @ 75 mls/hr [id number] IV Last administered on 10/07/20at 05:00; Start 09/30/20 at 05:45; Stop 10/07/20 at 10:03; Status DC Propofol (Diprivan) 1,000 mg STK-MED ONCE IV ; Start 09/29/20 at 10:15; Stop 09/30/20 at 12:58; Status DC Insulin Human Lispro (HumaLOG) 0-9 UNITS Q6HRS SQ Last administered on at 06:05; Start 10/01/20 at 00:00; Stop 10/04/20 at 10:41; Status DC Insulin Glargine (Lantus Syringe) 15 unit QHS SQ Last administered on 10/02/20at 20:14; Start 10/02/20 at 21:00; Stop 10/03/20 at 09:30; Status DC Insulin Glargine (Lantus Syringe) 20 unit QHS SQ Last administered on 10/05/20at 22:22; Start 10/03/20 at 21:00; Stop 10/06/20 at 07:34; Status DC Insulin Human Lispro (HumaLOG) 10 units TIDAC SQ Last administered on 10/04/20at 17:27; Start 10/04/20 at 11:30; Stop 10/05/20 at 10:15; Status DC Insulin Human Lispro (HumaLOG) 0-7 UNITS Q6HRS SQ Last administered on 10/15/20at 12:51; Start 10/04/20 at 12:00 Insulin Human Lispro (HumaLOG) 10 units Q6HRS SQ Last administered on 10/06/20at 06:00; Start 10/05/20 at 12:00; Stop 10/06/20 at 07:34; Status DC Insulin Glargine (Lantus Syringe) 20 unit BID SQ Last administered on 10/13/20at 09:23; Start 10/06/20 at 09:00; Stop 10/13/20 at 10:42; Status DC Insulin Human Lispro (HumaLOG) 15 units Q6HRS SQ Last administered on 10/09/20at 00:36; Start 10/06/20 at 12:00; Stop 10/11/20 at 15:47; Status DC Furosemide (Lasix) 40 mg DAILY IVP Last administered on 10/16/20at 09:45; Start 10/07/20 at 11:00 Albumin Human 500 ml @ 125 mls/hr DAILY08 IV ; Start 10/08/20 at 09:00; Stop 10/08/20 at 09:21; Status DC Albumin Human 50 ml @ 50 mls/hr DAILY IV Last administered on 10/10/20at 08:38; Start 10/08/20 at 09:30; Stop 10/10/20 at 10:00; Status DC Magnesium Sulfate 50 ml @ 25 mls/hr 1X ONCE IV Last administered on 10/11/20at 14:22; Start 10/11/20 at 14:15; Stop 10/11/20 at 16:14; Status DC Piperacillin Sod/ Tazobactam Sod (Zosyn Per Pharmacy) 1 each PRN DAILY PRN MC SEE COMMENTS; Start 10/11/20 at 16:30 Piperacillin Sod/ Tazobactam Sod 3.375 gm/Sodium Chloride 50 ml @ 100 mls/hr Q6HRS IV Last administered on 10/16/20at 06:27; Start 10/11/20 at 18:00; Stop 10/16/20 at 09:52; Status DC Potassium Chloride/Water 100 ml @ 100 mls/hr Q1H IV Last administered on 10/12/20at 12:12; Start 10/12/20 at 08:30; Stop 10/12/20 at 10:29; Status DC Metoclopramide HCl (Reglan Vial) 5 mg QIDACHS IVP Last administered on 10/16/20at 09:45; Start 10/12/20 at 11:30 Amino Acids/ Electrolytes/ Dextrose 1,000 ml @ 80 mls/hr [id number] IV Last administered on 10/15/20at 23:34; Start 10/12/20 at 11:15 Epinephrine (S2 Racepinephrine) 0.5 ml 1X ONCE NEB Last administered on 10/12/20at 15:20; Start 10/12/20 at 15:15; Stop 10/12/20 at 15:18; Status DC Methylprednisolone Sodium Succinate (SOLU-Medrol 125MG VIAL) 125 mg Q6HRS IV Last administered on 10/12/20at 23:17; Start 10/12/20 at 16:00; Stop 10/13/20 at 05:22; Status DC Methylprednisolone Sodium Succinate (SOLU-Medrol 125MG VIAL) 60 mg BID IV Last administered on 10/14/20at 20:35; Start 10/13/20 at 09:00; Stop 10/15/20 at 05:44; Status DC Insulin Glargine (Lantus Syringe) 18 unit BID SQ Last administered on 10/14/20at 09:05; Start 10/13/20 at 21:00; Stop 10/14/20 at 10:08; Status DC Insulin Glargine (Lantus Syringe) 21 unit BID SQ Last administered on 10/15/20at 21:13; Start 10/14/20 at 21:00 Methylprednisolone Sodium Succinate (SOLU-Medrol 40MG VIAL) 40 mg DAILY IV Last administered on 10/15/20at 09:19; Start 10/15/20 at 09:00; Stop 10/16/20 at 05:39; Status DC Active Scripts Active Reported Flomax (Tamsulosin Hcl) 0.4 Mg Cap.er.24h 1 Cap PO DAILY Semglee (Insulin Glargine,Hum.rec.anlog) 100 Unit/1 Ml Vial 20 Unit SQ QHS Semglee (Insulin Glargine,Hum.rec.anlog) 100 Unit/1 Ml Vial 30 Unit SQ QAM Novolin R (Insulin Regular, Human) 100 Unit/1 Ml Vial 100 Unit IJ SSI PRN Naproxen 500 Mg Tablet 1 Tab PO BID PRN 30 Days Metoprolol Tartrate 25 Mg Tablet 1 Tab PO BID Alvesco (Ciclesonide) 6.1 Gm Hfa.aer.ad 6.1 Gm IH Q12HR Proair Hfa Inhaler (Albuterol Sulfate) 8.5 Gm Hfa.aer.ad 2 Puff IH PRN Q4-6HRS PRN 21 Days Vitals/I & O Vital Sign - Last 24 Hours 10/15/20 10/15/20 10/15/20 10/15/20 11:00 12:00 12:00 13:00 Temp 98.0 98.0 Pulse 45 44 48 Resp 18 18 18 B/P (MAP) 139/71 (93) 141/74 (96) 137/78 (97) Pulse Ox 96 95 96 O2 Delivery High Flow Nasal Cannula Nasal Cannula High Flow Nasal Cannula High Flow Nasal Cannula O2 Flow Rate 5.0 6.0 5.0 5.0 10/15/20 10/15/20 10/15/20 10/15/20 14:00 15:00 16:00 16:00 Temp 98.7 98.7 Pulse 48 55 52 Resp 18 20 20 B/P (MAP) 136/76 (96) 134/78 (96) 142/76 (98) Pulse Ox 96 96 97 O2 Delivery High Flow Nasal Cannula High Flow Nasal Cannula High Flow Nasal Cannula Nasal Cannula O2 Flow Rate 5.0 5.0 5.0 6.0 10/15/20 10/15/20 10/15/20 10/15/20 17:00 18:00 19:00 20:00 Temp 97.0 97.0 Pulse 55 56 56 56 Resp 20 22 22 22 B/P (MAP) 132/74 (93) 153/83 (106) 165/97 (119) 152/86 (108) Pulse Ox 96 96 96 96 O2 Delivery Nasal Cannula Nasal Cannula Nasal Cannula Nasal Cannula O2 Flow Rate 5.0 5.0 5.0 5.0 10/15/20 10/15/20 10/15/20 10/15/20 20:00 21:00 21:00 22:00 Pulse 56 56 50 Resp 22 20 B/P (MAP) 153/83 169/89 (115) 140/78 (98) Pulse Ox 96 95 O2 Delivery Nasal Cannula Nasal Cannula BiPAP/CPAP O2 Flow Rate 6.0 5.0 5.0 10/15/20 10/16/20 10/16/20 10/16/20 23:00 00:01 00:01 01:00 Temp 97.2 97.2 Pulse 50 50 50 Resp 20 20 20 B/P (MAP) 140/78 (98) 140/78 (98) 140/78 (98) Pulse Ox 95 95 95 O2 Delivery BiPAP/CPAP Nasal Cannula BiPAP/CPAP Nasal Cannula O2 Flow Rate 5.0 6.0 5.0 5.0 10/16/20 10/16/20 10/16/20 10/16/20 02:00 03:00 04:00 04:00 Temp 97.6 97.6 Pulse 48 42 42 Resp 20 20 20 B/P (MAP) 156/89 (111) 128/68 (88) 140/78 (98) Pulse Ox 95 95 95 O2 Delivery Nasal Cannula Nasal Cannula BiPAP/CPAP Nasal Cannula O2 Flow Rate 5.0 5.0 6.0 8/7/21 10/16/20 10/16/20 10/16/20 05:00 06:00 07:00 08:00 Pulse 42 42 41 40 Resp 18 18 20 20 B/P (MAP) 161/88 (112) 155/87 (109) 150/83 (105) 143/80 (101) Pulse Ox 95 98 95 97 O2 Delivery BiPAP/CPAP BiPAP/CPAP BiPAP/CPAP BiPAP/CPAP 10/16/20 10/16/20 10/16/20 09:00 09:02 09:30 Pulse 44 Resp 22 22 B/P (MAP) 154/87 (109) Pulse Ox 98 95 95 O2 Delivery BiPAP/CPAP BiPAP/CPAP BiPAP/CPAP Intake and Output 10/15/20 10/15/20 10/16/20 15:00 23:00 07:00 Output Total 650 ml 1450 ml 450 ml Balance -650 ml -1450 ml -450 ml Justicifation of Admission Dx: Justifications for Admission: Justification of Admission Dx: Yes Comminuty Aquired Pneumonia: Hypoxemia NIRANJAN KIM MD Oct 16, 2020 10:17
[2020-10-16 10:23] LABS: BASO % 0 % (0-3); EOS % 0 % (0-3); HEMATOCRIT 34.6 % (39.0-53.0); HEMOGLOBIN 11.7 g/dL (13.0-17.5); LYMPH # 1.6 x10^3/uL (1.0-4.8); LYMPH % 33 % (24-48); MEAN CORPUSCULAR HEMOGLOBIN 32 pg (25-35); MEAN CORPUSCULAR HGB CONC 34 g/dL (31-37); MEAN CORPUSCULAR VOLUME 95 fL (79-100); MONO # 0.4 x10^3/uL (0.0-1.1); MONO % 9 % (0-9); NEUT # 2.7 x10^3/uL (1.8-7.7); NEUT % 57 % (31-73); PLATELET COUNT 71 x10^3/uL (140-400); RED BLOOD COUNT 3.64 x10^6/uL (4.30-5.70); RED CELL DISTRIBUTION WIDTH 14.3 % (11.5-14.5); WHITE BLOOD COUNT 4.7 x10^3/uL (4.0-11.0)
[2020-10-16] MEDS: AA 4.25 %/CALCIUM/LYTES/D5W 1,000 ML IV SCH (10:55)
[2020-10-16 10:58] LABS: ALBUMIN 1.9 g/dL (3.4-5.0); ALBUMIN/GLOBULIN RATIO 0.5 (1.0-1.7); CALCIUM 8.1 mg/dL (8.5-10.1); CREATININE 0.6 mg/dL (0.7-1.3); GFR 137.9; POTASSIUM 3.9 mmol/L (3.5-5.1); TOTAL PROTEIN 5.6 g/dL (6.4-8.2)
[2020-10-16] MEDS: INSULIN GLARGINE SYRINGE. SQ SCH ×3 (11:59→21:10)
--- NOTE | 2020-10-16 15:08 | NUR ---
Bedside Swallow Evaluation completed. Please refer to full report in intervention section for additional information. Impressions: Moderate oropharyngeal dysphagia w/mild laryngeal dysfunction p. 14d. intubation. Oropharyngeal delay and weakness, as well as confusion present and appear to be contributing factors to observed s/s aspiration. No safe consistency identified. Will need non-oral meds and nutrition for at least short-term. Anticipate improvement w/additional time s/p extubation. Current results are c/w general weakness and prolonged intubation. Eval results and recs based on direct observation. Videoswallow not feasible in this COVID 19 positive isolation pt. RECOMMENDATIONS: NPO meds and nutrition. NPO posted. JOVON RN [place]. Would benefit from aggressive oral care to reduce risk of aspiration related pneumonia from poss aspiration of secretions. Will f/u per POC.
[2020-10-16] MEDS: ENOXAPARIN 40 MG/0.4 ML SYRINGE. SQ SCH (21:09)
[2020-10-17] VITALS (24 sets, daily range): BP systolic 104–177; BP diastolic 49–95
[2020-10-17] MEDS: AA 4.25 %/CALCIUM/LYTES/D5W 1,000 ML IV SCH ×2 (02:04→16:35)
[2020-10-17] MEDS: DEXMEDETOMIDINE 400 MCG in IV NORMAL SALINE 100ML 96 ML IV PRN ×3 (04:04→20:09)
[2020-10-17] MEDS: INSULIN LISPRO 300 UNITS/3 ML VIAL. SQ SCH ×4 (06:00→18:06)
[2020-10-17 07:02] LABS: ALBUMIN 2.3 g/dL (3.4-5.0); CALCIUM 8.4 mg/dL (8.5-10.1); CREATININE 0.6 mg/dL (0.7-1.3); GFR 137.9; POTASSIUM 3.7 mmol/L (3.5-5.1)
[2020-10-17] MEDS: FUROSEMIDE 40 MG/4 ML VIAL. IVP SCH (08:39)
[2020-10-17] MEDS: PANTOPRAZOLE IV PUSH 40 MG VIAL. IVP SCH (08:40)
[2020-10-17] MEDS: FLUTICASONE 50MCG/NASAL SPRAY 16GM BOTTLE. NS SCH (08:40)
[2020-10-17] MEDS: FLUTICASONE/VILANTEROL 100/25 INHALER. INH SCH (08:40)
[2020-10-17] MEDS: TAMSULOSIN 0.4 MG CAP.ER.24H. PO SCH (08:40)
[2020-10-17] MEDS: METOCLOPRAMIDE HCL 10 MG/2 ML VIAL. IVP SCH (08:40)
[2020-10-17] MEDS: METOPROLOL TART IMMED RELEASE 25 MG TABLET. PO SCH ×3 (08:41→18:06)
--- NOTE | 2020-10-17 09:13 | RAD ---
EXAM: AP View of the chest DATE: 10/17/2020 5:14 AM INDICATION: Reason: pneumonia / Spl. Instructions: / History: COMPARISON: 10/23/2020 29/04/2020 FINDINGS/ IMPRESSION: Right IJ vascular catheter tip projects within the distal SVC. The heart is mildly enlarged. Bilateral parenchymal airspace opacities are mildly improved in the per ipheral right lung. Small pleural effusions. No pneumothorax. Electronically signed by: Matteo Garcia MD (10/17/2020 9:10 AM) TONE
--- NOTE | 2020-10-17 10:12 | PDOC ---
PULMONARY PROGRESS NOTES DATE: 10/17/20 TIME: 10:11 Subjective Patient remains on BiPAP at 40% Remains on Precedex Mild shortness of breath overnight Vitals Vital Signs Date Time Temp Pulse Resp B/P (MAP) Pulse Ox O2 Delivery O2 Flow Rate FiO2 10/17/20 09:00 69 23 177/95 (122) 94 Nasal Cannula 5.0 10/17/20 08:00 98.6 98.6 Comments Patient seen during the pandemic, and visual inspection no paroxysmal breathing pattern no increasing edema no new rash BIPAP 40% No distress Labs Laboratory Tests Test 10/15/20 12:50 10/15/20 17:33 10/16/20 01:14 10/16/20 10:10 Glucose (Fingerstick) 220 mg/dL (70-99) 153 mg/dL (70-99) 155 mg/dL (70-99) White Blood Count 4.7 x10^3/uL (4.0-11.0) Red Blood Count 3.64 x10^6/uL (4.30-5.70) Hemoglobin 11.7 g/dL (13.0-17.5) Hematocrit 34.6 % (39.0-53.0) Mean Corpuscular Volume 95 fL (79-100) Mean Corpuscular Hemoglobin 32 pg (25-35) Mean Corpuscular Hemoglobin Concent 34 g/dL (31-37) Red Cell Distribution Width 14.3 % (11.5-14.5) Platelet Count 71 x10^3/uL (140-400) Neutrophils (%) (Auto) 57 % (31-73) Lymphocytes (%) (Auto) 33 % (24-48) Monocytes (%) (Auto) 9 % (0-9) Eosinophils (%) (Auto) 0 % (0-3) Basophils (%) (Auto) 0 % (0-3) Neutrophils # (Auto) 2.7 x10^3/uL (1.8-7.7) Lymphocytes # (Auto) 1.6 x10^3/uL (1.0-4.8) Monocytes # (Auto) 0.4 x10^3/uL (0.0-1.1) Eosinophils # (Auto) 0.0 x10^3/uL (0.0-0.7) Basophils # (Auto) 0.0 x10^3/uL (0.0-0.2) Sodium Level 147 mmol/L (136-145) Potassium Level 3.9 mmol/L (3.5-5.1) Chloride Level 111 mmol/L (98-107) Carbon Dioxide Level 30 mmol/L (21-32) Anion Gap 6 (6-14) Blood Urea Nitrogen 35 mg/dL (8-26) Creatinine 0.6 mg/dL (0.7-1.3) Estimated GFR (Cockcroft-Gault) 137.9 BUN/Creatinine Ratio 58 (6-20) Glucose Level 157 mg/dL (70-99) Calcium Level 8.1 mg/dL (8.5-10.1) Total Bilirubin 1.0 mg/dL (0.2-1.0) Aspartate Amino Transf (AST/SGOT) 43 U/L (15-37) Alanine Aminotransferase (ALT/SGPT) 37 U/L (16-63) Alkaline Phosphatase 47 U/L (46-116) Total Protein 5.6 g/dL (6.4-8.2) Albumin 1.9 g/dL (3.4-5.0) Albumin/Globulin Ratio 0.5 (1.0-1.7) Test 10/16/20 12:03 10/16/20 18:33 10/16/20 18:42 10/16/20 21:35 Glucose (Fingerstick) 157 mg/dL (70-99) 96 mg/dL (70-99) 178 mg/dL (70-99) 72 mg/dL (70-99) Test 10/17/20 00:30 10/17/20 05:45 10/17/20 06:00 Glucose (Fingerstick) 78 mg/dL (70-99) 85 mg/dL (70-99) Sodium Level 141 mmol/L (136-145) Potassium Level 3.7 mmol/L (3.5-5.1) Chloride Level 107 mmol/L (98-107) Carbon Dioxide Level 30 mmol/L (21-32) Anion Gap 4 (6-14) Blood Urea Nitrogen 27 mg/dL (8-26) Creatinine 0.6 mg/dL (0.7-1.3) Estimated GFR (Cockcroft-Gault) 137.9 Glucose Level 79 mg/dL (70-99) Calcium Level 8.4 mg/dL (8.5-10.1) Phosphorus Level 3.0 mg/dL (2.6-4.7) Albumin 2.3 g/dL (3.4-5.0) Laboratory Tests Test 10/16/20 12:03 10/16/20 18:33 10/16/20 18:42 10/16/20 21:35 Glucose (Fingerstick) 157 mg/dL (70-99) 96 mg/dL (70-99) 178 mg/dL (70-99) 72 mg/dL (70-99) Test 10/17/20 00:30 10/17/20 05:45 10/17/20 06:00 Glucose (Fingerstick) 78 mg/dL (70-99) 85 mg/dL (70-99) Sodium Level 141 mmol/L (136-145) Potassium Level 3.7 mmol/L (3.5-5.1) Chloride Level 107 mmol/L (98-107) Carbon Dioxide Level 30 mmol/L (21-32) Anion Gap 4 (6-14) Blood Urea Nitrogen 27 mg/dL (8-26) Creatinine 0.6 mg/dL (0.7-1.3) Estimated GFR (Cockcroft-Gault) 137.9 Glucose Level 79 mg/dL (70-99) Calcium Level 8.4 mg/dL (8.5-10.1) Phosphorus Level 3.0 mg/dL (2.6-4.7) Albumin 2.3 g/dL (3.4-5.0) Medications Active Scripts Medications Dose Route/Sig Max Daily Dose Days Date Category Flomax (Tamsulosin Hcl) 0.4 Mg Cap.er.24h 1 Cap PO DAILY 09/26/20 Reported Semglee (Insulin Glargine,Hum.rec.anlog) 100 Unit/1 Ml Vial 20 Unit SQ QHS 09/26/20 Reported Semglee (Insulin Glargine,Hum.rec.anlog) 100 Unit/1 Ml Vial 30 Unit SQ QAM 09/26/20 Reported Novolin R (Insulin Regular, Human) 100 Unit/1 Ml Vial 100 Unit IJ SSI PRN 09/26/20 Reported Naproxen 500 Mg Tablet 1 Tab PO BID PRN 30 09/26/20 Reported Metoprolol Tartrate 25 Mg Tablet 1 Tab PO BID 09/26/20 Reported Alvesco (Ciclesonide) 6.1 Gm Hfa.aer.ad 6.1 Gm IH Q12HR 09/26/20 Reported Proair Hfa Inhaler (Albuterol Sulfate) 8.5 Gm Hfa.aer.ad 2 Puff IH PRN Q4-6HRS PRN 21 09/26/20 Reported Impression . IMPRESSION: 1. Acute hypoxemic respiratory failure secondary to COVID-19./ARDS--improved now extubated as of 10/12/20 2. COVID-19 viral pneumonia. 3. Possible bacterial pneumonia. 4. Other comorbidities including chronic obstructive pulmonary disease with acute exacerbation, tobacco dependent, chronic back pain and hypertension. 5. Abnormal chest x-ray with bilateral interstitial infiltrates related to COVID-19 pneumonia. 6. Status post intubation 09/29--extubated 10/12/20 Plan . Updated 10/17/20 Continue supplemental oxygen to keep oxygen saturations greater than 92%, currently off BiPAP tolerating nasal cannula at 5 L. Will use as needed BiPAP. Wean Precedex drip as tolerated, Haldol as needed S/P remdesivir off steroids Follow ID recommendations for antibiotics, currently on Zosyn, started 10/11/2020 Continue nutritional support with PPN Physical therapy/Occupational Therapy/speech therapy DVT/GI PPX:lovenox D/W RN and RT Patient has been accepted at [facility] Updated 10/16/20 Continue supplemental oxygen to keep oxygen saturations greater than 92%, currently on BiPAP 40% patient was extubated 10/12/2020, continue with BiPAP as needed and Ventimask/nasal cannula as tolerated BiPAP settings reviewed: 27/08 with a rate of 18 and 40% Wean Precedex drip as tolerated, Haldol as needed S/P remdesivir DC steroids Follow ID recommendations for antibiotics, currently on Zosyn, started 10/11/2020 Continue nutritional support with PPN Physical therapy/Occupational Therapy/speech therapy DVT/GI PPX:lovenox D/W RN and RT Patient has been accepted at [facility] Updated 10/15/20 Continue supplemental oxygen to keep oxygen saturations greater than 92%, currently on BiPAP 40% patient was extubated 10/12/2020, continue with BiPAP as needed and Ventimask/nasal cannula as tolerated BiPAP settings reviewed: 27/08 with a rate of 18 and 40% Wean Precedex drip as tolerated S/P remdesivir Decrease steroid dose to daily dosing Follow ID recommendations for antibiotics, currently on Zosyn, started 10/11/2020 Continue nutritional support with PPN Physical therapy/Occupational Therapy/speech therapy DVT/GI PPX:lovenox D/W RN and RT Discussed with Dr. Jaime. Patient is a stable for LTAC transfer. Updated 10/14/20 Continue supplemental oxygen to keep oxygen saturations greater than 92%, currently on BiPAP 40% patient was extubated 10/12/2020, tolerating nasal cannula during the day BiPAP settings reviewed: 27/08 with a rate of 18 and 40% Patient has Finished course of remdesivir Patient restarted on steroids for wheezing 10/13/2020, currently on 60 mg IV twice daily, will taper slowly Follow ID recommendations for antibiotics, currently on Zosyn, started 10/11/2020 Continue nutritional support with PPN Hyperglycemia per PCP Physical therapy/Occupational Therapy/speech therapy DVT/GI PPX:lovenox D/W RN and RT SAROJ SQUIRES MD Oct 17, 2020 10:12
--- NOTE | 2020-10-17 10:33 | PDOC ---
PROGRESS NOTES Date of Service: DATE: 10/17/20 TIME: 10:33 Chief Complaint Chief Complaint COVID-19 respiratory failure requiring intubation COPD Cirrhosis Severe pneumonia Remote history of alcohol issues mediastinal adenopathy Hyperglycemia and diabetes Severe protein calorie malnutrition Hypomagnesemia History of Present Illness History of Present Illness 10/17/2020 stable for transfer to LTAC begin tpn 8-08 Discontinue antibiotics extubated, awake on VM, NAD Slight interval decrease in lower lobe predominant multifocal infiltrate and small pleural effusions. Interval extubation. 10-13 59 year old male presented via EMS from [facility] with work of breathing x2 days with low O2 Sat at facility down to 78% on RA. known history of COPD and cough. Patient seen and examined in the [place] [address] ICU COVID POS Mediastinal adenopathy, malignancy is not excluded.suggest follow-up CT of the chest in 3 months. 2 cm blister on his left forearm Chart reviewed GLUCOSE UNCONTROLLED., INC LANTUS TO 20 UNITS SQ BID 10-17 Discussed with RN Finished course of antibiotics, remdesivir and steroids, Continue nutrional support tpn 8 BLOOD CULTURE Final NO GROWTH AFTER 5 DAYS 34 min cc time 10/16/2020 stable for transfer to LTAC today cont antibiotics extubated, awake on VM, NAD Slight interval decrease in lower lobe predominant multifocal infiltrate and small pleural effusions. Interval extubation. 10-13 59 year old male presented via EMS from [facility] with work of breathing x2 days with low O2 Sat at facility down to 78% on RA. known history of COPD and cough. Patient seen and examined in the [place] [address] ICU COVID POS Mediastinal adenopathy, malignancy is not excluded.suggest follow-up CT of the chest in 3 months. 2 cm blister on his left forearm Chart reviewed GLUCOSE UNCONTROLLED., INC LANTUS TO 21 UNITS SQ BID 10-14 Discussed with RN Finished course of antibiotics, remdesivir and steroids, start iv zosyn 10-11 Continue nutrional support HYPOTHERMIC , ID CONSULT, BLOOD CULTURE 32 min cc time 10/15/2020 stable for transfer to LTAC today cont antibiotics extubated, awake on VM, NAD Slight interval decrease in lower lobe predominant multifocal infiltrate and small pleural effusions. Interval extubation. 10-13 59 year old male presented via EMS from [facility] with work of breathing x2 days with low O2 Sat at facility down to 78% on RA. known history of COPD and cough. Patient seen and examined in the [place] [address] ICU COVID POS Mediastinal adenopathy, malignancy is not excluded.suggest follow-up CT of the chest in 3 months. 2 cm blister on his left forearm Chart reviewed GLUCOSE UNCONTROLLED., INC LANTUS TO 21 UNITS SQ BID 10-14 Discussed with RN Finished course of antibiotics, remdesivir and steroids, start iv zosyn 8- Continue nutrional support HYPOTHERMIC , ID CONSULT, BLOOD CULTURE 33 min cc time 10/14/2020 cont antibiotics extubated, awake on VM, NAD Slight interval decrease in lower lobe predominant multifocal infiltrate and small pleural effusions. Interval extubation. 10-13 59 year old male presented via EMS from [facility] with work of breathing x2 days with low O2 Sat at facility down to 78% on RA. known history of COPD and cough. Patient seen and examined in the [place] [address] ICU COVID POS Mediastinal adenopathy, malignancy is not excluded.suggest follow-up CT of the chest in 3 months. 2 cm blister on his left forearm Chart reviewed GLUCOSE UNCONTROLLED., INC LANTUS TO 21 UNITS SQ BID 10-14 Discussed with RN Finished course of antibiotics, remdesivir and steroids, start iv zosyn - Continue nutrional support HYPOTHERMIC , ID CONSULT, BLOOD CULTURE 33 min cc time 10/13/2020 extubated, awake on VM 59 year old male presented via EMS from [facility] with work of breathing x2 days with low O2 Sat at facility down to 78% on RA. known history of COPD and cough. Patient seen and examined in the [place] [address] ICU Mediastinal adenopathy, malignancy is not excluded.suggest follow-up CT of the chest in 3 months. He has a 2 cm blister on his left forearm Chart reviewed Discussed with RN Finished course of antibiotics, remdesivir and steroids, start iv zosyn 8- Continue nutrional support HYPOTHERMIC , ID CONSULT, BLOOD CULTURE 34 min cc time 10/12/2020 59 year old male presented via EMS from [facility] with work of breathing x2 days with low O2 Sat at facility down to 78% on RA. known history of COPD and cough. Patient seen and examined in the [place] [address] ICU He remains mechanically ventilated Mediastinal adenopathy, malignancy is not excluded.suggest follow-up CT of the chest in 3 months. AC/18/500/50 percent with 5 of PEEP We might do a weaning trial later today He has a 2 cm blister on his left forearm We aspirated it was mostly clear OG running at 60 cc/h Sedated with Dex Chart reviewed Discussed with RN Finished course of antibiotics, remdesivir and steroids, start iv zosyn 10-11 Continue nutrional support HYPOTHERMIC , ID CONSULT, BLOOD CULTURE 32 min cc time 10/11/2020 59 year old male presented via EMS from [facility] with work of breathing x2 days with low O2 Sat at facility down to 78% on RA. known history of COPD and cough. Patient seen and examined in the [place] [address] ICU He remains mechanically ventilated Mediastinal adenopathy, malignancy is not excluded.suggest follow-up CT of the chest in 3 months. AC/18/500/50 percent with 5 of PEEP We might do a weaning trial later today He has a 2 cm blister on his left forearm We aspirated it was mostly clear OG running at 60 cc/h Sedated with Dex Chart reviewed Discussed with RN Finished course of antibiotics, remdesivir and steroids Continue nutrional support HYPOTHERMIC , ID CONSULT, BLOOD CULTURE 36 min cc time 10/10/2020 Patient seen and examined in the [place] [address] ICU He remains mechanically ventilated AC/18/500/50 percent with 5 of PEEP We might do a weaning trial later today He has a 2 cm blister on his left forearm We aspirated it was mostly clear OG running at 60 cc/h Sedated with Dex Chart reviewed Discussed with RN 10/09/2020 Patient seen and examined in the [place] [address] ICU He is on the vent AC/18/500/50 percent with 5 of PEEP 2 corrections officers are present Patient is shackled left arm and left leg Has IV albumin hanging Sedated with fentanyl and Versed Chart reviewed Discussed with RN Has OG feeds running 10/08/2020 Patient seen and examined in the [place] [address] ICU He is still intubated AC/18/500/50 percent with 5 of PEEP We are possibly going to trial him today Has OG feeds running at 60 cc an hour Has SCDs on Olsen to bedside drainage Corrections officers are present Patient is shackled Sedated with fentanyl and Versed Discussed with RN Chart reviewed 10/07/2020 Patient seen and examined in the [place] [address] ICU He remains on the ventilator Assist-control/18/500/50 percent with 7 of PEEP Sedated with Versed and fentanyl Shackled to the bed with 2 corrections officers present Chart reviewed Discussed with RN He is critically ill 10/06/2020 Patient seen and examined in the [place] [address] ICU He has corrections officers present He is shackled on his left ankle Still remains on the vent AC/18/500/50 5% with 7 of PEEP Sedated with Versed and fentanyl Chart reviewed Discussed with RN He remains very critically ill 10/05/2020 Patient seen and examined in the [place] [address] ICU He is still intubated AC/20/500/60 5% with 7 of PEEP Discussed with RN Patient with OG feeds running Mitts for patient safety Has Olsen to bedside drainage 2 corrections officers are present Patient is shackled Sedated with fentanyl and Versed He remains very critically ill 10/04/2020 Patient seen and examined in the [place] [address] ICU He remains intubated Shackled AC/20/500/60 5% with 8 of PEEP He has OG feeds running Has mitts on for patient safety Has SCDs in place Olsen to bedside drainage He is sedated with fentanyl and Versed Discussed with RN His glucose is running a little high we are adding in scheduled NovoLog 10 units 3 times daily and continue the sliding scale and Lantus 20 a day Chart reviewed He remains very critically ill Corrections officers are present 59 year old male presented via EMS from [facility] with work of breathing x2 days with low O2 Sat at facility down to 78% on RA. known history of COPD and cough. Patient also complains of headache. EMS noted patient was 84% and tripoding on 3 L nasal cannula. EMS reports giving a DuoNeb treatment x2 in route and placement nonrebreather with subsequent improvement in up to 95%. remote alcohol abuse YRS AGO , smoked until one month ago when he was arrested received the [employer] COVID-19 vaccination [facility]. Patient denies known exposure to COVID-19. Panlobular airspace disease,c/w multifocal pneumonia. PUI Pulmonary edema less likely. 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 Remote alcohol abuse "6-8 cans of beer a day years ago" Thickened distal esophagus with 9 x 10 mm luminal density, likely ingested medication tablet. Mediastinal adenopathy, malignancy is not excluded.suggest follow-up CT of the chest in 3 months. / Hyperglycemia on accuchecks // Severe protein-caloric malnutrition CTA CHEST C/W Panlobular airspace disease, most likely multifocal pneumonia. 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 Patient tolerating BiPAP and saturating 91%. Started patient on IV Protonix because he is still on steroids. And has a history of esophageal varices. Patient's chart, labs, images were reviewed and discussed with RN 09/27/20 Patient evaluated at bedside He was having laboring respirations initially on the BiPAP concerned patient may need ICU transfer however was given a dose of Ativan and was able to calm down and respiratory status improved Continue steroids Pulmonary consult Plan of care discussed with bedside RN 09/28/20 Patient evaluated bedside He was on BiPAP required to be increased 100% FiO2 this morning Remains on remdesivir, Decadron, Rocephin, and azithromycin Continuing supportive care Plan of care discussed with bedside nurse 09/29/20 Patient evaluated at bedside Patient remains significantly agitated and anxious despite aggressive medication measures while on BiPAP BiPAP settings increasing over the past several days and given his agitation will transfer to ICU Continuing remdesivir Decadron Rocephin and azithromycin Plan of care discussed with bedside nurse 09/30/2020: Patient transferred from out to ICU yesterday due to worsening respiratory distress. He was intubated and currently on vent with FiO2 90% and PEEP of 8. We will continue treatment with remdesivir, steroids, and empiric antibiotics. Critical care time 30 minutes spent reviewing charts, reviewing imaging, reviewing labs, discussion with RN. 10/01/2020: Afebrile. On vent with FiO2 85%, PEEP 8. Continue treatment with remdesivir, steroids, Rocephin and azithromycin. Critical care time 30 minutes spent reviewing charts, imaging, reviewing labs, discussion with RN. 10/02/2020: Afebrile, FiO2 80%, PEEP 5. Finished remdesivir. Continue antibiotics and Decadron. Will increase insulin regimen due to persistent hyperglycemia. Supportive care. Critical care time 30 minutes spent reviewing charts, labs, reviewing imaging, discussion with RN. 10/03/2020: Afebrile, on vent with FiO2 70%, PEEP 5. Still with some significant hyperglycemia. Will increase basal insulin. Finished remdesivir. Will continue antibiotics and steroids. Repeat chest x-ray today. Critical care time 30 minutes spent reviewing charts, labs, reviewing imaging, discussion with RN. Vitals Vitals Vital Signs Date Time Temp Pulse Resp B/P (MAP) Pulse Ox O2 Delivery O2 Flow Rate FiO2 10/17/20 09:00 69 23 177/95 (122) 94 Nasal Cannula 5.0 10/17/20 08:00 98.6 98.6 Physical Exam Physical Exam GENERAL: on bipap VITAL SIGNS: stable HEENT: Both pupils are round and reacting. No conjunctival lesions. Mouth cannot be visualized much, orally intubated. NECK: Supple. No JVP, no lymphadenopathy. LUNGS: Clear. HEART: S1 and S2 regular. ABDOMEN: Soft, nontender. No organomegaly. EXTREMITIES: No edema or cyanosis. SKIN: Unremarkable other than minor skin infection/small superficial abscess in the left upper extremity, which was I and D'd at some point during this hospitalization. Rest of skin exam is unremarkable. NEUROLOGIC: on bipap General: Cooperative, No acute distress, Other (Intubated and sedated) Heart: Regular rate, Normal S1 Abdomen: Normal bowel sounds, Soft, No tenderness, No masses, Other (obese) Extremities: No cyanosis Skin: No rashes Labs LABS RUN DATE: 10/16/20 [facility] LAB *LIVE* PAGE 1 RUN TIME: 0532 Specimen Inquiry PATIENT: BHAVESH SIMMONS ACCT: [id number] LOC: 1 [facility] U: [id number] AGE/SX: 59/M ROOM: 115 RE09/25/[address]: NIRANJAN KIM MD : 1960 BED: 1 DIS: STATUS: ADM IN TLOC: SPEC #: [id number] MYRA: 10/11/20 STATUS: COMP REQ #: [id number] RECD: 10/11/[address]: NIRANJAN KIM MD SOURCE: BLOOD ENTR: 10/11/20-[address]: RICHARD OSHEA SPDESC: YVAN ZEE MD ORDERED: BCULT Procedure Result BLOOD CULTURE Final NO GROWTH AFTER 5 DAYS PATIENT: BHAVESH SIMMONS ACCOUNT: [id number] : 1960 LOCATION: 1 [place] ICU AGE: 59 SEX: M EXAM STATUS: ADM IN ORD. PHYSICIAN: NIRANJAN KIM MD REASON: pneumonia PROCEDURE: CHEST AP ONLY EXAM: AP View of the chest DATE: 10/17/2020 5:14 AM INDICATION: Reason: pneumonia / Spl. Instructions: / History: COMPARISON: 10/23/2020 29/04/2020 FINDINGS/ IMPRESSION: Right IJ vascular catheter tip projects within the distal SVC. The heart is mildly enlarged. Bilateral parenchymal airspace opacities are mildly improved in the peripheral right lung. Small pleural effusions. No pneumothorax. Electronically signed by: Matteo Pham MD (10/17/2020 9:10 AM) [facility] DICTATED and SIGNED BY: MATTEO PHAM MD DATE: 10/17/20 [id number] Laboratory Tests Test 10/16/20 12:03 10/16/20 18:33 10/16/20 18:42 10/16/20 21:35 Glucose (Fingerstick) 157 mg/dL (70-99) 96 mg/dL (70-99) 178 mg/dL (70-99) 72 mg/dL (70-99) Test 10/17/20 00:30 10/17/20 05:45 10/17/20 06:00 Glucose (Fingerstick) 78 mg/dL (70-99) 85 mg/dL (70-99) Sodium Level 141 mmol/L (136-145) Potassium Level 3.7 mmol/L (3.5-5.1) Chloride Level 107 mmol/L (98-107) Carbon Dioxide Level 30 mmol/L (21-32) Anion Gap 4 (6-14) Blood Urea Nitrogen 27 mg/dL (8-26) Creatinine 0.6 mg/dL (0.7-1.3) Estimated GFR (Cockcroft-Gault) 137.9 Glucose Level 79 mg/dL (70-99) Calcium Level 8.4 mg/dL (8.5-10.1) Phosphorus Level 3.0 mg/dL (2.6-4.7) Albumin 2.3 g/dL (3.4-5.0) Assessment and Plan Assessmemt and Plan Problems Medical Problems: (1) COPD exacerbation Status: Acute (2) Headache Status: Acute (3) Hypoxia Status: Acute (4) Pneumonia Status: Acute (5) Respiratory failure Status: Acute (6) Suspected 2019 novel coronavirus infection Status: Acute Comment Review of Relevant I have reviewed the following items herlinda (where applicable) has been applied. Labs Laboratory Tests Test 10/15/20 12:50 10/15/20 17:33 10/16/20 01:14 10/16/20 10:10 Glucose (Fingerstick) 220 mg/dL (70-99) 153 mg/dL (70-99) 155 mg/dL (70-99) White Blood Count 4.7 x10^3/uL (4.0-11.0) Red Blood Count 3.64 x10^6/uL (4.30-5.70) Hemoglobin 11.7 g/dL (13.0-17.5) Hematocrit 34.6 % (39.0-53.0) Mean Corpuscular Volume 95 fL (79-100) Mean Corpuscular Hemoglobin 32 pg (25-35) Mean Corpuscular Hemoglobin Concent 34 g/dL (31-37) Red Cell Distribution Width 14.3 % (11.5-14.5) Platelet Count 71 x10^3/uL (140-400) Neutrophils (%) (Auto) 57 % (31-73) Lymphocytes (%) (Auto) 33 % (24-48) Monocytes (%) (Auto) 9 % (0-9) Eosinophils (%) (Auto) 0 % (0-3) Basophils (%) (Auto) 0 % (0-3) Neutrophils # (Auto) 2.7 x10^3/uL (1.8-7.7) Lymphocytes # (Auto) 1.6 x10^3/uL (1.0-4.8) Monocytes # (Auto) 0.4 x10^3/uL (0.0-1.1) Eosinophils # (Auto) 0.0 x10^3/uL (0.0-0.7) Basophils # (Auto) 0.0 x10^3/uL (0.0-0.2) Sodium Level 147 mmol/L (136-145) Potassium Level 3.9 mmol/L (3.5-5.1) Chloride Level 111 mmol/L (98-107) Carbon Dioxide Level 30 mmol/L (21-32) Anion Gap 6 (6-14) Blood Urea Nitrogen 35 mg/dL (8-26) Creatinine 0.6 mg/dL (0.7-1.3) Estimated GFR (Cockcroft-Gault) 137.9 BUN/Creatinine Ratio 58 (6-20) Glucose Level 157 mg/dL (70-99) Calcium Level 8.1 mg/dL (8.5-10.1) Total Bilirubin 1.0 mg/dL (0.2-1.0) Aspartate Amino Transf (AST/SGOT) 43 U/L (15-37) Alanine Aminotransferase (ALT/SGPT) 37 U/L (16-63) Alkaline Phosphatase 47 U/L (46-116) Total Protein 5.6 g/dL (6.4-8.2) Albumin 1.9 g/dL (3.4-5.0) Albumin/Globulin Ratio 0.5 (1.0-1.7) Test 10/16/20 12:03 10/16/20 18:33 10/16/20 18:42 10/16/20 21:35 Glucose (Fingerstick) 157 mg/dL (70-99) 96 mg/dL (70-99) 178 mg/dL (70-99) 72 mg/dL (70-99) Test 10/17/20 00:30 10/17/20 05:45 10/17/20 06:00 Glucose (Fingerstick) 78 mg/dL (70-99) 85 mg/dL (70-99) Sodium Level 141 mmol/L (136-145) Potassium Level 3.7 mmol/L (3.5-5.1) Chloride Level 107 mmol/L (98-107) Carbon Dioxide Level 30 mmol/L (21-32) Anion Gap 4 (6-14) Blood Urea Nitrogen 27 mg/dL (8-26) Creatinine 0.6 mg/dL (0.7-1.3) Estimated GFR (Cockcroft-Gault) 137.9 Glucose Level 79 mg/dL (70-99) Calcium Level 8.4 mg/dL (8.5-10.1) Phosphorus Level 3.0 mg/dL (2.6-4.7) Albumin 2.3 g/dL (3.4-5.0) Laboratory Tests Test 10/16/20 12:03 10/16/20 18:33 10/16/20 18:42 10/16/20 21:35 Glucose (Fingerstick) 157 mg/dL (70-99) 96 mg/dL (70-99) 178 mg/dL (70-99) 72 mg/dL (70-99) Test 10/17/20 00:30 10/17/20 05:45 10/17/20 06:00 Glucose (Fingerstick) 78 mg/dL (70-99) 85 mg/dL (70-99) Sodium Level 141 mmol/L (136-145) Potassium Level 3.7 mmol/L (3.5-5.1) Chloride Level 107 mmol/L (98-107) Carbon Dioxide Level 30 mmol/L (21-32) Anion Gap 4 (6-14) Blood Urea Nitrogen 27 mg/dL (8-26) Creatinine 0.6 mg/dL (0.7-1.3) Estimated GFR (Cockcroft-Gault) 137.9 Glucose Level 79 mg/dL (70-99) Calcium Level 8.4 mg/dL (8.5-10.1) Phosphorus Level 3.0 mg/dL (2.6-4.7) Albumin 2.3 g/dL (3.4-5.0) Microbiology 10/11/20 Urine Culture - Final, Complete 10/11/20 Blood Culture - Final, Complete NO GROWTH AFTER 5 DAYS Medications Current Medications Sodium Chloride 1,000 ml @ 1,000 mls/hr 1X ONCE IV Last administered on 09/25/20at 08:27; Start 09/25/20 at 07:00; Stop 09/25/20 at 07:59; Status DC Dexamethasone Sodium Phosphate (Decadron) 10 mg 1X ONCE IVP Last administered on 09/25/20at 08:24; Start 09/25/20 at 07:00; Stop 09/25/20 at 07:01; Status DC Ketorolac Tromethamine (Toradol 15mg Vial) 15 mg 1X ONCE IVP Last administered on 09/25/20at 09:35; Start 09/25/20 at 09:00; Stop 09/25/20 at 09:01; Status DC Aspirin (Ecotrin) 325 mg 1X ONCE PO Last administered on 09/25/20at 09:35; Start 09/25/20 at 09:15; Stop 09/25/20 at 09:16; Status DC Iohexol (Omnipaque 350 Mg/ml) 100 ml 1X ONCE IV Last administered on 09/25/20at 10:05; Start 09/25/20 at 10:00; Stop 09/25/20 at 10:01; Status DC Info (CONTRAST GIVEN -- Rx MONITORING) 1 each PRN DAILY PRN MC SEE COMMENTS; Start 09/25/20 at 10:00; Stop 09/27/20 at 09:59; Status DC Azithromycin 250 ml @ 250 mls/hr 1X ONCE IV Last administered on 09/25/20at 11:37; Start 09/25/20 at 10:30; Stop 09/25/20 at 11:29; Status DC Ceftriaxone Sodium (Rocephin) 1 gm 1X ONCE IVP Last administered on 09/25/20at 11:36; Start 09/25/20 at 10:30; Stop 09/25/20 at 10:34; Status DC Ondansetron HCl (Zofran) 4 mg PRN Q8HRS PRN IV NAUSEA/VOMITING Last administered on 09/25/20at 11:33; Start 09/25/20 at 10:45; Stop 09/26/20 at 10:44; Status DC Fentanyl Citrate (Fentanyl 2ml Vial) 50 mcg Q2HR PRN IV PAIN Last administered on 09/26/20at 09:04; Start 09/25/20 at 10:45; Stop 09/26/20 at 10:44; Status DC Insulin Human Lispro (HumaLOG) 0-5 UNITS TIDWMEALS SQ ; Start 09/25/20 at 12:00; Stop 09/26/20 at 11:03; Status DC Dextrose (Dextrose 50%-Water Syringe) 12.5 gm PRN Q15MIN PRN IV SEE COMMENTS; Start 09/25/20 at 10:45; Stop 09/25/20 at 13:01; Status DC Labetalol HCl (Normodyne Iv Push) 20 mg 1X ONCE IVP Last administered on 09/25/20at 12:01; Start 09/25/20 at 12:00; Stop 09/25/20 at 12:01; Status DC Labetalol HCl (Normodyne Iv Push) 20 mg STK-MED ONCE IVP ; Start 09/25/20 at 11:42; Stop 09/25/20 at 11:42; Status DC Magnesium Sulfate/ Dextrose 100 ml @ 100 mls/hr 1X ONCE IV Last administered on 09/25/20at 14:25; Start 09/25/20 at 13:30; Stop 09/25/20 at 14:29; Status DC Azithromycin 250 ml @ 250 mls/hr DAILY07 IV ; Start 09/26/20 at 07:00; Status UNV Ceftriaxone Sodium (Rocephin) 1 gm Q24H IVP ; Start 09/25/20 at 13:00; Status Cancel Sodium Chloride (Normal Saline Flush) 3 ml QSHIFT PRN IV AFTER MEDS AND BLOOD DRAWS; Start 09/25/20 at 13:00 Ondansetron HCl (Zofran) 4 mg PRN Q4HRS PRN IV NAUSEA/VOMITING Last administered on 09/27/20at 11:18; Start 09/25/20 at 13:00 Acetaminophen (Tylenol) 650 mg PRN Q4HRS PRN PO TEMP OVER 100.4F OR MILD PAIN Last administered on 09/26/20at 09:00; Start 09/25/20 at 13:00 Al Hydroxide/Mg Hydroxide (Mylanta Plus Xs) 30 ml PRN DAILY PRN PO HEARTBURN / GAS; Start 09/25/20 at 13:00 Clonidine HCl (Catapres) 0.1 mg PRN Q6HRS PRN PO SBP>160 OR DBP>90 Last administered on 09/27/20at 11:00; Start 09/25/20 at 13:00 Sodium Monofluorophosphate (Fleet Adult) 133 ml PRN DAILY PRN [place] CONSTIPATION; Start 09/25/20 at 13:00 Docusate Sodium (Colace) 100 mg PRN BID PRN PO HARD STOOLS Last administered on 10/11/20at 09:55; Start 09/25/20 at 13:00 Albuterol/ Ipratropium (Duoneb) 3 ml Q4HRS NEB ; Start 09/25/20 at 16:00; Stop 09/26/20 at 01:06; Status DC Guaifenesin (Robitussin) 200 mg PRN Q4HRS PRN PO COUGH; Start 09/25/20 at 13:00 Enoxaparin Sodium (Lovenox 40mg Syringe) 40 mg Q24H SQ Last administered on 10/16/20at 21:09; Start 09/25/20 at 21:00 Ceftriaxone Sodium (Rocephin) 1 gm Q24H IVP Last administered on 10/05/20at 09:51; Start 09/26/20 at 09:00; Stop 10/05/20 at 09:04; Status DC Dexamethasone Sodium Phosphate (Decadron) 6 mg DAILY IVP Last administered on 10/07/20at 07:48; Start 09/26/20 at 09:00; Stop 10/07/20 at 13:17; Status DC Insulin Human Lispro (HumaLOG) 0-7 UNITS TIDWMEALS SQ Last administered on 09/26/20at 17:26; Start 09/25/20 at 17:00; Stop 09/27/20 at 07:25; Status DC Dextrose (Dextrose 50%-Water Syringe) 12.5 gm PRN Q15MIN PRN IV SEE COMMENTS Last administered on 10/12/20at 10:28; Start 09/25/20 at 13:00 Azithromycin 500 mg/Sodium Chloride 250 ml @ 250 mls/hr Q24H IV Last administered on 10/03/20at 13:20; Start 09/26/20 at 13:00; Stop 10/04/20 at 13:43; Status DC Hydralazine HCl (Apresoline Inj) 10 mg PRN Q4HRS PRN IVP ELEVATED BP, SEE COMMENTS Last administered on 10/13/20at 14:28; Start 09/25/20 at 13:15 Amlodipine Besylate (Norvasc) 5 mg DAILY PO Last administered on 09/27/20at 08:02; Start 09/25/20 at 13:15; Stop 09/29/20 at 07:44; Status DC Albuterol/ Ipratropium (Combivent Respimat 20-100 Mcg) 1 puff Q4HRS W/A INH Last administered on 09/29/20at 06:07; Start 09/26/20 at 06:00; Stop 09/30/20 at 01:15; Status DC Pantoprazole Sodium (PROTONIX VIAL for IV PUSH) 40 mg DAILYAC IVP Last administered on 10/17/20at 08:40; Start 09/26/20 at 09:00 Fluticasone Propionate (Flonase) 2 spray DAILY NS Last administered on 09/26/20at 11:32; Start 09/26/20 at 10:45 Lactobacillus Rhamnosus (Culturelle) 1 cap BID PO Last administered on 09/30/20at 10:01; Start 09/26/20 at 21:00; Stop 09/30/20 at 10:57; Status DC Remdesivir 200 mg/ Sodium Chloride 210 ml @ 210 mls/hr 1X ONCE IV ; Start 09/26/20 at 14:30; Stop 09/26/20 at 15:29; Status DC Remdesivir 100 mg/ Sodium Chloride 230 ml @ 460 mls/hr Q24H IV Last administered on 10/01/20at 12:36; Start 09/27/20 at 14:30; Stop 10/01/20 at 12:29; Status DC Ibuprofen (Motrin) 600 mg PRN Q6HRS PRN PO INFLAMMATION Last administered on 09/26/20at 19:44; Start 09/26/20 at 18:30 Insulin Human Lispro (HumaLOG) 0-9 UNITS QIDACHS SQ Last administered on 09/30/20at 17:00; Start 09/27/20 at 07:30; Stop 09/30/20 at 19:30; Status DC Insulin Glargine (Lantus Syringe) 10 unit QHS SQ Last administered on 10/01/20at 20:40; Start 09/27/20 at 21:00; Stop 10/02/20 at 09:54; Status DC Lorazepam (Ativan) 1 mg PRN Q6HRS PRN PO ANXIETY / AGITATION; Start 09/27/20 at 10:45; Stop 09/28/20 at 12:54; Status DC Lorazepam (Ativan) 2 mg PRN Q6HRS PRN PO ANXIETY / AGITATION Last administered on 09/28/20at 10:43; Start 09/27/20 at 10:45; Stop 09/28/20 at 12:54; Status DC Morphine Sulfate (Morphine Sulfate) 2 mg 1X ONCE IV Last administered on 09/27/20at 11:06; Start 09/27/20 at 11:00; Stop 09/27/20 at 11:01; Status DC Metoprolol Tartrate (Lopressor) 25 mg BID PO Last administered on 10/12/20at 14:20; Start 09/27/20 at 12:00 Tamsulosin HCl (Flomax) 0.4 mg DAILY PO Last administered on 10/08/20at 08:00; Start 09/27/20 at 12:00 Fluticasone/ Vilanterol (Breo Ellipta 100-25 Mcg) 1 puff DAILY INH Last administered on 09/27/20at 14:43; Start 09/27/20 at 12:00 Remdesivir 200 mg/ Sodium Chloride 210 ml @ 210 mls/hr 1X ONCE IV Last administered on 09/27/20at 12:49; Start 09/27/20 at 12:00; Stop 09/27/20 at 12:59; Status DC Acetaminophen/ Hydrocodone Bitart (Lortab 5/325) 1 tab PRN Q4HRS PRN PO MODERATE-SEVERE PAIN Last administered on 09/28/20at 05:11; Start 09/27/20 at 21:45 Lorazepam (Ativan Inj) 2 mg PRN Q4HRS PRN IVP ANXIETY / AGITATION Last administered on 09/29/20at 09:24; Start 09/28/20 at 13:00; Stop 10/13/20 at 05:22; Status DC Haloperidol Lactate (Haldol Inj) 5 mg PRN Q6HRS PRN IVP AGITATION - 2ND CHOICE Last administered on 10/12/20 15:31; Start 09/28/20 at 17:15 Ziprasidone (Geodon Im) 20 mg 1X ONCE IM Last administered on 09/28/20at 19:33; Start 09/28/20 at 17:15; Stop 09/28/20 at 17:16; Status DC Amlodipine Besylate (Norvasc) 10 mg DAILY PO Last administered on 10/12/20 11:23; Start 09/29/20 at 09:00 Dexmedetomidine HCl 400 mcg/ Sodium Chloride 100 ml @ 0 mls/hr CONT PRN IV PER PROTOCOL Last administered on 10/17/20 04:04; Start 09/29/20 at 09:00 Sodium Chloride 500 ml @ 500 mls/hr 1X PRN PRN IV SEE COMMENTS; Start 09/29/20 at 09:00 Atropine Sulfate (ATROPINE 0.5mg SYRINGE) 0.5 mg PRN Q5MIN PRN IV SEE COMMENTS; Start 09/29/20 at 09:00 Fentanyl Citrate 30 ml @ 0 mls/hr CONT PRN IV SEE PROTOCOL Last administered on 10/11/20at 12:51; Start 09/29/20 at 10:00; Stop 10/13/20 at 05:22; Status DC Propofol 100 ml @ 0 mls/hr CONT PRN IV PER PROTOCOL Last administered on 10/12at 09:33; Start 09/29/20 at 10:00; Stop 10/13/20 at 05:22; Status DC Fentanyl Citrate (Fentanyl 2ml Vial) 25 mcg PRN Q1HR PRN IV SEE COMMENTS Last administered on 10/12/20at 15:51; Start 09/29/20 at 10:00 Fentanyl Citrate (Fentanyl 2ml Vial) 50 mcg PRN Q1HR PRN IV SEE COMMENTS Last administered on 10/16/20at 09:02; Start 09/29/20 at 10:00 Morphine Sulfate (Morphine Sulfate) 2 mg PRN Q1HR PRN IV SEE COMMENTS.; Start 09/29/20 at 10:00; Stop 10/07/20 at 03:45; Status DC Morphine Sulfate (Morphine Sulfate) 4 mg PRN Q1HR PRN IV SEE COMMENTS.; Start 09/29/20 at 10:00; Stop 10/07/20 at 03:45; Status DC Midazolam HCl 100 ml @ 0 mls/hr CONT PRN IV SEE PROTOCOL Last administered on 10/09/20at 06:39; Start 09/29/20 at 10:00; Stop 10/13/20 at 05:22; Status DC Norepinephrine Bitartrate 8 mg/ Dextrose 258 ml @ 18.692 mls/ hr CONT PRN IV PER PROTOCOL Last administered on 09/29/20at 10:28; Start 09/29/20 at 10:15; Stop 10/13/20 at 05:22; Status DC Succinylcholine Chloride (Anectine) 100 mg 1X ONCE IV Last administered on 09/29/20at 10:25; Start 09/29/20 at 10:30; Stop 09/29/20 at 10:31; Status DC Etomidate (Amidate) 12 mg 1X ONCE IV Last administered on 09/29/20at 10:24; Start 09/29/20 at 10:30; Stop 09/29/20 at 10:31; Status DC Vecuronium [place] (Norcuron Bolus) 6 mg PRN Q2HR PRN IV VENTILATOR COMPLIANCE Last administered on 10/06/20at 16:19; Start 09/29/20 at 10:45; Stop 10/13/20 at 05:22; Status DC Sodium Chloride 1,000 ml @ 75 mls/hr [id number] IV Last administered on 10/07/20at 05:00; Start 09/30/20 at 05:45; Stop 10/07/20 at 10:03; Status DC Propofol (Diprivan) 1,000 mg STK-MED ONCE IV ; Start 09/29/20 at 10:15; Stop 09/30/20 at 12:58; Status DC Insulin Human Lispro (HumaLOG) 0-9 UNITS Q6HRS SQ Last administered on 10/04/20at 06:05; Start 10/01/20 at 00:00; Stop 10/04/20 at 10:41; Status DC Insulin Glargine (Lantus Syringe) 15 unit QHS SQ Last administered on 10/02/20at 20:14; Start 10/02/20 at 21:00; Stop 10/03/20 at 09:30; Status DC Insulin Glargine (Lantus Syringe) 20 unit QHS SQ Last administered on 10/05/20at 22:22; Start 10/03/20 at 21:00; Stop 10/06/20 at 07:34; Status DC Insulin Human Lispro (HumaLOG) 10 units TIDAC SQ Last administered on 10/04/20at 17:27; Start 10/04/20 at 11:30; Stop 10/05/20 at 10:15; Status DC Insulin Human Lispro (HumaLOG) 0-7 UNITS Q6HRS SQ Last administered on 10/15/20at 12:51; Start 10/04/20 at 12:00 Insulin Human Lispro (HumaLOG) 10 units Q6HRS SQ Last administered on 10/06/20at 06:00; Start 10/05/20 at 12:00; Stop 10/06/20 at 07:34; Status DC Insulin Glargine (Lantus Syringe) 20 unit BID SQ Last administered on 10/13/20at 09:23; Start 10/06/20 at 09:00; Stop 10/13/20 at 10:42; Status DC Insulin Human Lispro (HumaLOG) 15 units Q6HRS SQ Last administered on 10/09/20at 00:36; Start 10/06/20 at 12:00; Stop 10/11/20 at 15:47; Status DC Furosemide (Lasix) 40 mg DAILY IVP Last administered on 10/17/20at 08:39; Start 10/07/20 at 11:00 Albumin Human 500 ml @ 125 mls/hr DAILY08 IV ; Start 10/08/20 at 09:00; Stop 10/08/20 at 09:21; Status DC Albumin Human 50 ml @ 50 mls/hr DAILY IV Last administered on 10/10/20at 08:38; Start 10/08/20 at 09:30; Stop 10/10/20 at 10:00; Status DC Magnesium Sulfate 50 ml @ 25 mls/hr 1X ONCE IV Last administered on 10/11/20at 14:22; Start 10/11/20 at 14:15; Stop 10/11/20 at 16:14; Status DC Piperacillin Sod/ Tazobactam Sod (Zosyn Per Pharmacy) 1 each PRN DAILY PRN MC SEE COMMENTS; Start 10/11/20 at 16:30; Stop 10/16/20 at 11:45; Status DC Piperacillin Sod/ Tazobactam Sod 3.375 gm/Sodium Chloride 50 ml @ 100 mls/hr Q6HRS IV Last administered on 10/16/20at 06:27; Start 10/11/20 at 18:00; Stop 10/16/20 at 09:52; Status DC Potassium Chloride/Water 100 ml @ 100 mls/hr Q1H IV Last administered on 10/12/20at 12:12; Start 10/12/20 at 08:30; Stop 10/12/20 at 10:29; Status DC Metoclopramide HCl (Reglan Vial) 5 mg QIDACHS IVP Last administered on 10/17/20at 08:40; Start 10/12/20 at 11:30 Amino Acids/ Electrolytes/ Dextrose 1,000 ml @ 80 mls/hr [id number] IV Last administered on 10/17/20at 02:04; Start 10/12/20 at 11:15 Epinephrine (S2 Racepinephrine) 0.5 ml 1X ONCE NEB Last administered on 10/12/20at 15:20; Start 10/12/20 at 15:15; Stop 10/12/20 at 15:18; Status DC Methylprednisolone Sodium Succinate (SOLU-Medrol 125MG VIAL) 125 mg Q6HRS IV Last administered on 10/12/20at 23:17; Start 10/12/20 at 16:00; Stop 10/13/20 at 05:22; Status DC Methylprednisolone Sodium Succinate (SOLU-Medrol 125MG VIAL) 60 mg BID IV Last administered on 10/14/20at 20:35; Start 10/13/20 at 09:00; Stop 10/15/20 at 05:44; Status DC Insulin Glargine (Lantus Syringe) 18 unit BID SQ Last administered on 10/14/20at 09:05; Start 10/13/20 at 21:00; Stop 10/14/20 at 10:08; Status DC Insulin Glargine (Lantus Syringe) 21 unit BID SQ Last administered on 10/16/20at 11:59; Start 10/14/20 at 21:00 Methylprednisolone Sodium Succinate (SOLU-Medrol 40MG VIAL) 40 mg DAILY IV Last administered on 10/15/20at 09:19; Start 10/15/20 at 09:00; Stop 10/16/20 at 05:39; Status DC Active Scripts Active Reported Flomax (Tamsulosin Hcl) 0.4 Mg Cap.er.24h 1 Cap PO DAILY Semglee (Insulin Glargine,Hum.rec.anlog) 100 Unit/1 Ml Vial 20 Unit SQ QHS Semglee (Insulin Glargine,Hum.rec.anlog) 100 Unit/1 Ml Vial 30 Unit SQ QAM Novolin R (Insulin Regular, Human) 100 Unit/1 Ml Vial 100 Unit IJ SSI PRN Naproxen 500 Mg Tablet 1 Tab PO BID PRN 30 Days Metoprolol Tartrate 25 Mg Tablet 1 Tab PO BID Alvesco (Ciclesonide) 6.1 Gm Hfa.aer.ad 6.1 Gm IH Q12HR Proair Hfa Inhaler (Albuterol Sulfate) 8.5 Gm Hfa.aer.ad 2 Puff IH PRN Q4-6HRS PRN 21 Days Vitals/I & O Vital Sign - Last 24 Hours 10/16/20 10/16/20 10/16/20 10/16/20 11:00 12:00 12:00 13:00 Temp 98.4 98.4 Pulse 46 51 48 Resp 21 B/P (MAP) 133/79 (97) 149/89 (109) 145/87 (106) Pulse Ox 97 97 93 O2 Delivery Nasal Cannula Nasal Cannula Nasal Cannula Nasal Cannula O2 Flow Rate 5.0 5.0 5.0 3.0 10/16/20 10/16/20 10/16/20 10/16/20 14:00 15:00 16:00 16:00 Temp 98.6 98.6 Pulse 56 49 45 Resp 21 B/P (MAP) 152/84 (106) 155/86 (109) 145/80 (101) Pulse Ox 92 96 98 O2 Delivery Nasal Cannula BiPAP/CPAP Bi-pap BiPAP/CPAP O2 Flow Rate 3.0 10/16/20 10/16/20 10/16/20 10/16/20 17:00 18:00 19:00 20:00 Pulse 48 50 54 Resp 21 B/P (MAP) 149/84 (105) 147/80 (102) 151/86 (107) Pulse Ox 98 95 94 O2 Delivery BiPAP/CPAP Nasal Cannula BiPAP/CPAP Bi-pap O2 Flow Rate 5.0 10/16/20 10/16/20 10/16/20 10/16/20 20:00 21:00 21:20 22:00 Temp 98.4 98.4 Pulse 45 47 54 Resp 21 B/P (MAP) 139/78 (98) 140/77 (98) 140/78 (98) Pulse Ox 99 99 98 97 O2 Delivery BiPAP/CPAP BiPAP/CPAP BiPAP/CPAP BiPAP/CPAP 10/16/20 10/16/20 10/17/20 10/17/20 23:00 23:59 00:00 00:00 Temp 98.8 98.8 Pulse 50 56 Resp 20 24 B/P (MAP) 137/77 (97) 135/76 (95) Pulse Ox 99 98 99 O2 Delivery BiPAP/CPAP BiPAP/CPAP Nasal Cannula Nasal Cannula O2 Flow Rate 5.0 5.0 10/17/20 10/17/20 10/17/20 10/17/20 01:00 02:00 03:00 04:00 Temp 97.6 97.6 Pulse 51 51 48 48 Resp 14 19 32 18 B/P (MAP) 145/77 (99) 161/80 (107) 119/58 (78) 147/70 (95) Pulse Ox 99 99 99 98 O2 Delivery BiPAP/CPAP BiPAP/CPAP BiPAP/CPAP BiPAP/CPAP 10/17/20 10/17/20 10/17/20 10/17/20 04:00 04:15 05:00 06:00 Pulse 49 60 Resp 20 14 B/P (MAP) 127/68 (87) 153/81 (105) Pulse Ox 98 97 97 O2 Delivery Bi-pap BiPAP/CPAP Nasal Cannula BiPAP/CPAP O2 Flow Rate 5.0 10/17/20 10/17/20 10/17/20 10/17/20 07:00 07:36 08:00 08:00 Temp 98.6 98.6 Pulse 59 55 Resp 19 19 B/P (MAP) 140/70 (93) 149/77 (101) Pulse Ox 98 97 98 O2 Delivery BiPAP/CPAP BiPAP/CPAP Bi-pap BiPAP/CPAP 10/17/20 09:00 Pulse 69 Resp 23 B/P (MAP) 177/95 (122) Pulse Ox 94 O2 Delivery Nasal Cannula O2 Flow Rate 5.0 Intake and Output 10/16/20 10/16/20 10/17/20 15:00 23:00 07:00 Intake Total 1230 ml 979 ml Output Total 2125 ml 700 ml 1055 ml Balance -2125 ml 530 ml -76 ml Justicifation of Admission Dx: Justifications for Admission: Justification of Admission Dx: Yes Comminuty Aquired Pneumonia: Hypoxemia NIRANJAN KIM MD Oct 17, 2020 10:33
[2020-10-17] MEDS ORDERED: TPN PER PHARMACY MC PRN (12:00)
[2020-10-17] MEDS ORDERED: hydrALAZINE 20 MG/ML VIAL. IVP PRN (13:00)
[2020-10-17] MEDS: hydrALAZINE 20 MG/ML VIAL. IVP PRN (13:00)
--- NOTE | 2020-10-17 14:05 | NUR ---
Pharmacy TPN Dosing Note S: BHAVESH SIMMONS is a 59 year old M Currently receiving Central Continuous TPN started 10/17/20 B:Pertinent PMH: NPO Height: 6 feet, 1 inches Weight: 98.6 kg Current diet: PPN LABS: Sodium: 141 Potassium: 3.7 Chloride: 107 Calcium: 8.3 Corrected Calcium: 9.66 Magnesium: CO2: 30 SCr: 0.6 Glucose: 85 Albumin: 2.3 AST: ALT: TPN FORMULA: TPN TYPE: Central Continuous AMINO ACIDS: 60 gm DEXTROSE: 195 gm LIPIDS: 20 gm SODIUM CHLORIDE: 70 mEq SODIUM ACETATE: mEq SODIUM PHOSPHATE: mmol POTASSIUM CHLORIDE: mEq POTASSIUM ACETATE: 50 mEq POTASSIUM PHOSPHATE: 13.6 mmol MAGNESIUM: 10 mEq CALCIUM: 10 mEq INSULIN: units MULTIPLE VITAMIN: 5 ml TRACE ELEMENTS: 1 ml(s) TPN PLAN: HOUSE TPN R: Begin TPN AT 63ML/HR Will monitor electrolytes, glucose, and tolerance to TPN. ANSHUL HERRERA [facility], 10/17/20 [id number]
[2020-10-17 14:26] LABS: BASO % 1 % (0-3); EOS # 0.1 x10^3/uL (0.0-0.7); EOS % 2 % (0-3); HEMATOCRIT 33.4 % (39.0-53.0); HEMOGLOBIN 11.5 g/dL (13.0-17.5); LYMPH # 1.4 x10^3/uL (1.0-4.8); LYMPH % 36 % (24-48); MEAN CORPUSCULAR HEMOGLOBIN 32 pg (25-35); MEAN CORPUSCULAR HGB CONC 34 g/dL (31-37); MEAN CORPUSCULAR VOLUME 94 fL (79-100); MONO # 0.3 x10^3/uL (0.0-1.1); MONO % 8 % (0-9); NEUT # 2.1 x10^3/uL (1.8-7.7); NEUT % 53 % (31-73); PLATELET COUNT 57 x10^3/uL (140-400); RED BLOOD COUNT 3.57 x10^6/uL (4.30-5.70); RED CELL DISTRIBUTION WIDTH 13.8 % (11.5-14.5); WHITE BLOOD COUNT 3.9 x10^3/uL (4.0-11.0)
[2020-10-17 14:40] LABS: CALCIUM 7.9 mg/dL (8.5-10.1); CREATININE 0.6 mg/dL (0.7-1.3); GFR 137.9; POTASSIUM 3.2 mmol/L (3.5-5.1)
[2020-10-17] MEDS: fentaNYL PF VIAL 100 MCG/2 ML VIAL IV PRN (15:26)
[2020-10-17] MEDS: POTASSIUM CHLORIDE 20MEQ 100 ML IV SCH ×2 (15:43→16:43)
[2020-10-17] MEDS ORDERED: fentaNYL PF VIAL 100 MCG/2 ML VIAL IVP PRN (16:15)
[2020-10-17] MEDS: ENOXAPARIN 40 MG/0.4 ML SYRINGE. SQ SCH (20:54)
[2020-10-17] MEDS: INSULIN GLARGINE SYRINGE. SQ SCH (20:56)
[2020-10-17] MEDS ORDERED: [UNRECOGNIZED DRUG - OTHER] IV SCH (22:00)
[2020-10-17] MEDS ORDERED: DEXTROSE 70% IV SCH (22:00)
[2020-10-17] MEDS ORDERED: TOTAL PARENTERAL NUTRITION IV SCH (22:00)
[2020-10-17] MEDS ORDERED: AMINO ACID IV SCH (22:00)
[2020-10-18] VITALS (15 sets, daily range): BP systolic 109–208; BP diastolic 53–106
[2020-10-18] MEDS: DEXMEDETOMIDINE 400 MCG in IV NORMAL SALINE 100ML 96 ML IV PRN ×2 (01:58→13:20)
[2020-10-18] MEDS: INSULIN LISPRO 300 UNITS/3 ML VIAL. SQ SCH ×3 (06:00→12:00)
[2020-10-18] MEDS: DEXTROSE 50% 25 GM / 50ML DISP.SYRIN. IV PRN (06:14)
[2020-10-18 06:59] LABS: CALCIUM 8.1 mg/dL (8.5-10.1); CREATININE 0.4 mg/dL (0.7-1.3); GFR 220.2; PHOSPHORUS 2.8 mg/dL (2.6-4.7); POTASSIUM 3.7 mmol/L (3.5-5.1)
--- NOTE | 2020-10-18 07:07 | PDOC ---
PULMONARY PROGRESS NOTES DATE: 10/18/20 TIME: 07:05 Subjective Patient is currently on 5 L nasal cannula Remains on Precedex drip Remittent use of BiPAP 40% No overnight concerns from nursing Vitals Vital Signs Date Time Temp Pulse Resp B/P (MAP) Pulse Ox O2 Delivery O2 Flow Rate FiO2 10/18/20 05:00 51 21 109/56 (73) 98 BiPAP/CPAP 10/18/20 04:00 98.0 98.0 10/18/20 01:00 5.0 Comments Patient seen during the COVID- pandemic, and visual inspection no paroxysmal breathing pattern no increasing edema no new rash NC o2 No distress Labs Laboratory Tests Test 10/16/20 10:10 10/16/20 12:03 10/16/20 18:33 10/16/20 18:42 White Blood Count 4.7 x10^3/uL (4.0-11.0) Red Blood Count 3.64 x10^6/uL (4.30-5.70) Hemoglobin 11.7 g/dL (13.0-17.5) Hematocrit 34.6 % (39.0-53.0) Mean Corpuscular Volume 95 fL (79-100) Mean Corpuscular Hemoglobin 32 pg (25-35) Mean Corpuscular Hemoglobin Concent 34 g/dL (31-37) Red Cell Distribution Width 14.3 % (11.5-14.5) Platelet Count 71 x10^3/uL (140-400) Neutrophils (%) (Auto) 57 % (31-73) Lymphocytes (%) (Auto) 33 % (24-48) Monocytes (%) (Auto) 9 % (0-9) Eosinophils (%) (Auto) 0 % (0-3) Basophils (%) (Auto) 0 % (0-3) Neutrophils # (Auto) 2.7 x10^3/uL (1.8-7.7) Lymphocytes # (Auto) 1.6 x10^3/uL (1.0-4.8) Monocytes # (Auto) 0.4 x10^3/uL (0.0-1.1) Eosinophils # (Auto) 0.0 x10^3/uL (0.0-0.7) Basophils # (Auto) 0.0 x10^3/uL (0.0-0.2) Sodium Level 147 mmol/L (136-145) Potassium Level 3.9 mmol/L (3.5-5.1) Chloride Level 111 mmol/L (98-107) Carbon Dioxide Level 30 mmol/L (21-32) Anion Gap 6 (6-14) Blood Urea Nitrogen 35 mg/dL (8-26) Creatinine 0.6 mg/dL (0.7-1.3) Estimated GFR (Cockcroft-Gault) 137.9 BUN/Creatinine Ratio 58 (6-20) Glucose Level 157 mg/dL (70-99) Calcium Level 8.1 mg/dL (8.5-10.1) Total Bilirubin 1.0 mg/dL (0.2-1.0) Aspartate Amino Transf (AST/SGOT) 43 U/L (15-37) Alanine Aminotransferase (ALT/SGPT) 37 U/L (16-63) Alkaline Phosphatase 47 U/L (46-116) Total Protein 5.6 g/dL (6.4-8.2) Albumin 1.9 g/dL (3.4-5.0) Albumin/Globulin Ratio 0.5 (1.0-1.7) Glucose (Fingerstick) 157 mg/dL (70-99) 96 mg/dL (70-99) 178 mg/dL (70-99) Test 10/16/20 21:35 10/17/20 00:30 10/17/20 05:45 10/17/20 06:00 Glucose (Fingerstick) 72 mg/dL (70-99) 78 mg/dL (70-99) 85 mg/dL (70-99) Sodium Level 141 mmol/L (136-145) Potassium Level 3.7 mmol/L (3.5-5.1) Chloride Level 107 mmol/L (98-107) Carbon Dioxide Level 30 mmol/L (21-32) Anion Gap 4 (6-14) Blood Urea Nitrogen 27 mg/dL (8-26) Creatinine 0.6 mg/dL (0.7-1.3) Estimated GFR (Cockcroft-Gault) 137.9 Glucose Level 79 mg/dL (70-99) Calcium Level 8.4 mg/dL (8.5-10.1) Phosphorus Level 3.0 mg/dL (2.6-4.7) Albumin 2.3 g/dL (3.4-5.0) Test 10/17/20 12:51 10/17/20 14:10 10/17/20 17:58 10/17/20 19:27 Glucose (Fingerstick) 125 mg/dL (70-99) 151 mg/dL (70-99) 133 mg/dL (70-99) White Blood Count 3.9 x10^3/uL (4.0-11.0) Red Blood Count 3.57 x10^6/uL (4.30-5.70) Hemoglobin 11.5 g/dL (13.0-17.5) Hematocrit 33.4 % (39.0-53.0) Mean Corpuscular Volume 94 fL (79-100) Mean Corpuscular Hemoglobin 32 pg (25-35) Mean Corpuscular Hemoglobin Concent 34 g/dL (31-37) Red Cell Distribution Width 13.8 % (11.5-14.5) Platelet Count 57 x10^3/uL (140-400) Neutrophils (%) (Auto) 53 % (31-73) Lymphocytes (%) (Auto) 36 % (24-48) Monocytes (%) (Auto) 8 % (0-9) Eosinophils (%) (Auto) 2 % (0-3) Basophils (%) (Auto) 1 % (0-3) Neutrophils # (Auto) 2.1 x10^3/uL (1.8-7.7) Lymphocytes # (Auto) 1.4 x10^3/uL (1.0-4.8) Monocytes # (Auto) 0.3 x10^3/uL (0.0-1.1) Eosinophils # (Auto) 0.1 x10^3/uL (0.0-0.7) Basophils # (Auto) 0.0 x10^3/uL (0.0-0.2) Sodium Level 139 mmol/L (136-145) Potassium Level 3.2 mmol/L (3.5-5.1) Chloride Level 104 mmol/L (98-107) Carbon Dioxide Level 32 mmol/L (21-32) Anion Gap 3 (6-14) Blood Urea Nitrogen 20 mg/dL (8-26) Creatinine 0.6 mg/dL (0.7-1.3) Estimated GFR (Cockcroft-Gault) 137.9 Glucose Level 137 mg/dL (70-99) Calcium Level 7.9 mg/dL (8.5-10.1) Test 10/18/20 00:21 10/18/20 06:00 10/18/20 06:07 10/18/20 06:27 Glucose (Fingerstick) 137 mg/dL (70-99) 61 mg/dL (70-99) 114 mg/dL (70-99) Sodium Level 140 mmol/L (136-145) Potassium Level 3.7 mmol/L (3.5-5.1) Chloride Level 108 mmol/L (98-107) Carbon Dioxide Level 28 mmol/L (21-32) Anion Gap 4 (6-14) Blood Urea Nitrogen 16 mg/dL (8-26) Creatinine 0.4 mg/dL (0.7-1.3) Estimated GFR (Cockcroft-Gault) 220.2 Glucose Level 64 mg/dL (70-99) Calcium Level 8.1 mg/dL (8.5-10.1) Phosphorus Level 2.8 mg/dL (2.6-4.7) Magnesium Level 1.9 mg/dL (1.8-2.4) Laboratory Tests Test 10/17/20 12:51 10/17/20 14:10 10/17/20 17:58 10/17/20 19:27 Glucose (Fingerstick) 125 mg/dL (70-99) 151 mg/dL (70-99) 133 mg/dL (70-99) White Blood Count 3.9 x10^3/uL (4.0-11.0) Red Blood Count 3.57 x10^6/uL (4.30-5.70) Hemoglobin 11.5 g/dL (13.0-17.5) Hematocrit 33.4 % (39.0-53.0) Mean Corpuscular Volume 94 fL (79-100) Mean Corpuscular Hemoglobin 32 pg (25-35) Mean Corpuscular Hemoglobin Concent 34 g/dL (31-37) Red Cell Distribution Width 13.8 % (11.5-14.5) Platelet Count 57 x10^3/uL (140-400) Neutrophils (%) (Auto) 53 % (31-73) Lymphocytes (%) (Auto) 36 % (24-48) Monocytes (%) (Auto) 8 % (0-9) Eosinophils (%) (Auto) 2 % (0-3) Basophils (%) (Auto) 1 % (0-3) Neutrophils # (Auto) 2.1 x10^3/uL (1.8-7.7) Lymphocytes # (Auto) 1.4 x10^3/uL (1.0-4.8) Monocytes # (Auto) 0.3 x10^3/uL (0.0-1.1) Eosinophils # (Auto) 0.1 x10^3/uL (0.0-0.7) Basophils # (Auto) 0.0 x10^3/uL (0.0-0.2) Sodium Level 139 mmol/L (136-145) Potassium Level 3.2 mmol/L (3.5-5.1) Chloride Level 104 mmol/L (98-107) Carbon Dioxide Level 32 mmol/L (21-32) Anion Gap 3 (6-14) Blood Urea Nitrogen 20 mg/dL (8-26) Creatinine 0.6 mg/dL (0.7-1.3) Estimated GFR (Cockcroft-Gault) 137.9 Glucose Level 137 mg/dL (70-99) Calcium Level 7.9 mg/dL (8.5-10.1) Test 10/18/20 00:21 10/18/20 06:00 10/18/20 06:07 10/18/20 06:27 Glucose (Fingerstick) 137 mg/dL (70-99) 61 mg/dL (70-99) 114 mg/dL (70-99) Sodium Level 140 mmol/L (136-145) Potassium Level 3.7 mmol/L (3.5-5.1) Chloride Level 108 mmol/L (98-107) Carbon Dioxide Level 28 mmol/L (21-32) Anion Gap 4 (6-14) Blood Urea Nitrogen 16 mg/dL (8-26) Creatinine 0.4 mg/dL (0.7-1.3) Estimated GFR (Cockcroft-Gault) 220.2 Glucose Level 64 mg/dL (70-99) Calcium Level 8.1 mg/dL (8.5-10.1) Phosphorus Level 2.8 mg/dL (2.6-4.7) Magnesium Level 1.9 mg/dL (1.8-2.4) Medications Active Scripts Medications Dose Route/Sig Max Daily Dose Days Date Category Flomax (Tamsulosin Hcl) 0.4 Mg Cap.er.24h 1 Cap PO DAILY 09/26/20 Reported Semglee (Insulin Glargine,Hum.rec.anlog) 100 Unit/1 Ml Vial 20 Unit SQ QHS 09/26/20 Reported Semglee (Insulin Glargine,Hum.rec.anlog) 100 Unit/1 Ml Vial 30 Unit SQ QAM 09/26/20 Reported Novolin R (Insulin Regular, Human) 100 Unit/1 Ml Vial 100 Unit IJ SSI PRN 09/26/20 Reported Naproxen 500 Mg Tablet 1 Tab PO BID PRN 30 09/26/20 Reported Metoprolol Tartrate 25 Mg Tablet 1 Tab PO BID 09/26/20 Reported Alvesco (Ciclesonide) 6.1 Gm Hfa.aer.ad 6.1 Gm IH Q12HR 09/26/20 Reported Proair Hfa Inhaler (Albuterol Sulfate) 8.5 Gm Hfa.aer.ad 2 Puff IH PRN Q4-6HRS PRN 21 09/26/20 Reported Impression . IMPRESSION: 1. Acute hypoxemic respiratory failure secondary to COVID-19./ARDS--improved now extubated as of 10/12/20, continues to improve 2. COVID-19 viral pneumonia. 3. Possible bacterial pneumonia. 4. Other comorbidities including chronic obstructive pulmonary disease with acute exacerbation, tobacco dependent, chronic back pain and hypertension. 5. Abnormal chest x-ray with bilateral interstitial infiltrates related to COVID-19 pneumonia. 6. Status post intubation 09/29--extubated 10/12/20 Plan . Updated 10/18/20 Continue supplemental oxygen to keep oxygen saturations greater than 92%, currently off BiPAP tolerating nasal cannula at 5 L. Will use as needed BiPAP. BiPAP settings reviewed Wean Precedex drip as tolerated, Haldol as needed S/P remdesivir, has completed full course of steroids Follow ID recommendations for antibiotics Continue nutritional support with TPN Physical therapy/Occupational Therapy/speech therapy--speech evaluation re commends continued n.p.o. status DVT/GI PPX:lovenox D/W RN and RT Patient has been accepted at [facility] Updated 10/17/20 Continue supplemental oxygen to keep oxygen saturations greater than 92%, currently off BiPAP tolerating nasal cannula at 5 L. Will use as needed BiPAP. Wean Precedex drip as tolerated, Haldol as needed S/P remdesivir off steroids Follow ID recommendations for antibiotics, currently on Zosyn, started 10/11/2020 Continue nutritional support with PPN Physical therapy/Occupational Therapy/speech therapy DVT/GI PPX:lovenox D/W RN and RT Patient has been accepted at [facility] Updated 10/16/20 Continue supplemental oxygen to keep oxygen saturations greater than 92%, currently on BiPAP 40% patient was extubated 10/12/2020, continue with BiPAP as needed and Ventimask/nasal cannula as tolerated BiPAP settings reviewed: 18/ with a rate of 18 and 40% Wean Precedex drip as tolerated, Haldol as needed S/P remdesivir DC steroids Follow ID recommendations for antibiotics, currently on Zosyn, started 10/11/2020 Continue nutritional support with PPN Physical therapy/Occupational Therapy/speech therapy DVT/GI PPX:lovenox D/W RN and RT Patient has been accepted at [facility] SAROJ SQUIRES MD Oct 18, 2020 07:07
--- NOTE | 2020-10-18 08:15 | SNU/HH DC ---
DISCHARGE ORDERS DISCHARGE INFORMATION: DISCHARGE DATE: Oct 18, 2020 FINAL DIAGNOSIS Problems Medical Problems: (1) COPD exacerbation Status: Acute (2) Headache Status: Acute (3) Hypoxia Status: Acute (4) Pneumonia Status: Acute (5) Respiratory failure Status: Acute (6) Suspected 2019 novel coronavirus infection Status: Acute CONDITION ON DISCHARGE: Stable CODE STATUS: Code Status: Full LTAC: ADMIT TO LTAC: Yes POST DISCHARGE ORDERS: ACTIVITY ORDERS: Activity as tolerated WEIGHT BEARING STATUS: As tolerated DIET AFTER DISCHARGE: ADA WOUND/INCISION CARE: No wound care needed CHECKS AFTER DISCHARGE: CHECKS AFTER DISCHARGE: Check blood press - daily, Check your Temp as needed TREATMENT/EQUIPMENT ORDERS: ADAPTIVE EQUIPMENT NEEDED: Walker RESPIRATORY EQUIPMENT NEEDED: Oxygen Physical Therapy For: Evalulation/Treatment Occupational Therapy For: Evaluation/Treatment DISCHARGE MEDICATIONS: Home Meds Reported Medications Tamsulosin Hcl (FLOMAX) 0.4 Mg Cap.er.24h, 1 CAP PO DAILY for urine retention, #30 CAP 11 Refills 09/26/20 Insulin Glargine,Hum.rec.anlog (Semglee) 100 Unit/1 Ml Vial, 20 UNIT SQ QHS for dm, EACH 09/26/20 Insulin Glargine,Hum.rec.anlog (Semglee) 100 Unit/1 Ml Vial, 30 UNIT SQ QAM for bg, EACH 09/26/20 Insulin Regular, Human (NOVOLIN R) 100 Unit/1 Ml Vial, 100 UNIT IJ SSI PRN for SEE COMMENTS, EACH 09/26/20 Naproxen (NAPROXEN) 500 Mg Tablet, 1 TAB PO BID PRN for PAIN for 30 Days, #60 TAB 0 Refills 09/26/20 Metoprolol Tartrate (METOPROLOL TARTRATE) 25 Mg Tablet, 1 TAB PO BID for htn, #180 TAB 1 Refill 09/26/20 Ciclesonide (ALVESCO) 6.1 Gm Hfa.aer.ad, 6.1 GM IH Q12HR for shortness of air, INHALER 09/26/20 Albuterol Sulfate (PROAIR HFA INHALER) 8.5 Gm Hfa.aer.ad, 2 PUFF IH PRN Q4-6HRS PRN for wheezing for 21 Days, #1 INHALER 0 Refills 09/26/20 GUILLERMINA VU MD Oct 18, 2020 08:15
--- NOTE | 2020-10-18 08:25 | PDOC ---
Infectious Disease Note Subjective: Subjective Pt on BiPAP Vital Signs: Vital Signs Vital Signs Date Time Temp Pulse Resp B/P (MAP) Pulse Ox O2 Delivery O2 Flow Rate FiO2 10/18/20 06:00 54 16 126/74 (91) 98 BiPAP/CPAP 10/18/20 04:00 98.0 98.0 10/18/20 01:00 5.0 Physical Exam: PHYSICAL EXAM GENERAL: on bipap HEENT: intubated. LUNGS: dec bs HEART: S1 and S2 regular. ABDOMEN: Soft, nontender nondistended EXTREMITIES: No edema or cyanosis. SKIN: Unremarkable other than minor skin infection/small superficial abscess in the left upper extremity, which was I and D'd at some point during this hospitalization. Rest of skin exam is unremarkable. NEUROLOGIC: on bipap Medications: Inpatient Meds: Medications reviewed. Labs: Lab Laboratory Tests Test 10/17/20 12:51 10/17/20 14:10 10/17/20 17:58 10/17/20 19:27 Glucose (Fingerstick) 125 mg/dL (70-99) 151 mg/dL (70-99) 133 mg/dL (70-99) White Blood Count 3.9 x10^3/uL (4.0-11.0) Red Blood Count 3.57 x10^6/uL (4.30-5.70) Hemoglobin 11.5 g/dL (13.0-17.5) Hematocrit 33.4 % (39.0-53.0) Mean Corpuscular Volume 94 fL (79-100) Mean Corpuscular Hemoglobin 32 pg (25-35) Mean Corpuscular Hemoglobin Concent 34 g/dL (31-37) Red Cell Distribution Width 13.8 % (11.5-14.5) Platelet Count 57 x10^3/uL (140-400) Neutrophils (%) (Auto) 53 % (31-73) Lymphocytes (%) (Auto) 36 % (24-48) Monocytes (%) (Auto) 8 % (0-9) Eosinophils (%) (Auto) 2 % (0-3) Basophils (%) (Auto) 1 % (0-3) Neutrophils # (Auto) 2.1 x10^3/uL (1.8-7.7) Lymphocytes # (Auto) 1.4 x10^3/uL (1.0-4.8) Monocytes # (Auto) 0.3 x10^3/uL (0.0-1.1) Eosinophils # (Auto) 0.1 x10^3/uL (0.0-0.7) Basophils # (Auto) 0.0 x10^3/uL (0.0-0.2) Sodium Level 139 mmol/L (136-145) Potassium Level 3.2 mmol/L (3.5-5.1) Chloride Level 104 mmol/L (98-107) Carbon Dioxide Level 32 mmol/L (21-32) Anion Gap 3 (6-14) Blood Urea Nitrogen 20 mg/dL (8-26) Creatinine 0.6 mg/dL (0.7-1.3) Estimated GFR (Cockcroft-Gault) 137.9 Glucose Level 137 mg/dL (70-99) Calcium Level 7.9 mg/dL (8.5-10.1) Test 10/18/20 00:21 10/18/20 06:00 10/18/20 06:07 10/18/20 06:27 Glucose (Fingerstick) 137 mg/dL (70-99) 61 mg/dL (70-99) 114 mg/dL (70-99) Sodium Level 140 mmol/L (136-145) Potassium Level 3.7 mmol/L (3.5-5.1) Chloride Level 108 mmol/L (98-107) Carbon Dioxide Level 28 mmol/L (21-32) Anion Gap 4 (6-14) Blood Urea Nitrogen 16 mg/dL (8-26) Creatinine 0.4 mg/dL (0.7-1.3) Estimated GFR (Cockcroft-Gault) 220.2 Glucose Level 64 mg/dL (70-99) Calcium Level 8.1 mg/dL (8.5-10.1) Phosphorus Level 2.8 mg/dL (2.6-4.7) Magnesium Level 1.9 mg/dL (1.8-2.4) Objective: Assessment: 1. COVID-19 positive. 2. Hypothermia,improved 3. Acute Respiratory failure. 4. Pulmonary infiltrate. 5. Chronic obstructive pulmonary disease. 6. Diabetes. 7. Hypertension. 8. isela in [facility] Plan: Plan of Care cont supportive care s/p steroids and remdesivir change madrigal if not done already Monitor off antibiotics ROSY AGUAYO MD Oct 18, 2020 08:25
[2020-10-18] MEDS ORDERED: AMLO-187 PO (08:28)
[2020-10-18] MEDS ORDERED: [UNRECOGNIZED DRUG - CODE] IV (08:28)
[2020-10-18] MEDS ORDERED: Tpn Per Pharmacy MC (08:31)
--- NOTE | 2020-10-18 08:35 | PDOC3 ---
Discharge Summary Visit Information Date of Admission: Sep 25, 2020 Date of Discharge: Oct 18, 2020 Admitting Diagnosis: COVID Final Diagnosis Problems Medical Problems: (1) COPD exacerbation Status: Acute (2) Headache Status: Acute (3) Hypoxia Status: Acute (4) Pneumonia Status: Acute (5) Respiratory failure Status: Acute (6) Suspected 2019 novel coronavirus infection Status: Acute Brief Hospital Course Allergies Allergies Coded Allergies Type Severity Reaction Last Updated Verified tramadol Adverse Reaction Mild Nausea 09/25/20 Yes Vital Signs Vital Signs Date Time Temp Pulse Resp B/P (MAP) Pulse Ox O2 Delivery O2 Flow Rate FiO2 10/18/20 06:00 54 16 126/74 (91) 98 BiPAP/CPAP 10/18/20 04:00 98.0 98.0 10/18/20 01:00 5.0 Lab Results Laboratory Tests Test 10/16/20 10:10 10/16/20 12:03 10/16/20 18:33 10/16/20 18:42 White Blood Count 4.7 x10^3/uL (4.0-11.0) Red Blood Count 3.64 x10^6/uL (4.30-5.70) Hemoglobin 11.7 g/dL (13.0-17.5) Hematocrit 34.6 % (39.0-53.0) Mean Corpuscular Volume 95 fL (79-100) Mean Corpuscular Hemoglobin 32 pg (25-35) Mean Corpuscular Hemoglobin Concent 34 g/dL (31-37) Red Cell Distribution Width 14.3 % (11.5-14.5) Platelet Count 71 x10^3/uL (140-400) Neutrophils (%) (Auto) 57 % (31-73) Lymphocytes (%) (Auto) 33 % (24-48) Monocytes (%) (Auto) 9 % (0-9) Eosinophils (%) (Auto) 0 % (0-3) Basophils (%) (Auto) 0 % (0-3) Neutrophils # (Auto) 2.7 x10^3/uL (1.8-7.7) Lymphocytes # (Auto) 1.6 x10^3/uL (1.0-4.8) Monocytes # (Auto) 0.4 x10^3/uL (0.0-1.1) Eosinophils # (Auto) 0.0 x10^3/uL (0.0-0.7) Basophils # (Auto) 0.0 x10^3/uL (0.0-0.2) Sodium Level 147 mmol/L (136-145) Potassium Level 3.9 mmol/L (3.5-5.1) Chloride Level 111 mmol/L (98-107) Carbon Dioxide Level 30 mmol/L (21-32) Anion Gap 6 (6-14) Blood Urea Nitrogen 35 mg/dL (8-26) Creatinine 0.6 mg/dL (0.7-1.3) Estimated GFR (Cockcroft-Gault) 137.9 BUN/Creatinine Ratio 58 (6-20) Glucose Level 157 mg/dL (70-99) Calcium Level 8.1 mg/dL (8.5-10.1) Total Bilirubin 1.0 mg/dL (0.2-1.0) Aspartate Amino Transf (AST/SGOT) 43 U/L (15-37) Alanine Aminotransferase (ALT/SGPT) 37 U/L (16-63) Alkaline Phosphatase 47 U/L (46-116) Total Protein 5.6 g/dL (6.4-8.2) Albumin 1.9 g/dL (3.4-5.0) Albumin/Globulin Ratio 0.5 (1.0-1.7) Glucose (Fingerstick) 157 mg/dL (70-99) 96 mg/dL (70-99) 178 mg/dL (70-99) Test 10/16/20 21:35 10/17/20 00:30 10/17/20 05:45 10/17/20 06:00 Glucose (Fingerstick) 72 mg/dL (70-99) 78 mg/dL (70-99) 85 mg/dL (70-99) Sodium Level 141 mmol/L (136-145) Potassium Level 3.7 mmol/L (3.5-5.1) Chloride Level 107 mmol/L (98-107) Carbon Dioxide Level 30 mmol/L (21-32) Anion Gap 4 (6-14) Blood Urea Nitrogen 27 mg/dL (8-26) Creatinine 0.6 mg/dL (0.7-1.3) Estimated GFR (Cockcroft-Gault) 137.9 Glucose Level 79 mg/dL (70-99) Calcium Level 8.4 mg/dL (8.5-10.1) Phosphorus Level 3.0 mg/dL (2.6-4.7) Albumin 2.3 g/dL (3.4-5.0) Test 10/17/20 12:51 10/17/20 14:10 10/17/20 17:58 10/17/20 19:27 Glucose (Fingerstick) 125 mg/dL (70-99) 151 mg/dL (70-99) 133 mg/dL (70-99) White Blood Count 3.9 x10^3/uL (4.0-11.0) Red Blood Count 3.57 x10^6/uL (4.30-5.70) Hemoglobin 11.5 g/dL (13.0-17.5) Hematocrit 33.4 % (39.0-53.0) Mean Corpuscular Volume 94 fL (79-100) Mean Corpuscular Hemoglobin 32 pg (25-35) Mean Corpuscular Hemoglobin Concent 34 g/dL (31-37) Red Cell Distribution Width 13.8 % (11.5-14.5) Platelet Count 57 x10^3/uL (140-400) Neutrophils (%) (Auto) 53 % (31-73) Lymphocytes (%) (Auto) 36 % (24-48) Monocytes (%) (Auto) 8 % (0-9) Eosinophils (%) (Auto) 2 % (0-3) Basophils (%) (Auto) 1 % (0-3) Neutrophils # (Auto) 2.1 x10^3/uL (1.8-7.7) Lymphocytes # (Auto) 1.4 x10^3/uL (1.0-4.8) Monocytes # (Auto) 0.3 x10^3/uL (0.0-1.1) Eosinophils # (Auto) 0.1 x10^3/uL (0.0-0.7) Basophils # (Auto) 0.0 x10^3/uL (0.0-0.2) Sodium Level 139 mmol/L (136-145) Potassium Level 3.2 mmol/L (3.5-5.1) Chloride Level 104 mmol/L (98-107) Carbon Dioxide Level 32 mmol/L (21-32) Anion Gap 3 (6-14) Blood Urea Nitrogen 20 mg/dL (8-26) Creatinine 0.6 mg/dL (0.7-1.3) Estimated GFR (Cockcroft-Gault) 137.9 Glucose Level 137 mg/dL (70-99) Calcium Level 7.9 mg/dL (8.5-10.1) Test 10/18/20 00:21 10/18/20 06:00 10/18/20 06:07 10/18/20 06:27 Glucose (Fingerstick) 137 mg/dL (70-99) 61 mg/dL (70-99) 114 mg/dL (70-99) Sodium Level 140 mmol/L (136-145) Potassium Level 3.7 mmol/L (3.5-5.1) Chloride Level 108 mmol/L (98-107) Carbon Dioxide Level 28 mmol/L (21-32) Anion Gap 4 (6-14) Blood Urea Nitrogen 16 mg/dL (8-26) Creatinine 0.4 mg/dL (0.7-1.3) Estimated GFR (Cockcroft-Gault) 220.2 Glucose Level 64 mg/dL (70-99) Calcium Level 8.1 mg/dL (8.5-10.1) Phosphorus Level 2.8 mg/dL (2.6-4.7) Magnesium Level 1.9 mg/dL (1.8-2.4) Laboratory Tests Test 10/17/20 12:51 10/17/20 14:10 10/17/20 17:58 10/17/20 19:27 Glucose (Fingerstick) 125 mg/dL (70-99) 151 mg/dL (70-99) 133 mg/dL (70-99) White Blood Count 3.9 x10^3/uL (4.0-11.0) Red Blood Count 3.57 x10^6/uL (4.30-5.70) Hemoglobin 11.5 g/dL (13.0-17.5) Hematocrit 33.4 % (39.0-53.0) Mean Corpuscular Volume 94 fL (79-100) Mean Corpuscular Hemoglobin 32 pg (25-35) Mean Corpuscular Hemoglobin Concent 34 g/dL (31-37) Red Cell Distribution Width 13.8 % (11.5-14.5) Platelet Count 57 x10^3/uL (140-400) Neutrophils (%) (Auto) 53 % (31-73) Lymphocytes (%) (Auto) 36 % (24-48) Monocytes (%) (Auto) 8 % (0-9) Eosinophils (%) (Auto) 2 % (0-3) Basophils (%) (Auto) 1 % (0-3) Neutrophils # (Auto) 2.1 x10^3/uL (1.8-7.7) Lymphocytes # (Auto) 1.4 x10^3/uL (1.0-4.8) Monocytes # (Auto) 0.3 x10^3/uL (0.0-1.1) Eosinophils # (Auto) 0.1 x10^3/uL (0.0-0.7) Basophils # (Auto) 0.0 x10^3/uL (0.0-0.2) Sodium Level 139 mmol/L (136-145) Potassium Level 3.2 mmol/L (3.5-5.1) Chloride Level 104 mmol/L (98-107) Carbon Dioxide Level 32 mmol/L (21-32) Anion Gap 3 (6-14) Blood Urea Nitrogen 20 mg/dL (8-26) Creatinine 0.6 mg/dL (0.7-1.3) Estimated GFR (Cockcroft-Gault) 137.9 Glucose Level 137 mg/dL (70-99) Calcium Level 7.9 mg/dL (8.5-10.1) Test 10/18/20 00:21 10/18/20 06:00 10/18/20 06:07 10/18/20 06:27 Glucose (Fingerstick) 137 mg/dL (70-99) 61 mg/dL (70-99) 114 mg/dL (70-99) Sodium Level 140 mmol/L (136-145) Potassium Level 3.7 mmol/L (3.5-5.1) Chloride Level 108 mmol/L (98-107) Carbon Dioxide Level 28 mmol/L (21-32) Anion Gap 4 (6-14) Blood Urea Nitrogen 16 mg/dL (8-26) Creatinine 0.4 mg/dL (0.7-1.3) Estimated GFR (Cockcroft-Gault) 220.2 Glucose Level 64 mg/dL (70-99) Calcium Level 8.1 mg/dL (8.5-10.1) Phosphorus Level 2.8 mg/dL (2.6-4.7) Magnesium Level 1.9 mg/dL (1.8-2.4) Brief Hospital Course 59 year old male presented via EMS [facility] with work of breathing x2 days with low O2 Sat at facility down to 78% on RA. known history of COPD and cough. Patient also complains of headache. EMS noted patient was 84% and tripoding on 3 L nasal cannula. EMS reports giving a DuoNeb treatment x2 in route and placement nonrebreather with subsequent improvement in up to 95%. remote alcohol abuse YRS AGO , smoked until one month ago when he was arrested received the [employer] COVID-19 vaccination x1 approximately 5 months ago at the [place]. Patient denies known exposure to COVID-19. Panlobular airspace disease,c/w multifocal pneumonia. PUI Pulmonary edema less likely. 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 Remote alcohol abuse "6-8 cans of beer a day years ago" Thickened distal esop hagus with 9 x 10 mm luminal density, likely ingested medication tablet. Mediastinal adenopathy, malignancy is not excluded.suggest follow-up CT of the chest in 3 months. / Hyperglycemia on accuchecks // Severe protein-caloric malnutrition CTA CHEST C/W Panlobular airspace disease, most likely multifocal pneumonia. 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 Patient tolerating BiPAP and saturating 91%. Started patient on IV Protonix because he is still on steroids. And has a history of esophageal varices. Patient's chart, labs, images were reviewed and discussed with RN 09/27/20 Patient evaluated at bedside He was having laboring respirations initially on the BiPAP concerned patient may need ICU transfer however was given a dose of Ativan and was able to calm down and respiratory status improved Continue steroids Pulmonary consult Plan of care discussed with bedside RN 09/28/20 Patient evaluated bedside He was on BiPAP required to be increased 100% FiO2 this morning Remains on remdesivir, Decadron, Rocephin, and azithromycin Continuing supportive care Plan of care discussed with bedside nurse 09/29/20 Patient evaluated at bedside Patient remains significantly agitated and anxious despite aggressive medication measures while on BiPAP BiPAP settings increasing over the past several days and given his agitation will transfer to ICU Continuing remdesivir Decadron Rocephin and azithromycin Plan of care discussed with bedside nurse 09/30/2020: Patient transferred from out to ICU yesterday due to worsening respiratory distress. He was intubated and currently on vent with FiO2 90% and PEEP of 8. We will continue treatment with remdesivir, steroids, and empiric antibiotics. Critical care time 30 minutes spent reviewing charts, reviewing imaging, reviewing labs, discussion with RN. 10/01/2020: Afebrile. On vent with FiO2 85%, PEEP 8. Continue treatment with remdesivir, steroids, Rocephin and azithromycin. Critical care time 30 minutes spent reviewing charts, imaging, reviewing labs, discussion with RN. 10/02/2020: Afebrile, FiO2 80%, PEEP 5. Finished remdesivir. Continue antibiotics and Decadron. Will increase insulin regimen due to persistent hyperglycemia. Supportive care. Critical care time 30 minutes spent reviewing charts, labs, reviewing imaging, discussion with RN. 10/03/2020: Afebrile, on vent with FiO2 70%, PEEP 5. Still with some significant hyperglycemia. Will increase basal insulin. Finished remdesivir. Will continue antibiotics and steroids. Repeat chest x-ray today. Critical care time 30 minutes spent reviewing charts, labs, reviewing imaging, discussion with RN. 10/18/20 I saw and examined the patient at bedside; stable for transfer to LTAC, no changes from current care perspective. 10/17/2020 stable for transfer to LTAC begin tpn 10-17 Discontinue antibiotics extubated, awake on VM, NAD Slight interval decrease in lower lobe predominant multifocal infiltrate and small pleural effusions. Interval extubation. 10-13 59 year old male presented via EMS from [facility] with work of breathing x2 days with low O2 Sat at facility down to 78% on RA. known history of COPD and cough. Patient seen and examined in the [place] [address] ICU COVID POS Mediastinal adenopathy, malignancy is not excluded.suggest follow-up CT of the chest in 3 months. 2 cm blister on his left forearm Chart reviewed GLUCOSE UNCONTROLLED., INC LANTUS TO 20 UNITS SQ BID 10-17 Discussed with RN Finished course of antibiotics, remdesivir and steroids, Continue nutrional support tpn 10-17 BLOOD CULTURE Final NO GROWTH AFTER 5 DAYS 34 min cc time 10/16/2020 stable for transfer to LTAC today cont antibiotics extubated, awake on VM, NAD Slight interval decrease in lower lobe predominant multifocal infiltrate and small pleural effusions. Interval extubation. 10-13 59 year old male presented via EMS from [facility] with work of breathing x2 days with low O2 Sat at facility down to 78% on RA. known history of COPD and cough. Patient seen and examined in the [place] [address] ICU COVID POS Mediastinal adenopathy, malignancy is not excluded.suggest follow-up CT of the chest in 3 months. 2 cm blister on his left forearm Chart reviewed GLUCOSE UNCONTROLLED., INC LANTUS TO 21 UNITS SQ BID 10-14 Discussed with RN Finished course of antibiotics, remdesivir and steroids, start iv zosyn 10-11 Continue nutrional support HYPOTHERMIC , ID CONSULT, BLOOD CULTURE 32 min cc time 10/15/2020 stable for transfer to LTAC today cont antibiotics extubated, awake on VM, NAD Slight interval decrease in lower lobe predominant multifocal infiltrate and small pleural effusions. Interval extubation. 10-13 59 year old male presented via EMS from [facility] with work of breathing x2 days with low O2 Sat at facility down to 78% on RA. known history of COPD and cough. Patient seen and examined in the [place] [address] ICU COVID POS Mediastinal adenopathy, malignancy is not excluded.suggest follow-up CT of the chest in 3 months. 2 cm blister on his left forearm Chart reviewed GLUCOSE UNCONTROLLED., INC LANTUS TO 21 UNITS SQ BID 10-14 Discussed with RN Finished course of antibiotics, remdesivir and steroids, start iv zosyn 10-11 Continue nutrional support HYPOTHERMIC , ID CONSULT, BLOOD CULTURE 33 min cc time 10/14/2020 cont antibiotics extubated, awake on VM, NAD Slight interval decrease in lower lobe predominant multifocal infiltrate and small pleural effusions. Interval extubation. 10-13 59 year old male presented via EMS from [facility] with work of breathing x2 days with low O2 Sat at facility down to 78% on RA. known history of COPD and cough. Patient seen and examined in the [place] [address] ICU COVID POS Mediastinal adenopathy, malignancy is not excluded.suggest follow-up CT of the chest in 3 months. 2 cm blister on his left forearm Chart reviewed GLUCOSE UNCONTROLLED., INC LANTUS TO 21 UNITS SQ BID 10-14 Discussed with RN Finished course of antibiotics, remdesivir and steroids, start iv zosyn 10-11 Continue nutrional support HYPOTHERMIC , ID CONSULT, BLOOD CULTURE 33 min cc time 10/13/2020 extubated, awake on VM 59 year old male presented via EMS from [facility] with work of breathing x2 days with low O2 Sat at facility down to 78% on RA. known history of COPD and cough. Patient seen and examined in the [place] [address] ICU Mediastinal adenopathy, malignancy is not excluded.suggest follow-up CT of the chest in 3 months. He has a 2 cm blister on his left forearm Chart reviewed Discussed with RN Finished course of antibiotics, remdesivir and steroids, start iv zosyn 10-11 Continue nutrional support HYPOTHERMIC , ID CONSULT, BLOOD CULTURE 34 min cc time 10/12/2020 59 year old male presented via EMS from [facility] with work of breathing x2 days with low O2 Sat at facility down to 78% on RA. known history of COPD and cough. Patient seen and examined in the [place] [address] ICU He remains mechanically ventilated Mediastinal adenopathy, malignancy is not excluded.suggest follow-up CT of the chest in 3 months. AC/18/500/50 percent with 5 of PEEP We might do a weaning trial later today He has a 2 cm blister on his left forearm We aspirated it was mostly clear OG running at 60 cc/h Sedated with Dex Chart reviewed Discussed with RN Finished course of antibiotics, remdesivir and steroids, start iv zosyn 8 Continue nutrional support HYPOTHERMIC , ID CONSULT, BLOOD CULTURE 32 min cc time 10/11/2020 59 year old male presented via EMS from [facility] with work of breathing x2 days with low O2 Sat at facility down to 78% on RA. known history of COPD and cough. Patient seen and examined in the [place] [address] ICU He remains mechanically ventilated Mediastinal adenopathy, malignancy is not excluded.suggest follow-up CT of the chest in 3 months. AC/18/500/50 percent with 5 of PEEP We might do a weaning trial later today He has a 2 cm blister on his left forearm We aspirated it was mostly clear OG running at 60 cc/h Sedated with Dex Chart reviewed Discussed with RN Finished course of antibiotics, remdesivir and steroids Continue nutrional support HYPOTHERMIC , ID CONSULT, BLOOD CULTURE 36 min cc time 10/10/2020 Patient seen and examined in the [place] [address] ICU He remains mechanically ventilated AC/18/500/50 percent with 5 of PEEP We might do a weaning trial later today He has a 2 cm blister on his left forearm We aspirated it was mostly clear OG running at 60 cc/h Sedated with Dex Chart reviewed Discussed with RN 10/09/2020 Patient seen and examined in the [place] [address] ICU He is on the vent AC/18/500/50 percent with 5 of PEEP 2 corrections officers are present Patient is shackled left arm and left leg Has IV albumin hanging Sedated with fentanyl and Versed Chart reviewed Discussed with RN Has OG feeds running 10/08/2020 Patient seen and examined in the [place] [address] ICU He is still intubated AC/18/500/50 percent with 5 of PEEP We are possibly going to trial him today Has OG feeds running at 60 cc an hour Has SCDs on Olsen to bedside drainage Corrections officers are present Patient is shackled Sedated with fentanyl and Versed Discussed with RN Chart reviewed 10/07/2020 Patient seen and examined in the [place] [address] ICU He remains on the ventilator Assist-control/18/500/50 percent with 7 of PEEP Sedated with Versed and fentanyl Shackled to the bed with 2 corrections officers present Chart reviewed Discussed with RN He is critically ill 10/06/2020 Patient seen and examined in the [place] [address] ICU He has corrections officers present He is shackled on his left ankle Still remains on the vent AC/18/500/50 5% with 7 of PEEP Sedated with Versed and fentanyl Chart reviewed Discussed with RN He remains very critically ill 10/05/2020 Patient seen and examined in the [place] [address] ICU He is still intubated AC/20/500/60 5% with 7 of PEEP Discussed with RN Patient with OG feeds running Mitts for patient safety Has Olsen to bedside drainage 2 corrections officers are present Patient is shackled Sedated with fentanyl and Versed He remains very critically ill 10/04/2020 Patient seen and examined in the [place] [address] ICU He remains intubated Shackled AC//500/60 5% with 8 of PEEP He has OG feeds running Has mitts on for patient safety Has SCDs in place Olsen to bedside drainage He is sedated with fentanyl and Versed Discussed with RN His glucose is running a little high we are adding in scheduled NovoLog 10 units 3 times daily and continue the sliding scale and Lantus 20 a day Chart reviewed He remains very critically ill Corrections officers are present Discharge Information Condition at Discharge: Improved Follow Up: Weeks Disposition/Orders: D/C to Another Facility Scheduled [facility] ([place]) 6.1 Gm Hfa.aer.ad, 6.1 GM IH Q12HR for shortness of air, (Reported) Entered as Reported by: BAYRON FLEMING on 09/26/20746 Last Action: Converted on 09/27/201054 by GUILLERMINA VU MD Insulin Glargine,Hum.rec.anlog (Semglee) 100 Unit/1 Ml Vial, 30 UNIT SQ QAM for bg, (Reported) Entered as Reported by: BAYRON FLEMING on 09/26/20746 Last Action: HELD on 09/27/201054 by GUILLERMINA VU MD Insulin Glargine,Hum.rec.anlog (Semglee) 100 Unit/1 Ml Vial, 20 UNIT SQ QHS for dm, (Reported) Entered as Reported by: BAYRON FLEMING on 09/26/20746 Last Action: HELD on 09/27/201054 by GUILLERMINA VU MD Metoprolol Tartrate (Metoprolol Tartrate) 25 Mg Tablet, 1 TAB PO BID for htn, #180 Ref 1 (Reported) Entered as Reported by: BAYRON FLEMING on 09/26/20746 Last Action: Continued on 09/27/201054 by GUILLERMINA VU MD Tamsulosin Hcl (Flomax) 0.4 Mg Cap.er.24h, 1 CAP PO DAILY for urine retention, #30 Ref 11 (Reported) Entered as Reported by: BAYRON FLEMING on 09/26/20746 Last Action: Continued on 09/27/201054 by GUILLERMINA VU MD Scheduled PRN Albuterol Sulfate (Proair Hfa Inhaler) 8.5 Gm Hfa.aer.ad, 2 PUFF IH PRN Q4-6HRS PRN for wheezing for 21 Days, #1 Ref 0 (Reported) Entered as Reported by: BAYRON FLEMING on 09/26/20746 Last Action: HELD on 09/27/201054 by GUILLERMINA VU MD Insulin Regular, Human (Novolin R) 100 Unit/1 Ml Vial, 100 UNIT IJ SSI PRN for SEE COMMENTS, (Reported) Entered as Reported by: BAYRON FLEMING on 09/26/20746 Last Action: HELD on 09/27/201054 by GUILLERMINA VU MD Naproxen (Naproxen) 500 Mg Tablet, 1 TAB PO BID PRN for PAIN for 30 Days, #60 Ref 0 (Reported) Entered as Reported by: BAYRON FLEMING on 09/26/20746 Last Action: HELD on 09/27/201054 by GUILLERMINA VU MD Justicifation of Admission Dx: Justifications for Admission: Justification of Admission Dx: Yes Comminuty Aquired Pneumonia: Hypoxemia GUILLERMINA VU MD Oct 18, 2020 08:35
[2020-10-18] MEDS: FLUTICASONE/VILANTEROL 100/25 INHALER. INH SCH (09:00)
[2020-10-18] MEDS: FLUTICASONE 50MCG/NASAL SPRAY 16GM BOTTLE. NS SCH (09:00)
[2020-10-18] MEDS: TAMSULOSIN 0.4 MG CAP.ER.24H. PO SCH (09:00)
[2020-10-18] MEDS: METOPROLOL TART IMMED RELEASE 25 MG TABLET. PO SCH (09:00)
[2020-10-18] MEDS: PANTOPRAZOLE IV PUSH 40 MG VIAL. IVP SCH (10:07)
[2020-10-18] MEDS: FUROSEMIDE 40 MG/4 ML VIAL. IVP SCH (10:07)
[2020-10-18] MEDS: INSULIN GLARGINE SYRINGE. SQ SCH (10:08)
[2020-10-18] MEDS: HALOPERIDOL LACTATE 5 MG/ML VIAL. IVP PRN (10:08)
--- NOTE | 2020-10-18 14:55 | NUR ---
Amb here to transport to select/ brief report. Change to 5 LNC during transport. Condition stable for step down current place. Bath items/insulin/NPO status sheet, and clothing double bagged and transported w patient. IV meds dc'd-ports locked for transport
== END 2020-10-18 14:30 | DRG 207 ==
LOC: ER 06:37 → EEVIPCON 06:37 → ED HOLD 10:35 → 6 SOUTH 15:20 → 1 WEST ICU 09-29 10:21
PROVIDERS: ADMIT Family Medicine; ATTEND Family Medicine
PROC: 0BH17EZ Insertion of Endotracheal Airway into Trachea, Via Natural or Artificial Opening (ICD-10-PCS; 2020-09-25)
PROC: 5A09457 Assistance with Respiratory Ventilation, 24-96 Consecutive Hours, Continuous Positive Airway Pressure (ICD-10-PCS; 2020-09-25)
PROC: XW033E5 Introduction of Remdesivir Anti-infective into Peripheral Vein, Percutaneous Approach, New Technology Group 5 (ICD-10-PCS; 2020-09-28)
PROC: 02H633Z Insertion of Infusion Device into Right Atrium, Percutaneous Approach (ICD-10-PCS; 2020-09-28)
PROC: 5A1955Z Respiratory Ventilation, Greater than 96 Consecutive Hours (ICD-10-PCS; principal; 2020-09-29)
PROC: 5A09457 Assistance with Respiratory Ventilation, 24-96 Consecutive Hours, Continuous Positive Airway Pressure (ICD-10-PCS; 2020-10-12)
PROC: 5A0935A Assistance with Respiratory Ventilation, Less than 24 Consecutive Hours, High Flow/Velocity Cannula (ICD-10-PCS; 2020-10-15)
PROC: 5A09357 Assistance with Respiratory Ventilation, Less than 24 Consecutive Hours, Continuous Positive Airway Pressure (ICD-10-PCS; 2020-10-16)
PROC: 5A09357 Assistance with Respiratory Ventilation, Less than 24 Consecutive Hours, Continuous Positive Airway Pressure (ICD-10-PCS; 2020-10-17)
PROC: 5A09357 Assistance with Respiratory Ventilation, Less than 24 Consecutive Hours, Continuous Positive Airway Pressure (ICD-10-PCS; 2020-10-18)
DX: U07.1 COVID-19 (principal); J96.01 Acute respiratory failure with hypoxia; E43 Unspecified severe protein-calorie malnutrition; J15.6 Pneumonia due to other Gram-negative bacteria; J12.82 Pneumonia due to coronavirus disease 2019; J44.1 Chronic obstructive pulmonary disease with (acute) exacerbation; G93.40 Encephalopathy, unspecified; J44.0 Chronic obstructive pulmonary disease with (acute) lower respiratory infection; J98.11 Atelectasis; R18.8 Other ascites; D72.810 Lymphocytopenia; E11.649 Type 2 diabetes mellitus with hypoglycemia without coma; E11.65 Type 2 diabetes mellitus with hyperglycemia; E83.42 Hypomagnesemia; G89.29 Other chronic pain; I10 Essential (primary) hypertension; I25.10 Atherosclerotic heart disease of native coronary artery without angina pectoris; I86.8 Varicose veins of other specified sites; K22.9 Disease of esophagus, unspecified; K74.60 Unspecified cirrhosis of liver; N40.0 Benign prostatic hyperplasia without lower urinary tract symptoms; Z79.4 Long term (current) use of insulin; Z82.49 Family history of ischemic heart disease and other diseases of the circulatory system; Z87.891 Personal history of nicotine dependence; Z90.49 Acquired absence of other specified parts of digestive tract; M19.90 Unspecified osteoarthritis, unspecified site; Z88.8 Allergy status to other drugs, medicaments and biological substances
CPT/HCPCS: 36415; 36569; 36600; 70450; 71045; 71275; 74018; 76700; 76705; 80048; 80053; 80069; 81001; 82553; 82805; 82962; 83036; 83605; 83735; 83880; 84100; 84484; 85025; 85027; 86140; 87040; 87086; 87106; 87426; 93005; 94002; 94003; 94640; 94660; 96361; 96374; 96375; C9113; J0330; J0360; J0456; J0610; J0696; J1100; J1630; J1650; J1815; J1885; J1940; J2060; J2250; J2270; J2405; J2543; J2704; J2765; J2920; J2930; J3010; J3475; J3480; J3486; J3490; J7030; J7050; J7060; P9046; Q9967; U0003; U0005; 92610-GN; 97530-GP; 99291-25; G0378